=== PATIENT | female | born 1950 | race Caucasian/White ===

== ENCOUNTER → 2016-08-20 | Outpatient (CLI) | payer BC ==
[~2016-08-20] MED LIST: AMLO-114 PO; ASPCH81 PO; CALCIUM CITRATE PO; CHOLTAB3 PO; CLC150 PO; DYZ PO; EVENING PRIMROSE OIL PO; GLC5 PO; GLC500 PO; GLCS500 PO; GRAPE SEED OIL PO; LCTX PO; LEVO50TA60 PO; LISI-725 PO; MAGN400T6 PO; MILK THISTLE PO; MULT-506 PO; SIMV20TA2 PO; SITA100T3 PO
[2016-08-20 12:36] LABS: THYROID STIMULATING HORMONE 2.04 uIu/ml (0.300-4.500)
[2016-08-20 12:56] LABS: ESTIMATED AVERAGE GLUCOSE 128 mg/dl; HA1C FLAG Normal (Normal)
--- NOTE | 2016-08-25 13:10 | CODING QUERY MEDICAL NECESSITY ---
SUPPORTING DIAGNOSIS NEEDED A supporting diagnosis is required for the test/procedure performed on this patient in order for us to be reimbursed by the patient's insurance. Please provide a supporting diagnosis for the following test/procedure listed below next to the test name along with your signature. *If there is no additional diagnosis for this patient that would support the following test/procedure please document that below next to the test/procedure. Test(s)/Procedure(s) that require a supporting diagnosis: DOS 08/20 * Hba1c DIAGNOSIS: Provider Signature: Date: Thank you [facility] Once completed, please kindly fax back to [phone] For questions please call [phone]
== END | disposition home or self-care (01) ==
LOC: C.LABPVFM 09:05
PROVIDERS: ATTEND Internal Medicine Endocrinology, Diabetes & Metabolism
DX: E03.9 Hypothyroidism, unspecified (principal); E11.9 Type 2 diabetes mellitus without complications

== ENCOUNTER → 2016-09-18 | Outpatient (CLI) | payer BC ==
[2016-09-18 12:52] LABS: BLOOD UREA NITROGEN 15 mg/dl (7-18); BUN/CREATININE RATIO 16.5 (10-20); CARBON DIOXIDE 30 mmol/L (21-32); CHLORIDE 108 mmol/L (98-107); CHOLESTEROL 194 mg/dl (0-200); CREATININE 0.89 mg/dl (0.60-1.20); GLUCOSE 112 mg/dl (70-99); POTASSIUM 3.6 mmol/L (3.5-5.1); SODIUM 145 mmol/L (136-145)
[2016-09-18 12:56] LABS: CHOLESTEROL/HDL RATIO 3.9; HDL CHOLESTEROL 50 mg/dl; LDL CHOLESTEROL CALCULATED 114 mg/dl; TRIGLYCERIDES 152 mg/dl (0-150); VERY LOW DENSITY LIPOPROT CALC 30 mg/dl
[2016-09-18 13:03] LABS: CALCIUM 9.2 mg/dl (8.5-10.1)
== END | disposition home or self-care (01) ==
LOC: C.LAB1850 10:44
PROVIDERS: ATTEND Nurse Practitioner
DX: E11.9 Type 2 diabetes mellitus without complications (principal); I10 Essential (primary) hypertension; E78.1 Pure hyperglyceridemia; E55.9 Vitamin D deficiency, unspecified

== ENCOUNTER → 2017-04-19 | Outpatient (CLI) | payer BC ==
--- NOTE | 2017-04-19 13:08 | DIAGNOSTIC IMAGING REPORT ---
RIGHT TIBIA AND FIBULA 2 VIEWS CLINICAL HISTORY: Cellulitis. FINDINGS: AP and lateral views of the right tibia and fibula are obtained. No prior studies are available for comparison at the time of dictation. The skeletal structures are osteopenic. No acute fracture is seen. Mild cortical irregularity of the distal fibular shaft may be related to remote trauma. Arthritic change is present in the knee and ankle joints. No periostitis or bony erosion is seen. A dorsal calcaneal enthesophyte is observed. Mild soft tissue edema is present throughout the right calf. Atherosclerotic calcification is observed in the regional arteries. IMPRESSION: 1. Diffuse soft tissue swelling with no acute bony abnormality identified involving the right tibia or fibula. 2. Osteopenia and degenerative change as above. Electronically signed by: Mateo Davis M.D. 04/19/2017 1:07 PM Dictated Date/Time: 04/19/2017 1:05 PM
== END | disposition home or self-care (01) ==
LOC: C.RADPV 10:31
PROVIDERS: ATTEND Family Medicine
DX: M85.861 Other specified disorders of bone density and structure, right lower leg (principal); M85.862 Other specified disorders of bone density and structure, left lower leg; M17.11 Unilateral primary osteoarthritis, right knee; M19.071 Primary osteoarthritis, right ankle and foot; L03.90 Cellulitis, unspecified

== ENCOUNTER 2019-12-02 14:04 | Inpatient (IN) ==
[2019-12-02] MEDS ORDERED: MAGNESIUM SULFATE / D5W 1 GM/100 ML BAG IV STA (14:26)
[2019-12-02] MEDS ORDERED: ACETAMINOPHEN 1,000 MG/100 ML VIAL IV STA (14:26)
--- NOTE | 2019-12-02 14:42 | Electrocardiogram Report ---
Test Reason : Blood Pressure : / mmHG Vent. Rate : 056 BPM Atrial Rate : 056 BPM P-R Int : 180 ms QRS Dur : 154 ms QT Int : 480 ms P-R-T Axes : 059 025 015 degrees QTc Int : 463 ms Sinus bradycardia Right bundle branch block with repolarization abnormality Abnormal ECG When compared with ECG of 20-APR-2019 17:49, Criteria for Inferior infarct are no longer Present QT has shortened Confirmed by Levi Jenkins ([id number]) on 12/02/2019 2:41:45 PM Referred By: Confirmed By:Levi Jenkins
[2019-12-02] MEDS ORDERED: cefTRIAXone SODIUM 2,000 MG/70 ML BAG IV STA (14:43)
[2019-12-02] MEDS ORDERED: DOXYCYCLINE HYCLATE 100 MG CAP PO STA (14:43)
--- NOTE | 2019-12-02 14:46 | Emergency Department Note ---
History of Present Illness General Chief complaint: Back Injury/Pain Stated complaint: hip & back pain Time Seen by Provider: 12/02/19 14:15 Source: patient, EMS, RN notes reviewed and old records reviewed Mode of arrival: EMS Limitations: no limitations History of Present Illness Provider complaint: Left hip pain Onset (ago): day(s) 2 Location: hip, lower extremity and left Radiation: back Severity: severe Pain Consistency: + intermittent Current Pain Intensity: 0 Quality: + aching Relieved By: + immobilization Exacerbated By: + movement Associated symptoms: + other (double vision, rash) Treatments prior to arrival: none This is a 69-year-old female who presents emergency department complaining of double vision as well as left hip pain that has been ongoing for the past 2 days. The patient reports she had been working out in her garden when she developed hip pain that has progressively gotten worse. She reports the hip pain is so severe she can no longer walk on the hip or sit up on the left hip. In addition to this she has double vision. She also has a rash present to the left hip area at the left inguinal groin. She reports she does have a history of Lyme disease. She describes the hip pain as burning. She reports sitting or walking makes the hip pain worse however reclining makes the hip pain better. She reports she has been walking on all fours to get around her house for at least 2 days. Home Medications Home Medications Medication Instructions Recorded Confirmed Type multivitamin 1 tab PO BID #0 05/21/10 12/02/19 History Hyaluronic Acid (chond-collgn) 1 cap PO BID #0 01/27/18 12/02/19 History [place] Oil 1,000 mg PO HS #0 01/27/18 12/02/19 History ascorbic acid (vitamin C) [Vitamin 1,000 mg PO QAM #0 01/27/18 12/02/19 History C With Lucia Hips] aspirin 81 mg PO HS #0 01/27/18 12/02/19 History bilberry fruit extract 80 mg PO QAM #0 01/27/18 12/02/19 History cholecalciferol (vitamin D3) 1,000 inter.unit PO HS PRN #0 01/27/18 12/02/19 History [Vitamin D3] coenzyme Q10 [Co Q-10] 200 mg PO HS #0 01/27/18 12/02/19 History omega-3 fatty acids-fish oil [Fish 1 cap PO TID #0 01/27/18 12/02/19 History Oil] milk thistle 250 mg PO BID 01/28/18 12/02/19 History fenofibrate nanocrystallized 48 mg PO HS 04/20/19 12/02/19 History [Tricor] fenofibrate nanocrystallized 96 mg PO QAM 04/20/19 12/02/19 History [Tricor] metformin [Glucophage] 500 mg PO BID 04/20/19 12/02/19 History amlodipine 10 mg-benazepril 20 mg 1 cap PO HS #90 cap 08/15/19 12/02/19 Rx capsule levothyroxine 88 mcg tablet 88 mcg PO DAILY #90 tab 08/31/19 12/02/19 Rx triamterene 37.5 1 tab PO DAILY #90 tab 09/26/19 12/02/19 Rx mg-hydrochlorothiazide 25 mg tablet Lantus Solostar U-100 Insulin 100 27 units SC HS #30 ml NS 10/19/19 12/02/19 Rx unit/mL (3 mL) subcutaneous pen insulin aspart U-100 [Novolog 4 unit SC DIRECTED 12/02/19 12/02/19 History Flexpen U-100 Insulin] Allergies Allergy/AdvReac Type Severity Reaction Status Date / Time bee venom protein (honey bee) Allergy Severe Anaphylaxis Verified 12/02/19 16:23 latex Allergy Mild REDNESS, Verified 12/02/19 16:23 HURTS monosodium glutamate AdvReac Mild restless Verified 12/02/19 22:51 leg syndrome Past Med/Surg History Medical History Cervical radiculopathy Tubular adenoma Surgical History H/O umbilical hernia repair 05/22/2010 History of cataract surgery 4 mg of versed for prior cataract without apparent complications History of cholecystectomy 05/22/2010 History of colonoscopy History of esophagogastroduodenoscopy (EGD) History of tonsillectomy Family History Father Family history of diabetes mellitus Diabetes Hypertension Sister Cancer Grandfather No problems noted. 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 Other Information That Helps Us Care for You: No Feels Safe at Home: Yes Safety Concerns: Feels Safe At This Time Smoking Status: Never smoker Do You Dip or Chew Tobacco: No ; Second Hand Exposure: No ; Tobacco Cessation Education Requested by Patient: No Hx Alcohol Use: Yes (occassional) Alcohol type: wine Alcohol Intake Frequency: Weekly Hx Substance Use: No Dental Care, Regularly: Yes Physical Activity Frequency: Does not Exercise Review of Systems A total of 10 systems reviewed and were otherwise negative Physical Exam Vital Signs Vital Signs - 24 hr 12/02/19 16:40 12/02/19 16:50 12/02/19 18:08 Pulse Rate 60 59 L 59 L Pulse Rate from SpO2 Sensor 60 59 L Respiratory Rate 19 21 13 Blood Pressure Blood Pressure Mean Pulse Oximetry 90 91 Oxygen Delivery Method Room Air Room Air Room Air 12/02/19 18:10 12/02/19 18:20 12/02/19 18:30 Pulse Rate 61 57 L 60 Pulse Rate from SpO2 Sensor 56 L 60 Respiratory Rate 17 15 18 Blood Pressure Blood Pressure Mean Pulse Oximetry 90 97 Oxygen Delivery Method Room Air Room Air Room Air 12/02/19 18:32 12/02/19 18:40 12/02/19 20:00 Pulse Rate 81 55 L 53 L Pulse Rate from SpO2 Sensor 60 55 L Respiratory Rate 29 H 22 16 Blood Pressure 133/62 Blood Pressure Mean 110 85 Pulse Oximetry 96 91 92 Oxygen Delivery Method Room Air Room Air Room Air VITAL SIGNS - Vital signs and nursing notes were reviewed. GENERAL - 69-year-old female appearing stated age who is in no acute distress. Communicates well with provider and answers questions appropriately. SKIN - Approximate 2" x2" nonblanching rash to left groin area HEAD - NC/AT. EYES - PERRL with EOMI bilaterally. Sclera anicteric. Palpebral conjunctiva pink and moist with no injection noted. EARS - No deformities of external structures noted on gross examination bilaterally. No pain elicited with palpation of the tragus bilaterally. External auditory canals without discharge or otorrhea. Tympanic membranes pearly العلي without retraction or bulging. No fluid or purulent material visualized behind the TM. Handle of malleus, umbo, cone of light, pars tensa/flaccid all easily visualized. NOSE - Midline and without cyanosis. No epistaxis or purulent drainage noted. Septum midline without deviation or septal hematoma noted. MOUTH/OROPHARYNX - Without perioral cyanosis. Buccal mucosa pink and moist and without leukoplakia. Tongue midline with equal elevation of palate bilaterally. No tonsillar hypertrophy, erythema, or exudates noted. [] dentition noted. NECK - Neck with FROM. Supple to palpation. [] lymphadenopathy noted. No nuchal rigidity. LUNGS - Chest wall symmetric without accessory muscle use, intercostals retractions, or central cyanosis. Normal vesicular breath sounds CTA B/L. No wheezes, rales, or rhonchi appreciated. CARDIAC - RRR with S1/S2. No murmur, rubs, or gallops appreciated. ABDOMEN - Abdominal contour [] without pulsations or visible masses. BS normoactive all four quadrants. No tenderness, palpable masses, hepatosplenomegaly, or ascites noted. EXTREMITIES - No clubbing or peripheral cyanosis. No pretibial edema present. +3/5 radial, posterior tibial, and dorsalis pedis pulses palpated throughout. +5/5 strength noted in UE/LE bilaterally. NEUROLOGIC - Cranial nerves II through XII grossly intact. Sensory intact to light touch throughout. Patellar reflexes +2/4. PSYCH - A&Ox3 and cooperates fully with examiner. Pt is very pleasant and interacts well with examiner. Procedures Lumbar Puncture Time Out Performed: Yes Patient Position: upright Skin Prep: Povidone-Iodine 1% Local Anesthetic: lidocaine 1% Amount of anesthesia used (mL): 5 Spinal Needle Gauge: 20G Interspace Used: L4-L5 Complications: unable to obtain CSF Course Administered Medications Acetaminophen (Tylenol) 650 mg PO Q4H PRN PRN Reason: Pain or Fever Stop: 01/01/20 22:29 Last Admin: 12/03/19 03:09 Dose: 650 mg Documented by: [id number] Ascorbic Acid (Vitamin C) 1,000 mg PO QAM [facility] Stop: 01/02/20 08:59 Last Admin: 12/03/19 08:28 Dose: 1,000 mg Documented by: [id number] Aspirin (Ecotrin Ectab) 81 mg PO HS [facility] Stop: 01/01/20 22:29 Last Admin: 12/02/19 23:37 Dose: 81 mg Documented by: [id number] Fenofibrate (Fenofibrate) 96 mg PO QAM [facility] Stop: 01/02/20 08:59 Last Admin: 12/03/19 08:28 Dose: 96 mg Documented by: [id number] Fenofibrate (Fenofibrate) 48 mg PO HS [facility] Stop: 01/01/20 22:29 Last Admin: 12/02/19 23:37 Dose: 48 mg Documented by: [id number] Heparin Sodium (Porcine) (Heparin Sodium (Porcine)) 5,000 units SQ Q12 [facility] Stop: 01/01/20 22:29 Last Admin: 12/03/19 08:27 Dose: 5,000 units Documented by: [id number] Cosigned by: [id number] Admin: 12/02/19 23:37 Dose: 5,000 units Documented by: [id number] Cosigned by: [id number] Vancomycin HCl 1,000 mg/ (Sodium Chloride) 270 mls @ 125 mls/hr IV Q12H [facility]; Protocol Stop: 12/10/19 09:59 Last Infusion: 12/03/19 12:12 Dose: 0 mls/hr Documented by: [id number] Admin: 12/03/19 10:02 Dose: 125 mls/hr Documented by: [id number] Doxycycline Hyclate 100 mg/ (Dextrose) 110 mls @ 50 mls/hr IV Q12H [facility] Stop: 12/10/19 05:59 Last Infusion: 12/03/19 08:10 Dose: 0 mls/hr Documented by: [id number] Admin: 12/03/19 05:53 Dose: 50 mls/hr Documented by: [id number] Acyclovir Sodium 600 mg/ (Dextrose) 112 mls @ 100 mls/hr IV Q8 [facility] Stop: 12/09/19 22:29 Last Infusion: 12/03/19 14:58 Dose: 0 mls/hr Documented by: [id number] Admin: 12/03/19 13:49 Dose: 100 mls/hr Documented by: [id number] Infusion: 12/03/19 07:06 Dose: 0 mls/hr Documented by: [id number] Admin: 12/03/19 05:52 Dose: 100 mls/hr Documented by: [id number] Infusion: 12/03/19 00:49 Dose: 0 mls/hr Documented by: [id number] Admin: 12/02/19 23:38 Dose: 100 mls/hr Documented by: [id number] Potassium Chloride/Sodium Chloride (Normal Saline W/20 Meq Kcl) 20 meq in 1,000 mls @ 80 mls/hr IV .[id number] [facility]HSA Stop: 01/01/20 22:44 Last Infusion: 12/03/19 15:34 Dose: 0 mls/hr Documented by: [id number] Admin: 12/03/19 12:04 Dose: 80 mls/hr Documented by: [id number] Infusion: 12/03/19 12:04 Dose: 80 mls/hr Documented by: [id number] Infusion: 12/03/19 00:00 Dose: 80 mls/hr Documented by: [id number] Infusion: 12/02/19 23:39 Dose: 0 mls/hr Documented by: [id number] Admin: 12/02/19 23:38 Dose: 80 mls/hr Documented by: [id number] Insulin Aspart (Novolog Flexpen) 0 units SC ACHS [facility] Stop: 01/01/20 22:29 Last Admin: 12/03/19 12:04 Dose: 7 units Documented by: [id number] Cosigned by: [id number] Admin: 12/03/19 08:27 Dose: 7 units Documented by: [id number] Cosigned by: [id number] Admin: 12/02/19 23:36 Dose: Not Given Documented by: [id number] Insulin Glargine (Lantus Solostar Pen) 15 units SC HS [facility] Stop: 01/01/20 22:29 Last Admin: 12/03/19 00:37 Dose: Not Given Documented by: [id number] Ioversol (Optiray 320 125ml) 119 ml IV ONCE PRN PRN Reason: Interaction Checking Stop: 12/06/19 15:00 Last Admin: 12/02/19 15:02 Dose: 119 ml Documented by: [id number] Ioversol (Optiray 320 100ml) 91 ml IV ONCE PRN PRN Reason: Interaction Checking Stop: 12/07/19 14:45 Last Admin: 12/03/19 14:47 Dose: 91 ml Documented by: [id number] Levothyroxine Sodium (Synthroid) 88 mcg PO DAILYBB [facility]SA Stop: 01/02/20 06:29 Last Admin: 12/03/19 05:54 Dose: 88 mcg Documented by: [id number] Discontinued Medications Doxycycline Hyclate (Vibramycin) 100 mg PO NOW STA Stop: 12/02/19 14:44 Last Admin: 12/02/19 15:45 Dose: 100 mg Documented by: [id number] Hydromorphone HCl (Dilaudid) Confirm Administered Dose 0.5 mg .ROUTE .STK-MED ONE Stop: 12/02/19 19:38 Last Admin: 12/02/19 19:41 Dose: 0.5 mg Documented by: [id number] Magnesium Sulfate/Dextrose (Magnesium Sulfate / D5w) 1 gm in 100 mls @ 100 mls/hr IV NOW STA Stop: 12/02/19 15:25 Last Infusion: 12/02/19 16:50 Dose: 0 mls/hr Documented by: [id number] Admin: 12/02/19 15:40 Dose: 100 mls/hr Documented by: [id number] Acetaminophen (Ofirmev) 1,000 mg in 100 mls @ 400 mls/hr IV NOW STA Stop: 12/02/19 14:40 Last Infusion: 12/02/19 15:57 Dose: 0 mls/hr Documented by: [id number] Admin: 12/02/19 15:42 Dose: 400 mls/hr Documented by: [id number] Ceftriaxone Sodium (Rocephin) 2,000 mg in 70 mls @ 140 mls/hr IV NOW STA Stop: 12/02/19 15:12 Last Infusion: 12/02/19 16:24 Dose: 0 mls/hr Documented by: [id number] Admin: 12/02/19 15:51 Dose: 140 mls/hr Documented by: [id number] Potassium Chloride (K Lamont / Wtr) 10 meq in 100 mls @ 100 mls/hr IV Q1H [facility] Stop: 12/02/19 17:14 Last Infusion: 12/02/19 20:58 Dose: 0 mls/hr Documented by: [id number] Admin: 12/02/19 19:01 Dose: 100 mls/hr Documented by: [id number] Infusion: 12/02/19 18:54 Dose: 0 mls/hr Documented by: [id number] Admin: 12/02/19 16:23 Dose: 100 mls/hr Documented by: [id number] Vancomycin HCl 1,500 mg/ (Sodium Chloride) 530 mls @ 200 mls/hr IV NOW ONE Stop: 12/02/19 21:56 Last Infusion: 12/02/19 23:52 Dose: 0 mls/hr Documented by: [id number] Admin: 12/02/19 20:10 Dose: 200 mls/hr Documented by: [id number] Ondansetron HCl (Zofran) 4 mg IV NOW STA Stop: 12/02/19 15:07 Last Admin: 12/02/19 15:45 Dose: 4 mg Documented by: [id number] Potassium Chloride (Klor-Con M20) 40 meq PO NOW STA Stop: 12/02/19 15:07 Last Admin: 12/02/19 15:45 Dose: 40 meq Documented by: [id number] Potassium Chloride (Klor-Con M20) 40 meq PO NOW STA Stop: 12/02/19 19:01 Last Admin: 12/02/19 19:22 Dose: 40 meq Documented by: [id number] Medical Decision Making Differential Diagnosis Infection, dehydration, metabolic abnormality, hypo/hyperglycemia, electrolyte disturbance, anemia, hypoxia, cardiac sources, intracerebral event, toxicologic, neurologic, as well as other pathologies. Medical Records Attestation: I reviewed the patient's medical records. Home Medications Current Medication List: was personally reviewed by me Laboratory Data Attestation: I reviewed the patient's lab results. Result diagrams: 12/02/19 14:32 12/03/19 05:56 Lab Results 12/02/19 12/02/19 12/02/19 Range/Units 14:32 14:32 14:32 WBC 8.83 (4.8-10.8) K/uL RBC 4.48 (4.2-5.4) M/uL Hgb 12.5 (12.0-16.0) g/dL POC Hgb (12.0-16.0) g/dl Hct 36.9 L (37-47) % POC Hct (37-47) % MCV 82.4 (80-100) fL MCH 27.9 (25-34) pg MCHC 33.9 (32-36) g/dL RDW Std Deviation 44.9 (36.4-46.3) fL RDW Coeff of Ariel 14.9 H (11.5-14.5) % Plt Count 315 (130-400) K/uL MPV 9.5 (7.4-10.4) fL Immature Gran % (Auto) 0.2 % Neut % (Auto) 86.0 % Lymph % (Auto) 6.8 % Darke % (Auto) 6.7 % Eos % (Auto) 0.1 % Baso % (Auto) 0.2 % Neut # (Auto) 7.59 H (1.4-6.5) K/uL Lymph # (Auto) 0.60 L (1.2-3.4) K/uL Darke # (Auto) 0.59 (0.11-0.59) K/uL Eos # (Auto) 0.01 (0-0.5) K/uL Baso # (Auto) 0.02 (0-0.2) K/uL Immature Gran # (Auto) 0.02 (0.00-0.02) K/uL Absolute Nucleated RBC 0.00 (0-0) K/uL Nucleated RBC % (auto) 0.0 % Peripher Smr Path Cons Cancelled ESR (0-21) mm/hr PT 10.9 (9.0-12.0) Seconds INR 1.0 (0.9-1.1) APTT 25.8 (21.0-31.0) Seconds PTT Ratio 0.9 POC Sodium (135-144) mmol/L Sodium (136-145) mmol/L POC Potassium (3.3-5.0) mmol/L Potassium (3.5-5.1) mmol/L POC Chloride (101-112) mmol/L Chloride (98-107) mmol/L Carbon Dioxide (21-32) mmol/L POC Total CO2 (24-31) mmol/L Anion Gap (3-11) POC Anion Gap (16-25) mmol/L POC BUN (7-18) mg/dl BUN (7-18) mg/dl Creatinine (0.6-1.2) mg/dl POC Creatinine (0.6-1.3) mg/dl Est Cr Clr Drug Dosing ml/min Est GFR ( Amer) Est GFR (Non-Af Amer) BUN/Creatinine Ratio (10-20) Glucose (70-99) mg/dl POC Glucose (other) (70-99) mg/dl Lactate (0.4-2.0) mmol/L Calcium (8.5-10.1) mg/dl POC Ioniz Calcium Esther (1.12-1.32) mmol/l Magnesium (1.8-2.4) mg/dl Total Bilirubin (0.2-1) mg/dl AST (15-37) U/L ALT (12-78) U/L Alkaline Phosphatase (45-117) U/L CK-MB (CK-2) (0.5-3.6) ng/ml Troponin I (0-0.045) ng/ml Total Protein (6.4-8.2) gm/dl Albumin (3.4-5.0) gm/dl Globulin (2.5-4.0) gm/dl Albumin/Globulin Ratio (0.9-2) Urine Color Urine Appearance (Clear) Urine pH (4.5-7.5) Ur Specific [place] (1.000-1.030) Urine Protein (Negative) Urine Glucose (UA) (Negative) Urine Ketones (Negative) Urine Blood (Negative) Urine Nitrite (Negative) Urine Bilirubin (Negative) Urine Urobilinogen (Negative) Ur Leukocyte Esterase (Negative) Urine WBC (Auto) (0-5) /hpf Urine RBC (Auto) (0-4) /hpf U Hyaline Cast (Auto) (0-5) /lpf U Epithel Cells (Auto) (0-5) /lpf Urine Bacteria (Auto) (Negative) Anaplasma Smear See Comment Lyme Disease IgG Ab Negative (Negative) Lyme Disease IgM Ab Negative (Negative) 12/02/19 12/02/19 12/02/19 Range/Units 14:32 14:32 14:32 WBC (4.8-10.8) K/uL RBC (4.2-5.4) M/uL Hgb (12.0-16.0) g/dL POC Hgb (12.0-16.0) g/dl Hct (37-47) % POC Hct (37-47) % MCV (80-100) fL MCH (25-34) pg MCHC (32-36) g/dL RDW Std Deviation (36.4-46.3) fL RDW Coeff of Ariel (11.5-14.5) % Plt Count (130-400) K/uL MPV (7.4-10.4) fL Immature Gran % (Auto) % Neut % (Auto) % Lymph % (Auto) % Darke % (Auto) % Eos % (Auto) % Baso % (Auto) % Neut # (Auto) (1.4-6.5) K/uL Lymph # (Auto) (1.2-3.4) K/uL Darke # (Auto) (0.11-0.59) K/uL Eos # (Auto) (0-0.5) K/uL Baso # (Auto) (0-0.2) K/uL Immature Gran # (Auto) (0.00-0.02) K/uL Absolute Nucleated RBC (0-0) K/uL Nucleated RBC % (auto) % Peripher Smr Path Cons ESR 18 (0-21) mm/hr PT (9.0-12.0) Seconds INR (0.9-1.1) APTT (21.0-31.0) Seconds PTT Ratio POC Sodium (135-144) mmol/L Sodium 134 L (136-145) mmol/L POC Potassium (3.3-5.0) mmol/L Potassium 3.2 L (3.5-5.1) mmol/L POC Chloride (101-112) mmol/L Chloride 99 (98-107) mmol/L Carbon Dioxide 26 (21-32) mmol/L POC Total CO2 (24-31) mmol/L Anion Gap 9.0 (3-11) POC Anion Gap (16-25) mmol/L POC BUN (7-18) mg/dl BUN 13 (7-18) mg/dl Creatinine 0.85 (0.6-1.2) mg/dl POC Creatinine (0.6-1.3) mg/dl Est Cr Clr Drug Dosing 57.8 ml/min Est GFR ( Amer) 81.6 Est GFR (Non-Af Amer) 70.4 BUN/Creatinine Ratio 15.9 (10-20) Glucose 187 H (70-99) mg/dl POC Glucose (other) (70-99) mg/dl Lactate 1.2 (0.4-2.0) mmol/L Calcium 8.9 (8.5-10.1) mg/dl POC Ioniz Calcium Esther (1.12-1.32) mmol/l Magnesium 1.8 (1.8-2.4) mg/dl Total Bilirubin 0.6 (0.2-1) mg/dl AST 63 H (15-37) U/L ALT 79 H (12-78) U/L Alkaline Phosphatase 101 (45-117) U/L CK-MB (CK-2) < 1.0 (0.5-3.6) ng/ml Troponin I < 0.015 (0-0.045) ng/ml Total Protein 6.6 (6.4-8.2) gm/dl Albumin 2.8 L (3.4-5.0) gm/dl Globulin 3.8 (2.5-4.0) gm/dl Albumin/Globulin Ratio 0.7 L (0.9-2) Urine Color Urine Appearance (Clear) Urine pH (4.5-7.5) Ur Specific [place] (1.000-1.030) Urine Protein (Negative) Urine Glucose (UA) (Negative) Urine Ketones (Negative) Urine Blood (Negative) Urine Nitrite (Negative) Urine Bilirubin (Negative) Urine Urobilinogen (Negative) Ur Leukocyte Esterase (Negative) Urine WBC (Auto) (0-5) /hpf Urine RBC (Auto) (0-4) /hpf U Hyaline Cast (Auto) (0-5) /lpf U Epithel Cells (Auto) (0-5) /lpf Urine Bacteria (Auto) (Negative) Anaplasma Smear Lyme Disease IgG Ab (Negative) Lyme Disease IgM Ab (Negative) 12/02/19 12/02/19 Range/Units 14:43 16:27 WBC (4.8-10.8) K/uL RBC (4.2-5.4) M/uL Hgb (12.0-16.0) g/dL POC Hgb 12.2 (12.0-16.0) g/dl Hct (37-47) % POC Hct 36 L (37-47) % MCV (80-100) fL MCH (25-34) pg MCHC (32-36) g/dL RDW Std Deviation (36.4-46.3) fL RDW Coeff of Ariel (11.5-14.5) % Plt Count (130-400) K/uL MPV (7.4-10.4) fL Immature Gran % (Auto) % Neut % (Auto) % Lymph % (Auto) % Darke % (Auto) % Eos % (Auto) % Baso % (Auto) % Neut # (Auto) (1.4-6.5) K/uL Lymph # (Auto) (1.2-3.4) K/uL Darke # (Auto) (0.11-0.59) K/uL Eos # (Auto) (0-0.5) K/uL Baso # (Auto) (0-0.2) K/uL Immature Gran # (Auto) (0.00-0.02) K/uL Absolute Nucleated RBC (0-0) K/uL Nucleated RBC % (auto) % Peripher Smr Path Cons ESR (0-21) mm/hr PT (9.0-12.0) Seconds INR (0.9-1.1) APTT (21.0-31.0) Seconds PTT Ratio POC Sodium 134 L (135-144) mmol/L Sodium (136-145) mmol/L POC Potassium 3.2 L (3.3-5.0) mmol/L Potassium (3.5-5.1) mmol/L POC Chloride 97 L (101-112) mmol/L Chloride (98-107) mmol/L Carbon Dioxide (21-32) mmol/L POC Total CO2 24 (24-31) mmol/L Anion Gap (3-11) POC Anion Gap 17.0 (16-25) mmol/L POC BUN 12 (7-18) mg/dl BUN (7-18) mg/dl Creatinine (0.6-1.2) mg/dl POC Creatinine 0.7 (0.6-1.3) mg/dl Est Cr Clr Drug Dosing ml/min Est GFR ( Amer) Est GFR (Non-Af Amer) BUN/Creatinine Ratio (10-20) Glucose (70-99) mg/dl POC Glucose (other) 191 H (70-99) mg/dl Lactate (0.4-2.0) mmol/L Calcium (8.5-10.1) mg/dl POC Ioniz Calcium Esther 1.16 (1.12-1.32) mmol/l Magnesium (1.8-2.4) mg/dl Total Bilirubin (0.2-1) mg/dl AST (15-37) U/L ALT (12-78) U/L Alkaline Phosphatase (45-117) U/L CK-MB (CK-2) (0.5-3.6) ng/ml Troponin I (0-0.045) ng/ml Total Protein (6.4-8.2) gm/dl Albumin (3.4-5.0) gm/dl Globulin (2.5-4.0) gm/dl Albumin/Globulin Ratio (0.9-2) Urine Color Yellow Urine Appearance Clear (Clear) Urine pH 6.5 (4.5-7.5) Ur Specific [place] 1.036 H (1.000-1.030) Urine Protein Negative (Negative) Urine Glucose (UA) Negative (Negative) Urine Ketones Negative (Negative) Urine Blood Negative (Negative) Urine Nitrite Negative (Negative) Urine Bilirubin Negative (Negative) Urine Urobilinogen Negative (Negative) Ur Leukocyte Esterase Trace H (Negative) Urine WBC (Auto) 5-10 H (0-5) /hpf Urine RBC (Auto) 0-4 (0-4) /hpf U Hyaline Cast (Auto) 0 (0-5) /lpf U Epithel Cells (Auto) 10-20 H (0-5) /lpf Urine Bacteria (Auto) Negative (Negative) Anaplasma Smear Lyme Disease IgG Ab (Negative) Lyme Disease IgM Ab (Negative) Imaging Data Radiologist's Impression: [place], [place] [phone] CT Scan Report Patient: STANISLAV LÓPEZ Date: 12/02/19 MR#: [id number] Acct ID:[id number]: Date: [address] [place] [address] Zip: [place] [address] Age: 69Location: 2N Sex: F Room/Bed: [facility] Att Phy: Maylin Dominguez MDDiagnosis: DIPLOPIA, CELLULITIS OF LLE, HIP PAIN Irina Phy: Corrie Ahumada, MDService Date: 12/02/19 Fam Phy:Interpreting Phy: Timothy Grayson Admit Phy: Gregorio Aguiar M.D. Ordering Phy: Bo Hill MD cc: ~ CT pelvis wo con HISTORY: 69 years-old Female Pt c/o left hip pain acute left hip pain status post fall COMPARISON: CT abdomen and pelvis 04/20/2019 TECHNIQUE: Multiple axial CT images of the pelvis were obtained without the use of IV contrast. A dose lowering technique was used consistent with the principals of ALARA. FINDINGS: Hepatomegaly with hepatic steatosis. Fibroid uterus. No bowel obstruction or b owel wall thickening identified. Moderate urinary bladder distention with excreted contrast in the urinary bladder lumen. Calcified plaque of the aorta common iliac and femoral arteries. Spondylitic spurring and facet arthrosis of the lumbar spine. Severe disc space narrowing at L5-S1. 7 mm anterolisthesis L4 on L5 is likely secondary to long- standing facet arthrosis. This results in at least moderate central canal stenosis. Moderate degeneration of the SI joints. No evidence of sacral insuffic iency fracture. There are scattered sclerotic foci of the pelvis and proximal femora which are subcentimeter and unchanged suggestive of probable bone islands. Severe degeneration of the pubic symphysis. No acute fracture, avascular necrosis or dislocation. Mild to moderate osteoarthritis of the fem oral acetabular joints. IMPRESSION: 1. 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 2. No acute fracture, dislocation or avascular necrosis. 3. Additional findings as above. ACT 112: Negative or not required by law. The above report was generated using voice recognition software. It may contain grammatical, syntax or spelling errors. Electronically signed by: Jordan Grayson M.D. 12/03/2019 9:58 AM Dictated: 12/03/19950 Transcribed: 12/03/19950 [place], [place] [phone] XRay Report Patient: STANISLAV LÓPEZ Date: 12/02/19 MR#: [id number]: [address] Acct ID:[id number]: Date: [address] [place] [address] Zip: [place] [address] Age: 69Location: ED Sex: F Room/Bed: Att Phy:Diagnosis: hip & back pain Irina Phy: Corrie Ahumada, MDService Date: 12/02/19 Fam Phy:Interpreting Phy: Samir Ahumada MD Admit Phy: Ordering Phy: Bo Hill MD cc: ~ XR femur LT 2V routine CLINICAL HISTORY: Left hip pain. COMPARISON: CT of the abdomen and pelvis April 20, 2019. FINDINGS: Note is made of contrast within the bladder from recent contrast- enhanced CT. No acute fracture within the left femur is noted. Alignment of the left hip and left knee is anatomic. There is extensive vascular calcification. There is mild medial compartment osteoarthritis of the left knee. IMPRESSION: No acute fracture of the left femur. ACT 112: Negative or not required by law. Electronically signed by: Samir Ahumada M.D. 12/02/2019 4:22 PM Dictated: 12/02/19 1621 Transcribed: 12/02/19 1621 [place], [place] [phone] XRay Report Patient: STANISLAV LÓPEZ Date: 12/02/19 MR#: [id number]: [address] Acct ID:[id number]: Date: [address] [place] [address] Zip: [place] [address] Age: 69Location: ED Sex: F Room/Bed: Att Phy:Diagnosis: hip & back pain Irina Phy: Corrie Ahumada, MDService Date: 12/02/19 [facility] Phy:Interpreting Phy: Samir Ahumada MD Admit Phy: Ordering Phy: Bo Hill MD cc: ~ XR pelvis 1-2V routine CLINICAL HISTORY: Left hip pain. COMPARISON: CT of the abdomen and pelvis April 20, 2019. FINDINGS: Note is made of contrast within the bladder from recent contrast- enhanced CT. This obscures the sacrum and medial pubic bones. No acute fracture is identified within the pelvis or hips. IMPRESSION: No acute fracture identified within the pelvis or hips although medial pubic bones and sacrum partially obscured by contrast within the bladder. ACT 112: Negative or not required by law. Electronically signed by: Samir Ahumada M.D. 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 FINDINGS: Lung volumes are normal. Lungs are clear. There is no pneumothorax or pleural effusion. Cardiac size is stable. Mediastinal contours are normal. There is no evidence for pulmonary edema. IMPRESSION: No acute cardiopulmonary findings. No change in appearance of the chest. ACT 112: Negative or not required by law. Electronically signed by: Samir Ahumada M.D. 12/02/2019 4:19 PM Dictated: 12/02/191617 Transcribed: 12/02/198 [place], [place] [phone] CT Scan Report Patient: STANISLAV LÓPEZ Date: 12/02/19 MR#: [id number]: [address] Acct ID:[id number]: Date: [address] [place] [address] Zip: [place] [address] Age: 69Location: ED Sex: F Room/Bed: Att Phy:Diagnosis: hip & back pain Irina Phy: Corrie Ahumada, MDService Date: 12/02/19 Fam Phy:Interpreting Phy: Samir Ahumada MD Admit Phy: Ordering Phy: Bo Hill MD cc: ~ CT OF THE HEAD WITHOUT CONTRAST CLINICAL HISTORY: Stroke evaluation COMPARISON STUDY: No previous studies for comparison. TECHNIQUE: Helical axial images of the head were obtained without IV contrast. Automated exposure control was utilized for the study. A dose lowering techn ique was utilized adhering to the principles of ALARA. FINDINGS: No acute intracranial hemorrhage, midline shift or mass effect is present. The ventricular system is unremarkable. The basilar cisterns are patent. White matter hypodensity suggests small vessel disease. No extra-axial collections are present. There are no findings to suggest acute dural sinus thrombosis or acute territorial infarct. No significant calvarial abnormalities are present. Visualized portions of the sinuses and mastoid air cells are clear. IMPRESSION: No acute intracranial findings. ACT 112: Negative or not required by law. Electronically signed by: Samir Ahumada M.D. 12/02/2019 3:22 PM Dictated: 12/02/19 1519 Transcribed: 12/02/19 1519 [place], [place] [phone] CT Scan Report Patient: STANISLAV LÓPEZ Date: 12/02/19 MR#: [id number]: [address] Acct ID:[id number]: Date: [address] [place] [address] Zip: [place] [address] Age: 69Location: ED Sex: F Room/Bed: Att Phy:Diagnosis: hip & back pain Irina Phy: Corire Ahumada, MDService Date: 12/02/19 Fam Phy:Interpreting Phy: Samir Ahumada MD Admit Phy: Ordering Phy: Bo Hill MD cc: ~ CTA ANGIOGRAPHY OF THE HEAD CLINICAL HISTORY: Stroke evaluation COMPARISON STUDY: No previous studies for comparison. TECHNIQUE: Helical axial images of the head were obtained following uneventful intravenous administration of 119 cc of Optiray 320. Sagittal and coronal reconstructions were viewed as well as maximal intensity projections on an independent 3-D workstation. Automated exposure control was utilized for the study. A dose lowering technique was utilized adhering to the principles of ALARA. CT DOSE: 1012.33 mGy.cm FINDINGS: No acute intracranial hemorrhage, midline shift or mass effect is present. Ventricular system is normal. The basilar cisterns are patent. There are no extra-axial collections. The bilateral M1, M2, A1 and A2 segments are patent. There is mild plaque within the bilateral cavernous carotids. The posterior circulation is intact. There is no intracranial aneurysm. There is no intraluminal thrombus or abrupt vessel cut off. IMPRESSION: No intraluminal thrombus, abrupt vessel cutoff or hemodynamically significant stenosis within the intracranial vessels. ACT 112: Negative or not required by law. Electronically signed by: Samir Ahumada M.D. 12/02/2019 3:35 PM Dictated: 12/02/19 1532 Transcribed: 12/02/19 1532 [facility] [place] [phone] CT Scan Report Patient: STANISLAV LÓPEZ Date: 12/02/19 MR#: [id number]: [address] Acct ID:[id number]: Date: [address] [place] [address] Zip: [place] [address] Age: 69Location: ED Sex: F Room/Bed: Att Phy:Diagnosis: hip & back pain Irina Phy: Corrie Ahumada, MDService Date: 12/02/19 Fam Phy:Interpreting Phy: Samir Ahumada MD Admit Phy: Ordering Phy: Bo Hill MD cc: ~ CT ANGIOGRAPHY OF THE NECK WITH CONTRAST CLINICAL HISTORY: Stroke evaluation COMPARISON STUDY: No previous studies for comparison. Technique: CT angiography of the carotid and vertebral arteries was obtained using Optiray 320 IV and 3D reconstruction on an independent workstation. NASCET criteria was utilized. Automated exposure control was utilized for the study. A dose lowering technique was utilized adhering to the principles of ALARA. Findings: Lung apices are clear. There is asymmetric enlargement of the right thyroid lobe with suspected thyroid nodules. There is no cervical lymphadenopathy. There is no cervical spine fracture. There is moderate stenosis at origin of the right vertebral artery. There is tortuosity of the distal cervical portion of the right vertebral artery. There is no dissection within the major vessels of the neck. There is mild stenosis at the origin of the right external carotid artery. There is mild plaque within the proximal right internal carotid artery without stenosis. There is moderate plaque within the proximal left internal carotid artery without significant stenosis. IMPRESSION: 1. Atherosclerotic plaque within the proximal bilateral internal carotid arteries without significant stenosis. 2. Mild stenosis at the origin of the right external carotid artery. 3. Moderate stenosis at the origin of the right vertebral artery. ACT 112: Negative or not required by law. Electronically signed by: Samir Ahumada M.D. 12/02/2019 3:32 PM Dictated: 12/02/19 1524 ECG Data Attestation: I personally reviewed and interpreted this ECG as follows: Indication: + other ( cranial nerve palsy) Rate (beats per minute): 56 Rhythm: + sinus bradycardia ECG Intervals/blocks: + Right Bundle branch block ECG Avis: + Normal ECG ST segments: no ST depression and no ST elevation Comparison ECG Date: from (04/20/2019) Change: the following changes noted (Ventr rate has decreased) Blood Pressure Blood Pressure Findings: Normal blood pressure MDM Narrative This is a 69-year-old female who presents the emergency department complaining of left hip pain. In addition the patient has a 6th cranial nerve palsy on my examination. Using shared medical decision making with the patient she went for a CAT scan of the pelvis head along with CTAs of the head and neck. CTAs do not show any acute process. She was treated for presumed Lyme with Rocephin as well as doxycycline due to the rash to the left hip. She was then sent for an MRI of the head which also did not show any acute process. I did attempt to do a lumbar puncture on this patient without success. She was given Dilaudid for her pain. I did discuss the case with the hospitalist service who did agree to admit the patient. Patient is in agreement with the treatment plan. She does n ot have an elevation in her white blood cell count and her Lyme titer here so far is negative. Patient was seen and evaluated as above in room B9. Review was performed of nursing notes and vital signs. I did review pertinent previous visits and patient history. After obtaining a thorough history and physical examination the above work up was performed. While in the department, I personally reevaluated the patient several times and each time the patient was found to be resting comfortably. The patient was educated upon management, educated upon todays findings/results, educated upon importance of follow up from today's visit, educated upon symptoms in which to return, had questions answered prior to discharge, verbalized understanding, and was discharged home in good condition. An order was placed for continuous cardiac monitoring. The monitor shows a rate of 62 with Normal Sinus rhythm. The patient was evaluated during the global COVID-19 pandemic, and that diagnosis was suspected/considered upon their initial presentation. Their evaluation, treatment and testing was consistent with current guidelines for patients who present with complaints or symptoms that may be related to COVID- 19. Impression & Plan Left hip pain, Cellulitis of left thigh, Ophthalmoplegia of left eye Discharge Plan Visit Data *Final* Discharge Date/Time: 12/02/19 21:29 Chief Complaint: Back Injury/Pain Stated Complaint: hip & back pain ED Provider: Bo Hill Discharge Problem: Left hip pain, Cellulitis of left thigh, Ophthalmoplegia of left eye Patient Disposition: Admitted As Inpatient Discharge Instructions Interventions: ED Discharge Assessment Last Done: 12/02/19 21:29
[2019-12-02 14:47] LABS: Basophils # (auto) 0.02 K/uL (0-0.2); Basophils % (auto) 0.2 %; Eosinophils # (auto) 0.01 K/uL (0-0.5); Eosinophils % (auto) 0.1 %; Hematocrit (blood only) 36.9 % (37-47); Hemoglobin 12.5 g/dL (12.0-16.0); Immature Granulocytes # (auto) 0.02 K/uL (0.00-0.02); Immature Granulocytes % (auto) 0.2 %; Lymphocytes % (auto) 6.8 %; Mean Corpuscular Hemoglobin 27.9 pg (25-34); Mean Corpuscular Hgb Conc 33.9 g/dL (32-36); Mean Corpuscular Volume 82.4 fL (80-100); Mean Platelet Volume 9.5 fL (7.4-10.4); Monocytes # (auto) 0.59 K/uL (0.11-0.59); Monocytes % (auto) 6.7 %; Neutrophils # (auto) 7.59 K/uL (1.4-6.5); Platelet Count 315 K/uL (130-400); RDW Coefficient of Variation 14.9 % (11.5-14.5); RDW Standard Deviation 44.9 fL (36.4-46.3); Red Blood Count 4.48 M/uL (4.2-5.4); White Blood Count 8.83 K/uL (4.8-10.8)
[2019-12-02 14:55] LABS: iSTAT Creatinine 0.7 mg/dl (0.6-1.3); iSTAT Hemoglobin 12.2 g/dl (12.0-16.0); iSTAT Ionized Calcium 1.16 mmol/l (1.12-1.32); iSTAT Potassium 3.2 mmol/L (3.3-5.0)
[2019-12-02] MEDS ORDERED: OPTIRAY 320 125ml IV PRN (15:01)
[2019-12-02 15:02] LABS: Partial Thromboplastin Ratio 0.9; Partial Thromboplastin Time 25.8 Seconds (21.0-31.0); Prothrombin Time 10.9 Seconds (9.0-12.0)
[2019-12-02 15:04] LABS: Alanine Aminotransferase 79 U/L (12-78); Albumin Level 2.8 gm/dl (3.4-5.0); Aspartate Aminotransferase 63 U/L (15-37); BUN Creatinine Ratio 15.9 (10-20); Blood Urea Nitrogen 13 mg/dl (7-18); Calcium 8.9 mg/dl (8.5-10.1); Carbon Dioxide 26 mmol/L (21-32); Chloride 99 mmol/L (98-107); Creatinine Clr Calc Pharmacy 57.8 ml/min; Est GFR (African American) 81.6; Est GFR (Non-African American) 70.4; Glucose 187 mg/dl (70-99); Magnesium 1.8 mg/dl (1.8-2.4); Potassium 3.2 mmol/L (3.5-5.1); Sodium 134 mmol/L (136-145)
[2019-12-02] MEDS ORDERED: ONDANSETRON INJ 2 MG/ML 2 ML VIAL IV STA (15:06)
[2019-12-02] MEDS ORDERED: POTASSIUM CHLORIDE 20 MEQ TABCR PO STA ×2 (15:06→19:00)
[2019-12-02 15:09] LABS: Albumin Globulin Ratio 0.7 (0.9-2); Alkaline Phosphatase 101 U/L (45-117); Bilirubin,Total 0.6 mg/dl (0.2-1); Creatine Kinase MB < 1.0 ng/ml (0.5-3.6); Globulin 3.8 gm/dl (2.5-4.0); Total Protein 6.6 gm/dl (6.4-8.2); Troponin I < 0.015 ng/ml (0-0.045)
--- NOTE | 2019-12-02 15:23 | CT Scan Report ---
CT OF THE HEAD WITHOUT CONTRAST CLINICAL HISTORY: Stroke evaluation COMPARISON STUDY: No previous studies for comparison. TECHNIQUE: Helical axial images of the head were obtained without IV contrast. Automated exposure con trol was utilized for the study. A dose lowering technique was utilized adhering to the principles o f ALARA. FINDINGS: No acute intracranial hemorrhage, midline shift or mass effect is present. The ventricular system is unremarkable. The basilar cisterns are patent. White matter hypodensity suggests small vess el disease. No extra-axial collections are present. There are no findings to suggest acute dural sinu s thrombosis or acute territorial infarct. No significant calvarial abnormalities are present. Visual ized portions of the sinuses and mastoid air cells are clear. IMPRESSION: No acute intracranial findings. ACT 112: Negative or not required by law. Electronically signed by: Samir Ahumada M.D. 12/02/2019 3:22 PM
--- NOTE | 2019-12-02 15:33 | CT Scan Report ---
CT ANGIOGRAPHY OF THE NECK WITH CONTRAST CLINICAL HISTORY: Stroke evaluation COMPARISON STUDY: No previous studies for comparison. Technique: CT angiography of the carotid and vertebral arteries was obtained using PoshmarkraNutriVentures 320 IV and 3D reconstruction on an independent workstation. NASCET criteria was utilized. Automated exposure c ontrol was utilized for the study. A dose lowering technique was utilized adhering to the principles of ALARA. Findings: Lung apices are clear. There is asymmetric enlargement of the right thyroid lobe with suspe cted thyroid nodules. There is no cervical lymphadenopathy. There is no cervical spine fracture. Ther e is moderate stenosis at origin of the right vertebral artery. There is tortuosity of the distal cer vical portion of the right vertebral artery. There is no dissection within the major vessels of the n fabienne. There is mild stenosis at the origin of the right external carotid artery. There is mild plaque within the proximal right internal carotid artery without stenosis. There is moderate plaque within t he proximal left internal carotid artery without significant stenosis. IMPRESSION: 1. Atherosclerotic plaque within the proximal bilateral internal carotid arteries without significant stenosis. 2. Mild stenosis at the origin of the right external carotid artery. 3. Moderate stenosis at the origin of the right vertebral artery. ACT 112: Negative or not required by law. Electronically signed by: Samir Ahumada M.D. 12/02/2019 3:32 PM
--- NOTE | 2019-12-02 15:36 | CT Scan Report ---
CTA ANGIOGRAPHY OF THE HEAD CLINICAL HISTORY: Stroke evaluation COMPARISON STUDY: No previous studies for comparison. TECHNIQUE: Helical axial images of the head were obtained following uneventful intravenous administr ation of 119 cc of Optiray 320. Sagittal and coronal reconstructions were viewed as well as maximal i ntensity projections on an independent 3-D workstation. Automated exposure control was utilized for the study. A dose lowering technique was utilized adhering to the principles of ALARA. CT DOSE: 1012.33 mGy.cm FINDINGS: No acute intracranial hemorrhage, midline shift or mass effect is present. Ventricular syst em is normal. The basilar cisterns are patent. There are no extra-axial collections. The bilateral M1 , M2, A1 and A2 segments are patent. There is mild plaque within the bilateral cavernous carotids. Th e posterior circulation is intact. There is no intracranial aneurysm. There is no intraluminal thromb us or abrupt vessel cut off. IMPRESSION: No intraluminal thrombus, abrupt vessel cutoff or hemodynamically significant stenosis w ithin the intracranial vessels. ACT 112: Negative or not required by law. Electronically signed by: Samir Ahumada M.D. 12/02/2019 3:35 PM
[2019-12-02 15:40] LABS: Lyme Ab IgG w/WB Rflx Negative (Negative); Lyme Ab IgM w/WB Rflx Negative (Negative)
--- NOTE | 2019-12-02 16:20 | XRay Report ---
XR chest 1V portable CLINICAL HISTORY: Pt c/o 6th nerve palsy COMPARISON STUDY: Chest CT January 27, 2018. FINDINGS: Lung volumes are normal. Lungs are clear. There is no pneumothorax or pleural effusion. Car diac size is stable. Mediastinal contours are normal. There is no evidence for pulmonary edema. IMPRESSION: No acute cardiopulmonary findings. No change in appearance of the chest. ACT 112: Negative or not required by law. Electronically signed by: Samir Ahumada M.D. 12/02/2019 4:19 PM
[2019-12-02] MEDS: POTASSIUM CHLORIDE / WTR 10 MEQ/100 ML PLCT IV SCH ×2 (16:23→19:01)
--- NOTE | 2019-12-02 16:23 | XRay Report ---
XR femur LT 2V routine CLINICAL HISTORY: Left hip pain. COMPARISON: CT of the abdomen and pelvis April 20, 2019. FINDINGS: Note is made of contrast within the bladder from recent contrast-enhanced CT. No acute fra cture within the left femur is noted. Alignment of the left hip and left knee is anatomic. There is e xtensive vascular calcification. There is mild medial compartment osteoarthritis of the left knee. IMPRESSION: No acute fracture of the left femur. ACT 112: Negative or not required by law. Electronically signed by: Samir Ahumada M.D. 12/02/2019 4:22 PM
--- NOTE | 2019-12-02 16:24 | XRay Report ---
XR pelvis 1-2V routine CLINICAL HISTORY: Left hip pain. COMPARISON: CT of the abdomen and pelvis April 20, 2019. FINDINGS: Note is made of contrast within the bladder from recent contrast-enhanced CT. This obscure s the sacrum and medial pubic bones. No acute fracture is identified within the pelvis or hips. IMPRESSION: No acute fracture identified within the pelvis or hips although medial pubic bones and sa brittani partially obscured by contrast within the bladder. ACT 112: Negative or not required by law. Electronically signed by: Samir Ahumada M.D. 12/02/2019 4:23 PM
[2019-12-02 16:39] LABS: Appearance Urine Clear (Clear); Bilirubin Urine Negative (Negative); Blood Urine Negative (Negative); Color Urine Yellow; Glucose Urine UA Negative (Negative); Ketones Urine Negative (Negative); Leukocyte Esterase Urine Trace (Negative); Nitrite Urine Negative (Negative); Protein Urine Negative (Negative); Specific Gravity Urine 1.036 (1.000-1.030); Urobilinogen Urine Negative (Negative); pH Urine 6.5 (4.5-7.5)
[2019-12-02 17:08] LABS: Bacteria Urine Automated Negative (Negative); Cast Urine Automated 0 /lpf (0-5); RBC Urine Automated 0-4 /hpf (0-4)
--- NOTE | 2019-12-02 18:02 | Magnetic Resonance Report ---
MRI OF THE BRAIN WITHOUT CONTRAST CLINICAL HISTORY: Pt c/o cranial nerve 6th palsy COMPARISON STUDY: Head CT and CTA of the head performed earlier today. TECHNIQUE: Utilizing a 1.5 Nilda magnet and dedicated coil, multiplanar, multiecho imaging of the bra in was performed without IV contrast. FINDINGS: There are no foci of restricted diffusion to suggest acute infarct. No acute intracranial h emorrhage, midline shift or mass effect is present. Ventricular system is unremarkable. Basilar ciste rns are patent. There are no extra axial collections. Flow-voids for the major intracranial vessels a re present. No intracranial masses are identified on this unenhanced examination. There are multiple white matter T2 hyperintense foci. Statistically, these reflect small vessel disease however demyelin ating disease could appear similar. Calvarial signal is normal. Orbits are unremarkable. IMPRESSION: 1. No evidence for acute infarction. 2. Numerous white matter T2 hyperintense foci. Statistically, these reflect small vessel disease pedro tammie demyelinating disease could also have this appearance. ACT 112: Negative or not required by law. Electronically signed by: Samir Ahumada M.D. 12/02/2019 6:01 PM
[2019-12-02] MEDS ORDERED: VANCOMYCIN HCL 1,500 MG in SODIUM CHLORIDE 0.9% 500 ML IV ONE (19:18)
[2019-12-02] MEDS ORDERED: VANCOMYCIN CONSULT ACTIVE PRN ×2 (19:18→21:41)
[2019-12-02] MEDS ORDERED: HYDROmorphone INJ 0.5 MG/0.5 ML SYR ONE (19:37)
--- NOTE | 2019-12-02 21:46 | History & Physical Report ---
Date of Service December 02, 2019 Assessment & Plan (1) Cellulitis of left thigh: Rash as described with homogenous distribution of erythema, without central clearing or necrosis. Patient has a history of Lyme disease, with negative testing in the ED today, and no definitely known tick bite on this occasion. Ehrlichiosis and anaplasmosis testing is pending, Present on Admission?: Yes (2) Diplopia: Differential includes: Diabetic mononeuropathy/shingles/retrobulbar optic neuritis/Lyme/Jesse's Retraction Syndrome Due to present left thigh rash, left upper and lower lid edema, and neurologic findings, we will treat her empirically for Lyme disease and pre-herpetic neuralgia, but the other diagnoses noted above need to continue to be monitored for. ED attempted to do a lumbar puncture but was unsuccessful. When radiology is able to, will have them attempt to do a fluoroscopy guided LP. Empiric treatment: Vancomycin IV, ceftriaxone 2 g IV daily, doxycycline 100 mg IV every 12 hours and acyclovir 720 mg IV every 8 hours. Patient does note of a similar but less intense episode of vision change a few years ago, which she is vague about in her history. Will ask neurology to decide whether empiric treatment for multiple sclerosis with Solu-Medrol 1000mg IV daily is appropriate in this setting. Of note, MRI brain draws a differentiation between small vessel disease versus inability to rule out demyelination. Further information from LP would be helpful. We will hold nutraceuticals at this time Present on Admission?: Yes (3) Hyperlipidemia: Continue fenofibrate. Check a fasting lipid panel Present on Admission?: Yes (4) Hypertension: For now, hold triamterene/HCTZ and amlodipine/benazepril. We will resume in a.m. if blood pressure warrants Present on Admission?: Yes (5) Diabetes mellitus, type 2: Hold metformin. Reduce Lantus insulin from 27 units to 10 units subcu at bedtime Placed on Accu-Cheks before meals and at bedtime with NovoLog coverage per scale. Check hemoglobin A1c Present on Admission?: Yes (6) Hypothyroidism: Continue levothyroxine 88 mcg daily Present on Admission?: Yes (7) Fatty liver disease, nonalcoholic: AST 63, ALT 79 upon admission. Control risk factors: Hyperlipidemia, obesity and diabetes mellitus Present on Admission?: Yes (8) Left hip pain: Chronic low back pain/acute on chronic left hip pain- Aggravated by working in the yard. Imaging does not show any acute fractures. When other medical issues are controlled, should consult PT/OT for their ass essment. Present on Admission?: Yes (9) Chronic back pain: See above Present on Admission?: Yes History of Present Illness Chief Complaint: The patient presents to the emergency department with complaint of worsening of her chronic left hip pain, a rash on her left thigh, and double vision. Primary Care Provider: Corrie Ahumada MD The patient is a 69-year-old female with a past medical history including vitamin D deficiency, hyperlipidemia, hypertension, depression, PTSD, diabetes mellitus type 2, hypothyroidism, NAFLD, kidney stones, chronic back pain, osteoarthritis, and neuropathy of foot. She reports that she was working outside over the past few days, and developed worsening low back and left hip pain. She also notes the development of a a large red rash on her anterior left thigh surface. She also reports double vision that began after pain over her left forehead area and presented to the ED with family concerns regarding a stroke. The patient is unaware of any current tick bite, but has reportedly been diagnosed with Lyme disease in the past. In the emergency department, she underwent a thorough work-up, including CT of the head without contrast which was negative, CTA of head which was negative, CTA of neck which showed moderate stenosis of right vertebral artery, an MRI brain which showed findings consistent with small vessel disease versus demyelination. Upon questioning, patient does report that she had an episode of double vision a few years ago, that resolved with taking antihistamines. Allergies Allergy/AdvReac Type Severity Reaction Status Date / Time bee venom protein (honey bee) Allergy Severe Anaphylaxis Verified 12/02/19 16:23 latex Allergy Mild REDNESS, Verified 12/02/19 16:23 HURTS monosodium glutamate AdvReac Mild restless Verified 12/02/19 22:51 leg syndrome Home Medications Home Medications Medication Instructions Recorded Confirmed Type multivitamin 1 tab PO BID #0 05/21/10 12/02/19 History Hyaluronic Acid (chond-collgn) 1 cap PO BID #0 01/27/18 12/02/19 History Silverwood Oil 1,000 mg PO HS #0 01/27/18 12/02/19 History ascorbic acid (vitamin C) [Vitamin 1,000 mg PO QAM #0 01/27/18 12/02/19 History C With Lucia Hips] aspirin 81 mg PO HS #0 01/27/18 12/02/19 History bilberry fruit extract 80 mg PO QAM #0 01/27/18 12/02/19 History cholecalciferol (vitamin D3) 1,000 inter.unit PO HS PRN #0 01/27/18 12/02/19 History [Vitamin D3] coenzyme Q10 [Co Q-10] 200 mg PO HS #0 01/27/18 12/02/19 History omega-3 fatty acids-fish oil [Fish 1 cap PO TID #0 01/27/18 12/02/19 History Oil] milk thistle 250 mg PO BID 01/28/18 12/02/19 History fenofibrate nanocrystallized 48 mg PO HS 04/20/19 12/02/19 History [Tricor] fenofibrate nanocrystallized 96 mg PO QAM 04/20/19 12/02/19 History [Tricor] metformin [Glucophage] 500 mg PO BID 04/20/19 12/02/19 History amlodipine 10 mg-benazepril 20 mg 1 cap PO HS #90 cap 08/15/19 12/02/19 Rx capsule levothyroxine 88 mcg tablet 88 mcg PO DAILY #90 tab 08/31/19 12/02/19 Rx triamterene 37.5 1 tab PO DAILY #90 tab 09/26/19 12/02/19 Rx mg-hydrochlorothiazide 25 mg tablet Lantus Solostar U-100 Insulin 100 27 units SC HS #30 ml NS 10/19/19 12/02/19 Rx unit/mL (3 mL) subcutaneous pen insulin aspart U-100 [Novolog 4 unit SC DIRECTED 12/02/19 12/02/19 History Flexpen U-100 Insulin] Past Med/Surg History Medical History Cervical radiculopathy Tubular adenoma Surgical History H/O umbilical hernia repair 05/22/2010 History of cataract surgery 4 mg of versed for prior cataract without apparent complications History of cholecystectomy 05/22/2010 History of colonoscopy History of esophagogastroduodenoscopy (EGD) History of tonsillectomy Family History Father Family history of diabetes mellitus Diabetes Hypertension Sister Cancer Grandfather No problems noted. 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 Other Information That Helps Us Care for You: No Feels Safe at Home: Yes Safety Concerns: Feels Safe At This Time Smoking Status: Never smoker Do You Dip or Chew Tobacco: No ; Second Hand Exposure: No ; Tobacco Cessation Education Requested by Patient: No Hx Alcohol Use: Yes (occassional) Alcohol type: wine Alcohol Intake Frequency: Weekly Hx Substance Use: No Dental Care, Regularly: Yes Physical Activity Frequency: Does not Exercise Review of Systems Review of Systems: The patient denies chest pain, palpitations, shortness of breath, dyspnea on exertion, cough, lower extremity swelling, sore throat, fevers, chills, sweats, nausea, vomiting, diarrhea , constipation, abdominal pain, pelvic pain, blood in urine or stool, dysuria, urinary frequency or urgency, lightheadedness, dizziness, loss of consciousness, abnormal bruising or bleeding, imbalance, focal weakness, numbness or tingling in arms or legs, neck pain, or night sweats. The review of systems is otherwise negative other than for that already noted above, and at least 10 systems have been reviewed. Physical Exam Physical Exam: The patient is awake, alert and oriented 3, well developed and well nourished, edema of left upper and lower lids, and edema of left periorbital area, lying in bed and in no acute distress. HEENT--PERRL, EOMI, mucous membranes and oropharynx normal. Neck--supple. No JVD. No bruits. Thyroid normal, trachea midline, no adenopathy. Heart--normal S1 and S2. No murmurs, rubs or gallops. Lungs--clear bilaterally, no respiratory distress, no accessory muscle use. Abdomen--normal bowel sounds and soft. Nontender. Moderately distended and tympanitic. Extremities--no cyanosis or clubbing. No edema. Dermatologic--left upper thigh and groin area with moderately erythematous, warm and nontender area about 10 cm in diameter. Neurologic--pupils 2 mm in diameter with left more sluggish but no obvious Salvador Kavitha pupil. Patient has poor tracking, with unrestricted movement of ri ght eye. Left eye is unable to move well in any direction, and periodically appears frozen and retracted. Exam is difficult. Rheumatologic--normal range of motion. Psychiatric--normal affect. Results & Data Results & Data ([facility]) Vital Signs (Past 12 Hours) Vital Signs Temp Pulse Pulse Resp BP BP Pulse Ox 12/02/19 21:29 56 L 16 131/62 95 12/02/19 20:54 58 L 18 134/63 92 12/02/19 20:00 53 L 16 133/62 92 12/02/19 18:40 55 L 22 91 12/02/19 18:32 81 29 H 96 12/02/19 18:30 60 18 97 12/02/19 18:20 57 L 15 90 12/02/19 18:10 61 17 12/02/19 18:08 59 L 13 12/02/19 16:50 59 L 21 91 12/02/19 16:40 60 19 90 12/02/19 16:31 61 19 94 12/02/19 16:30 61 26 H 144/90 H 90 12/02/19 16:20 62 26 H 12/02/19 16:10 57 L 19 12/02/19 16:01 58 L 29 H 143/67 H 12/02/19 16:00 61 25 H 12/02/19 15:50 60 17 12/02/19 15:40 58 L 16 94 12/02/19 15:37 58 L 18 90 12/02/19 14:40 58 L 24 95 12/02/19 14:32 55 L 22 154/72 H 96 12/02/19 14:30 57 L 21 93 12/02/19 14:20 57 L 18 94 12/02/19 14:16 58 L 25 H 90 12/02/19 14:15 99.3 F 57 L 57 L 20 159/82 H 159/82 H 96 12/02/19 14:08 58 L 19 159/82 H 92 Laboratory Results Laboratory Results WBC 8.83 K/uL (4.8-10.8) 12/02/19 14:32 RBC 4.48 M/uL (4.2-5.4) 12/02/19 14:32 Hgb 12.5 g/dL (12.0-16.0) 12/02/19 14:32 POC Hgb 12.2 g/dl (12.0-16.0) 12/02/19 14:43 Hct 36.9 % (37-47) L 12/02/19 14:32 POC Hct 36 % (37-47) L 12/02/19 14:43 MCV 82.4 fL (80-100) 12/02/19 14:32 MCH 27.9 pg (25-34) 12/02/19 14:32 MCHC 33.9 g/dL (32-36) 12/02/19 14:32 RDW Std Deviation 44.9 fL (36.4-46.3) 12/02/19 14:32 RDW Coeff of Ariel 14.9 % (11.5-14.5) H 12/02/19 14:32 Plt Count 315 K/uL (130-400) 12/02/19 14:32 MPV 9.5 fL (7.4-10.4) 12/02/19 14:32 Immature Gran % (Auto) 0.2 % 12/02/19 14:32 Neut % (Auto) 86.0 % 12/02/19 14:32 Lymph % (Auto) 6.8 % 12/02/19 14:32 Real % (Auto) 6.7 % 12/02/19 14:32 Eos % (Auto) 0.1 % 12/02/19 14:32 Baso % (Auto) 0.2 % 12/02/19 14:32 Neut # (Auto) 7.59 K/uL (1.4-6.5) H 12/02/19 14:32 Lymph # (Auto) 0.60 K/uL (1.2-3.4) L 12/02/19 14:32 Real # (Auto) 0.59 K/uL (0.11-0.59) 12/02/19 14:32 Eos # (Auto) 0.01 K/uL (0-0.5) 12/02/19 14:32 Baso # (Auto) 0.02 K/uL (0-0.2) 12/02/19 14:32 Immature Gran # (Auto) 0.02 K/uL (0.00-0.02) 12/02/19 14:32 Absolute Nucleated RBC 0.00 K/uL (0-0) 12/02/19 14:32 Nucleated RBC % (auto) 0.0 % 12/02/19 14:32 Peripher Smr Path Cons Cancelled 12/02/19 14:32 ESR 18 mm/hr (0-21) 12/02/19 14:32 PT 10.9 Seconds (9.0-12.0) 12/02/19 14:32 INR 1.0 (0.9-1.1) 12/02/19 14:32 APTT 25.8 Seconds (21.0-31.0) 12/02/19 14:32 PTT Ratio 0.9 12/02/19 14:32 POC Sodium 134 mmol/L (135-144) L 12/02/19 14:43 Sodium 134 mmol/L (136-145) L 12/02/19 14:32 POC Potassium 3.2 mmol/L (3.3-5.0) L 12/02/19 14:43 Potassium 3.2 mmol/L (3.5-5.1) L 12/02/19 14:32 POC Chloride 97 mmol/L (101-112) L 12/02/19 14:43 Chloride 99 mmol/L (98-107) 12/02/19 14:32 Carbon Dioxide 26 mmol/L (21-32) 12/02/19 14:32 POC Total CO2 24 mmol/L (24-31) 12/02/19 14:43 Anion Gap 9.0 (3-11) 12/02/19 14:32 POC Anion Gap 17.0 mmol/L (16-25) 12/02/19 14:43 POC BUN 12 mg/dl (7-18) 12/02/19 14:43 BUN 13 mg/dl (7-18) 12/02/19 14:32 Creatinine 0.85 mg/dl (0.6-1.2) 12/02/19 14:32 POC Creatinine 0.7 mg/dl (0.6-1.3) 12/02/19 14:43 Est Cr Clr Drug Dosing 57.8 ml/min 12/02/19 14:32 Est GFR ( Amer) 81.6 12/02/19 14:32 Est GFR (Non-Af Amer) 70.4 12/02/19 14:32 BUN/Creatinine Ratio 15.9 (10-20) 12/02/19 14:32 Glucose 187 mg/dl (70-99) H 12/02/19 14:32 POC Glucose 172 mg/dl (70-99) H 12/03/19 01:59 POC Glucose (other) 191 mg/dl (70-99) H 12/02/19 14:43 Lactate 1.2 mmol/L (0.4-2.0) 12/02/19 14:32 Calcium 8.9 mg/dl (8.5-10.1) 12/02/19 14:32 POC Ioniz Calcium Esther 1.16 mmol/l (1.12-1.32) 12/02/19 14:43 Magnesium 1.8 mg/dl (1.8-2.4) 12/02/19 14:32 Total Bilirubin 0.6 mg/dl (0.2-1) 12/02/19 14:32 AST 63 U/L (15-37) H 12/02/19 14:32 ALT 79 U/L (12-78) H 12/02/19 14:32 Alkaline Phosphatase 101 U/L (45-117) 12/02/19 14:32 CK-MB (CK-2) < 1.0 ng/ml (0.5-3.6) 12/02/19 14:32 Troponin I < 0.015 ng/ml (0-0.045) 12/02/19 14:32 Total Protein 6.6 gm/dl (6.4-8.2) 12/02/19 14:32 Albumin 2.8 gm/dl (3.4-5.0) L 12/02/19 14:32 Globulin 3.8 gm/dl (2.5-4.0) 12/02/19 14:32 Albumin/Globulin Ratio 0.7 (0.9-2) L 12/02/19 14:32 Urine Color Yellow 12/02/19 16:27 Urine Appearance Clear (Clear) 12/02/19 16:27 Urine pH 6.5 (4.5-7.5) 12/02/19 16:27 Ur Specific Martin 1.036 (1.000-1.030) H 12/02/19 16:27 Urine Protein Negative (Negative) 12/02/19 16:27 Urine Glucose (UA) Negative (Negative) 12/02/19 16:27 Urine Ketones Negative (Negative) 12/02/19 16:27 Urine Blood Negative (Negative) 12/02/19 16:27 Urine Nitrite Negative (Negative) 12/02/19 16:27 Urine Bilirubin Negative (Negative) 12/02/19 16:27 Urine Urobilinogen Negative (Negative) 12/02/19 16:27 Ur Leukocyte Esterase Trace (Negative) H 12/02/19 16:27 Urine WBC (Auto) 5-10 /hpf (0-5) H 12/02/19 16:27 Urine RBC (Auto) 0-4 /hpf (0-4) 12/02/19 16:27 U Hyaline Cast (Auto) 0 /lpf (0-5) 12/02/19 16:27 U Epithel Cells (Auto) 10-20 /lpf (0-5) H 12/02/19 16:27 Urine Bacteria (Auto) Negative (Negative) 12/02/19 16:27 Anaplasma Smear See Comment 12/02/19 14:32 Lyme Disease IgG Ab Negative (Negative) 12/02/19 14:32 Lyme Disease IgM Ab Negative (Negative) 12/02/19 14:32 [phone] Report Patient: STANISLAV LÓPEZ Date: 12/02/19 MR#: [id number]: [address] Acct ID:[id number]: Date: [address] [place] [address] Zip: [place] [address] Age: 69Location: ED Sex: F Room/Bed: Att Phy:Diagnosis: hip & back pain Irina Phy: Corrie Ahumada, MDService Date: 12/02/19 Fam Phy:Interpreting Phy: Samir Ahumada MD Admit Phy: Ordering Phy: Bo Hill MD cc: ~ XR femur LT 2V routine CLINICAL HISTORY: Left hip pain. COMPARISON: CT of the abdomen and pelvis April 20, 2019. FINDINGS: Note is made of contrast within the bladder from recent contrast- enhanced CT. No acute fracture within the left femur is noted. Alignment of the left hip and left knee is anatomic. There is extensive vascular calcification. There is mild medial compartment osteoarthritis of the left knee. IMPRESSION: No acute fracture of the left femur. ACT 112: Negative or not required by law. Electronically signed by: Samir Ahumada M.D. 12/02/2019 4:22 PM Dictated: 12/02/19 162 Transcribed: 12/02/191620 [place], [place] [phone] XRay Report Patient: STANISLAV LÓPEZ Date: 12/02/19 MR#: [id number]: [address] Acct ID:[id number]: Date: [address] [place] [address] Zip: [place] [address] Age: 69Location: ED Sex: F Room/Bed: Att Phy:Diagnosis: hip & back pain Irina Phy: Corrie Ahumada, MDService Date: 12/02/19 Fam Phy:Interpreting Phy: Samir Ahumdaa MD Admit Phy: Ordering Phy: Bo Hill MD cc: ~ XR pelvis 1-2V routine CLINICAL HISTORY: Left hip pain. COMPARISON: CT of the abdomen and pelvis April 20, 2019. FINDINGS: Note is made of contrast within the bladder from recent contrast- enhanced CT. This obscures the sacrum and medial pubic bones. No acute fracture is identified within the pelvis or hips. IMPRESSION: No acute fracture identified within the pelvis or hips although medial pubic bones and sacrum partially obscured by contrast within the bladder. ACT 112: Negative or not required by law. Electronically signed by: Samir Ahumada M.D. 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 FINDINGS: Lung volumes are normal. Lungs are clear. There is no pneumothorax or pleural effusion. Cardiac size is stable. Mediastinal contours are normal. There is no evidence for pulmonary edema. IMPRESSION: No acute cardiopulmonary findings. No change in appearance of the chest. ACT 112: Negative or not required by law. Electronically signed by: Samir Ahumada M.D. 12/02/2019 4:19 PM Dictated: 12/02/19 1618 Transcribed: 12/02/19 1618 [place], [place] [phone] CT Scan Report Patient: STANISLAV LÓPEZ Date: 12/02/19 MR#: [id number]: [address] Acct ID:[id number]: Date: [address] [place] [address] Zip: [place] [address] Age: 69Location: ED Sex: F Room/Bed: Att Phy:Diagnosis: hip & back pain Irina Phy: Corrie Ahumaad, MDService Date: 12/02/19 Fam Phy:Interpreting Phy: Samir Ahumada MD Admit Phy: Ordering Phy: Bo Hill MD cc: ~ CT OF THE HEAD WITHOUT CONTRAST CLINICAL HISTORY: Stroke evaluation COMPARISON STUDY: No previous studies for comparison. TECHNIQUE: Helical axial images of the head were obtained without IV contrast. Automated exposure control was utilized for the study. A dose lowering technique was utilized adhering to the principles of ALARA. FINDINGS: No acute intracranial hemorrhage, midline shift or mass effect is present. The ventricular system is unremarkable. The basilar cisterns are patent. White matter hypodensity suggests small vessel disease. No extra-axial collections are present. There are no findings to suggest acute dural sinus thrombosis or acute territorial infarct. No significant calvarial abnormalities are present. Visualized portions of the sinuses and mastoid air cells are clear. IMPRESSION: No acute intracranial findings. ACT 112: Negative or not required by law. Electronically signed by: Samir Ahumada M.D. 12/02/2019 3:22 PM Dictated: 12/02/19 1519 Transcribed: 12/02/19 1519 [place], [place] [phone] CT Scan Report Patient: STANISLAV LÓPEZ Date: 12/02/19 MR#: [id number]: [address] Acct ID:[id number]: Date: [address] [place] [address] Zip: [place] [address] Age: 69Location: ED Sex: F Room/Bed: Att Phy:Diagnosis: hip & back pain Irina Phy: Corrie Ahumada, MDService Date: 12/02/19 Fam Phy:Interpreting Phy: Samir Ahumada MD Admit Phy: Ordering Phy: Bo Hill MD cc: ~ CTA ANGIOGRAPHY OF THE HEAD CLINICAL HISTORY: Stroke evaluation COMPARISON STUDY: No previous studies for comparison. TECHNIQUE: Helical axial images of the head were obtained following uneventful intravenous administration of 119 cc of Optiray 320. Sagittal and coronal reconstructions were viewed as well as maximal intensity projections on an independent 3-D workstation. Automated exposure control was utilized for the study. A dose lowering technique was utilized adhering to the principles of ALARA. CT DOSE: 1012.33 mGy.cm FINDINGS: No acute intracranial hemorrhage, midline shift or mass effect is present. Ventricular system is normal. The basilar cisterns are patent. There are no extra-axial collections. The bilateral M1, M2, A1 and A2 segments are patent. There is mild plaque within the bilateral cavernous carotids. The posterior circulation is intact. There is no intracranial aneurysm. There is no intraluminal thrombus or abrupt vessel cut off. IMPRESSION: No intraluminal thrombus, abrupt vessel cutoff or hemodynamically significant stenosis within the intracranial vessels. ACT 112: Negative or not required by law. Electronically signed by: Samir Ahumada M.D. 12/02/2019 3:35 PM Dictated: 12/02/19 1532 Transcribed: 12/02/19 1532 [place], [place] [phone] CT Scan Report Patient: STANISLAV LÓPEZ Date: 12/02/19 MR#: [id number]: [address] Acct ID:[id number]: Date: [address] Zip: [place] [address] Age: 69Location: ED Sex: F Room/Bed: Att Phy:Diagnosis: hip & back pain Irina Phy: Corrie Ahumada, MDService Date: 12/02/19 Fam Phy:Interpreting Phy: Samir Auhmada MD Admit Phy: Ordering Phy: Bo Hill MD cc: ~ CT ANGIOGRAPHY OF THE NECK WITH CONTRAST CLINICAL HISTORY: Stroke evaluation COMPARISON STUDY: No previous studies for comparison. Technique: CT angiography of the carotid and vertebral arteries was obtained using Optiray 320 IV and 3D reconstruction on an independent workstation. NASCET criteria was utilized. Automated exposure control was utilized for the study. A dose lowering technique was utilized adhering to the principles of ALARA. Findings: Lung apices are clear. There is asymmetric enlargement of the right thyroid lobe with suspected thyroid nodules. There is no cervical lymphadenopathy. There is no cervical spine fracture. There is moderate stenosis at origin of the right vertebral artery. There is tortuosity of the distal cervical portion of the right vertebral artery. There is no dissection within the major vessels of the neck. There is mild stenosis at the origin of the right external carotid artery. There is mild plaque within the proximal right internal carotid artery without stenosis. There is moderate plaque within the proximal left internal carotid artery without significant stenosis. IMPRESSION: 1. Atherosclerotic plaque within the proximal bilateral internal carotid arteries without significant stenosis. 2. Mild stenosis at the origin of the right external carotid artery. 3. Moderate stenosis at the origin of the right vertebral artery. ACT 112: Negative or not required by law. Electronically signed by: Samir Ahumada M.D. 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 TECHNIQUE: Utilizing a 1.5 Nilda magnet and dedicated coil, multiplanar, multiecho imaging of the brain was performed without IV contrast. FINDINGS: There are no foci of restricted diffusion to suggest acute infarct. No acute intracranial hemorrhage, midline shift or mass effect is present. Ventricular system is unremarkable. Basilar cisterns are patent. There are no extra axial collections. Flow-voids for the major intracranial vessels are present. No intracranial masses are identified on this unenhanced examination. There are multiple white matter T2 hyperintense foci. Statistically, these reflect small vessel disease however demyelinating disease could appear similar. Calvarial signal is normal. Orbits are unremarkable. IMPRESSION: 1. No evidence for acute infarction. 2. Numerous white matter T2 hyperintense foci. Statistically, these reflect small vessel disease however demyelinating disease could also have this appearance. ACT 112: Negative or not required by law. Electronically signed by: Samir Ahumada M.D. 12/02/2019 6:01 PM Dictated: 12/02/191757 Transcribed: 12/02/191757 [facility] Patient: STANISLAV LÓPEZ (Female) : 52 Status: ER Date: 12/02/19 20:49 Room #: History: left hip pain patient fell couple days ago Slices: [id number] Priors: Tech: Alannah Garvey @ [phone] Exams: CT PELVIS Accession Numbers: [id number] Preliminary Findings Only See Final Report For Complete Findings CT PELVIS: Comparison is made to CT abdomen/pelvis on 04/20/2019. No acute fracture or subluxation identified. Probable small bone islands in the pelvic bones. Atherosclerotic changes of the vasculature. Excreted contrast in the bladder. Diverticulosis. Phleboliths in the pelvis. Degenerative changes of the lower lumbar spine. Grade 1/2 anterolisthesis of L4 on L5. Grade 1 anterolisthesis of L5 on S1. Probable small calcified uterine fibroid. Radiologist: Lucien Stuart M.D. Study ready at 20:53 and initial results transmitted at 21:06 *This report constitutes a preliminary interpretation only. Non-acute findings felt to be unrelated to the clinical presentation may not be discussed in this report. The study will be interpreted and a final report will be generated by the local Radiologist the following shift. To reach the hospital radiology department call [phone]. If a discrepancy is found between the preliminary and final interpretations of this study, please notify us via our Client Portal at [email or web address].You can also fax this report with a description of the discrepancy, or include the final report, to our daytime fax number [phone].If faxing, please indicate the severity of discrepancy using one of the following categories: [ ] 1 - Agree/Informational [ ] 2 - Unlikely to Affect Management [ ] 3 - Possible Eventual Change of Management [ ] 4 - Probable Immediate Change of Management For all other patient related information, please fax us at [phone]. [id number] Code Status & VTE Plan Code Status Full code VTE Prophylaxis Plan VTE Prophylaxis will be ordered: Yes PG Care Time/CCT Total # of Minutes Spent Total Time Spent with Patient: Total time spent is greater than 50% in coordination of care (as documented) at patient's floor/unit and/or counseling patient: Coding Level of Care Code 52724 Initial Inpt Care Lvl 3 Diagnoses Cellulitis of left thigh L03.116 Diplopia H53.2 Hyperlipidemia E78.5 Hypertension I10 Diabetes mellitus, type 2 E11.9 Hypothyroidism E03.9 Fatty liver disease, nonalcoholic K76.0 Left hip pain M25.552 Chronic back pain M54.9; G89.29
[2019-12-02] MEDS ORDERED: GLUCAGON FOR INJ 1 MG VIAL SQ PRN (22:30)
[2019-12-02] MEDS ORDERED: CARBOHYDRATES FOR HYPOGLYCEMIA PO PRN (22:30)
[2019-12-02] MEDS ORDERED: GLUCOSE 40% GEL 15 GM TUBE PO PRN (22:30)
[2019-12-02] MEDS ORDERED: NON-FORMULARY MEDICATION (Coenzyme Q10 [Co Q-10] 200 MG) PO SCH (22:30)
[2019-12-02] MEDS ORDERED: GLUCOSE 10 TABS/TUBE PO PRN (22:30)
[2019-12-02] MEDS ORDERED: DEXTROSE 50% 50 ML SYRINGE IV PRN (22:30)
[2019-12-02] MEDS: INSULIN ASPART 100 UNITS/ML 3 ML PEN SC SCH (23:36)
[2019-12-02] MEDS: ASPIRIN 81 MG ECTAB PO SCH (23:37)
[2019-12-02] MEDS: FENOFIBRATE NANOCRYSTALLIZED 48 MG TABLET PO SCH (23:37)
[2019-12-02] MEDS: HEPARIN SOD 5,000 UNIT/0.5 ML VIAL SQ SCH (23:37)
[2019-12-02] MEDS: ACYCLOVIR SOD 600 MG in DEXTROSE 5% 100 ML IV SCH (23:38)
[2019-12-02] MEDS: NSS + 20MEQ KCL 20 MEQ/1,000 ML BAG IV SCH (23:38)
[2019-12-03] MEDS: INSULIN GLARGINE SOLOSTAR 100 UNITS/ML 3 ML PEN SC SCH ×2 (00:37→21:15)
[2019-12-03] MEDS: ACETAMINOPHEN 325 MG TAB PO PRN ×2 (03:09→19:56)
--- NOTE | 2019-12-03 05:15 | Pharmacy Report ---
Pharmacy Abx Initial Consult - Date of Service December 03, 2019 - Pharmacy Dosing Scope Date of Consult: 12/02/19 Consultation requested by: Dr. Aguiar Pharmacy is consulted to continue IV Vancomycin dosing therapy, order appropriate labs and adjust drug dose/frequency. - Subjective The patient is a 69 year old F admitted on 12/02/19 20:54 with double vision & (L) thigh cellulitis/rash. Dr. Aguiar notes possible diagnosis as Diabetic mononeuropathy/shingles/retrobulbar optic neuritis/Lyme/Jesse's Retraction Syndrome. In addition he noted due to present left thigh rash, left upper and lower lid edema, and neurologic findings, that he would treat her empirically for Lyme disease and pre-herpetic neuralgia, but the other diagnoses noted above need to continue to be monitored for. Therefore, she is currently receiving Vancomycin, Rocephin, Doxycycline and Acyclovir IV. Pharmacy will dose Vancomycin going forward as per protocol. - Objective Height: 5 ft 1 in Weight: 72.8 kg Vital Signs (Past 12hrs): Vital Signs Temp Pulse Pulse Resp BP BP BP 12/03/19 03:04 38.4 C H 69 20 126/66 12/02/19 23:10 37.5 C 61 19 156/72 H 12/02/19 22:32 37.4 C 57 L 18 159/82 H 12/02/19 22:20 59 L 12/02/19 21:29 56 L 16 131/62 12/02/19 20:54 58 L 18 134/63 12/02/19 20:00 53 L 16 133/62 12/02/19 18:40 55 L 22 12/02/19 18:32 81 29 H 12/02/19 18:30 60 18 12/02/19 18:20 57 L 15 12/02/19 18:10 61 17 12/02/19 18:08 59 L 13 Pulse Ox 12/03/19 03:04 93 12/02/19 23:10 95 12/02/19 22:32 96 12/02/19 22:20 12/02/19 21:29 95 12/02/19 20:54 92 12/02/19 20:00 92 12/02/19 18:40 91 12/02/19 18:32 96 12/02/19 18:30 97 12/02/19 18:20 90 12/02/19 18:10 12/02/19 18:08 Lab Results (24hrs): Laboratory Tests (24 Hours) 12/02/19 12/02/19 12/02/19 14:32 14:32 14:32 WBC 8.83 Neut # (Auto) 7.59 H ESR 18 Creatinine 0.85 Est Cr Clr Drug Dosing 57.8 Micro Results: 12/02/19 16:27 Urine Culture - Pending Urine,Clean Catch 12/02/19 14:32 Aerobic Blood Culture - Pending Blood Anaerobic Blood Culture - Pending 12/02/19 14:32 Aerobic Blood Culture - Pending Blood Anaerobic Blood Culture - Pending - Assessment & Plan Assessment 69 year old F with L thigh cellulitis (empiric tx) Plan Vancomycin IV * Estimated PK Parameters: Vd ~0.6 L/kg, Boni 0.052 hr-1, t1/2 13.3 hr * Loading dose: 1500 mg (20 mg/kg) in ED * Maintenance dose: 1gm IV ([~14 mg/kg) every 12 hours (per AUC nomogram) * Goal trough level : 15 to 20 mcg/mL * Trough level ordered prior to 2200 dose on 12/04/19 Pharmacy will continue to follow and will adjust dose/frequency as necessary. Thank you.
[2019-12-03] MEDS: ACYCLOVIR SOD 600 MG in DEXTROSE 5% 100 ML IV SCH ×3 (05:52→21:40)
[2019-12-03] MEDS: DOXYCYCLINE HYCLATE 100 MG in DEXTROSE 5% 100 ML IV SCH ×2 (05:53→17:45)
[2019-12-03] MEDS: LEVOTHYROXINE SODIUM 88 MCG TABLET PO SCH (05:54)
[2019-12-03 06:49] LABS: Cholesterol 169 mg/dl (0-200); Creatinine Clr Calc Pharmacy 61.1 ml/min; Est GFR (African American) 86.5; Est GFR (Non-African American) 74.6; LDL Cholesterol Calculated 91 mg/dl; Triglycerides 223 mg/dl (0-150)
[2019-12-03 06:50] LABS: Chol HDL Ratio 5; HDL Cholesterol 33 mg/dl; VLDL Cholesterol 45 mg/dl
[2019-12-03] MEDS: HEPARIN SOD 5,000 UNIT/0.5 ML VIAL SQ SCH ×2 (08:27→21:41)
[2019-12-03] MEDS: INSULIN ASPART 100 UNITS/ML 3 ML PEN SC SCH ×4 (08:27→21:18)
[2019-12-03] MEDS: FENOFIBRATE NANOCRYSTALLIZED 48 MG TABLET PO SCH ×2 (08:28→21:14)
[2019-12-03] MEDS: ASCORBIC ACID 500 MG TAB PO SCH (08:28)
--- NOTE | 2019-12-03 10:00 | CT Scan Report ---
CT pelvis wo con HISTORY: 69 years-old Female Pt c/o left hip pain acute left hip pain status post fall COMPARISON: CT abdomen and pelvis 04/20/2019 TECHNIQUE: Multiple axial CT images of the pelvis were obtained without the use of IV contrast. A dos e lowering technique was used consistent with the principals of [place]. FINDINGS: Hepatomegaly with hepatic steatosis. Fibroid uterus. No bowel obstruction or bowel wall thickening id entified. Moderate urinary bladder distention with excreted contrast in the urinary bladder lumen. Ca lcified plaque of the aorta common iliac and femoral arteries. Spondylitic spurring and facet arthrosis of the lumbar spine. Severe disc space narrowing at L5-S1. 7 mm anterolisthesis L4 on L5 is likely secondary to long-standing facet arthrosis. This results in at least moderate central canal stenosis. Moderate degeneration of the SI joints. No evidence of sacral insufficiency fracture. There are scattered sclerotic foci of the pelvis and proximal femora which a re subcentimeter and unchanged suggestive of probable bone islands. Severe degeneration of the pubic symphysis. No acute fracture, avascular necrosis or dislocation. Mild to moderate osteoarthritis of t he femoral acetabular joints. IMPRESSION: 1. 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 2. No acute fracture, dislocation or avascular necrosis. 3. Additional findings as above. ACT 112: Negative or not required by law. The above report was generated using voice recognition software. It may contain grammatical, syntax o r spelling errors. Electronically signed by: Jordan Grayson M.D. 12/03/2019 9:58 AM
[2019-12-03] MEDS: VANCOMYCIN HCL 1,000 MG in SODIUM CHLORIDE 0.9% 250 ML IV SCH ×2 (10:02→21:43)
--- NOTE | 2019-12-03 10:22 | Neurology Consultation ---
Date of Consultation December 03, 2019 Assessment & Plan (1) Ophthalmoplegia of left eye: This patient has rather significant ophthalmoplegia of the left eye. She has limitation of gaze vertically and horizontally. The pupil is reactive and she has good visual acuity. The left periorbital tissue appears swollen and she is unable to keep the left eyelid open. The left sclera is injected. She may have orbital cellulitis. No cutaneous lesions suggestive of shingles around the left eye or in the V1 or V2 distribution on the left. Graves' ophthalmopathy probably unlikely. A diabetic third and/or 6th nerve palsy may not be completely excluded although I would not typically expect periorbital edema and scleral injection with these conditions. Furthermore, her degree of ophthalmoplegia would suggest multiple simultaneous cranial neuropathies affecting the left eye which would be unusual from a purely diabetic/ischemic standpoint. I would recommend completion of an MRI of the orbits with and without contrast. Would also check a TSH, free T4, and acetylcholine receptor antibodies Patient will need an ophthalmology assessment as well. Agree with broad-spectrum antimicrobial therapy. 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 (Lyme serology negative.) Continue with daily low-dose aspirin. Again, no evidence of acute or subacute stroke on recently completed brain MRI. Continue medical management of diabetes mellitus. History of Present Illness Reason for Consultation: Diplopia Requesting Physician: Gregorio Aguiar MD Attending Physician: Maylin Dominguez MD History of Present Illness The patient is a 69-year-old female with a chief complaint of left eye pain, swelling, and persistent diplopia that began 2 days ago. She also complains of left hip pain with an associated circumscribed rash. She denies any vision loss with either eye. She is unable to keep the left eyelid open due to swelling. The left eye is also red and injected appearing. No vesicular lesions or eruptions over the face or head. Patient denies any vertigo, numbness, change in speech, or focal weakness of the limbs. She has had difficulty walking due to severe left hip pain. She does have a past medical history of type 2 diabetes mellitus, hypertension, and hyperlipidemia. A CT of the head was negative for hemorrhage or acute process. CT angiography of the head and neck was negative for a significant stenotic or vascular lesion. Brain MRI reveals chronic small vessel ischemic disease. Imaging described in further detail below. Serum Lyme antibody screening was negative. Allergies Allergy/AdvReac Type Severity Reaction Status Date / Time bee venom protein (honey bee) Allergy Severe Anaphylaxis Verified 12/02/19 16:23 latex Allergy Mild REDNESS, Verified 12/02/19 16:23 HURTS monosodium glutamate AdvReac Mild restless Verified 12/02/19 22:51 leg syndrome Home Medications Home Medications Medication Instructions Recorded Confirmed Type multivitamin 1 tab PO BID #0 05/21/10 12/02/19 History Hyaluronic Acid (chond-collgn) 1 cap PO BID #0 01/27/18 12/02/19 History [place] Oil 1,000 mg PO HS #0 01/27/18 12/02/19 History ascorbic acid (vitamin C) [Vitamin 1,000 mg PO QAM #0 01/27/18 12/02/19 History C With Lucia Hips] aspirin 81 mg PO HS #0 01/27/18 12/02/19 History bilberry fruit extract 80 mg PO QAM #0 01/27/18 12/02/19 History cholecalciferol (vitamin D3) 1,000 inter.unit PO HS PRN #0 01/27/18 12/02/19 History [Vitamin D3] coenzyme Q10 [Co Q-10] 200 mg PO HS #0 01/27/18 12/02/19 History omega-3 fatty acids-fish oil [Fish 1 cap PO TID #0 01/27/18 12/02/19 History Oil] milk thistle 250 mg PO BID 01/28/18 12/02/19 History fenofibrate nanocrystallized 48 mg PO HS 04/20/19 12/02/19 History [Tricor] fenofibrate nanocrystallized 96 mg PO QAM 04/20/19 12/02/19 History [Tricor] metformin [Glucophage] 500 mg PO BID 04/20/19 12/02/19 History amlodipine 10 mg-benazepril 20 mg 1 cap PO HS #90 cap 08/15/19 12/02/19 Rx capsule levothyroxine 88 mcg tablet 88 mcg PO DAILY #90 tab 08/31/19 12/02/19 Rx triamterene 37.5 1 tab PO DAILY #90 tab 09/26/19 12/02/19 Rx mg-hydrochlorothiazide 25 mg tablet Lantus Solostar U-100 Insulin 100 27 units SC HS #30 ml NS 10/19/19 12/02/19 Rx unit/mL (3 mL) subcutaneous pen insulin aspart U-100 [Novolog 4 unit SC DIRECTED 12/02/19 12/02/19 History Flexpen U-100 Insulin] Patient History Medical History Cervical radiculopathy Tubular adenoma Surgical History H/O umbilical hernia repair 05/22/2010 History of cataract surgery 4 mg of versed for prior cataract without apparent complications History of cholecystectomy 05/22/2010 History of colonoscopy History of esophagogastroduodenoscopy (EGD) History of tonsillectomy Family History Father Family history of diabetes mellitus Diabetes Hypertension Sister Cancer Grandfather No problems noted. 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 Other Information That Helps Us Care for You: No Feels Safe at Home: Yes Safety Concerns: Feels Safe At This Time Smoking Status: Never smoker Do You Dip or Chew Tobacco: No ; Second Hand Exposure: No ; Tobacco Cessation Education Requested by Patient: No Hx Alcohol Use: Yes (occassional) Alcohol type: wine Alcohol Intake Frequency: Weekly Hx Substance Use: No Dental Care, Regularly: Yes Physical Activity Frequency: Does not Exercise Review of Systems Constitutional: + body aches; no fever and no chills Eyes: as per Subjective / HPI, + diplopia and + eye pain Swelling of left eyelid Ear, Nose, Mouth, Throat: no ear pain, no tinnitus and no hearing loss Respiratory: no cough and no dyspnea Cardiovascular: no chest pain and no palpitations Gastrointestinal: no nausea and no vomiting Genitourinary: no dysuria and no urinary incontinence Musculoskeletal: as per Subjective / HPI and + back pain; no myalgia Left hip pain Integumentary: as per Subjective / HPI and + rash Neurologic: as per Subjective / HPI; no localized weakness, no loss of sensation, no syncope, no confusion and no memory loss Psychiatric: no depression and no anxiety Hematologic / Lymphatic: no easy bleeding and no easy bruising Exam (Neuro) Constitutional: well developed and well nourished; no acute distress Eyes: normal visual montez by confrontation, PERRL and normal accommodation; + EOM not intact (There is significant ophthalmoplegia affecting the left eye with limited movement horizontally and vertically in all directions.), no fundoscopic abnormality, no nystagmus and no papilledema The left eye is injected and swollen appearing. Visual acuity normal for both eyes. Pupillary reflexes intact for both eyes. Cardiovascular: Vessels: normal carotid upstroke; no carotid bruit Neurologic: Oriented to:: Person, Place and Time Memory: Short Term Intact and Remote Intact Attention: Span Intact and Concentration Intact Language: Naming Objects and Repeating Phrases Speech Fluency: negative Dysarthria Speech Aphasia: negative Aphasia Fund of Knowledge: Current Events, Past History and Vocabulary Cranial Nerves: Normal II (Visual montez full to confrontation, visual acuity normal), V (Facial sensation intact), VII (There is no facial droop or weakness), VIII (Hearing intact), IX, X (Palate elevates to midline), XI (Shoulder shrug intact) and XII (Tongue protrudes to midline); Abnorm III, IV, (The pupils are equal, round, and reactive to light. There is significant limitation of movement of the left eye, vertically and horizontally.) Motor Strength: Normal Lower Extremities and Normal Upper Extremities; negative Pronator Drift Motor Tone: Normal Lower Extremities and Normal Upper Extremities Muscle Bulk/Involuntary Movements: No Involuntary Movements; negative Muscle Atrophy Sensation: Light Touch Intact, Pain/Temperature Intact, Vibration Intact and Proprioception Intact Coordination: Normal; negative Limited Balance, Dysdiadochokinesia, Finger-Nose Abnormal and Heel-Yadav Abnormal Deep Tendon Reflexes: Rt Triceps: 2+, Lt Triceps: 2+, Rt Biceps: 2+, Lt Biceps: 2+, Rt Brachioradialis: 2+, Lt Brachioradialis: 2+, Rt Patellar: 2+, Lt Patellar: 2+, Rt Ankle: 1+ and Lt Ankle: 1+ Special Tests: negative Babinski Present Gait: Normal Station and Gait Results & Data ([facility]) Vital Signs (Past 12 Hours) Vital Signs Temp Pulse Pulse Resp BP BP Pulse Ox 12/03/19 07:31 37.4 C 68 18 154/71 H 90 12/03/19 03:04 38.4 C H 69 20 126/66 93 12/02/19 23:10 37.5 C 61 19 156/72 H 95 12/02/19 22:32 37.4 C 57 L 18 159/82 H 96 12/02/19 22:20 59 L Laboratory Results WBC 8.83, hemoglobin 12.5, hematocrit 36.9, platelet count 315, ESR 18, sodium 134, potassium 3.2, BUN 12, creatinine 0.81, glucose 189, triglycerides 223, cholesterol 169, LDL 91, VLDL 45, HDL 33, Lyme IgG and IgM negative. Diagnostic Findings CT of the head negative for hemorrhage or acute process. There is evidence of chronic small vessel ischemic change. CT angiography of the head negative for thrombus, occlusion or aneurysm. CT angiography of the neck reveals atherosclerotic plaque within the proximal bilateral internal carotid arteries without significant stenosis. There is mild stenosis at the origin of the right external carotid artery. There is moderate stenosis at the origin of the right vertebral artery. MRI of the brain is negative for acute or subacute infarct. There is evidence of chronic small vessel ischemic disease. There is specifically no evidence of acute brainstem or midbrain infarct per my review of the images. I reviewed the images as well as the radiologist's interpretation of these tests. An electrocardiogram reveals sinus bradycardia, 56 bpm, right bundle branch block. Coding Level of Care Code 59575 Initial Inpt Care Lvl 3 Diagnoses Ophthalmoplegia of left eye H49.9
[2019-12-03] MEDS: NSS + 20MEQ KCL 20 MEQ/1,000 ML BAG IV SCH (12:04)
--- NOTE | 2019-12-03 13:31 | Hospitalist Progress Note ---
Date of Service December 03, 2019 Assessment & Plan (1) Diplopia: Florina Delgado is a 69y/o F w/ PMH significant for HLD, HTN, depression, PTSD, T2DM, hypothyroidism, NAFLD, kidney stones, chronic back pain, osteoarthritis, and neuropathy of foot. Diplopia: - episodic double vision that has continued over the last several days - concern for orbital cellulitis given proptosis, pain with ocular movement. likely etiology of diplopia - CT head no acute intracranial findings - CTA Head no intraluminal thrombus, abrupt vessel cutoff, or hemodynamically significant stenosis - CTA Neck: 1. Atherosclerotic plaque within the proximal bilateral internal carotid arteries without significant stenosis. 2. Mild stenosis at the origin of the right external carotid artery. 3. Moderate stenosis at the origin of the right vertebral artery. - MRI Shyam Numerous white matter T2 hyperintense foci. - CT Orbits & sinuses pending - MRI Orbits pending - continue Vancomycin, Ceftriaxone, and Acyclovir - blood cultures pending x2 - urine culture pending - consult ophthalmology: appreciate recommendations Cellulitis left thigh: - approximately 10cm erythematous plaque over L anterior thigh, margins outlined - with previous tick exposure history - concern of tick bite related illness though lyme ds/anaplasmosis - peripheral smear negative. - continue Doxycycline in addition to above antibiotics Left hip pain with underlying Chronic back pain with radiculopathy: - patient with chronic low back pain, and acute L hip pain - recently was working in the yard - CT pelvis does not demonstrate acute abnormalities, some osteoarthritis of b/l acetabular surfaces - Femur XR no acute abnormalities - follow Diet: Heart Healthy, Carb consistent DVT ppx: SQ heparin Code: Full code (2) Cellulitis of left thigh: (3) Diabetes mellitus, type 2: (4) Chronic back pain: Admission and Anticipated Discharge Date Admission Date: December 02, 2019 Supervising Physician Co-Signing Physician Notes Resident Physician Supervision Note: I independently interviewed and examined the patient and verified the herrera history and physical, reviewed labs and image studies, discussed the case with the resident Dr. Laguna and agree with the findings and care plan. Subjective Patient has pain with eye movement, and continued double vision this AM. This has remain relatively unchanged over the last couple days. Review of Systems Review of Systems: All systems reviewed & are unremarkable except as noted in Subjective Physical Exam Constitutional: WD/WN, vitals as above Eyes: + conjunctival abnormality (erythema), + scleral abnormality (erythema), PERRL and + EOM movement deficit (L eye motion limited by pain); no photophobia Respiratory: normal respiratory effort, lungs clear to auscultation Cardiovascular: Rate/Rhythm: regular rate and regular rhythm Heart Sounds: normal S1 and normal S2; no gallop, no murmur and no cardiac rub Vessels: no JVD Extremities: no pedal edema Gastrointestinal (Abdomen): normal bowel sounds, soft, nontender, no hepatosplenomegaly Musculoskeletal: no cyanosis or clubbing, extremities motor strength 5/5 Skin: erythematous placque over anterior L inguinal area with tracking into groin Psychiatric: A+Ox3, euthymic affect Results & Data Results & Data ([facility]) Vital Signs (Past 12 Hours) Vital Signs Temp Pulse Pulse Resp BP BP Pulse Ox 12/03/19 11:16 37.3 C 60 18 125/70 95 12/03/19 08:36 64 12/03/19 07:31 37.4 C 68 18 154/71 H 90 12/03/19 03:04 38.4 C H 69 20 126/66 93 Laboratory Results 12/03/19 12/03/19 12/03/19 Range/Units 11:27 10:45 10:45 WBC (4.8-10.8) K/uL RBC (4.2-5.4) M/uL Hgb (12.0-16.0) g/dL POC Hgb (12.0-16.0) g/dl Hct (37-47) % POC Hct (37-47) % MCV (80-100) fL MCH (25-34) pg MCHC (32-36) g/dL RDW Std Deviation (36.4-46.3) fL RDW Coeff of Ariel (11.5-14.5) % Plt Count (130-400) K/uL MPV (7.4-10.4) fL Immature Gran % (Auto) % Neut % (Auto) % Lymph % (Auto) % Blanco % (Auto) % Eos % (Auto) % Baso % (Auto) % Neut # (Auto) (1.4-6.5) K/uL Lymph # (Auto) (1.2-3.4) K/uL Blanco # (Auto) (0.11-0.59) K/uL Eos # (Auto) (0-0.5) K/uL Baso # (Auto) (0-0.2) K/uL Immature Gran # (Auto) (0.00-0.02) K/uL Absolute Nucleated RBC (0-0) K/uL Nucleated RBC % (auto) % Peripher Smr Path Cons ESR (0-21) mm/hr PT (9.0-12.0) Seconds INR (0.9-1.1) APTT (21.0-31.0) Seconds PTT Ratio POC Sodium (135-144) mmol/L Sodium (136-145) mmol/L POC Potassium (3.3-5.0) mmol/L Potassium (3.5-5.1) mmol/L POC Chloride (101-112) mmol/L Chloride (98-107) mmol/L Carbon Dioxide (21-32) mmol/L POC Total CO2 (24-31) mmol/L Anion Gap (3-11) POC Anion Gap (16-25) mmol/L POC BUN (7-18) mg/dl BUN (7-18) mg/dl Creatinine (0.6-1.2) mg/dl POC Creatinine (0.6-1.3) mg/dl Est Cr Clr Drug Dosing ml/min Est GFR ( Amer) Est GFR (Non-Af Amer) BUN/Creatinine Ratio (10-20) Glucose (70-99) mg/dl POC Glucose 172 H (70-99) mg/dl POC Glucose (other) (70-99) mg/dl Estimat Average Glucose Hemoglobin A1c Lactate (0.4-2.0) mmol/L Calcium (8.5-10.1) mg/dl POC Ioniz Calcium Esther (1.12-1.32) mmol/l Magnesium (1.8-2.4) mg/dl Total Bilirubin (0.2-1) mg/dl AST (15-37) U/L ALT (12-78) U/L Alkaline Phosphatase (45-117) U/L CK-MB (CK-2) (0.5-3.6) ng/ml Troponin I (0-0.045) ng/ml Total Protein (6.4-8.2) gm/dl Albumin (3.4-5.0) gm/dl Globulin (2.5-4.0) gm/dl Albumin/Globulin Ratio (0.9-2) Triglycerides (0-150) mg/dl Cholesterol (0-200) mg/dl LDL Cholesterol, Calc mg/dl VLDL Cholesterol, Calc mg/dl HDL Cholesterol mg/dl Cholesterol/HDL Ratio TSH 0.856 (0.300-4.500) uIu/ml Urine Color Urine Appearance (Clear) Urine pH (4.5-7.5) Ur Specific [place] (1.000-1.030) Urine Protein (Negative) Urine Glucose (UA) (Negative) Urine Ketones (Negative) Urine Blood (Negative) Urine Nitrite (Negative) Urine Bilirubin (Negative) Urine Urobilinogen (Negative) Ur Leukocyte Esterase (Negative) Urine WBC (Auto) (0-5) /hpf Urine RBC (Auto) (0-4) /hpf U Hyaline Cast (Auto) (0-5) /lpf U Epithel Cells (Auto) (0-5) /lpf Urine Bacteria (Auto) (Negative) Acetylchol Rcpt Block Ab Pending Acetylchol Rcpt Bind Ab Pending Acetylchol Rcpt Modu Ab Pending Anaplasma Smear A. phagocytophilum DNA Lyme Disease IgG Ab (Negative) Lyme Disease IgM Ab (Negative) E. chaffeensis IgG Ab E. chaffeensis IgM Ab E. chaffeensis Interp E. chaffeensis Comment 12/03/19 12/03/19 12/03/19 Range/Units 07:22 05:56 05:56 WBC (4.8-10.8) K/uL RBC (4.2-5.4) M/uL Hgb (12.0-16.0) g/dL POC Hgb (12.0-16.0) g/dl Hct (37-47) % POC Hct (37-47) % MCV (80-100) fL MCH (25-34) pg MCHC (32-36) g/dL RDW Std Deviation (36.4-46.3) fL RDW Coeff of Ariel (11.5-14.5) % Plt Count (130-400) K/uL MPV (7.4-10.4) fL Immature Gran % (Auto) % Neut % (Auto) % Lymph % (Auto) % Blanco % (Auto) % Eos % (Auto) % Baso % (Auto) % Neut # (Auto) (1.4-6.5) K/uL Lymph # (Auto) (1.2-3.4) K/uL Blanco # (Auto) (0.11-0.59) K/uL Eos # (Auto) (0-0.5) K/uL Baso # (Auto) (0-0.2) K/uL Immature Gran # (Auto) (0.00-0.02) K/uL Absolute Nucleated RBC (0-0) K/uL Nucleated RBC % (auto) % Peripher Smr Path Cons ESR (0-21) mm/hr PT (9.0-12.0) Seconds INR (0.9-1.1) APTT (21.0-31.0) Seconds PTT Ratio POC Sodium (135-144) mmol/L Sodium (136-145) mmol/L POC Potassium (3.3-5.0) mmol/L Potassium (3.5-5.1) mmol/L POC Chloride (101-112) mmol/L Chloride (98-107) mmol/L Carbon Dioxide (21-32) mmol/L POC Total CO2 (24-31) mmol/L Anion Gap (3-11) POC Anion Gap (16-25) mmol/L POC BUN (7-18) mg/dl BUN (7-18) mg/dl Creatinine 0.81 (0.6-1.2) mg/dl POC Creatinine (0.6-1.3) mg/dl Est Cr Clr Drug Dosing 61.1 ml/min Est GFR ( Amer) 86.5 Est GFR (Non-Af Amer) 74.6 BUN/Creatinine Ratio (10-20) Glucose (70-99) mg/dl POC Glucose 189 H (70-99) mg/dl POC Glucose (other) (70-99) mg/dl Estimat Average Glucose Hemoglobin A1c Lactate (0.4-2.0) mmol/L Calcium (8.5-10.1) mg/dl POC Ioniz Calcium Esther (1.12-1.32) mmol/l Magnesium (1.8-2.4) mg/dl Total Bilirubin (0.2-1) mg/dl AST (15-37) U/L ALT (12-78) U/L Alkaline Phosphatase (45-117) U/L CK-MB (CK-2) (0.5-3.6) ng/ml Troponin I (0-0.045) ng/ml Total Protein (6.4-8.2) gm/dl Albumin (3.4-5.0) gm/dl Globulin (2.5-4.0) gm/dl Albumin/Globulin Ratio (0.9-2) Triglycerides 223 H (0-150) mg/dl Cholesterol 169 (0-200) mg/dl LDL Cholesterol, Calc 91 mg/dl VLDL Cholesterol, Calc 45 mg/dl HDL Cholesterol 33 mg/dl Cholesterol/HDL Ratio 5 TSH (0.300-4.500) uIu/ml Urine Color Urine Appearance (Clear) Urine pH (4.5-7.5) Ur Specific [place] (1.000-1.030) Urine Protein (Negative) Urine Glucose (UA) (Negative) Urine Ketones (Negative) Urine Blood (Negative) Urine Nitrite (Negative) Urine Bilirubin (Negative) Urine Urobilinogen (Negative) Ur Leukocyte Esterase (Negative) Urine WBC (Auto) (0-5) /hpf Urine RBC (Auto) (0-4) /hpf U Hyaline Cast (Auto) (0-5) /lpf U Epithel Cells (Auto) (0-5) /lpf Urine Bacteria (Auto) (Negative) Acetylchol Rcpt Block Ab Acetylchol Rcpt Bind Ab Acetylchol Rcpt Modu Ab Anaplasma Smear A. phagocytophilum DNA Lyme Disease IgG Ab (Negative) Lyme Disease IgM Ab (Negative) E. chaffeensis IgG Ab E. chaffeensis IgM Ab E. chaffeensis Interp E. chaffeensis Comment 12/03/19 12/03/19 12/02/19 Range/Units 05:56 01:59 23:07 WBC (4.8-10.8) K/uL RBC (4.2-5.4) M/uL Hgb (12.0-16.0) g/dL POC Hgb (12.0-16.0) g/dl Hct (37-47) % POC Hct (37-47) % MCV (80-100) fL MCH (25-34) pg MCHC (32-36) g/dL RDW Std Deviation (36.4-46.3) fL RDW Coeff of Ariel (11.5-14.5) % Plt Count (130-400) K/uL MPV (7.4-10.4) fL Immature Gran % (Auto) % Neut % (Auto) % Lymph % (Auto) % Blanco % (Auto) % Eos % (Auto) % Baso % (Auto) % Neut # (Auto) (1.4-6.5) K/uL Lymph # (Auto) (1.2-3.4) K/uL Blanco # (Auto) (0.11-0.59) K/uL Eos # (Auto) (0-0.5) K/uL Baso # (Auto) (0-0.2) K/uL Immature Gran # (Auto) (0.00-0.02) K/uL Absolute Nucleated RBC (0-0) K/uL Nucleated RBC % (auto) % Peripher Smr Path Cons ESR (0-21) mm/hr PT (9.0-12.0) Seconds INR (0.9-1.1) APTT (21.0-31.0) Seconds PTT Ratio POC Sodium (135-144) mmol/L Sodium (136-145) mmol/L POC Potassium (3.3-5.0) mmol/L Potassium (3.5-5.1) mmol/L POC Chloride (101-112) mmol/L Chloride (98-107) mmol/L Carbon Dioxide (21-32) mmol/L POC Total CO2 (24-31) mmol/L Anion Gap (3-11) POC Anion Gap (16-25) mmol/L POC BUN (7-18) mg/dl BUN (7-18) mg/dl Creatinine (0.6-1.2) mg/dl POC Creatinine (0.6-1.3) mg/dl Est Cr Clr Drug Dosing ml/min Est GFR ( Amer) Est GFR (Non-Af Amer) BUN/Creatinine Ratio (10-20) Glucose (70-99) mg/dl POC Glucose 172 H 149 H (70-99) mg/dl POC Glucose (other) (70-99) mg/dl Estimat Average Glucose Pending Hemoglobin A1c Pending Lactate (0.4-2.0) mmol/L Calcium (8.5-10.1) mg/dl POC Ioniz Calcium Esther (1.12-1.32) mmol/l Magnesium (1.8-2.4) mg/dl Total Bilirubin (0.2-1) mg/dl AST (15-37) U/L ALT (12-78) U/L Alkaline Phosphatase (45-117) U/L CK-MB (CK-2) (0.5-3.6) ng/ml Troponin I (0-0.045) ng/ml Total Protein (6.4-8.2) gm/dl Albumin (3.4-5.0) gm/dl Globulin (2.5-4.0) gm/dl Albumin/Globulin Ratio (0.9-2) Triglycerides (0-150) mg/dl Cholesterol (0-200) mg/dl LDL Cholesterol, Calc mg/dl VLDL Cholesterol, Calc mg/dl HDL Cholesterol mg/dl Cholesterol/HDL Ratio TSH (0.300-4.500) uIu/ml Urine Color Urine Appearance (Clear) Urine pH (4.5-7.5) Ur Specific [place] (1.000-1.030) Urine Protein (Negative) Urine Glucose (UA) (Negative) Urine Ketones (Negative) Urine Blood (Negative) Urine Nitrite (Negative) Urine Bilirubin (Negative) Urine Urobilinogen (Negative) Ur Leukocyte Esterase (Negative) Urine WBC (Auto) (0-5) /hpf Urine RBC (Auto) (0-4) /hpf U Hyaline Cast (Auto) (0-5) /lpf U Epithel Cells (Auto) (0-5) /lpf Urine Bacteria (Auto) (Negative) Acetylchol Rcpt Block Ab Acetylchol Rcpt Bind Ab Acetylchol Rcpt Modu Ab Anaplasma Smear A. phagocytophilum DNA Lyme Disease IgG Ab (Negative) Lyme Disease IgM Ab (Negative) E. chaffeensis IgG Ab E. chaffeensis IgM Ab E. chaffeensis Interp E. chaffeensis Comment 12/02/19 12/02/19 12/02/19 Range/Units 16:27 14:43 14:32 WBC (4.8-10.8) K/uL RBC (4.2-5.4) M/uL Hgb (12.0-16.0) g/dL POC Hgb 12.2 (12.0-16.0) g/dl Hct (37-47) % POC Hct 36 L (37-47) % MCV (80-100) fL MCH (25-34) pg MCHC (32-36) g/dL RDW Std Deviation (36.4-46.3) fL RDW Coeff of Ariel (11.5-14.5) % Plt Count (130-400) K/uL MPV (7.4-10.4) fL Immature Gran % (Auto) % Neut % (Auto) % Lymph % (Auto) % Blanco % (Auto) % Eos % (Auto) % Baso % (Auto) % Neut # (Auto) (1.4-6.5) K/uL Lymph # (Auto) (1.2-3.4) K/uL Blanco # (Auto) (0.11-0.59) K/uL Eos # (Auto) (0-0.5) K/uL Baso # (Auto) (0-0.2) K/uL Immature Gran # (Auto) (0.00-0.02) K/uL Absolute Nucleated RBC (0-0) K/uL Nucleated RBC % (auto) % Peripher Smr Path Cons ESR 18 (0-21) mm/hr PT (9.0-12.0) Seconds INR (0.9-1.1) APTT (21.0-31.0) Seconds PTT Ratio POC Sodium 134 L (135-144) mmol/L Sodium (136-145) mmol/L POC Potassium 3.2 L (3.3-5.0) mmol/L Potassium (3.5-5.1) mmol/L POC Chloride 97 L (101-112) mmol/L Chloride (98-107) mmol/L Carbon Dioxide (21-32) mmol/L POC Total CO2 24 (24-31) mmol/L Anion Gap (3-11) POC Anion Gap 17.0 (16-25) mmol/L POC BUN 12 (7-18) mg/dl BUN (7-18) mg/dl Creatinine (0.6-1.2) mg/dl POC Creatinine 0.7 (0.6-1.3) mg/dl Est Cr Clr Drug Dosing ml/min Est GFR ( Amer) Est GFR (Non-Af Amer) BUN/Creatinine Ratio (10-20) Glucose (70-99) mg/dl POC Glucose (70-99) mg/dl POC Glucose (other) 191 H (70-99) mg/dl Estimat Average Glucose Hemoglobin A1c Lactate (0.4-2.0) mmol/L Calcium (8.5-10.1) mg/dl POC Ioniz Calcium Esther 1.16 (1.12-1.32) mmol/l Magnesium (1.8-2.4) mg/dl Total Bilirubin (0.2-1) mg/dl AST (15-37) U/L ALT (12-78) U/L Alkaline Phosphatase (45-117) U/L CK-MB (CK-2) (0.5-3.6) ng/ml Troponin I (0-0.045) ng/ml Total Protein (6.4-8.2) gm/dl Albumin (3.4-5.0) gm/dl Globulin (2.5-4.0) gm/dl Albumin/Globulin Ratio (0.9-2) Triglycerides (0-150) mg/dl Cholesterol (0-200) mg/dl LDL Cholesterol, Calc mg/dl VLDL Cholesterol, Calc mg/dl HDL Cholesterol mg/dl Cholesterol/HDL Ratio TSH (0.300-4.500) uIu/ml Urine Color Yellow Urine Appearance Clear (Clear) Urine pH 6.5 (4.5-7.5) Ur Specific [place] 1.036 H (1.000-1.030) Urine Protein Negative (Negative) Urine Glucose (UA) Negative (Negative) Urine Ketones Negative (Negative) Urine Blood Negative (Negative) Urine Nitrite Negative (Negative) Urine Bilirubin Negative (Negative) Urine Urobilinogen Negative (Negative) Ur Leukocyte Esterase Trace H (Negative) Urine WBC (Auto) 5-10 H (0-5) /hpf Urine RBC (Auto) 0-4 (0-4) /hpf U Hyaline Cast (Auto) 0 (0-5) /lpf U Epithel Cells (Auto) 10-20 H (0-5) /lpf Urine Bacteria (Auto) Negative (Negative) Acetylchol Rcpt Block Ab Acetylchol Rcpt Bind Ab Acetylchol Rcpt Modu Ab Anaplasma Smear A. phagocytophilum DNA Lyme Disease IgG Ab (Negative) Lyme Disease IgM Ab (Negative) E. chaffeensis IgG Ab E. chaffeensis IgM Ab E. chaffeensis Interp E. chaffeensis Comment 12/02/19 12/02/19 12/02/19 Range/Units 14:32 14:32 14:32 WBC (4.8-10.8) K/uL RBC (4.2-5.4) M/uL Hgb (12.0-16.0) g/dL POC Hgb (12.0-16.0) g/dl Hct (37-47) % POC Hct (37-47) % MCV (80-100) fL MCH (25-34) pg MCHC (32-36) g/dL RDW Std Deviation (36.4-46.3) fL RDW Coeff of Ariel (11.5-14.5) % Plt Count (130-400) K/uL MPV (7.4-10.4) fL Immature Gran % (Auto) % Neut % (Auto) % Lymph % (Auto) % Blanco % (Auto) % Eos % (Auto) % Baso % (Auto) % Neut # (Auto) (1.4-6.5) K/uL Lymph # (Auto) (1.2-3.4) K/uL Blanco # (Auto) (0.11-0.59) K/uL Eos # (Auto) (0-0.5) K/uL Baso # (Auto) (0-0.2) K/uL Immature Gran # (Auto) (0.00-0.02) K/uL Absolute Nucleated RBC (0-0) K/uL Nucleated RBC % (auto) % Peripher Smr Path Cons ESR (0-21) mm/hr PT 10.9 (9.0-12.0) Seconds INR 1.0 (0.9-1.1) APTT 25.8 (21.0-31.0) Seconds PTT Ratio 0.9 POC Sodium (135-144) mmol/L Sodium 134 L (136-145) mmol/L POC Potassium (3.3-5.0) mmol/L Potassium 3.2 L (3.5-5.1) mmol/L POC Chloride (101-112) mmol/L Chloride 99 (98-107) mmol/L Carbon Dioxide 26 (21-32) mmol/L POC Total CO2 (24-31) mmol/L Anion Gap 9.0 (3-11) POC Anion Gap (16-25) mmol/L POC BUN (7-18) mg/dl BUN 13 (7-18) mg/dl Creatinine 0.85 (0.6-1.2) mg/dl POC Creatinine (0.6-1.3) mg/dl Est Cr Clr Drug Dosing 57.8 ml/min Est GFR ( Amer) 81.6 Est GFR (Non-Af Amer) 70.4 BUN/Creatinine Ratio 15.9 (10-20) Glucose 187 H (70-99) mg/dl POC Glucose (70-99) mg/dl POC Glucose (other) (70-99) mg/dl Estimat Average Glucose Hemoglobin A1c Lactate 1.2 (0.4-2.0) mmol/L Calcium 8.9 (8.5-10.1) mg/dl POC Ioniz Calcium Esther (1.12-1.32) mmol/l Magnesium 1.8 (1.8-2.4) mg/dl Total Bilirubin 0.6 (0.2-1) mg/dl AST 63 H (15-37) U/L ALT 79 H (12-78) U/L Alkaline Phosphatase 101 (45-117) U/L CK-MB (CK-2) < 1.0 (0.5-3.6) ng/ml Troponin I < 0.015 (0-0.045) ng/ml Total Protein 6.6 (6.4-8.2) gm/dl Albumin 2.8 L (3.4-5.0) gm/dl Globulin 3.8 (2.5-4.0) gm/dl Albumin/Globulin Ratio 0.7 L (0.9-2) Triglycerides (0-150) mg/dl Cholesterol (0-200) mg/dl LDL Cholesterol, Calc mg/dl VLDL Cholesterol, Calc mg/dl HDL Cholesterol mg/dl Cholesterol/HDL Ratio TSH (0.300-4.500) uIu/ml Urine Color Urine Appearance (Clear) Urine pH (4.5-7.5) Ur Specific [place] (1.000-1.030) Urine Protein (Negative) Urine Glucose (UA) (Negative) Urine Ketones (Negative) Urine Blood (Negative) Urine Nitrite (Negative) Urine Bilirubin (Negative) Urine Urobilinogen (Negative) Ur Leukocyte Esterase (Negative) Urine WBC (Auto) (0-5) /hpf Urine RBC (Auto) (0-4) /hpf U Hyaline Cast (Auto) (0-5) /lpf U Epithel Cells (Auto) (0-5) /lpf Urine Bacteria (Auto) (Negative) Acetylchol Rcpt Block Ab Acetylchol Rcpt Bind Ab Acetylchol Rcpt Modu Ab Anaplasma Smear A. phagocytophilum DNA Lyme Disease IgG Ab (Negative) Lyme Disease IgM Ab (Negative) E. chaffeensis IgG Ab E. chaffeensis IgM Ab E. chaffeensis Interp E. chaffeensis Comment 12/02/19 12/02/19 12/02/19 Range/Units 14:32 14:32 14:32 WBC 8.83 (4.8-10.8) K/uL RBC 4.48 (4.2-5.4) M/uL Hgb 12.5 (12.0-16.0) g/dL POC Hgb (12.0-16.0) g/dl Hct 36.9 L (37-47) % POC Hct (37-47) % MCV 82.4 (80-100) fL MCH 27.9 (25-34) pg MCHC 33.9 (32-36) g/dL RDW Std Deviation 44.9 (36.4-46.3) fL RDW Coeff of Ariel 14.9 H (11.5-14.5) % Plt Count 315 (130-400) K/uL MPV 9.5 (7.4-10.4) fL Immature Gran % (Auto) 0.2 % Neut % (Auto) 86.0 % Lymph % (Auto) 6.8 % Blanco % (Auto) 6.7 % Eos % (Auto) 0.1 % Baso % (Auto) 0.2 % Neut # (Auto) 7.59 H (1.4-6.5) K/uL Lymph # (Auto) 0.60 L (1.2-3.4) K/uL Blanco # (Auto) 0.59 (0.11-0.59) K/uL Eos # (Auto) 0.01 (0-0.5) K/uL Baso # (Auto) 0.02 (0-0.2) K/uL Immature Gran # (Auto) 0.02 (0.00-0.02) K/uL Absolute Nucleated RBC 0.00 (0-0) K/uL Nucleated RBC % (auto) 0.0 % Peripher Smr Path Cons Cancelled ESR (0-21) mm/hr PT (9.0-12.0) Seconds INR (0.9-1.1) APTT (21.0-31.0) Seconds PTT Ratio POC Sodium (135-144) mmol/L Sodium (136-145) mmol/L POC Potassium (3.3-5.0) mmol/L Potassium (3.5-5.1) mmol/L POC Chloride (101-112) mmol/L Chloride (98-107) mmol/L Carbon Dioxide (21-32) mmol/L POC Total CO2 (24-31) mmol/L Anion Gap (3-11) POC Anion Gap (16-25) mmol/L POC BUN (7-18) mg/dl BUN (7-18) mg/dl Creatinine (0.6-1.2) mg/dl POC Creatinine (0.6-1.3) mg/dl Est Cr Clr Drug Dosing ml/min Est GFR ( Amer) Est GFR (Non-Af Amer) BUN/Creatinine Ratio (10-20) Glucose (70-99) mg/dl POC Glucose (70-99) mg/dl POC Glucose (other) (70-99) mg/dl Estimat Average Glucose Hemoglobin A1c Lactate (0.4-2.0) mmol/L Calcium (8.5-10.1) mg/dl POC Ioniz Calcium Esther (1.12-1.32) mmol/l Magnesium (1.8-2.4) mg/dl Total Bilirubin (0.2-1) mg/dl AST (15-37) U/L ALT (12-78) U/L Alkaline Phosphatase (45-117) U/L CK-MB (CK-2) (0.5-3.6) ng/ml Troponin I (0-0.045) ng/ml Total Protein (6.4-8.2) gm/dl Albumin (3.4-5.0) gm/dl Globulin (2.5-4.0) gm/dl Albumin/Globulin Ratio (0.9-2) Triglycerides (0-150) mg/dl Cholesterol (0-200) mg/dl LDL Cholesterol, Calc mg/dl VLDL Cholesterol, Calc mg/dl HDL Cholesterol mg/dl Cholesterol/HDL Ratio TSH (0.300-4.500) uIu/ml Urine Color Urine Appearance (Clear) Urine pH (4.5-7.5) Ur Specific [place] (1.000-1.030) Urine Protein (Negative) Urine Glucose (UA) (Negative) Urine Ketones (Negative) Urine Blood (Negative) Urine Nitrite (Negative) Urine Bilirubin (Negative) Urine Urobilinogen (Negative) Ur Leukocyte Esterase (Negative) Urine WBC (Auto) (0-5) /hpf Urine RBC (Auto) (0-4) /hpf U Hyaline Cast (Auto) (0-5) /lpf U Epithel Cells (Auto) (0-5) /lpf Urine Bacteria (Auto) (Negative) Acetylchol Rcpt Block Ab Acetylchol Rcpt Bind Ab Acetylchol Rcpt Modu Ab Anaplasma Smear See Comment A. phagocytophilum DNA Pending Lyme Disease IgG Ab Negative (Negative) Lyme Disease IgM Ab Negative (Negative) E. chaffeensis IgG Ab Pending E. chaffeensis IgM Ab Pending E. chaffeensis Interp Pending E. chaffeensis Comment Pending Medications Administered Current Inpatient Medications Acetaminophen (Tylenol) 650 mg PO Q4H PRN PRN Reason: Pain or Fever Stop: 01/01/20 22:29 Last Admin: 12/03/19 03:09 Dose: 650 mg Documented by: Ascorbic Acid (Vitamin C) 1,[address] [facility] Stop: 01/02/20 08:59 Last Admin: 12/03/19 08:28 Dose: 1,000 mg Documented by: Aspirin (Ecotrin Ectab) 81 mg PO [facility] Stop: 01/01/20 22:29 Last Admin: 12/02/19 23:37 Dose: 81 mg Documented by: Dextrose (Dextrose 50%) 25 - 50 ml IV UD PRN; Protocol PRN Reason: Hypoglycemia Protocol Stop: 01/01/20 22:29 Fenofibrate (Fenofibrate) [address] [facility] Stop: 01/02/20 08:59 Last Admin: 12/03/19 08:28 Dose: 96 mg Documented by: Fenofibrate (Fenofibrate) 48 mg PO [facility] Stop: 01/01/20 22:29 Last Admin: 12/02/19 23:37 Dose: 48 mg Documented by: Glucagon (Glucagen) 1 mg SQ UD PRN; Protocol PRN Reason: Hypoglycemia Protocol Stop: 01/01/20 22:29 Glucose (Dex4 Glucose) 4 - 8 tabs PO UD PRN; Protocol PRN Reason: Hypoglycemia Protocol Stop: 01/01/20 22:29 Glucose (Glucose 40%) 15 - 30 gm PO UD PRN; Protocol PRN Reason: Hypoglycemia Protocol Stop: 01/01/20 22:29 Heparin Sodium (Porcine) (Heparin Sodium (Porcine)) 5,000 units SQ Q12 [facility] Stop: 01/01/20 22:29 Last Admin: 12/03/19 08:27 Dose: 5,000 units Documented by: Vancomycin HCl 1,000 mg/ (Sodium Chloride) 270 mls @ 125 mls/hr IV Q12H [facility]; Protocol Stop: 12/10/19 09:59 Last Infusion: 12/03/19 12:12 Dose: Infused Documented by: Ceftriaxone Sodium 2,000 mg/ (Dextrose) 70 mls @ 100 mls/hr IV Q24H [facility]; Protocol Stop: 12/10/19 15:59 Doxycycline Hyclate 100 mg/ (Dextrose) 110 mls @ 50 mls/hr IV Q12H [facility] Stop: 12/10/19 05:59 Last Infusion: 12/03/19 08:10 Dose: Infused Documented by: Acyclovir Sodium 600 mg/ (Dextrose) 112 mls @ 100 mls/hr IV Q8 [facility] Stop: 12/09/19 22:29 Last Infusion: 12/03/19 07:06 Dose: Infused Documented by: Potassium Chloride/Sodium Chloride (Normal Saline W/20 Meq Kcl) 20 meq in 1,000 mls @ 80 mls/hr IV .[id number] [facility] Stop: 01/01/20 22:44 Last Admin: 12/03/19 12:04 Dose: 80 mls/hr Documented by: Insulin Aspart (Novolog Flexpen) 0 units SC ACHS [facility] Stop: 01/01/20 22:29 Last Admin: 12/03/19 12:04 Dose: 7 units Documented by: Insulin Glargine (Lantus Solostar Pen) 15 units SC HS [facility] Stop: 01/01/20 22:29 Last Admin: 12/03/19 00:37 Dose: Not Given Documented by: Ioversol (Optiray 320 125ml) 119 ml IV ONCE PRN PRN Reason: Interaction Checking Stop: 12/06/19 15:00 Last Admin: 12/02/19 15:02 Dose: 119 ml Documented by: Levothyroxine Sodium (Synthroid) 88 mcg PO DAILYBB [facility] Stop: 01/02/20 06:29 Last Admin: 12/03/19 05:54 Dose: 88 mcg Documented by: Miscellaneous (Carbohydrates For Hypoglycemia) 15 - 30 gm PO UD PRN PRN Reason: Hypoglycemia Protocol Stop: 01/01/20 22:29 Miscellaneous Information (Consult) 1 ea N/A UD PRN PRN Reason: Consult Stop: 01/01/20 21:40 Ondansetron HCl (Zofran) 4 mg IV Q6H PRN PRN Reason: Nausea Stop: 01/01/20 22:29 Resident Activity Tracking Resident Involvement: Resident Care Provided Care Provided: Adult Hospital Medicine
[2019-12-03] MEDS ORDERED: IOVERSOL 100ml IV PRN (14:46)
--- NOTE | 2019-12-03 15:14 | CT Scan Report ---
CT sinus w con HISTORY: 69 years-old Female proptosis L eye, pain with movement, double vision acute left-sided pro ptosis with double vision COMPARISON: CT of the orbits of same day, head CT 12/02/2019 TECHNIQUE: Multiple axial CT images of the paranasal sinuses were obtained following the intravenous administration of 94 mL Optiray 320. A dose lowering technique was used consistent with the principal s of [place]. FINDINGS: Orbital findings will be discussed on the CT orbit study of same day. The imaged intracranial structu res demonstrate no acute abnormality. Moderate atherosclerotic plaque of the intracranial arteries. T here is no acute facial bone or calvarial fracture identified. Imaged mastoid air cells are clear. St reak artifact from dental amalgam hardware limits evaluation of the adjacent tissues. There is minima l mucosal thickening of the left sphenoid sinus. Clear right sphenoid and bilateral maxillary sinuses . Hypoplastic right frontal sinus. Minimal mucosal thickening of the superolateral left frontal sinus . There is minimal mucosal thickening involving a few ethmoid air cells bilaterally. No taylor bullos a. Small right-sided Gwen cell. Patency of the maxillary ostiomeatal units, frontoethmoidal and sph enoethmoidal recesses. Minimal rightward bowing and spurring of the nasal septum. Patent nasopharynx. IMPRESSION: 1. Minimal paranasal sinus disease as above. 2. Patency of the sinus outflow tracts. 3. Minimal rightward bowing and spurring of the nasal septum. ACT 112: Negative or not required by law. The above report was generated using voice recognition software. It may contain grammatical, syntax o r spelling errors. Electronically signed by: Jordan Grayson M.D. 12/03/2019 3:12 PM
--- NOTE | 2019-12-03 15:26 | CT Scan Report ---
CT orbit BI w con HISTORY: 69 years-old Female proptosis L eye, pain with movement, double vision acute left eye pain with double vision COMPARISON: CT sinus of same day, MRI brain and CT head 12/02/2019 TECHNIQUE: Multiple axial CT images of the orbits were obtained following the intravenous administrat ion of 94 mL Optiray 320. A dose lowering technique was used consistent with the principals of [place]. FINDINGS: Limited study secondary to the patient rotated in the CT gantry. Inter-zygomatic line is drawn. The a nterior surface of the globe on the left to this line measures 2.5 cm (please refer to image 14 of se louise 5). The anterior surface of the right globe in relation to this line measures 2.3 cm. Again pedro tammie these measurements are limited secondary to the aforementioned positioning of the patient. Prior bilateral lens replacement. Unremarkable appearance of the bilateral optic nerves, extraocular muscul ature and lacrimal glands. No orbital mass or inflammation. Superior orbital veins appear symmetric a nd unremarkable. IMPRESSION: 1. Mildly limited exam secondary to positioning of the patient. There is apparent mild left-sided pro ptosis with otherwise unremarkable appearance of the bilateral orbits. 2. No orbital mass, extraocular muscular abnormality or inflammation. ACT 112: Negative or not required by law. The above report was generated using voice recognition software. It may contain grammatical, syntax o r spelling errors. Electronically signed by: Jordan Grayson M.D. 12/03/2019 3:24 PM
[2019-12-03] MEDS ORDERED: GADOBUTROL 65ML VIAL IV PRN (16:33)
[2019-12-03] MEDS: cefTRIAXone SODIUM 2,000 MG in DEXTROSE 5% 50 ML IV SCH (17:02)
--- NOTE | 2019-12-03 18:04 | Magnetic Resonance Report ---
MR orbit wo/w con HISTORY: 69 years-old Female left ophthalmoplegia, swelling, injection acute double vision with left ICA pain and soft tissue swelling. COMPARISON: CT orbit and CT sinus studies of same day, brain MRI 12/02/2019 TECHNIQUE: Multiplanar multisequence MRI of the orbits were obtained both with and without the use of 8.0 mL Gadavist FINDINGS: Court Worker localizer images demonstrate no gross extracranial abnormality. There is no restricted diffusio n to suggest acute or subacute infarct. Moderate to extensive T2/FLAIR hyperintensities about the whi te matter are nonspecific. No acute intracranial hemorrhage, midline shift, abnormal extra axial crispin ection, hydrocephalus or intracranial mass identified. The major vascular flow voids appear patent. M astoid air cells appear clear. Mild mucosal thickening of the nasal turbinates and ethmoid air cells. Loss of flow-related signal with apparent filling defect is noted within the posterior aspect of the superior sagittal sinus, image 9 of series 7 for example images unchanged from the recent comparison studies. On the CTA of the head study recently performed, contrast was noted flowing around this def ect which may reflect an arachnoid granulation versus nonocclusive thrombus which is considered less likely. The bilateral 7th and 8th cranial nerves and internal auditory canals appear unremarkable. No mass of the cerebellar pontine angles. There is mild fluid distention of the subarachnoid spaces surrounding the optic nerves which appears to be within normal limits. Additionally, there is subtle enhancement of the left optic nerve sheath which is asymmetric compared to the right (best seen on image 13 of s eries 16). Prior bilateral lens replacement. The bilateral superior ophthalmic veins and extraocular muscles appear to be within normal limits. There is equivocal mild post septal stranding. There is mi ld preseptal nonspecific edema of the left orbit seen best on the axial T2 series. There is mild left -sided proptosis. Lacrimal glands are unremarkable. There is mild nonspecific edema and enhancement o f the superior temporalis muscle (please see bookmarks). IMPRESSION: 1. Mild asymmetric left-sided proptosis with mild preseptal and post septal edema of unknown clinical significance. No orbital mass identified. 2. Subtle asymmetric enhancement of the left optic nerve sheath compared to the right without signifi cant enhancement of the nerve itself. Findings may be reactive or reflect early optic neuritis in the appropriate clinical setting. 3. Prior bilateral lens replacement. 4. Moderate to extensive T2/FLAIR hyperintensities throughout the white matter are indeterminate. Sta tistically these would favor chronic microvascular ischemic disease with demyelinating process such a s multiple sclerosis also within the differential however considered less likely. 5. Mild nonspecific edema and enhancement of the left temporalis muscle is suggestive of a nonspecifi c myositis. ACT 112: Negative or not required by law. The above report was generated using voice recognition software. It may contain grammatical, syntax o r spelling errors. Electronically signed by: Jordan Grayson M.D. 12/03/2019 6:03 PM
--- NOTE | 2019-12-03 19:44 | Ophthalmology Consultation ---
Date of Consultation December 03, 2019 Assessment & Plan (1) Diplopia: The patient's symptoms are consistent with a left sided orbital cellulitis and she seems to be responding to the current regimen of IV antibiotics. I am a bit concerned with the drop in visual acuity and pupillary abnormality on the left side as this suggests some compromise of the left optic nerve. The MRI shows a possible inflammatory reaction in the left optic nerve consistent with optic neuritis which would further support this possibility. It might be reasonable to consider a course of IV steroid once the infection is clearly under control in an attempt to reduce the possibility of long term care pharmacist optic nerve damage and speed the recovery of vision. History of Present Illness Reason for Consultation: left eye pain and diplopia Requesting Physician: Dr. Laguna Attending Physician: Maylin Dominguez MD History of Present Illness The patient is a very pleasant 69 yo woman who reports a five day history of worsening eye pain and diplopia. The left upper lid then began to swell causing closure of the eye. The patient has been in the hospital since yesterday receiving antibiotics and reports improvement in her pain since yesterday. She also reports she is now able to open the eye with some effort which is also an improvement since yesterday. MRI of the orbits shows mild proptosis and swelling of the pre and post septal tissue around the left eye. There is also mention of possible enhancement of the left optic nerve. Allergies Allergy/AdvReac Type Severity Reaction Status Date / Time bee venom protein (honey bee) Allergy Severe Anaphylaxis Verified 12/02/19 16:23 latex Allergy Mild REDNESS, Verified 12/02/19 16:23 HURTS monosodium glutamate AdvReac Mild restless Verified 12/02/19 22:51 leg syndrome Home Medications Home Medications Medication Instructions Recorded Confirmed Type multivitamin 1 tab PO BID #0 05/21/10 12/02/19 History Hyaluronic Acid (chond-collgn) 1 cap PO BID #0 01/27/18 12/02/19 History [place] Oil 1,000 mg PO HS #0 01/27/18 12/02/19 History ascorbic acid (vitamin C) [Vitamin 1,000 mg PO QAM #0 01/27/18 12/02/19 History C With Lucia Hips] aspirin 81 mg PO HS #0 01/27/18 12/02/19 History bilberry fruit extract 80 mg PO QAM #0 01/27/18 12/02/19 History cholecalciferol (vitamin D3) 1,000 inter.unit PO HS PRN #0 01/27/18 12/02/19 History [Vitamin D3] coenzyme Q10 [Co Q-10] 200 mg PO HS #0 01/27/18 12/02/19 History omega-3 fatty acids-fish oil [Fish 1 cap PO TID #0 01/27/18 12/02/19 History Oil] milk thistle 250 mg PO BID 01/28/18 12/02/19 History fenofibrate nanocrystallized 48 mg PO HS 04/20/19 12/02/19 History [Tricor] fenofibrate nanocrystallized 96 mg PO QAM 04/20/19 12/02/19 History [Tricor] metformin [Glucophage] 500 mg PO BID 04/20/19 12/02/19 History amlodipine 10 mg-benazepril 20 mg 1 cap PO HS #90 cap 08/15/19 12/02/19 Rx capsule levothyroxine 88 mcg tablet 88 mcg PO DAILY #90 tab 08/31/19 12/02/19 Rx triamterene 37.5 1 tab PO DAILY #90 tab 09/26/19 12/02/19 Rx mg-hydrochlorothiazide 25 mg tablet Lantus Solostar U-100 Insulin 100 27 units SC HS #30 ml NS 10/19/19 12/02/19 Rx unit/mL (3 mL) subcutaneous pen insulin aspart U-100 [Novolog 4 unit SC DIRECTED 12/02/19 12/02/19 History Flexpen U-100 Insulin] Patient History Medical History Cervical radiculopathy Tubular adenoma Surgical History H/O umbilical hernia repair 05/22/2010 History of cataract surgery 4 mg of versed for prior cataract without apparent complications History of cholecystectomy 05/22/2010 History of colonoscopy History of esophagogastroduodenoscopy (EGD) History of tonsillectomy Family History Father Family history of diabetes mellitus Diabetes Hypertension Sister Cancer Grandfather No problems noted. 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 Other Information That Helps Us Care for You: No Feels Safe at Home: Yes Safety Concerns: Feels Safe At This Time Smoking Status: Never smoker Do You Dip or Chew Tobacco: No ; Second Hand Ex posure: No ; Tobacco Cessation Education Requested by Patient: No Hx Alcohol Use: Yes (occassional) Alcohol type: wine Alcohol Intake Frequency: Weekly Hx Substance Use: No Dental Care, Regularly: Yes Physical Activity Frequency: Does not Exercise Review of Systems Review of Systems: The patient denies chest pain, palpitations, shortness of breath, dyspnea on exertion, cough, lower extremity swelling, sore throat, fevers, chills, sweats, nausea, vomiting, diarrhea , constipation, abdominal pain, pelvic pain, blood in urine or stool, dysuria, urinary frequency or urgency, lightheadedness, dizziness, loss of consciousness, abnormal bruising or bleeding, imbalance, focal weakness, numbness or tingling in arms or legs, neck pain, or night sweats. The review of systems is otherwise negative other than for that already noted above, and at least 10 systems have been reviewed. Constitutional: + body aches; no fever and no chills Eyes: as per Subjective / HPI, + diplopia and + eye pain Swelling of left eyelid Musculoskeletal: as per Subjective / HPI and + back pain; no myalgia Left hip pain Integumentary: as per Subjective / HPI and + rash Neurologic: as per Subjective / HPI; no localized weakness, no loss of sensation, no syncope, no confusion and no memory loss Physical Exam Constitutional: WD/WN, vitals as above well developed and well nourished; no acute distress Eyes: Visual acuity as measured on a near card without correction was 20/30 right eye and 20/100 left eye. Motility was severely restricted in all gazes OS and full OD. The left upper lid was ptotic and erythematous. The patient could open the lid far enough to reveal the pupil with effort. There was mild proptosis on the left with swelling of the left upper and lower lids. Pupillary exam was notable for a very miotic pupil on the right and a mid dilated pupil on the left which was fairly unreactive. There was a possible afferent pupillary defect on the left but evaluation was difficult due to minimally reactive pupils on both sides. The patient did report the stimulus light to be dimmer OS and the color saturation of a registered medical assistant was also less on the left. The anterior segment exam by pen light was normal OD. On the left the conjunctiva was mildly injected. The cornea was clear, the anterior chamber appeared deep and quit, the iris was round, and the lens was a clear implant. The fundus exam on the right was limited by the very miotic pupil. On the left the retinal vessels were normal, the macula and retinal periphery were normal, and the optic nerve had good color and no swelling. The cup to disk ratio was normal at 0.4 OS. Musculoskeletal: no cyanosis or clubbing, extremities motor strength 5/5 Psychiatric: A+Ox3, euthymic affect Results & Data Vital Signs (Past 12 Hours) Vital Signs Temp Pulse Pulse Resp BP BP Pulse Ox 12/03/19 15:48 62 12/03/19 11:16 37.3 C 60 18 125/70 95 12/03/19 08:36 64 12/03/19 07:31 37.4 C 68 18 154/71 H 90
[2019-12-03] MEDS: ASPIRIN 81 MG ECTAB PO SCH (21:14)
[2019-12-03] MEDS: ONDANSETRON INJ 2 MG/ML 2 ML VIAL IV PRN (22:38)
[2019-12-04] MEDS ORDERED: Nursing to Pharmacy Communication SCH (01:15)
[2019-12-04] MEDS: NSS + 20MEQ KCL 20 MEQ/1,000 ML BAG IV SCH (02:08)
[2019-12-04] MEDS: ACETAMINOPHEN 325 MG TAB PO PRN ×2 (04:12→15:49)
[2019-12-04] MEDS: ONDANSETRON INJ 2 MG/ML 2 ML VIAL IV PRN (04:55)
[2019-12-04] MEDS: DOXYCYCLINE HYCLATE 100 MG in DEXTROSE 5% 100 ML IV SCH ×2 (05:41→18:04)
[2019-12-04] MEDS: ACYCLOVIR SOD 600 MG in DEXTROSE 5% 100 ML IV SCH (05:42)
[2019-12-04] MEDS: LEVOTHYROXINE SODIUM 88 MCG TABLET PO SCH (05:42)
[2019-12-04 06:18] LABS: Estimated Average Glucose 169 mg/dl; Hemoglobin A1C 7.5 % (4.5-5.6)
[2019-12-04 07:02] LABS: Est GFR (African American) 93.4; Est GFR (Non-African American) 80.6
[2019-12-04 07:24] LABS: Basophils # (auto) 0.05 K/uL (0-0.2); Basophils % (auto) 0.8 %; Eosinophils # (auto) 0.13 K/uL (0-0.5); Eosinophils % (auto) 2.2 %; Hemoglobin 10.8 g/dL (12.0-16.0); Immature Granulocytes % (auto) 1.7 %; Lymphocytes # (auto) 1.15 K/uL (1.2-3.4); Lymphocytes % (auto) 19.1 %; Mean Corpuscular Hemoglobin 27.3 pg (25-34); Mean Corpuscular Hgb Conc 32.7 g/dL (32-36); Mean Corpuscular Volume 83.5 fL (80-100); Mean Platelet Volume 9.6 fL (7.4-10.4); Monocytes # (auto) 0.68 K/uL (0.11-0.59); Monocytes % (auto) 11.3 %; Neutrophils # (auto) 3.92 K/uL (1.4-6.5); Neutrophils % (auto) 64.9 %; Platelet Count 326 K/uL (130-400); RDW Coefficient of Variation 15.2 % (11.5-14.5); RDW Standard Deviation 46.8 fL (36.4-46.3); Red Blood Count 3.95 M/uL (4.2-5.4); White Blood Count 6.03 K/uL (4.8-10.8)
[2019-12-04 07:45] LABS: BUN Creatinine Ratio 16.1 (10-20); Calcium 8.4 mg/dl (8.5-10.1); Creatinine Clr Calc Pharmacy 67.6 ml/min; Est GFR (African American) 98.1; Est GFR (Non-African American) 84.6; Potassium 3.7 mmol/L (3.5-5.1)
[2019-12-04] MEDS: INSULIN ASPART 100 UNITS/ML 3 ML PEN SC SCH ×4 (08:40→20:42)
[2019-12-04] MEDS: ASCORBIC ACID 500 MG TAB PO SCH (08:42)
[2019-12-04] MEDS: FENOFIBRATE NANOCRYSTALLIZED 48 MG TABLET PO SCH ×2 (08:42→20:36)
[2019-12-04] MEDS: HEPARIN SOD 5,000 UNIT/0.5 ML VIAL SQ SCH ×2 (08:42→20:36)
[2019-12-04] MEDS ORDERED: IBUPROFEN 600 MG TAB PO PRN (09:00)
[2019-12-04] MEDS: VANCOMYCIN HCL 1,000 MG in SODIUM CHLORIDE 0.9% 250 ML IV SCH ×2 (10:07→21:58)
--- NOTE | 2019-12-04 11:13 | Neurology Progress Note ---
Date of Service December 04, 2019 Assessment & Plan (1) Ophthalmoplegia of left eye: This patient has rather significant ophthalmoplegia of the left eye likely from orbital cellulitis. The etiology of the cellulitis is not known but she is making improvements on antibiotics. Laboratory studies are unremarkable as is the TSH and white count. MRI of the brain and orbit show inflammatory changes consistent with the cellulitis/optic neuritis. She has proptosis on the left with edema. 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 She has no other cranial nerve or neurologic deficits on examination, no meningeal signs, and no encephalopathy. Recommendations: 1. Continue with antibiotics. 2. Waiting final serologies. 3. Continue 81 mg aspirin tablet daily. 4. I have no additional neurologic testing or treatment recommendations to make at this time. Please contact me if I can be of further assistance on this case. Overall, I spent a total of 25 minutes with this case including review of records, direct evaluation the patient at bedside, and discussing the case with the patient at bedside, and Dr. mccauley including differential diagnosis and treatment options. (2) Orbital cellulitis on left: Admission and Anticipated Discharge Date Admission Date: December 02, 2019 Subjective Patient feels that her left eye has a little less pain and swelling that it did before. She still has double vision but it is vertical. She does not have a headache or other pain. CBC showed some anemia. Chem profile showed a glucose of 137 and calcium of 8.4. TSH was 0.8. Ophthalmology saw the patient and agreed with orbital cellulitis. Lyme and other antibody testing is unremarkable so far. The patient is getting vancomycin, doxycycline, and acyclovir. Results & Data ([facility]) Vital Signs (Past 12 Hours) Vital Signs Temp Pulse Pulse Resp BP Pulse Ox 12/04/19 09:00 49 L 12/04/19 07:58 36.4 C L 61 18 142/68 H 94 12/04/19 03:36 36.8 C 77 18 167/77 H 96 12/03/19 23:40 37.0 C 61 18 177/73 H 90 12/03/19 23:20 61 Exam (Neuro) Physical Exam: She is awake and alert. Speech is without aphasia or dysarthria. Mood is normal and affect is appropriate. Thought processes are intact to conversation. The right eye moves in all directions without issue. The left eye has swelling and edema and can move some downward but very little abduction, abduction, and upward gaze. Pupils are 4 mm bilaterally and react to light. There is no facial droop or weakness in the eyebrows/forehead. There is some upper lid ptosis on the left. There is no abnormality with the tongue and sensation is normal in all 3 distributions of the 5th cranial nerve bilaterally. She seems to have good visual acuity Coordination is normal in the arms without tremor or ataxia. Strength is symmetrical in all 4 limbs. Stance sitting up is normal. PG Care Time/CCT Total # of Minutes Spent Total Time Spent with Patient: Total time spent is greater than 50% in coordination of care (as documented) at patient's floor/unit and/or counseling patient: Coding Level of Care Code 16852 Subseq Hosp Care Lvl 2 Diagnoses Ophthalmoplegia of left eye H49.9 Orbital cellulitis on left H05.012 Time Spent (min) 25
[2019-12-04] MEDS: methylPREDNISolone 40 MG in SYRINGE 0 ML IV SCH (14:37)
--- NOTE | 2019-12-04 14:48 | Hospitalist Progress Note ---
Date of Service December 04, 2019 Assessment & Plan (1) Diplopia: Florina Delgado is a 69y/o F w/ PMH significant for HLD, HTN, depression, PTSD, T2DM, hypothyroidism, NAFLD, kidney stones, chronic back pain, osteoarthritis, and neuropathy of foot presenting with L hip pain and diplopia. Diplopia 2/2 L sided orbital cellulitis: - concern for orbital cellulitis given proptosis, pain with ocular movement -TSH, WBC WNL - seems to be responding to the current regimen of IV antibiotics - CT head no acute intracranial findings - CTA Head- no intraluminal thrombus, abrupt vessel cutoff, or hemodynamically significant stenosis - CTA Neck: Atherosclerotic plaque within the proximal bilateral internal carotid arteries without significant stenosis. Mild stenosis at the origin of the right external carotid artery. Moderate stenosis at the origin of the right vertebral artery - MRI Brain: Numerous white matter T2 hyperintense foci likely reflect small vessel disease vs demyelinating disease - CT Orbits & sinuses - apparent mild left-sided proptosis with otherwise unremarkable - MRI Orbits - Mild asymmetric left-sided proptosis with mild preseptal and post septal edema. No orbital mass identified. Subtle asymmetric enhancement of the left optic nerve sheath compared to the right without significant enhancement of the nerve itself. Findings may be reactive or reflect early optic neuritis -Continue 81 mg aspirin tablet daily - continue Vancomycin, Ceftriaxone. DC'd Acyclovir -started course of IV steroids to reduce possibility of chcf optic nerve damage and speed recovery of vision -Lyme/Anaplasmosis neg. Ehrlichiosis pending. ACh antibodies pending -pain control with acetaminophen/ibuprofen, well controlled - blood cultures NGTD - urine culture - corynbacter.sp not urealyticum - appreciate ophthalmology recommendations Cellulitis: - approximately 10cm erythematous plaque over L anterior thigh, margins outlined - with previous tick exposure history and appearance this may represent tick reaction - continue Doxycycline in addition to above antibiotics Chronic back pain: - patient with chronic low back pain, and acute L hip pain - recently was working in the yard - CT pelvis does not demonstrate acute abnormalities, some osteoarthritis of b/l acetabular surfaces - Femur XR no acute abnormalities -PT/OT pending HLD/HTN - Continue fenofibrate, triamterene/HCTZ and amlodipine/benazepril. DM2 -A1c 7.5 -Hold metformin. Reduce Lantus insulin from 27 units to 10 units subcu at bedtime -Placed on Accu-Cheks before meals and at bedtime with NovoLog coverage per scale. Hypothyroidism -TSH WNL .856 -Continue levothyroxine 88 mcg daily Diet: Heart Healthy, Carb consistent DVT ppx: SQ heparin Code: Full code Dispo: Downgrade to Med Surg. PT/OT evals pending. Admission and Anticipated Discharge Date Admission Date: December 02, 2019 Supervising Physician Co-Signing Physician Notes Resident Physician Supervision Note and Attestation: Pt seen/examined, chart reviewed, care plan d/w PGY3 Dr Dustin Schneider. I agree w/ the herrera components of his documentation. 69yo female diabetic with diplopia 2nd to left-sided orbital cellulitis. Double vision remains but she overall feels better, swelling of left eye is improving, and she is eating a bit better. Denies recent trauma of left eye, scratch or insect bite to left facial/eye region, and denies uncontrolled DM. No new complaints. exam: gen - NAD eyes - EOM impaired; unable to adduct the left eye, fully abduct the left eye, and even upward and downward gaze is somewhat impaired; both lids erythematous/swollen; mild periorbital erythema; conjunctival injection on left mouth - MMM heart - RRR, s1 s2 lungs - CTA b/l abd - soft NT ext - no edema Hba1c 7.5% Cr 0.7 WBC normal A/P: 1. diplopia - 2nd left-sided orbital cellulitis; if it provides comfort and helps with ambulation, reading, etc can patch the left eye for periods of time, if desired by patient. 2. left orbital cellulitis - slowly improving; appreciate neuro and ophtho consultations. Cont rocephin and vanco. Can d/c anti-virals - no evidence this is zoster. Dr Calix suggesting course of steroids - Dr Schneider started solumedrol 40mg daily. Watch sugar control on this. 3. rash, left hip region - cont doxy, some concern this is early stage Lyme. 4. T2DM - anticipate glycemic control will worsen with steroids - adjust basal/bolus insulins as needed. 5. hypothyroidism - compensated; TSH wnl. Larry Barajas MD Subjective 69-year-old female found in bed this a.m. in no acute distress. No acute overnight events. Patient notes that she feels little less eye pain. Still complains of diplopia. Additional complaints of left hip pain. Feels that is upset stomach secondary to antibiotics, decreased appetite. Patient tolerating p.o. intake. Has not had a BM. Patient with no other acute, concerns or complaints. Review of Systems Review of Systems: All systems reviewed & are unremarkable except as noted in HPI & below Physical Exam Constitutional: WD/WN, vitals as above Eyes: + eyelid abnormality (L eye ptosis) and PERRL; + EOM not intact (L eye with difficulty in abduction, adduction, upward gaze) ENMT: external ear and nose normal, oropharynx normal Respiratory: normal respiratory effort, lungs clear to auscultation Cardiovascular: RRR, no murmur, no edema Gastrointestinal (Abdomen): normal bowel sounds, soft, nontender, no hepatosplenomegaly Skin: + rash (erythematous placque over anterior L inguinal area with tracking into groin) Neurologic: no focal motor deficits Psychiatric: A+Ox3, euthymic affect Results & Data Results & Data ([facility]) Vital Signs (Past 12 Hours) Vital Signs Temp Pulse Pulse Resp BP Pulse Ox 12/04/19 12:24 95 12/04/19 11:18 36.9 C 57 L 18 166/75 H 97 12/04/19 09:00 49 L 12/04/19 07:58 36.4 C L 61 18 142/68 H 94 12/04/19 03:36 36.8 C 77 18 167/77 H 96 Laboratory Results Laboratory Results - last 24 hr 12/03/19 12/03/19 12/03/19 05:56 17:00 20:47 WBC RBC Hgb Hct MCV MCH MCHC RDW Std Deviation RDW Coeff of Ariel Plt Count MPV Immature Gran % (Auto) Neut % (Auto) Lymph % (Auto) [place] % (Auto) Eos % (Auto) Baso % (Auto) Neut # (Auto) Lymph # (Auto) [place] # (Auto) Eos # (Auto) Baso # (Auto) Immature Gran # (Auto) Sodium Potassium Chloride Carbon Dioxide Anion Gap BUN Creatinine Est Cr Clr Drug Dosing Est GFR ( Amer) Est GFR (Non-Af Amer) BUN/Creatinine Ratio Glucose POC Glucose 141 H 131 H Estimat Average Glucose 169 Hemoglobin A1c 7.5 H Calcium 12/04/19 12/04/19 12/04/19 06:06 06:06 06:06 WBC 6.03 RBC 3.95 L Hgb 10.8 L Hct 33.0 L MCV 83.5 MCH 27.3 MCHC 32.7 RDW Std Deviation 46.8 H RDW Coeff of Ariel 15.2 H Plt Count 326 MPV 9.6 Immature Gran % (Auto) 1.7 Neut % (Auto) 64.9 Lymph % (Auto) 19.1 [place] % (Auto) 11.3 Eos % (Auto) 2.2 Baso % (Auto) 0.8 Neut # (Auto) 3.92 Lymph # (Auto) 1.15 L [place] # (Auto) 0.68 H Eos # (Auto) 0.13 Baso # (Auto) 0.05 Immature Gran # (Auto) 0.10 H Sodium 142 D Potassium 3.7 D Chloride 111 H Carbon Dioxide 23 Anion Gap 8.0 BUN 12 Creatinine 0.76 0.73 Est Cr Clr Drug Dosing 65.0 67.6 Est GFR ( Amer) 93.4 98.1 Est GFR (Non-Af Amer) 80.6 84.6 BUN/Creatinine Ratio 16.1 Glucose 121 H POC Glucose Estimat Average Glucose Hemoglobin A1c Calcium 8.4 L 12/04/19 12/04/19 07:43 11:34 WBC RBC Hgb Hct MCV MCH MCHC RDW Std Deviation RDW Coeff of Ariel Plt Count MPV Immature Gran % (Auto) Neut % (Auto) Lymph % (Auto) [place] % (Auto) Eos % (Auto) Baso % (Auto) Neut # (Auto) Lymph # (Auto) [place] # (Auto) Eos # (Auto) Baso # (Auto) Immature Gran # (Auto) Sodium Potassium Chloride Carbon Dioxide Anion Gap BUN Creatinine Est Cr Clr Drug Dosing Est GFR ( Amer) Est GFR (Non-Af Amer) BUN/Creatinine Ratio Glucose POC Glucose 137 H 136 H Estimat Average Glucose Hemoglobin A1c Calcium Medications Administered Current Inpatient Medications Acetaminophen (Tylenol) 650 mg PO Q4H PRN PRN Reason: Pain or Fever Stop: 01/01/20 22:29 Last Admin: 12/04/19 04:12 Dose: 650 mg Documented by: Ascorbic Acid (Vitamin C) [facility] [place] Stop: 01/02/20 08:59 Last Admin: 12/04/19 08:42 Dose: 1,000 mg Documented by: Aspirin (Ecotrin Ectab) 81 mg PO HS [facility] Stop: 01/01/20 22:29 Last Admin: 12/03/19 21:14 Dose: 81 mg Documented by: Dextrose (Dextrose 50%) 25 - 50 ml IV UD PRN; Protocol PRN Reason: Hypoglycemia Protocol Stop: 01/01/20 22:29 Fenofibrate (Fenofibrate) 96 mg PO QAM [facility] Stop: 01/02/20 08:59 Last Admin: 12/04/19 08:42 Dose: 96 mg Documented by: Fenofibrate (Fenofibrate) 48 mg PO HS [facility] Stop: 01/01/20 22:29 Last Admin: 12/03/19 21:14 Dose: 48 mg Documented by: Gadobutrol (Gadavist 65ml) 8 ml IV ONCE PRN PRN Reason: MRI ORBITS W/ & W/O CONTRAST Stop: 12/07/19 16:32 Last Admin: 12/03/19 16:34 Dose: 8 ml Documented by: Glucagon (Glucagen) 1 mg SQ UD PRN; Protocol PRN Reason: Hypoglycemia Protocol Stop: 01/01/20 22:29 Glucose (Dex4 Glucose) 4 - 8 tabs PO UD PRN; Protocol PRN Reason: Hypoglycemia Protocol Stop: 01/01/20 22:29 Glucose (Glucose 40%) 15 - 30 gm PO UD PRN; Protocol PRN Reason: Hypoglycemia Protocol Stop: 01/01/20 22:29 Heparin Sodium (Porcine) (Heparin Sodium (Porcine)) 5,000 units SQ Q12 [facility] Stop: 01/01/20 22:29 Last Admin: 12/04/19 08:42 Dose: 5,000 units Documented by: Vancomycin HCl 1,000 mg/ (Sodium Chloride) 270 mls @ 125 mls/hr IV Q12H [facility]; Protocol Stop: 12/10/19 09:59 Last Infusion: 12/04/19 12:30 Dose: Infused Documented by: Ceftriaxone Sodium 2,000 mg/ (Dextrose) 70 mls @ 100 mls/hr IV Q24H [facility]; Protocol Stop: 12/10/19 15:59 Last Infusion: 12/03/19 17:44 Dose: Infused Documented by: Doxycycline Hyclate 100 mg/ (Dextrose) 110 mls @ 50 mls/hr IV Q12H [facility] Stop: 12/10/19 05:59 Last Infusion: 12/04/19 08:29 Dose: Infused Documented by: Methylprednisolone 40 mg/ (Syringe) 0.64 mls @ 1.5 mls/min IV DAILY [facility] Stop: 01/03/20 14:24 Ibuprofen (Motrin) 600 mg PO Q8H PRN PRN Reason: Pain Stop: 01/03/20 08:59 Insulin Aspart (Novolog Flexpen) 0 units SC ACHS [facility] Stop: 01/01/20 22:29 Last Admin: 12/04/19 12:26 Dose: 2 units Documented by: Insulin Glargine (Lantus Solostar Pen) 15 units SC HS [facility] Stop: 01/01/20 22:29 Last Admin: 12/03/19 21:15 Dose: 15 units Documented by: Ioversol (Optiray 320 125ml) 119 ml IV ONCE PRN PRN Reason: Interaction Checking Stop: 12/06/19 15:00 Last Admin: 12/02/19 15:02 Dose: 119 ml Documented by: Ioversol (Optiray 320 100ml) 91 ml IV ONCE PRN PRN Reason: Interaction Checking Stop: 12/07/19 14:45 Last Admin: 12/03/19 14:47 Dose: 91 ml Documented by: Levothyroxine Sodium (Synthroid) 88 mcg PO DAILYBB [facility] Stop: 01/02/20 06:29 Last Admin: 12/04/19 05:42 Dose: 88 mcg Documented by: Miscellaneous (Carbohydrates For Hypoglycemia) 15 - 30 gm PO UD PRN PRN Reason: Hypoglycemia Protocol Stop: 01/01/20 22:29 Miscellaneous Information (Consult) 1 ea N/A UD PRN PRN Reason: Consult Stop: 01/01/20 21:40 Ondansetron HCl (Zofran) 4 mg IV Q6H PRN PRN Reason: Nausea Stop: 01/01/20 22:29 Last Admin: 12/04/19 04:55 Dose: 4 mg Documented by: Resident Activity Tracking Resident Involvement: Resident Care Provided Care Provided: Adult Hospital Medicine
[2019-12-04] MEDS: cefTRIAXone SODIUM 2,000 MG in DEXTROSE 5% 50 ML IV SCH (15:48)
[2019-12-04] MEDS: AMLODIPINE BESYLATE 5 MG TAB PO SCH (20:35)
[2019-12-04] MEDS: ASPIRIN 81 MG ECTAB PO SCH (20:36)
[2019-12-04] MEDS: ENALAPRIL MALEATE 10 MG TAB PO SCH (20:36)
[2019-12-04] MEDS: MULTIVITAMIN TAB PO SCH (20:36)
[2019-12-04] MEDS: INSULIN GLARGINE SOLOSTAR 100 UNITS/ML 3 ML PEN SC SCH (20:42)
[2019-12-04] MEDS ORDERED: VANCOMYCIN TROUGH ONE (21:30)
[2019-12-05] MEDS: DOXYCYCLINE HYCLATE 100 MG in DEXTROSE 5% 100 ML IV SCH ×2 (05:57→18:08)
[2019-12-05] MEDS: LEVOTHYROXINE SODIUM 88 MCG TABLET PO SCH (05:57)
--- NOTE | 2019-12-05 06:21 | Billing Data ---
Date of Service December 04, 2019 Coding Level of Care Code 45005 Subseq Hosp Care Lvl 3
[2019-12-05 06:47] LABS: Basophils # (auto) 0.04 K/uL (0-0.2); Basophils % (auto) 0.5 %; Eosinophils # (auto) 0.06 K/uL (0-0.5); Eosinophils % (auto) 0.8 %; Hemoglobin 11.2 g/dL (12.0-16.0); Immature Granulocytes # (auto) 0.15 K/uL (0.00-0.02); Lymphocytes # (auto) 1.39 K/uL (1.2-3.4); Lymphocytes % (auto) 18.7 %; Mean Corpuscular Hemoglobin 26.8 pg (25-34); Mean Corpuscular Volume 83.7 fL (80-100); Mean Platelet Volume 9.2 fL (7.4-10.4); Monocytes # (auto) 0.56 K/uL (0.11-0.59); Monocytes % (auto) 7.5 %; Neutrophils # (auto) 5.24 K/uL (1.4-6.5); Neutrophils % (auto) 70.5 %; Platelet Count 372 K/uL (130-400); RDW Coefficient of Variation 15.1 % (11.5-14.5); RDW Standard Deviation 46.1 fL (36.4-46.3); Red Blood Count 4.18 M/uL (4.2-5.4); White Blood Count 7.44 K/uL (4.8-10.8)
[2019-12-05 07:15] LABS: BUN Creatinine Ratio 16.7 (10-20); Calcium 8.9 mg/dl (8.5-10.1); Creatinine Clr Calc Pharmacy 64.6 ml/min; Est GFR (African American) 94.9; Est GFR (Non-African American) 81.9; Potassium 3.6 mmol/L (3.5-5.1)
[2019-12-05] MEDS: INSULIN ASPART 100 UNITS/ML 3 ML PEN SC SCH ×4 (08:24→20:21)
[2019-12-05] MEDS: FENOFIBRATE NANOCRYSTALLIZED 48 MG TABLET PO SCH ×2 (08:26→20:23)
[2019-12-05] MEDS: TRIAMTERENE/HCTZ 37.5/25MG TAB PO SCH (08:28)
[2019-12-05] MEDS: ASCORBIC ACID 500 MG TAB PO SCH (08:28)
[2019-12-05] MEDS: HEPARIN SOD 5,000 UNIT/0.5 ML VIAL SQ SCH ×2 (08:28→20:23)
[2019-12-05] MEDS: methylPREDNISolone 40 MG in SYRINGE 0 ML IV SCH (08:28)
[2019-12-05] MEDS: MULTIVITAMIN TAB PO SCH ×2 (08:28→20:24)
[2019-12-05] MEDS: VANCOMYCIN HCL 1,000 MG in SODIUM CHLORIDE 0.9% 250 ML IV SCH ×2 (10:20→22:01)
--- NOTE | 2019-12-05 10:29 | Neurology Progress Note ---
Date of Service December 05, 2019 Assessment & Plan (1) Ophthalmoplegia of left eye: This patient has rather significant ophthalmoplegia of the left eye likely from orbital inflammation. The etiology of the inflammation is not known but she has made a marked improvement in the last 24 hours (on steroids). She was making some progress on antibiotics. Unfortunately, I cannot be certain whether this is infectious (Lyme versus bacterial) or not infectious inflammatory (rheumatologic/immunologic/MS). Patient has no history to suggest MS however. So far, Laboratory studies are unremarkable. MRI of the brain and orbit show inflammatory changes consistent with some orbital inflammation and optic nerve inflammation. In addition there are changes tracking backward toward the brain as described. The brain itself is not involved with any acute inflammatory disease. She does have old small vessel changes consistent with ischemic disease. Recommendations: 1. Continue with antibiotics. 2. Continue with steroids 3. Waiting final serologies. 4. Continue 81 mg aspirin tablet daily. 5. This patient will need close follow-up after her course of antibiotics and steroids. She should see Ophthalmology and myself after discharge and she would need a follow-up MRI in about 3-4 weeks. 6. If she worsens after the steroids and antibiotics were finished, I would get a repeat MRI immediately and probably consider a lumbar puncture as well. 7. Obtain SUNNY profile 12. Overall, I spent a total of 40 minutes with this case including review of records, discussion of MRI films with Dr. Ahumada, direct evaluation the patient at bedside, and discussion of the case with the patient at bedside, RN at bedside, and Dr. Regalado, including differential diagnosis and treatment options. (2) Orbital cellulitis on left: Admission and Anticipated Discharge Date Admission Date: December 02, 2019 Subjective This patient feels markedly improved with no eye pain currently, no headache or neck pain. She is not dizzy. She has no visual acuity problems in the left eye. She still has double vision. Nursing reports no new issues. Blood pressure is 168/68 this morning. She is afebrile. CBC shows mild anemia, but improved compared to yesterday. Chem profile was unremarkable. I reviewed MRI films with Dr. Ahumada in Radiology today. There are numerous small old white matter spots consistent with ischemia although demyelination cannot be entirely excluded. The left eye proptosis was noted and there was some post septal edema. There was some enhancement of the left optic nerve sheath and some orbital edema. There was edema around the left temporalis muscle and there were is thickening of the dura tracking backwards from the left eye through the left side of the cavernous sinus towards the left temporal fossa. Results & Data ([facility]) Vital Signs (Past 12 Hours) Vital Signs Temp Pulse Resp BP Pulse Ox 12/05/19 08:05 36.5 C 50 L 18 168/68 H 96 12/04/19 23:00 36.8 C 56 L 20 155/57 H 93 Exam (Neuro) Physical Exam: Patient's left eye looks markedly better today compared to yesterday. I see no scleral edema and less proptosis. The left upper lid is less swollen as well with a little less ptosis. The left eye can adduct, move up, and moved down some today compared to yesterday. It still cannot abduct. No other cranial nerve deficit was noted. There is no deficits in the limbs. She is awake and alert with normal speech and mentation. She has no neck pain and a full range of motion in her neck. PG Care Time/CCT Total # of Minutes Spent Total Time Spent with Patient: Total time spent is greater than 50% in coordination of care (as documented) at patient's floor/unit and/or counseling patient: Coding Level of Care Code 70797 Subseq Hosp Care Lvl 3 Diagnoses Ophthalmoplegia of left eye H49.9 Orbital cellulitis on left H05.012 Time Spent (min) 40
[2019-12-05] MEDS: POLYETHYLENE (MIRALAX) 17 GM PACK PO PRN (10:30)
--- NOTE | 2019-12-05 15:39 | Pharmacy Report ---
Pharmacy Abx Dose Short Note - Date of Service December 05, 2019 - Assessment & Plan Assessment 69 year old F receiving vancomycin/ rocephin/doxy for treatment of orbital cellulitis, possible lymes Day # 3 of antimicrobial therapy. Plan Vancomycin * Patient meets criteria for vancomycin AUC dosing nomogram AUC/NOA is the preferred PK/PD target for vancomycin Target AUC/NOA = 400-600 Trough level of 12.2 mcg/mL is predicted to achieve target AUC/NOA AUC guided dosing is effective and associated with decreased risk of nephrotoxicity Pharmacy will continue to follow and will adjust dose/frequency as necessary. Thank you.
[2019-12-05] MEDS: cefTRIAXone SODIUM 2,000 MG in DEXTROSE 5% 50 ML IV SCH (16:05)
--- NOTE | 2019-12-05 18:05 | Hospitalist Progress Note ---
Date of Service December 05, 2019 Assessment & Plan (1) Diplopia: Florina Delgado is a 69y/o F w/ PMH significant for HLD, HTN, depression, PTSD, T2DM, hypothyroidism, NAFLD, kidney stones, chronic back pain, osteoarthritis, and neuropathy of foot presenting with L hip pain and diplopia. Diplopia 2/2 L sided orbital cellulitis: - concern for orbital cellulitis given proptosis, pain with ocular movement -TSH, WBC WNL - seems to be responding to the current regimen of IV antibiotics - CT head no acute intracranial findings - CTA Head- no intraluminal thrombus, abrupt vessel cutoff, or hemodynamically significant stenosis - CTA Neck: Atherosclerotic plaque within the proximal bilateral internal carotid arteries without significant stenosis. Mild stenosis at the origin of the right external carotid artery. Moderate stenosis at the origin of the right vertebral artery - MRI Brain: Numerous white matter T2 hyperintense foci likely reflect small vessel disease vs demyelinating disease - CT Orbits & sinuses - apparent mild left-sided proptosis with otherwise unremarkable - MRI Orbits - Mild asymmetric left-sided proptosis with mild preseptal and post septal edema. No orbital mass identified. Subtle asymmetric enhancement of the left optic nerve sheath compared to the right without significant enhancement of the nerve itself. Findings may be reactive or reflect early optic neuritis -Eyepatch to help with diplopia -Continue 81 mg aspirin tablet daily - continue Vancomycin, Ceftriaxone. DC'd Acyclovir. In doing literature review, IV antibiotics will need to have a 3 to 5-day course. Followed by p.o. antibiotics for 2 to 3 weeks. -started course of IV steroids to reduce possibility of alf optic nerve damage and speed recovery of vision -Lyme/Anaplasmosis neg. Ehrlichiosis pending. ACh antibodies pending -pain control with acetaminophen/ibuprofen, well controlled - blood cultures NGTD - urine culture - corynbacter.sp not urealyticum - appreciate ophthalmology recommendations Cellulitis: - approximately 10cm erythematous plaque over L anterior thigh, margins outlined - with previous tick exposure history and appearance this may represent tick reaction - continue Doxycycline in addition to above antibiotics Chronic back pain: - patient with chronic low back pain, and acute L hip pain - recently was working in the yard - CT pelvis does not demonstrate acute abnormalities, some osteoarthritis of b/l acetabular surfaces - Femur XR no acute abnormalities -PT/OT pending HLD/HTN - Continue fenofibrate, triamterene/HCTZ and amlodipine/benazepril. DM2 -A1c 7.5 -Hold metformin. Reduce Lantus insulin from 27 units to 10 units subcu at bedtime -Placed on Accu-Cheks before meals and at bedtime with NovoLog coverage per scale. -We will monitor closely given high-dose steroids Hypothyroidism -TSH WNL .856 -Continue levothyroxine 88 mcg daily Diet: Heart Healthy, Carb consistent DVT ppx: SQ heparin Code: Full code Dispo: Med Surg. PT/OT evals pending. F/U Ophthalmology and Neurology after discharge and she would need a follow-up MRI in about 3-4 weeks. Admission and Anticipated Discharge Date Admission Date: December 02, 2019 Supervising Physician Co-Signing Physician Notes I personally examined the patient and verified all herrera points of history and exam, discussed case, and agree with decision making with Dr Schneider. feeling better. patch helping a lot with ambulation. dtr present and answered all qquesitons to the best of my ability. vitals noted nad heent L eye pupil slightly reactive but far less ptosis than prior described, small area of subconjunctival bleed, EOMI. A/P: 1. diplopia - 2nd left-sided orbital cellulitis 2. left orbital cellulitis - slowly improving; appreciate neuro and ophtho consultations. Cont rocephin and vanco. Can d/c anti-virals - no evidence this is zoster. continue steroids. showing slow improvement. will need to maintain on IV for now 3. rash, left hip region - cont doxy, some concern this is early stage Lyme. follow clinically. 4. T2DM - continue to titrate insulins - sugars sl high today 5. hypothyroidism - compensated; TSH wnl. Subjective 69-year-old female found in bed this a.m. in no acute distress. No acute overnight events. Patient notes that she feels little less eye pain almost gone. Still complains of some diplopia. But overall markedly feels improved. Additional complaints of left hip pain. Patient tolerating p.o. intake. Patient with no other acute, concerns or complaints. Review of Systems Review of Systems: All systems reviewed & are unremarkable except as noted in HPI & below Physical Exam Constitutional: WD/WN, vitals as above Eyes: + eyelid abnormality (L eye ptosis) and PERRL; + EOM not intact (L eye with difficulty in abduction, adduction, upward gaze) ENMT: external ear and nose normal, oropharynx normal Respiratory: normal respiratory effort, lungs clear to auscultation Cardiovascular: RRR, no murmur, no edema Gastrointestinal (Abdomen): normal bowel sounds, soft, nontender, no hepatosplenomegaly Skin: + rash (erythematous placque over anterior L inguinal area with tracking into groin) Neurologic: no focal motor deficits Psychiatric: A+Ox3, euthymic affect Results & Data Results & Data ([facility]) Vital Signs (Past 12 Hours) Vital Signs Temp Pulse Resp BP Pulse Ox 12/05/19 16:12 36.7 C 61 22 161/76 H 94 12/05/19 08:05 36.5 C 50 L 18 168/68 H 96 Laboratory Results Laboratory Results - last 24 hr 12/04/19 12/04/19 12/05/19 20:43 21:28 06:36 WBC RBC Hgb Hct MCV MCH MCHC RDW Std Deviation RDW Coeff of Ariel Plt Count MPV Immature Gran % (Auto) Neut % (Auto) Lymph % (Auto) Wayne % (Auto) Eos % (Auto) Baso % (Auto) Neut # (Auto) Lymph # (Auto) Wayne # (Auto) Eos # (Auto) Baso # (Auto) Immature Gran # (Auto) Sodium 143 Potassium 3.6 Chloride 110 H Carbon Dioxide 26 Anion Gap 7.0 BUN 13 Creatinine 0.75 Est Cr Clr Drug Dosing 64.6 Est GFR ( Amer) 94.9 Est GFR (Non-Af Amer) 81.9 BUN/Creatinine Ratio 16.7 Glucose 133 H POC Glucose 255 H Calcium 8.9 Vancomycin Trough 12.2 12/05/19 12/05/19 12/05/19 06:36 07:43 11:38 WBC 7.44 RBC 4.18 L Hgb 11.2 L Hct 35.0 L MCV 83.7 MCH 26.8 MCHC 32.0 RDW Std Deviation 46.1 RDW Coeff of Ariel 15.1 H Plt Count 372 MPV 9.2 Immature Gran % (Auto) 2.0 Neut % (Auto) 70.5 Lymph % (Auto) 18.7 Wayne % (Auto) 7.5 Eos % (Auto) 0.8 Baso % (Auto) 0.5 Neut # (Auto) 5.24 Lymph # (Auto) 1.39 Wayne # (Auto) 0.56 Eos # (Auto) 0.06 Baso # (Auto) 0.04 Immature Gran # (Auto) 0.15 H Sodium Potassium Chloride Carbon Dioxide Anion Gap BUN Creatinine Est Cr Clr Drug Dosing Est GFR ( Amer) Est GFR (Non-Af Amer) BUN/Creatinine Ratio Glucose POC Glucose 154 H 236 H Calcium Vancomycin Trough 12/05/19 16:45 WBC RBC Hgb Hct MCV MCH MCHC RDW Std Deviation RDW Coeff of Ariel Plt Count MPV Immature Gran % (Auto) Neut % (Auto) Lymph % (Auto) Wayne % (Auto) Eos % (Auto) Baso % (Auto) Neut # (Auto) Lymph # (Auto) Wayne # (Auto) Eos # (Auto) Baso # (Auto) Immature Gran # (Auto) Sodium Potassium Chloride Carbon Dioxide Anion Gap BUN Creatinine Est Cr Clr Drug Dosing Est GFR ( Amer) Est GFR (Non-Af Amer) BUN/Creatinine Ratio Glucose POC Glucose 257 H Calcium Vancomycin Trough Medications Administered Current Inpatient Medications Acetaminophen (Tylenol) 650 mg PO Q4H PRN PRN Reason: Pain or Fever Stop: 01/01/20 22:29 Last Admin: 12/04/19 15:49 Dose: 650 mg Documented by: Amlodipine Besylate (Norvasc) 10 mg PO [facility] Stop: 01/03/20 20:59 Last Admin: 12/04/19 20:35 Dose: 10 mg Documented by: Ascorbic Acid (Vitamin C) 1,000 mg PO [facility] Stop: 01/02/20 08:59 Last Admin: 12/05/19 08:28 Dose: 1,000 mg Documented by: Aspirin (Ecotrin Ectab) 81 mg PO [facility] Stop: 01/01/20 22:29 Last Admin: 12/04/19 20:36 Dose: 81 mg Documented by: Dextrose (Dextrose 50%) 25 - 50 ml IV UD PRN; Protocol PRN Reason: Hypoglycemia Protocol Stop: 01/01/20 22:29 Diphenhydramine HCl (Benadryl Capsule) 50 mg PO Q6H PRN PRN Reason: Itching Stop: 01/04/20 08:50 Enalapril Maleate (Vasotec) 20 mg PO HS [facility] Stop: 01/03/20 20:59 Last Admin: 12/04/19 20:36 Dose: 20 mg Documented by: Fenofibrate (Fenofibrate) 96 mg PO QAM [facility] Stop: 01/02/20 08:59 Last Admin: 12/05/19 08:26 Dose: 96 mg Documented by: Fenofibrate (Fenofibrate) 48 mg PO HS [facility] Stop: 01/01/20 22:29 Last Admin: 12/04/19 20:36 Dose: 48 mg Documented by: Gadobutrol (Gadavist 65ml) 8 ml IV ONCE PRN PRN Reason: MRI ORBITS W/ & W/O CONTRAST Stop: 12/07/19 16:32 Last Admin: 12/03/19 16:34 Dose: 8 ml Documented by: Glucagon (Glucagen) 1 mg SQ UD PRN; Protocol PRN Reason: Hypoglycemia Protocol Stop: 01/01/20 22:29 Glucose (Dex4 Glucose) 4 - 8 tabs PO UD PRN; Protocol PRN Reason: Hypoglycemia Protocol Stop: 01/01/20 22:29 Glucose (Glucose 40%) 15 - 30 gm PO UD PRN; Protocol PRN Reason: Hypoglycemia Protocol Stop: 01/01/20 22:29 Heparin Sodium (Porcine) (Heparin Sodium (Porcine)) 5,000 units SQ Q12 [facility] Stop: 01/01/20 22:29 Last Admin: 12/05/19 08:28 Dose: Not Given Documented by: Vancomycin HCl 1,000 mg/ (Sodium Chloride) 270 mls @ 125 mls/hr IV Q12H [facility]; Protocol Stop: 12/10/19 09:59 Last Infusion: 12/05/19 12:30 Dose: Infused Documented by: Ceftriaxone Sodium 2,000 mg/ (Dextrose) 70 mls @ 100 mls/hr IV Q24H [facility]; Protocol Stop: 12/10/19 15:59 Last Infusion: 12/05/19 16:40 Dose: Infused Documented by: Doxycycline Hyclate 100 mg/ (Dextrose) 110 mls @ 50 mls/hr IV Q12H [facility] Stop: 12/10/19 05:59 Last Infusion: 12/05/19 08:31 Dose: Infused Documented by: Methylprednisolone 40 mg/ (Syringe) 0.64 mls @ 1.5 mls/min IV DAILY [facility] Stop: 01/03/20 14:24 Last Admin: 12/05/19 08:28 Dose: 1.5 mls/min Documented by: Ibuprofen (Motrin) 600 mg PO Q8H PRN PRN Reason: Pain Stop: 01/03/20 08:59 Insulin Aspart (Novolog Flexpen) 0 units SC ACHS [facility] Stop: 01/01/20 22:29 Last Admin: 12/05/19 17:18 Dose: 9 units Documented by: Insulin Glargine (Lantus Solostar Pen) 15 units SC HS [facility] Stop: 01/01/20 22:29 Last Admin: 12/04/19 20:42 Dose: 15 units Documented by: Ioversol (Optiray 320 125ml) 119 ml IV ONCE PRN PRN Reason: Interaction Checking Stop: 12/06/19 15:00 Last Admin: 12/02/19 15:02 Dose: 119 ml Documented by: Ioversol (Optiray 320 100ml) 91 ml IV ONCE PRN PRN Reason: Interaction Checking Stop: 12/07/19 14:45 Last Admin: 12/03/19 14:47 Dose: 91 ml Documented by: Levothyroxine Sodium (Synthroid) 88 mcg PO DAILYBB [facility] Stop: 01/02/20 06:29 Last Admin: 12/05/19 05:57 Dose: 88 mcg Documented by: Miscellaneous (Carbohydrates For Hypoglycemia) 15 - 30 gm PO UD PRN PRN Reason: Hypoglycemia Protocol Stop: 01/01/20 22:29 Miscellaneous Information (Consult) 1 ea N/A UD PRN PRN Reason: Consult Stop: 01/01/20 21:40 Multivitamins (Multivitamin Tab) 1 tab PO BID [facility] Stop: 01/03/20 20:59 Last Admin: 12/05/19 08:28 Dose: 1 tab Documented by: Ondansetron HCl (Zofran) 4 mg IV Q6H PRN PRN Reason: Nausea Stop: 01/01/20 22:29 Last Admin: 12/04/19 04:55 Dose: 4 mg Documented by: Polyethylene Glycol (Miralax Powder Packet) 17 gm PO DAILY PRN PRN Reason: Constipation Stop: 01/04/20 08:50 Last Admin: 12/05/19 10:30 Dose: 17 gm Documented by: Triamterene/HCTZ (Maxzide 37.5/25mg) 1 tab PO DAILY [facility] Stop: 01/04/20 08:59 Last Admin: 12/05/19 08:28 Dose: 1 tab Documented by: Resident Activity Tracking Resident Involvement: Resident Care Provided Care Provided: Adult Hospital Medicine
--- NOTE | 2019-12-05 19:52 | Billing Data ---
Date of Service December 05, 2019 Coding Level of Care Code 93747 Subseq Hosp Care Lvl 3
[2019-12-05] MEDS: INSULIN GLARGINE SOLOSTAR 100 UNITS/ML 3 ML PEN SC SCH (20:21)
[2019-12-05] MEDS: AMLODIPINE BESYLATE 5 MG TAB PO SCH (20:23)
[2019-12-05] MEDS: ENALAPRIL MALEATE 10 MG TAB PO SCH (20:24)
[2019-12-05] MEDS: ASPIRIN 81 MG ECTAB PO SCH (20:25)
[2019-12-06] MEDS: LEVOTHYROXINE SODIUM 88 MCG TABLET PO SCH (06:10)
[2019-12-06] MEDS: DOXYCYCLINE HYCLATE 100 MG in DEXTROSE 5% 100 ML IV SCH ×2 (06:15→17:53)
[2019-12-06 06:23] LABS: Basophils # (auto) 0.06 K/uL (0-0.2); Basophils % (auto) 0.5 %; Eosinophils % (auto) 0.8 %; Hematocrit (blood only) 34.6 % (37-47); Hemoglobin 11.2 g/dL (12.0-16.0); Immature Granulocytes # (auto) 0.46 K/uL (0.00-0.02); Immature Granulocytes % (auto) 3.8 %; Lymphocytes % (auto) 18.3 %; Mean Corpuscular Hemoglobin 26.9 pg (25-34); Mean Corpuscular Hgb Conc 32.4 g/dL (32-36); Mean Corpuscular Volume 83.2 fL (80-100); Mean Platelet Volume 9.1 fL (7.4-10.4); Monocytes # (auto) 0.83 K/uL (0.11-0.59); Monocytes % (auto) 6.9 %; Neutrophils # (auto) 8.38 K/uL (1.4-6.5); Neutrophils % (auto) 69.7 %; Platelet Count 423 K/uL (130-400); RDW Coefficient of Variation 15.1 % (11.5-14.5); RDW Standard Deviation 45.9 fL (36.4-46.3); Red Blood Count 4.16 M/uL (4.2-5.4); White Blood Count 12.03 K/uL (4.8-10.8)
[2019-12-06 06:41] LABS: BUN Creatinine Ratio 24.8 (10-20); Calcium 9.1 mg/dl (8.5-10.1); Creatinine Clr Calc Pharmacy 53.9 ml/min; Est GFR (African American) 76.1; Est GFR (Non-African American) 65.7; Potassium 3.9 mmol/L (3.5-5.1)
[2019-12-06] MEDS: INSULIN ASPART 100 UNITS/ML 3 ML PEN SC SCH ×4 (09:14→20:41)
[2019-12-06] MEDS: FENOFIBRATE NANOCRYSTALLIZED 48 MG TABLET PO SCH ×2 (09:14→20:44)
[2019-12-06] MEDS: POLYETHYLENE (MIRALAX) 17 GM PACK PO PRN (09:14)
[2019-12-06] MEDS: HEPARIN SOD 5,000 UNIT/0.5 ML VIAL SQ SCH ×2 (09:15→20:44)
[2019-12-06] MEDS: MULTIVITAMIN TAB PO SCH ×2 (09:15→20:43)
[2019-12-06] MEDS: TRIAMTERENE/HCTZ 37.5/25MG TAB PO SCH (09:15)
[2019-12-06] MEDS: INSULIN GLARGINE SOLOSTAR 100 UNITS/ML 3 ML PEN SC SCH ×2 (09:15→20:40)
[2019-12-06] MEDS: methylPREDNISolone 40 MG in SYRINGE 0 ML IV SCH (09:16)
[2019-12-06] MEDS: ASCORBIC ACID 500 MG TAB PO SCH (09:16)
[2019-12-06] MEDS: VANCOMYCIN HCL 1,000 MG in SODIUM CHLORIDE 0.9% 250 ML IV SCH ×2 (09:28→21:54)
--- NOTE | 2019-12-06 10:40 | Neurology Progress Note ---
Date of Service December 06, 2019 Assessment & Plan (1) Ophthalmoplegia of left eye: This patient has ophthalmoplegia of the left eye likely from orbital inflammation verses cranial nerve information (see MRI of orbit report). Clinically she is improving with much less swelling of the lids and eyeball and her left eye is moving some medially and up and down. She still does not have any abduction of the left eye. Overall she is looking like a predominant left 6 nerve palsy. The etiology of the inflammation is not known but she has made a marked improvement in the last 48 hours (on steroids). She was making some progress on antibiotics prior to this. Unfortunately, I cannot be certain whether this is infectious (Lyme versus bacterial) or noninfectious inflammatory (rheumatologic/immunologic/MS). Patient has no history to suggest MS. So far, Laboratory studies are unremarkable. MRI of the brain and orbit show inflammatory changes consistent with some orbital inflammation and optic nerve inflammation. In addition there are changes tracking backward toward the brain as described. The brain itself is not involved with any acute inflammatory disease. She does have old small vessel changes consistent with ischemic disease. Recommendations: 1. Continue with antibiotics. 2. Continue with steroids: Consider 5 days total of 40 milligrams Solu-Medrol each day. Follow this with a oral Medrol Dosepak. 3. Waiting final serologies. 4. Continue 81 mg aspirin tablet daily. 5. This patient will need close follow-up after her course of antibiotics and steroids. She should see Ophthalmology and myself after discharge and she would need a follow-up MRI in about 3-4 weeks. 6. If she worsens after the steroids and antibiotics were finished, I would get a repeat MRI immediately and probably consider a lumbar puncture as well. 7. Obtain SUNNY profile 12. Overall, I spent a total of 25 minutes with this case including review of records, direct evaluation the patient at bedside, and discussion of the case with the patient at bedside, and Dr. Regalado, including differential diagnosis and treatment options. (2) Orbital cellulitis on left: Admission and Anticipated Discharge Date Admission Date: December 02, 2019 Subjective Patient feels that her eyes better with less discomfort. She still has double vision particularly looking to the left. Nursing reports no new issues. Blood pressure is 145/67. White count was mildly elevated at 12 and glucose was 144 otherwise CBC and Chem profile were unremarkable. Results & Data ([facility]) Vital Signs (Past 12 Hours) Vital Signs Temp Pulse Resp BP Pulse Ox 12/06/19 08:00 36.8 C 53 L 18 145/67 H 99 12/05/19 22:45 36.9 C 49 L 20 132/60 95 Exam (Neuro) Physical Exam: The patient is awake and alert, with normal speech and communication. Mood and affect are normal appropriate. Thought processes are intact good long and short-term memory. The left eye has decreased movement to the left (not abducting). Right eye has a full range of motion. Left eye has less swelling in the upper and lower lids and conjunctiva. Gait is cautious but otherwise unremarkable and she uses a walker. Coordination of the arms is normal without tremor or ataxia. Motor strength is 5/5 in all major muscle groups of the arms and legs bilaterally, both proximally and distally. PG Care Time/CCT Total # of Minutes Spent Total Time Spent with Patient: Total time spent is greater than 50% in coordin ation of care (as documented) at patient's floor/unit and/or counseling patient: Coding Level of Care Code 02161 Subseq Hosp Care Lvl 2 Diagnoses Ophthalmoplegia of left eye H49.9 Orbital cellulitis on left H05.012 Time Spent (min) 25
--- NOTE | 2019-12-06 15:52 | Hospitalist Progress Note ---
Date of Service December 06, 2019 Assessment & Plan (1) Diplopia: Florina Delgado is a 69y/o F w/ PMH significant for HLD, HTN, depression, PTSD, T2DM, hypothyroidism, NAFLD, kidney stones, chronic back pain, osteoarthritis, and neuropathy of foot presenting with L hip pain and diplopia. Diplopia 2/2 L sided orbital cellulitis: - concern for orbital cellulitis given proptosis, pain with ocular movement -TSH, WBC WNL - seems to be responding to the current regimen of IV antibiotics and IV steroids - CT head no acute intracranial findings - CTA Head- no intraluminal thrombus, abrupt vessel cutoff, or hemodynamically significant stenosis - CTA Neck: Atherosclerotic plaque within the proximal bilateral internal carotid arteries without significant stenosis. Mild stenosis at the origin of the right external carotid artery. Moderate stenosis at the origin of the right vertebral artery - MRI Brain: Numerous white matter T2 hyperintense foci likely reflect small vessel disease vs demyelinating disease - CT Orbits & sinuses - apparent mild left-sided proptosis with otherwise unremarkable - MRI Orbits - Mild asymmetric left-sided proptosis with mild preseptal and post septal edema. No orbital mass identified. Subtle asymmetric enhancement of the left optic nerve sheath compared to the right without significant enhancement of the nerve itself. Findings may be reactive or reflect early optic neuritis -Eyepatch to help with diplopia -Continue 81 mg aspirin tablet daily - continue Vancomycin, Ceftriaxone. DC'd Acyclovir. In doing literature review, IV antibiotics will need to have a 3 to 5-day course. In erring in side of caution, we will likely opt to do 5-day course if not longer for IV antibiotics, waiting for patient to plateau in improvement. Followed by p.o. antibiotics for 2 to 3 weeks (Bactrim or Clinda AND Augmentin or cefpodoxime or cefdinir). -started course of IV steroids to reduce possibility of jail optic nerve damage and speed recovery of vision. This will be for likely 5 days if not longer. Followed by oral Medrol Dosepak -Lyme/Anaplasmosis neg. Ehrlichiosis pending. ACh antibodies pending -pain control with acetaminophen/ibuprofen, well controlled - blood cultures NGTD - appreciate ophthalmology and neurology recommendations Cellulitis: - approximately 10cm erythematous plaque over L anterior thigh, margins outlined - with previous tick exposure history and appearance this may represent tick reaction - continue Doxycycline in addition to above antibiotics Chronic back pain/left hip pain: - patient with chronic low back pain, and acute L hip pain - recently was working in the yard with fall - CT pelvis does not demonstrate acute abnormalities, some osteoarthritis of b/l acetabular surfaces - Femur XR no acute abnormalities -PT/OT pendingrecommend can return home with family support -Discussed patient can follow-up with orthopedic Dr. Jennings as an outpatient HLD/HTN - Continue fenofibrate, triamterene/HCTZ and amlodipine/benazepril. DM2 -A1c 7.5 -Hold metformin. Reduce Lantus insulin from 27 units to 10 units subcu at bedtime -Placed on Accu-Cheks before meals and at bedtime with NovoLog coverage per scale. -We will monitor closely given high-dose steroids Hypothyroidism -TSH WNL .856 -Continue levothyroxine 88 mcg daily Diet: Heart Healthy, Carb consistent DVT ppx: SQ heparin Code: Full code Dispo: Med Surg. F/U Ophthalmology and Neurology after discharge and she would need a follow-up MRI in about 3-4 weeks. Admission and Anticipated Discharge Date Admission Date: December 02, 2019 Supervising Physician Co-Signing Physician Notes I personally examined the patient and verified all herrera points of history and exam, discussed case, and agree with decision making with Dr Schneider. still w double vision but overall vision seems to be doing better and feels like she can move her eye better. also notes hip pain improved. vitals noted nad heent L pupil more equal to R and moderately reactive. can move L eye fairly fluidly and fairly coordinated with R except for lateral gaze. subconjunctival bleed stable/slightly smaller than yesterday. visual acuity individually with both eyes grossly intact, binocular vision still with double vision. no focal tenderness around hip. A/P: 1. diplopia - 2nd left-sided orbital cellulitis and gaze dysfunction 2. left orbital cellulitis - still slowly improving; appreciate neuro and ophtho consultations. Cont rocephin and vanco. continue steroids. follow closely - but optimistic that she's showing improvement. 3. rash, left hip region - cont doxy, some concern this is early stage Lyme. follow clinically. showing improvement. mobility better and pain improved. 4. T2DM - continue to titrate insulins - sugars doing better but tighten mealtime slightly and follow. 5. hypothyroidism - compensated; continue current synthroid Subjective 69-year-old female found in bed this a.m. in no acute distress. No acute overnight events. Patient notes that she feels little less eye pain almost gone. Still complains of some diplopia. But overall markedly feels improved. Additional complaints of left hip pain, ongoing. Patient tolerating p.o. intake. Patient with no other acute, concerns or complaints. Review of Systems Review of Systems: All systems reviewed & are unremarkable except as noted in HPI & below Physical Exam Constitutional: WD/WN, vitals as above Eyes: + eyelid abnormality (L eye ptosis) and PERRL; + EOM not intact (L eye with difficulty in abduction, adduction, upward gaze) ENMT: external ear and nose normal, oropharynx normal Respiratory: normal respiratory effort, lungs clear to auscultation Cardiovascular: RRR, no murmur, no edema Gastrointestinal (Abdomen): normal bowel sounds, soft, nontender, no hepatosplenomegaly Skin: + rash (erythematous placque over anterior L inguinal area with tracking into groin) Neurologic: no focal motor deficits Psychiatric: A+Ox3, euthymic affect Results & Data Results & Data ([facility]) Vital Signs (Past 12 Hours) Vital Signs Temp Pulse Resp BP Pulse Ox 12/06/19 08:00 36.8 C 53 L 18 145/67 H 99 Laboratory Results Laboratory Results - last 24 hr 12/05/19 12/05/19 12/06/19 16:45 20:17 06:07 WBC RBC Hgb Hct MCV MCH MCHC RDW Std Deviation RDW Coeff of Ariel Plt Count MPV Immature Gran % (Auto) Neut % (Auto) Lymph % (Auto) Posey % (Auto) Eos % (Auto) Baso % (Auto) Neut # (Auto) Lymph # (Auto) Posey # (Auto) Eos # (Auto) Baso # (Auto) Immature Gran # (Auto) Sodium 141 Potassium 3.9 Chloride 107 Carbon Dioxide 27 Anion Gap 7.0 BUN 22 H D Creatinine 0.90 Est Cr Clr Drug Dosing 53.9 Est GFR ( Amer) 76.1 Est GFR (Non-Af Amer) 65.7 BUN/Creatinine Ratio 24.8 H Glucose 144 H POC Glucose 257 H 251 H Calcium 9.1 12/06/19 12/06/19 12/06/19 06:07 07:36 11:41 WBC 12.03 H RBC 4.16 L Hgb 11.2 L Hct 34.6 L MCV 83.2 MCH 26.9 MCHC 32.4 RDW Std Deviation 45.9 RDW Coeff of Ariel 15.1 H Plt Count 423 H MPV 9.1 Immature Gran % (Auto) 3.8 Neut % (Auto) 69.7 Lymph % (Auto) 18.3 Posey % (Auto) 6.9 Eos % (Auto) 0.8 Baso % (Auto) 0.5 Neut # (Auto) 8.38 H Lymph # (Auto) 2.20 Posey # (Auto) 0.83 H Eos # (Auto) 0.10 Baso # (Auto) 0.06 Immature Gran # (Auto) 0.46 H Sodium Potassium Chloride Carbon Dioxide Anion Gap BUN Creatinine Est Cr Clr Drug Dosing Est GFR ( Amer) Est GFR (Non-Af Amer) BUN/Creatinine Ratio Glucose POC Glucose 151 H 232 H Calcium Medications Administered Current Inpatient Medications Acetaminophen (Tylenol) 650 mg PO Q4H PRN PRN Reason: Pain or Fever Stop: 01/01/20 22:29 Last Admin: 12/04/19 15:49 Dose: 650 mg Documented by: Amlodipine Besylate (Norvasc) 10 mg PO [facility] Stop: 01/03/20 20:59 Last Admin: 12/05/19 20:23 Dose: 10 mg Documented by: Ascorbic Acid (Vitamin C) 1,000 mg PO [facility] Stop: 01/02/20 08:59 Last Admin: 12/06/19 09:16 Dose: 1,000 mg Documented by: Aspirin (Ecotrin Ectab) 81 mg PO [facility] Stop: 01/01/20 22:29 Last Admin: 12/05/19 20:25 Dose: 81 mg Documented by: Dextrose (Dextrose 50%) 25 - 50 ml IV UD PRN; Protocol PRN Reason: Hypoglycemia Protocol Stop: 01/01/20 22:29 Diphenhydramine HCl (Benadryl Capsule) 50 mg PO Q6H PRN PRN Reason: Itching Stop: 01/04/20 08:50 Enalapril Maleate (Vasotec) 20 mg PO [facility] Stop: 01/03/20 20:59 Last Admin: 07/07/20 20:24 Dose: 20 mg Documented by: Fenofibrate (Fenofibrate) 96 mg PO QAM [facility] Stop: 01/02/20 08:59 Last Admin: 12/06/19 09:14 Dose: 96 mg Documented by: Fenofibrate (Fenofibrate) 48 mg PO HS [facility] Stop: 01/01/20 22:29 Last Admin: 12/05/19 20:23 Dose: 48 mg Documented by: Gadobutrol (Gadavist 65ml) 8 ml IV ONCE PRN PRN Reason: MRI ORBITS W/ & W/O CONTRAST Stop: 12/07/19 16:32 Last Admin: 12/03/19 16:34 Dose: 8 ml Documented by: Glucagon (Glucagen) 1 mg SQ UD PRN; Protocol PRN Reason: Hypoglycemia Protocol Stop: 01/01/20 22:29 Glucose (Dex4 Glucose) 4 - 8 tabs PO UD PRN; Protocol PRN Reason: Hypoglycemia Protocol Stop: 01/01/20 22:29 Glucose (Glucose 40%) 15 - 30 gm PO UD PRN; Protocol PRN Reason: Hypoglycemia Protocol Stop: 01/01/20 22:29 Heparin Sodium (Porcine) (Heparin Sodium (Porcine)) 5,000 units SQ Q12 [facility] Stop: 01/01/20 22:29 Last Admin: 12/06/19 09:15 Dose: Not Given Documented by: Vancomycin HCl 1,000 mg/ (Sodium Chloride) 270 mls @ 125 mls/hr IV Q12H [facility]; Protocol Stop: 12/10/19 09:59 Last Infusion: 12/06/19 11:38 Dose: Infused Documented by: Ceftriaxone Sodium 2,000 mg/ (Dextrose) 70 mls @ 100 mls/hr IV Q24H [facility]; Protocol Stop: 12/10/19 15:59 Last Infusion: 12/05/19 16:40 Dose: Infused Documented by: Doxycycline Hyclate 100 mg/ (Dextrose) 110 mls @ 50 mls/hr IV Q12H [facility] Stop: 12/10/19 05:59 Last Infusion: 12/06/19 08:25 Dose: Infused Documented by: Methylprednisolone 40 mg/ (Syringe) 0.64 mls @ 1.5 mls/min IV DAILY [facility] Stop: 01/03/20 14:24 Last Admin: 12/06/19 09:16 Dose: 1.5 mls/min Documented by: Ibuprofen (Motrin) 600 mg PO Q8H PRN PRN Reason: Pain Stop: 01/03/20 08:59 Insulin Aspart (Novolog Flexpen) 0 units SC ACHS [facility] Stop: 01/01/20 22:29 Last Admin: 12/06/19 13:15 Dose: 7 units Documented by: Insulin Glargine (Lantus Solostar Pen) 20 units SC HS [facility] Stop: 01/04/20 20:59 Last Admin: 12/05/19 20:21 Dose: 20 units Documented by: Insulin Glargine (Lantus Solostar Pen) 10 units SC DAILY [facility] Stop: 01/05/20 08:59 Last Admin: 12/06/19 09:15 Dose: 10 units Documented by: Ioversol (Optiray 320 100ml) 91 ml IV ONCE PRN PRN Reason: Interaction Checking Stop: 12/07/19 14:45 Last Admin: 12/03/19 14:47 Dose: 91 ml Documented by: Levothyroxine Sodium (Synthroid) 88 mcg PO DAILYBB [facility] Stop: 01/02/20 06:29 Last Admin: 12/06/19 06:10 Dose: 88 mcg Documented by: Miscellaneous (Carbohydrates For Hypoglycemia) 15 - 30 gm PO UD PRN PRN Reason: Hypoglycemia Protocol Stop: 01/01/20 22:29 Miscellaneous Information (Consult) 1 ea N/A UD PRN PRN Reason: Consult Stop: 01/01/20 21:40 Multivitamins (Multivitamin Tab) 1 tab PO BID [facility] Stop: 01/03/20 20:59 Last Admin: 12/06/19 09:15 Dose: 1 tab Documented by: Ondansetron HCl (Zofran) 4 mg IV Q6H PRN PRN Reason: Nausea Stop: 01/01/20 22:29 Last Admin: 12/04/19 04:55 Dose: 4 mg Documented by: Polyethylene Glycol (Miralax Powder Packet) 17 gm PO DAILY PRN PRN Reason: Constipation Stop: 01/04/20 08:50 Last Admin: 12/06/19 09:14 Dose: 17 gm Documented by: Triamterene/HCTZ (Maxzide 37.5/25mg) 1 tab PO DAILY [facility] Stop: 01/04/20 08:59 Last Admin: 12/06/19 09:15 Dose: 1 tab Documented by: Resident Activity Tracking Resident Involvement: Resident Care Provided Care Provided: Adult Hospital Medicine
[2019-12-06] MEDS: cefTRIAXone SODIUM 2,000 MG in DEXTROSE 5% 50 ML IV SCH (15:58)
--- NOTE | 2019-12-06 16:16 | Billing Data ---
Date of Service December 06, 2019 Coding Level of Care Code 00225 Initial Inpt Care Lvl 3
[2019-12-06] MEDS: ENALAPRIL MALEATE 10 MG TAB PO SCH (20:42)
[2019-12-06] MEDS: AMLODIPINE BESYLATE 5 MG TAB PO SCH (20:42)
[2019-12-06] MEDS: ASPIRIN 81 MG ECTAB PO SCH (20:43)
[2019-12-07] MEDS: LEVOTHYROXINE SODIUM 88 MCG TABLET PO SCH (06:49)
[2019-12-07] MEDS: DOXYCYCLINE HYCLATE 100 MG in DEXTROSE 5% 100 ML IV SCH ×2 (06:49→18:19)
[2019-12-07] MEDS ORDERED: VANCOMYCIN TROUGH ONE (09:30)
[2019-12-07] MEDS: INSULIN ASPART 100 UNITS/ML 3 ML PEN SC SCH ×4 (09:35→21:58)
[2019-12-07] MEDS ORDERED: INSULIN GLARGINE SOLOSTAR 100 UNITS/ML 3 ML PEN SC ONE (09:36)
[2019-12-07] MEDS: FENOFIBRATE NANOCRYSTALLIZED 48 MG TABLET PO SCH ×2 (09:39→21:54)
[2019-12-07] MEDS: INSULIN GLARGINE SOLOSTAR 100 UNITS/ML 3 ML PEN SC SCH ×4 (09:41→22:01)
[2019-12-07] MEDS: MULTIVITAMIN TAB PO SCH ×2 (09:41→21:54)
[2019-12-07] MEDS: ASCORBIC ACID 500 MG TAB PO SCH (09:42)
[2019-12-07] MEDS: TRIAMTERENE/HCTZ 37.5/25MG TAB PO SCH (09:42)
[2019-12-07] MEDS: HEPARIN SOD 5,000 UNIT/0.5 ML VIAL SQ SCH ×2 (09:44→21:55)
[2019-12-07 09:48] LABS: Hematocrit (blood only) 36.6 % (37-47); Hemoglobin 12.2 g/dL (12.0-16.0); Mean Corpuscular Hemoglobin 27.7 pg (25-34); Mean Corpuscular Hgb Conc 33.3 g/dL (32-36); Mean Corpuscular Volume 83.2 fL (80-100); Mean Platelet Volume 9.1 fL (7.4-10.4); Platelet Count 435 K/uL (130-400); RDW Coefficient of Variation 14.9 % (11.5-14.5); RDW Standard Deviation 45.7 fL (36.4-46.3); White Blood Count 12.27 K/uL (4.8-10.8)
[2019-12-07 10:06] LABS: BUN Creatinine Ratio 23.1 (10-20); Calcium 9.4 mg/dl (8.5-10.1); Est GFR (African American) 71.3; Est GFR (Non-African American) 61.5; Potassium 3.6 mmol/L (3.5-5.1)
[2019-12-07] MEDS: methylPREDNISolone 40 MG in SYRINGE 0 ML IV SCH (10:10)
[2019-12-07] MEDS: VANCOMYCIN HCL 1,000 MG in SODIUM CHLORIDE 0.9% 250 ML IV SCH ×2 (10:11→22:26)
--- NOTE | 2019-12-07 10:20 | Pharmacy Report ---
Pharmacy Abx Dose Short Note - Date of Service December 07, 2019 - Assessment & Plan Assessment 69 year old F receiving vancomycin and rocephin for treatment of orbital cellulitis Day # 6 of antimicrobial therapy. Plan Vancomycin * Trough level came back therapeutic at ~16 mcg/ml (goal 15-20) * Will continue with current vancomycin regimen of 1 gm iv q 12 hrs * Blood cx's no growth - per provider notes likely transition to oral abx on discharge * Plan to obtain trough in another 2-3 days if continued Pharmacy will continue to follow and will adjust dose/frequency as necessary. Thank you.
[2019-12-07 10:21] LABS: Basophils # (auto) 0.05 K/uL (0-0.2); Basophils % (auto) 0.4 %; Eosinophils # (auto) 0.07 K/uL (0-0.5); Eosinophils % (auto) 0.6 %; Immature Granulocytes % (auto) 5.7 %; Lymphocytes # (auto) 1.78 K/uL (1.2-3.4); Lymphocytes % (auto) 14.5 %; Monocytes # (auto) 1.04 K/uL (0.11-0.59); Monocytes % (auto) 8.5 %; Neutrophils # (auto) 8.63 K/uL (1.4-6.5); Neutrophils % (auto) 70.3 %
--- NOTE | 2019-12-07 11:50 | Hospitalist Progress Note ---
Date of Service December 07, 2019 Assessment & Plan (1) Diplopia: Florina Delgado is a 69y/o F w/ PMH significant for HLD, HTN, depression, PTSD, T2DM, hypothyroidism, NAFLD, kidney stones, chronic back pain, osteoarthritis, and neuropathy of foot presenting with L hip pain and diplopia. Diplopia 2/2 L sided orbital cellulitis: - concern for orbital cellulitis given proptosis, pain with ocular movement -TSH, WBC WNL - seems to be responding to the current regimen of IV antibiotics and IV steroids - CT head no acute intracranial findings - CTA Head- no intraluminal thrombus, abrupt vessel cutoff, or hemodynamically significant stenosis - CTA Neck: Atherosclerotic plaque within the proximal bilateral internal carotid arteries without significant stenosis. Mild stenosis at the origin of the right external carotid artery. Moderate stenosis at the origin of the right vertebral artery - MRI Brain: Numerous white matter T2 hyperintense foci likely reflect small vessel disease vs demyelinating disease - CT Orbits & sinuses - apparent mild left-sided proptosis with otherwise unremarkable - MRI Orbits - Mild asymmetric left-sided proptosis with mild preseptal and post septal edema. No orbital mass identified. Subtle asymmetric enhancement of the left optic nerve sheath compared to the right without significant enhancement of the nerve itself. Findings may be reactive or reflect early optic neuritis -Eyepatch to help with diplopia -Continue 81 mg aspirin tablet daily - continue IV vancomycin, Ceftriaxone. DC'd Acyclovir. In doing literature review, IV antibiotics will need to have a 3 to 5-day course. In erring in side of caution, we will likely opt to do 5-day course if not longer for IV antibiotics, waiting for patient to plateau in improvement. Likely transition to p.o. will be this weekend. P.O. antibiotics for 2 to 3 weeks (Bactrim or Clinda AND Augmentin or cefpodoxime or cefdinir). -started course of IV steroids to reduce possibility of mcc optic nerve damage and speed recovery of vision. This will be for likely 5 days if not longer. Followed by oral Medrol Dosepak. Likely same time course as IV antibiotics -Lyme/Anaplasmosis neg. Ehrlichiosis pending. ACh antibodies pending -pain control with acetaminophen/ibuprofen, well controlled - blood cultures NGTD - appreciate ophthalmology and neurology recommendations Cellulitis: - approximately 10cm erythematous plaque over L anterior thigh, margins outlined - with previous tick exposure history and appearance this may represent tick reaction - continue Doxycycline in addition to above antibiotics Chronic back pain/left hip pain: - patient with chronic low back pain, and acute L hip pain - recently was working in the yard with fall - CT pelvis does not demonstrate acute abnormalities, some osteoarthritis of b/l acetabular surfaces - Femur XR no acute abnormalities -PT/OT recommend can return home with family support -Discussed patient can follow-up with orthopedic Dr. Jennings as an outpatient HLD/HTN - Continue fenofibrate, triamterene/HCTZ and amlodipine/benazepril. DM2 -A1c 7.5 -Hold metformin. Titrating insulin as needed. -Placed on Accu-Cheks before meals and at bedtime with NovoLog coverage per scale. Adjusting as needed -We will monitor closely given high-dose steroids Hypothyroidism -TSH WNL .856 -Continue levothyroxine 88 mcg daily Diet: Heart Healthy, Carb consistent DVT ppx: SQ heparin Code: Full code Dispo: Med Surg. F/U Ophthalmology and Neurology after discharge and she would need a follow-up MRI in about 3-4 weeks. Hopefully discharge sometime over the weekend. Admission and Anticipated Discharge Date Admission Date: December 02, 2019 Supervising Physician Co-Signing Physician Notes I personally examined the patient and verified all herrera points of history and exam, discussed case, and agree with decision making with Dr Schneider. still w double vision but this is improving! overall vision improving. vitals noted nad heent L pupil equal to R and reactive. can move L eye fairly fluidly and fairly (better) coordinated with R except for lateral gaze (but she is able to move a little bit to R lateral gaze today). subconjunctival bleed stable/slightly smaller than yesterday. A/P: 1. diplopia - 2nd left-sided orbital cellulitis and gaze dysfunction - improving 2. left orbital cellulitis - still improving daily; appreciate neuro and ophtho consultations. Cont rocephin and vanco. continue steroids. follow closely - but optimistic that she's showing improvement. 3. rash, left hip region - cont doxy, some concern this is early stage Lyme. follow clinically - but this seems to have improved. ongoing PT/OT 4. T2DM - continue to titrate insulins up to cover sugars in the face fo stero ids 5. hypothyroidism - compensated; continue current synthroid Subjective 69-year-old female found in bed this a.m. in no acute distress. No acute overnight events. Patient notes that she feels little less eye pain almost gone. Still complains of some diplopia, improving. But overall markedly feels improved. Additional complaints of left hip pain, ongoing but improved. She was able to work with PT yesterday with success. Patient tolerating p.o. intake. Patient with no other acute, concerns or complaints. Review of Systems Review of Systems: All systems reviewed & are unremarkable except as noted in HPI & below Physical Exam Constitutional: WD/WN, vitals as above Eyes: + eyelid abnormality (L eye ptosis almost resolved) and PERRL; + EOM not intact (L eye with difficulty in abduction still. Adduction nearly resolved as is upward and downward gaze) ENMT: external ear and nose normal, oropharynx normal Respiratory: normal respiratory effort, lungs clear to auscultation Cardiovascular: RRR, no murmur, no edema Gastrointestinal (Abdomen): normal bowel sounds, soft, nontender, no hepatosplenomegaly Skin: + rash (erythematous placque over anterior L inguinal area with tracking into groin) Neurologic: no focal motor deficits Psychiatric: A+Ox3, euthymic affect Results & Data Results & Data ([facility]) Vital Signs (Past 12 Hours) Vital Signs Temp Pulse Resp BP BP Pulse Ox 12/07/19 07:02 36.6 C 52 L 16 151/64 H 94 12/07/19 00:08 36.6 C 53 L 16 154/76 H 94 Laboratory Results Laboratory Results - last 24 hr 12/06/19 12/06/19 12/06/19 17:07 17:09 19:50 WBC RBC Hgb Hct MCV MCH MCHC RDW Std Deviation RDW Coeff of Ariel Plt Count MPV Immature Gran % (Auto) Neut % (Auto) Lymph % (Auto) [place] % (Auto) Eos % (Auto) Baso % (Auto) Neut # (Auto) Lymph # (Auto) [place] # (Auto) Eos # (Auto) Baso # (Auto) Immature Gran # (Auto) Sodium Potassium Chloride Carbon Dioxide Anion Gap BUN Creatinine Est Cr Clr Drug Dosing Est GFR ( Amer) Est GFR (Non-Af Amer) BUN/Creatinine Ratio Glucose POC Glucose 311 H* 283 H 292 H Calcium Vancomycin Trough 12/07/19 12/07/19 12/07/19 08:20 09:33 09:33 WBC 12.27 H RBC 4.40 Hgb 12.2 Hct 36.6 L MCV 83.2 MCH 27.7 MCHC 33.3 RDW Std Deviation 45.7 RDW Coeff of Ariel 14.9 H Plt Count 435 H MPV 9.1 Immature Gran % (Auto) 5.7 Neut % (Auto) 70.3 Lymph % (Auto) 14.5 [place] % (Auto) 8.5 Eos % (Auto) 0.6 Baso % (Auto) 0.4 Neut # (Auto) 8.63 H Lymph # (Auto) 1.78 [place] # (Auto) 1.04 H Eos # (Auto) 0.07 Baso # (Auto) 0.05 Immature Gran # (Auto) 0.70 H Sodium Potassium Chloride Carbon Dioxide Anion Gap BUN Creatinine Est Cr Clr Drug Dosing Est GFR ( Amer) Est GFR (Non-Af Amer) BUN/Creatinine Ratio Glucose POC Glucose 120 H Calcium Vancomycin Trough 16.7 12/07/19 09:33 WBC RBC Hgb Hct MCV MCH MCHC RDW Std Deviation RDW Coeff of Ariel Plt Count MPV Immature Gran % (Auto) Neut % (Auto) Lymph % (Auto) [place] % (Auto) Eos % (Auto) Baso % (Auto) Neut # (Auto) Lymph # (Auto) [place] # (Auto) Eos # (Auto) Baso # (Auto) Immature Gran # (Auto) Sodium 140 Potassium 3.6 Chloride 104 Carbon Dioxide 30 Anion Gap 6.0 BUN 22 H Creatinine 0.95 Est Cr Clr Drug Dosing 51.0 Est GFR ( Amer) 71.3 Est GFR (Non-Af Amer) 61.5 BUN/Creatinine Ratio 23.1 H Glucose 201 H POC Glucose Calcium 9.4 Vancomycin Trough Medications Administered Current Inpatient Medications Acetaminophen (Tylenol) 650 mg PO Q4H PRN PRN Reason: Pain or Fever Stop: 01/01/20 22:29 Last Admin: 12/04/19 15:49 Dose: 650 mg Documented by: Amlodipine Besylate (Norvasc) 10 mg PO HS [facility] Stop: 01/03/20 20:59 Last Admin: 12/06/19 20:42 Dose: 10 mg Documented by: Ascorbic Acid (Vitamin C) [facility] Stop: 01/02/20 08:59 Last Admin: 12/07/19 09:42 Dose: 1,000 mg Documented by: Aspirin (Ecotrin Ectab) 81 mg PO [facility] Stop: 01/01/20 22:29 Last Admin: 12/06/19 20:43 Dose: 81 mg Documented by: Dextrose (Dextrose 50%) 25 - 50 ml IV UD PRN; Protocol PRN Reason: Hypoglycemia Protocol Stop: 01/01/20 22:29 Diphenhydramine HCl (Benadryl Capsule) 50 mg PO Q6H PRN PRN Reason: Itching Stop: 01/04/20 08:50 Enalapril Maleate (Vasotec) 20 mg PO [facility] Stop: 01/03/20 20:59 Last Admin: 12/06/19 20:42 Dose: 20 mg Documented by: Fenofibrate (Fenofibrate) [address] [facility] Stop: 01/02/20 08:59 Last Admin: 12/07/19 09:39 Dose: 96 mg Documented by: Fenofibrate (Fenofibrate) 48 mg PO [facility] Stop: 01/01/20 22:29 Last Admin: 12/06/19 20:44 Dose: 48 mg Documented by: Gadobutrol (Gadavist 65ml) 8 ml IV ONCE PRN PRN Reason: MRI ORBITS W/ & W/O CONTRAST Stop: 12/07/19 16:32 Last Admin: 12/03/19 16:34 Dose: 8 ml Documented by: Glucagon (Glucagen) 1 mg SQ UD PRN; Protocol PRN Reason: Hypoglycemia Protocol Stop: 01/01/20 22:29 Glucose (Dex4 Glucose) 4 - 8 tabs PO UD PRN; Protocol PRN Reason: Hypoglycemia Protocol Stop: 01/01/20 22:29 Glucose (Glucose 40%) 15 - 30 gm PO UD PRN; Protocol PRN Reason: Hypoglycemia Protocol Stop: 01/01/20 22:29 Heparin Sodium (Porcine) (Heparin Sodium (Porcine)) 5,000 units SQ Q12 [facility] Stop: 01/01/20 22:29 Last Admin: 12/07/19 09:44 Dose: Not Given Documented by: Vancomycin HCl 1,000 mg/ (Sodium Chloride) 270 mls @ 125 mls/hr IV Q12H [facility]; Protocol Stop: 12/10/19 09:59 Last Admin: 12/07/19 10:11 Dose: 125 mls/hr Documented by: Ceftriaxone Sodium 2,000 mg/ (Dextrose) 70 mls @ 100 mls/hr IV Q24H [facility]; Protocol Stop: 12/10/19 15:59 Last Infusion: 12/06/19 16:34 Dose: Infused Documented by: Doxycycline Hyclate 100 mg/ (Dextrose) 110 mls @ 50 mls/hr IV Q12H [facility] Stop: 12/10/19 05:59 Last Infusion: 12/07/19 09:40 Dose: Infused Documented by: Methylprednisolone 40 mg/ (Syringe) 0.64 mls @ 1.5 mls/min IV DAILY [facility] Stop: 01/03/20 14:24 Last Admin: 12/07/19 10:10 Dose: 1.5 mls/min Documented by: Ibuprofen (Motrin) 600 mg PO Q8H PRN PRN Reason: Pain Stop: 01/03/20 08:59 Insulin Aspart (Novolog Flexpen) 0 units SC ACHS [facility] Stop: 01/01/20 22:29 Last Admin: 12/07/19 09:35 Dose: 7 units Documented by: Insulin Glargine (Lantus Solostar Pen) 20 units SC HS [facility] Stop: 01/04/20 20:59 Last Admin: 12/06/19 20:40 Dose: 20 units Documented by: Insulin Glargine (Lantus Solostar Pen) 15 units SC DAILY [facility] Stop: 01/06/20 09:44 Last Admin: 12/07/19 09:53 Dose: 15 units Documented by: Ioversol (Optiray 320 100ml) 91 ml IV ONCE PRN PRN Reason: Interaction Checking Stop: 12/07/19 14:45 Last Admin: 12/03/19 14:47 Dose: 91 ml Documented by: Levothyroxine Sodium (Synthroid) 88 mcg PO DAILYBB [facility] Stop: 01/02/20 06:29 Last Admin: 12/07/19 06:49 Dose: 88 mcg Documented by: Miscellaneous (Carbohydrates For Hypoglycemia) 15 - 30 gm PO UD PRN PRN Reason: Hypoglycemia Protocol Stop: 01/01/20 22:29 Miscellaneous Information (Consult) 1 ea N/A UD PRN PRN Reason: Consult Stop: 01/01/20 21:40 Multivitamins (Multivitamin Tab) 1 tab PO BID [facility] Stop: 01/03/20 20:59 Last Admin: 12/07/19 09:41 Dose: 1 tab Documented by: Ondansetron HCl (Zofran) 4 mg IV Q6H PRN PRN Reason: Nausea Stop: 01/01/20 22:29 Last Admin: 12/04/19 04:55 Dose: 4 mg Documented by: Polyethylene Glycol (Miralax Powder Packet) 17 gm PO DAILY PRN PRN Reason: Constipation Stop: 01/04/20 08:50 Last Admin: 12/06/19 09:14 Dose: 17 gm Documented by: Triamterene/HCTZ (Maxzide 37.5/25mg) 1 tab PO DAILY [facility] Stop: 01/04/20 08:59 Last Admin: 12/07/19 09:42 Dose: 1 tab Documented by: Resident Activity Tracking Resident Involvement: Resident Care Provided Care Provided: Adult Hospital Medicine
[2019-12-07] MEDS: cefTRIAXone SODIUM 2,000 MG in DEXTROSE 5% 50 ML IV SCH (15:42)
--- NOTE | 2019-12-07 19:29 | Billing Data ---
Date of Service December 07, 2019 Coding Level of Care Code 41308 Subseq Hosp Care Lvl 3
[2019-12-07] MEDS: ENALAPRIL MALEATE 10 MG TAB PO SCH (21:53)
[2019-12-07] MEDS: AMLODIPINE BESYLATE 5 MG TAB PO SCH (21:53)
[2019-12-07] MEDS: ASPIRIN 81 MG ECTAB PO SCH (21:54)
[2019-12-08 03:48] LABS: Ehrlichia chaff IgG Ab <1:64 (<1:64); Ehrlichia chaff IgM Ab <1:20 (<1:20)
[2019-12-08 06:06] LABS: Hematocrit (blood only) 33.8 % (37-47); Hemoglobin 11.3 g/dL (12.0-16.0); Mean Corpuscular Hemoglobin 27.8 pg (25-34); Mean Corpuscular Hgb Conc 33.4 g/dL (32-36); Mean Corpuscular Volume 83.3 fL (80-100); Mean Platelet Volume 9.6 fL (7.4-10.4); Platelet Count 464 K/uL (130-400); RDW Coefficient of Variation 15.1 % (11.5-14.5); RDW Standard Deviation 45.4 fL (36.4-46.3); Red Blood Count 4.06 M/uL (4.2-5.4); White Blood Count 14.05 K/uL (4.8-10.8)
[2019-12-08 06:33] LABS: Basophils # (auto) 0.07 K/uL (0-0.2); Basophils % (auto) 0.5 %; Eosinophils # (auto) 0.05 K/uL (0-0.5); Eosinophils % (auto) 0.4 %; Hypochromasia Present; Immature Granulocytes # (auto) 0.78 K/uL (0.00-0.02); Immature Granulocytes % (auto) 5.6 %; Lymphocytes # (auto) 2.32 K/uL (1.2-3.4); Lymphocytes % (auto) 16.5 %; Monocytes # (auto) 1.12 K/uL (0.11-0.59); Neutrophils # (auto) 9.71 K/uL (1.4-6.5)
[2019-12-08 06:44] LABS: BUN Creatinine Ratio 29.7 (10-20); Calcium 8.9 mg/dl (8.5-10.1); Creatinine Clr Calc Pharmacy 55.1 ml/min; Est GFR (African American) 78.2; Est GFR (Non-African American) 67.5; Potassium 3.7 mmol/L (3.5-5.1)
[2019-12-08] MEDS: LEVOTHYROXINE SODIUM 88 MCG TABLET PO SCH (06:58)
[2019-12-08] MEDS: DOXYCYCLINE HYCLATE 100 MG in DEXTROSE 5% 100 ML IV SCH (07:00)
[2019-12-08] MEDS: TRIAMTERENE/HCTZ 37.5/25MG TAB PO SCH (08:37)
[2019-12-08] MEDS: HEPARIN SOD 5,000 UNIT/0.5 ML VIAL SQ SCH ×2 (08:37→21:32)
[2019-12-08] MEDS: ASCORBIC ACID 500 MG TAB PO SCH (08:37)
[2019-12-08] MEDS: FENOFIBRATE NANOCRYSTALLIZED 48 MG TABLET PO SCH ×2 (08:38→21:31)
[2019-12-08] MEDS: MULTIVITAMIN TAB PO SCH ×2 (08:38→21:31)
[2019-12-08] MEDS: INSULIN GLARGINE SOLOSTAR 100 UNITS/ML 3 ML PEN SC SCH ×2 (08:39→22:08)
[2019-12-08] MEDS: methylPREDNISolone 40 MG in SYRINGE 0 ML IV SCH (08:39)
[2019-12-08] MEDS: INSULIN ASPART 100 UNITS/ML 3 ML PEN SC SCH ×4 (08:40→22:07)
[2019-12-08] MEDS ORDERED: INSULIN GLARGINE SOLOSTAR 100 UNITS/ML 3 ML PEN SC ONE (09:45)
--- NOTE | 2019-12-08 11:08 | Hospitalist Progress Note ---
Date of Service December 08, 2019 Assessment & Plan (1) Diplopia: Florina Delgado is a 69y/o F w/ PMH significant for HLD, HTN, depression, PTSD, T2DM, hypothyroidism, NAFLD, kidney stones, chronic back pain, osteoarthritis, and neuropathy of foot presenting with L hip pain and diplopia. Diplopia 2/2 L sided orbital cellulitis: - concern for orbital cellulitis given proptosis, pain with ocular movement - CT head no acute intracranial findings - CTA Head- no intraluminal thrombus, abrupt vessel cutoff, or hemodynamically significant stenosis - CTA Neck: Atherosclerotic plaque within the proximal bilateral internal carotid arteries without significant stenosis. Mild stenosis at the origin of the right external carotid artery. Moderate stenosis at the origin of the right vertebral artery - MRI Brain: Numerous white matter T2 hyperintense foci likely reflect small vessel disease vs demyelinating disease - CT Orbits & sinuses - apparent mild left-sided proptosis with otherwise unremarkable - MRI Orbits - Mild asymmetric left-sided proptosis with mild preseptal and post septal edema. No orbital mass identified. Subtle asymmetric enhancement of the left optic nerve sheath compared to the right without significant enhancement of the nerve itself. Findings may be reactive or reflect early optic neuritis - continue utilization of eye-patch to help with diplopia; alternating eyes to continue to promote function of extra-ocular muscles - Continue 81 mg aspirin tablet daily - discontinue IV vancomycin, Ceftriaxone, and Acyclovir; start oral Bactrim 800mg BID, Augmentin 875mg BID - completed course of IV steroids to reduce possibility of usp optic nerve damage and speed recovery of vision; converted to PO prednisone 40mg daily starting on 12/08 - Lyme/Anaplasmosis neg. Ehrlichiosis pending. ACh antibodies pending - blood cultures NGTD - appreciate ophthalmology and neurology recommendations Cellulitis: - approximately 10cm erythematous plaque over L anterior thigh, margins outlined - with previous tick exposure history and appearance this may represent tick reaction - switched Doxycycline to PO Chronic back pain/left hip pain: - patient with chronic low back pain, and acute L hip pain - recently was working in the yard with fall - CT pelvis does not demonstrate acute abnormalities, some osteoarthritis of b/l acetabular surfaces - Femur XR no acute abnormalities - PT/OT recommend can return home with family support - Discussed patient can follow-up with orthopedic Dr. Jennings as an outpatient HLD/HTN - Continue fenofibrate, triamterene/HCTZ and amlodipine/benazepril. DM2 - A1c 7.5 - Hold metformin. Titrating insulin as needed. - Placed on Accu-Cheks before meals and at bedtime with NovoLog coverage per scale. Adjusting as needed - We will monitor closely given high-dose steroids Hypothyroidism - TSH WNL .856 - Continue levothyroxine 88 mcg daily Diet: Heart Healthy, Carb consistent DVT ppx: SQ heparin Code: Full code Admission and Anticipated Discharge Date Admission Date: December 02, 2019 Supervising Physician Co-Signing Physician Notes I personally examined the patient and verified all herrera points of history and exam, discussed case, and agree with decision making with Dr Laguna. double vision improved well! vitals noted nad heent L pupil equal to R and reactive. can move L eye fluidly and overall very coordinated with R except for lateral gaze (but lateral gaze now sligthly able to move - better than before). subconjunctival bleed improving A/P: 1. diplopia - 2nd left-sided orbital cellulitis and gaze dysfunction - improving - continue to follow 2. left orbital cellulitis - still improving daily; agree change to PO abx and follow -- if ongoing improvement then hopefully home tomorrow; if slight ipmrovement follow into wednesday; if no imporvement or worsening then would return to IV but doubt this will be the case. 3. rash, left hip region - cont doxy, some concern this is early stage Lyme. follow clinically - essentially improved. ongoing PT/OT 4. T2DM - titrate basal bolus, discussed. 5. hypothyroidism - compensated; continue current synthroid Subjective Patient feels considerably better at this point, through the utilization of her eye-patch she is having significantly less double vision and she feels like she is able to follow with her gaze much more easily without seeing double. Review of Systems Review of Systems: All systems reviewed & are unremarkable except as noted in Subjective Physical Exam Constitutional: WD/WN, vitals as above Eyes: PERRL and + EOM movement deficit (L eye leftward gaze limited to 30-40 degrees); no eyelid abnormality, no conjunctival abnormality, no scleral abnormality and no photophobia Respiratory: normal respiratory effort, lungs clear to auscultation Cardiovascular: Rate/Rhythm: regular rate and regular rhythm Heart Sounds: normal S1 and normal S2; no gallop, no murmur and no cardiac rub Vessels: no JVD Extremities: no pedal edema Gastrointestinal (Abdomen): normal bowel sounds, soft, nontender, no hepatosplenomegaly Musculoskeletal: no cyanosis or clubbing, extremities motor strength 5/5 Psychiatric: A+Ox3, euthymic affect Results & Data Results & Data ([facility]) Vital Signs (Past 12 Hours) Vital Signs Temp Pulse Resp BP BP Pulse Ox 12/08/19 07:00 36.6 C 52 L 16 123/69 97 12/07/19 23:52 36.5 C 56 L 16 168/78 H 97 Laboratory Results 12/08/19 12/08/19 12/08/19 Range/Units 08:32 05:04 05:04 WBC 14.05 H (4.8-10.8) K/uL RBC 4.06 L (4.2-5.4) M/uL Hgb 11.3 L (12.0-16.0) g/dL Hct 33.8 L (37-47) % MCV 83.3 (80-100) fL MCH 27.8 (25-34) pg MCHC 33.4 (32-36) g/dL RDW Std Deviation 45.4 (36.4-46.3) fL RDW Coeff of Ariel 15.1 H (11.5-14.5) % Plt Count 464 H (130-400) K/uL MPV 9.6 (7.4-10.4) fL Immature Gran % (Auto) 5.6 % Neut % (Auto) 69.0 % Lymph % (Auto) 16.5 % [place] % (Auto) 8.0 % Eos % (Auto) 0.4 % Baso % (Auto) 0.5 % Neut # (Auto) 9.71 H (1.4-6.5) K/uL Lymph # (Auto) 2.32 (1.2-3.4) K/uL [place] # (Auto) 1.12 H (0.11-0.59) K/uL Eos # (Auto) 0.05 (0-0.5) K/uL Baso # (Auto) 0.07 (0-0.2) K/uL Immature Gran # (Auto) 0.78 H (0.00-0.02) K/uL Hypochromasia Present Sodium 141 (136-145) mmol/L Potassium 3.7 (3.5-5.1) mmol/L Chloride 107 (98-107) mmol/L Carbon Dioxide 26 (21-32) mmol/L Anion Gap 8.0 (3-11) BUN 26 H (7-18) mg/dl Creatinine 0.88 (0.6-1.2) mg/dl Est Cr Clr Drug Dosing 55.1 ml/min Est GFR ( Amer) 78.2 Est GFR (Non-Af Amer) 67.5 BUN/Creatinine Ratio 29.7 H (10-20) Glucose 139 H (70-99) mg/dl POC Glucose 173 H (70-99) mg/dl Calcium 8.9 (8.5-10.1) mg/dl A. phagocytophilum DNA (Not Detected) E. chaffeensis IgG Ab (<1:64) E. chaffeensis IgM Ab (<1:20) E. chaffeensis Interp E. chaffeensis Comment 12/07/19 12/07/19 12/07/19 Range/Units 21:05 17:15 12:05 WBC (4.8-10.8) K/uL RBC (4.2-5.4) M/uL Hgb (12.0-16.0) g/dL Hct (37-47) % MCV (80-100) fL MCH (25-34) pg MCHC (32-36) g/dL RDW Std Deviation (36.4-46.3) fL RDW Coeff of Ariel (11.5-14.5) % Plt Count (130-400) K/uL MPV (7.4-10.4) fL Immature Gran % (Auto) % Neut % (Auto) % Lymph % (Auto) % [place] % (Auto) % Eos % (Auto) % Baso % (Auto) % Neut # (Auto) (1.4-6.5) K/uL Lymph # (Auto) (1.2-3.4) K/uL [place] # (Auto) (0.11-0.59) K/uL Eos # (Auto) (0-0.5) K/uL Baso # (Auto) (0-0.2) K/uL Immature Gran # (Auto) (0.00-0.02) K/uL Hypochromasia Sodium (136-145) mmol/L Potassium (3.5-5.1) mmol/L Chloride (98-107) mmol/L Carbon Dioxide (21-32) mmol/L Anion Gap (3-11) BUN (7-18) mg/dl Creatinine (0.6-1.2) mg/dl Est Cr Clr Drug Dosing ml/min Est GFR ( Amer) Est GFR (Non-Af Amer) BUN/Creatinine Ratio (10-20) Glucose (70-99) mg/dl POC Glucose 233 H 225 H 197 H (70-99) mg/dl Calcium (8.5-10.1) mg/dl A. phagocytophilum DNA (Not Detected) E. chaffeensis IgG Ab (<1:64) E. chaffeensis IgM Ab (<1:20) E. chaffeensis Interp E. chaffeensis Comment 12/02/19 Range/Units 14:32 WBC (4.8-10.8) K/uL RBC (4.2-5.4) M/uL Hgb (12.0-16.0) g/dL Hct (37-47) % MCV (80-100) fL MCH (25-34) pg MCHC (32-36) g/dL RDW Std Deviation (36.4-46.3) fL RDW Coeff of Ariel (11.5-14.5) % Plt Count (130-400) K/uL MPV (7.4-10.4) fL Immature Gran % (Auto) % Neut % (Auto) % Lymph % (Auto) % [place] % (Auto) % Eos % (Auto) % Baso % (Auto) % Neut # (Auto) (1.4-6.5) K/uL Lymph # (Auto) (1.2-3.4) K/uL [place] # (Auto) (0.11-0.59) K/uL Eos # (Auto) (0-0.5) K/uL Baso # (Auto) (0-0.2) K/uL Immature Gran # (Auto) (0.00-0.02) K/uL Hypochromasia Sodium (136-145) mmol/L Potassium (3.5-5.1) mmol/L Chloride (98-107) mmol/L Carbon Dioxide (21-32) mmol/L Anion Gap (3-11) BUN (7-18) mg/dl Creatinine (0.6-1.2) mg/dl Est Cr Clr Drug Dosing ml/min Est GFR ( Amer) Est GFR (Non-Af Amer) BUN/Creatinine Ratio (10-20) Glucose (70-99) mg/dl POC Glucose (70-99) mg/dl Calcium (8.5-10.1) mg/dl A. phagocytophilum DNA Not Detected (Not Detected) E. chaffeensis IgG Ab <1:64 (<1:64) E. chaffeensis IgM Ab <1:20 (<1:20) E. chaffeensis Interp see note E. chaffeensis Comment see note Medications Administered Current Inpatient Medications Acetaminophen (Tylenol) 650 mg PO Q4H PRN PRN Reason: Pain or Fever Stop: 01/01/20 22:29 Last Admin: 12/04/19 15:49 Dose: 650 mg Documented by: Amlodipine Besylate (Norvasc) 10 mg PO [facility] Stop: 01/03/20 20:59 Last Admin: 12/07/19 21:53 Dose: 10 mg Documented by: Amoxicillin/Clavulanate Potassium (Augmentin 875mg) 1 tab PO BIDM [facility]; Protocol Stop: 12/15/19 16:59 Ascorbic [facility] ([facility]itamin [facility]) [facility] [place] [place] Stop: 01/02/20 08:59 Last Admin: 12/08/19 08:37 Dose: 1,000 mg Documented by: Aspirin (Ecotrin Ectab) 81 mg PO [facility] Stop: 01/01/20 22:29 Last Admin: 12/07/19 21:54 Dose: 81 mg Documented by: Dextrose (Dextrose 50%) 25 - 50 ml IV UD PRN; Protocol PRN Reason: Hypoglycemia Protocol Stop: 01/01/20 22:29 Diphenhydramine HCl (Benadryl Capsule) 50 mg PO Q6H PRN PRN Reason: Itching Stop: 01/04/20 08:50 Doxycycline Hyclate (Vibramycin) 100 mg PO BID [facility] Stop: 12/15/19 20:59 Enalapril Maleate (Vasotec) 20 mg PO [facility] Stop: 01/03/20 20:59 Last Admin: 12/07/19 21:53 Dose: 20 mg Documented by: Fenofibrate (Fenofibrate) 96 mg PO QAM [facility] Stop: 01/02/20 08:59 Last Admin: 12/08/19 08:38 Dose: 96 mg Documented by: Fenofibrate (Fenofibrate) 48 mg PO HS [facility] Stop: 01/01/20 22:29 Last Admin: 12/07/19 21:54 Dose: 48 mg Documented by: Glucagon (Glucagen) 1 mg SQ UD PRN; Protocol PRN Reason: Hypoglycemia Protocol Stop: 01/01/20 22:29 Glucose (Dex4 Glucose) 4 - 8 tabs PO UD PRN; Protocol PRN Reason: Hypoglycemia Protocol Stop: 01/01/20 22:29 Glucose (Glucose 40%) 15 - 30 gm PO UD PRN; Protocol PRN Reason: Hypoglycemia Protocol Stop: 01/01/20 22:29 Heparin Sodium (Porcine) (Heparin Sodium (Porcine)) 5,000 units SQ Q12 [facility] Stop: 01/01/20 22:29 Last Admin: 12/08/19 08:37 Dose: Not Given Documented by: Methylprednisolone 40 mg/ (Syringe) 0.64 mls @ 1.5 mls/min IV DAILY [facility] Stop: 01/03/20 14:24 Last Admin: 12/08/19 08:39 Dose: 1.5 mls/min Documented by: Ibuprofen (Motrin) 600 mg PO Q8H PRN PRN Reason: Pain Stop: 01/03/20 08:59 Insulin Aspart (Novolog Flexpen) 0 units SC ACHS [facility] Stop: 01/01/20 22:29 Last Admin: 12/08/19 08:40 Dose: 18 units Documented by: Insulin Glargine (Lantus Solostar Pen) 20 units SC HS [facility] Stop: 01/04/20 20:59 Last Admin: 12/07/19 22:01 Dose: 20 units Documented by: Insulin Glargine (Lantus Solostar Pen) 20 units SC DAILY [facility] Stop: 01/08/20 08:59 Levothyroxine Sodium (Synthroid) 88 mcg PO DAILYBB [facility] Stop: 01/02/20 06:29 Last Admin: 12/08/19 06:58 Dose: 88 mcg Documented by: Miscellaneous (Carbohydrates For Hypoglycemia) 15 - 30 gm PO UD PRN PRN Reason: Hypoglycemia Protocol Stop: 01/01/20 22:29 Multivitamins (Multivitamin Tab) 1 tab PO BID [facility] Stop: 01/03/20 20:59 Last Admin: 12/08/19 08:38 Dose: 1 tab Documented by: Ondansetron HCl (Zofran) 4 mg IV Q6H PRN PRN Reason: Nausea Stop: 01/01/20 22:29 Last Admin: 12/04/19 04:55 Dose: 4 mg Documented by: Polyethylene Glycol (Miralax Powder Packet) 17 gm PO DAILY PRN PRN Reason: Constipation Stop: 01/04/20 08:50 Last Admin: 12/06/19 09:14 Dose: 17 gm Documented by: Prednisone (Prednisone) 40 mg PO DAILY [facility] Stop: 01/08/20 08:59 Triamterene/HCTZ (Maxzide 37.5/25mg) 1 tab PO DAILY [facility] Stop: 01/04/20 08:59 Last Admin: 12/08/19 08:37 Dose: 1 tab Documented by: Trimethoprim/Sulfamethoxazole (Septra Ds 800/160mg Tab) 1 tab PO Q12 [facility]; Protocol Stop: 12/15/19 20:59 Resident Activity Tracking Resident Involvement: Resident Care Provided Care Provided: Adult Hospital Medicine
[2019-12-08] MEDS: VANCOMYCIN HCL 1,000 MG in SODIUM CHLORIDE 0.9% 250 ML IV SCH (11:10)
--- NOTE | 2019-12-08 15:03 | Billing Data ---
Date of Service December 08, 2019 Coding Level of Care Code 66365 Subseq Hosp Care Lvl 3
[2019-12-08] MEDS: AMOXICILLIN/CLAVULANATE 875 MG TAB PO SCH (17:45)
[2019-12-08] MEDS ORDERED: methylPREDNISolone 4 MG TAB, 6 DAY TAPER PO SCH (19:30)
[2019-12-08] MEDS: ENALAPRIL MALEATE 10 MG TAB PO SCH (21:30)
[2019-12-08] MEDS: SULFAMETHOXAZOLE/TRIMETHOPRIM DS 800/160MG TAB PO SCH (21:31)
[2019-12-08] MEDS: ASPIRIN 81 MG ECTAB PO SCH (21:31)
[2019-12-08] MEDS: AMLODIPINE BESYLATE 5 MG TAB PO SCH (21:31)
[2019-12-08] MEDS: DOXYCYCLINE HYCLATE 100 MG CAP PO SCH (21:31)
[2019-12-09] MEDS: methylPREDNISolone 4 MG TAB PO SCH ×4 (05:52→21:14)
[2019-12-09] MEDS: LEVOTHYROXINE SODIUM 88 MCG TABLET PO SCH (05:52)
[2019-12-09 08:19] LABS: Est GFR (African American) 67.9; Est GFR (Non-African American) 58.6
--- NOTE | 2019-12-09 08:57 | Hospitalist Progress Note ---
Date of Service December 09, 2019 Assessment & Plan (1) Diplopia: Florina Delgado is a 69y/o F w/ PMH significant for HLD, HTN, depression, PTSD, T2DM, hypothyroidism, NAFLD, kidney stones, chronic back pain, osteoarthritis, and neuropathy of foot presenting with L hip pain and diplopia. Diplopia 2/2 L sided orbital cellulitis: - concern for orbital cellulitis given proptosis, pain with ocular movement - CT head no acute intracranial findings - CTA Head- no intraluminal thrombus, abrupt vessel cutoff, or hemodynamically significant stenosis - CTA Neck: Atherosclerotic plaque within the proximal bilateral internal carotid arteries without significant stenosis. Mild stenosis at the origin of the right external carotid artery. Moderate stenosis at the origin of the right vertebral artery - MRI Brain: Numerous white matter T2 hyperintense foci likely reflect small vessel disease vs demyelinating disease - CT Orbits & sinuses - apparent mild left-sided proptosis with otherwise unremarkable - MRI Orbits - Mild asymmetric left-sided proptosis with mild preseptal and post septal edema. No orbital mass identified. Subtle asymmetric enhancement of the left optic nerve sheath compared to the right without significant enhancement of the nerve itself. Findings may be reactive or reflect early optic neuritis - continue utilization of eye-patch to help with diplopia; alternating eyes to continue to promote function of extra-ocular muscles - Continue 81 mg aspirin tablet daily - discontinue IV vancomycin, Ceftriaxone, and Acyclovir -Continue oral Bactrim 800mg BID, Augmentin 875mg BID - completed course of IV steroids to reduce possibility of detention optic nerve damage and speed recovery of vision - Converted to medrol dose pack for tapering. - Lyme/Anaplasmosis neg. Ehrlichiosis pending. ACh antibodies pending - blood cultures NGTD - appreciate ophthalmology and neurology recommendations Cellulitis: - approximately 10cm erythematous plaque over L anterior thigh, margins outlined -- has receded roughly 4cm from outlined margin - with previous tick exposure history and appearance this may represent tick reaction - Continue doxycycline PO Chronic back pain/left hip pain: - patient with chronic low back pain, and acute L hip pain - recently was working in the yard with fall - CT pelvis does not demonstrate acute abnormalities, some osteoarthritis of b/l acetabular surfaces - Femur XR no acute abnormalities - PT/OT recommend can return home with family support - Discussed patient can follow-up with orthopedic Dr. Jennings as an outpatient HLD/HTN - Continue fenofibrate, triamterene/HCTZ and amlodipine/benazepril. DM2 - A1c 7.5 - Hold metformin. Titrating insulin as needed. - Placed on Accu-Cheks before meals and at bedtime with NovoLog coverage per scale. Adjusting as needed - We will monitor closely given high-dose steroids Hypothyroidism - TSH WNL .856 - Continue levothyroxine 88 mcg daily Diet: Heart Healthy, Carb consistent DVT ppx: SQ heparin Code: Full code Dispo: Med Surg Admission and Anticipated Discharge Date Admission Date: December 02, 2019 Supervising Physician Co-Signing Physician Notes I personally examined the patient and verified all herrera points of history and exam, discussed case, and agree with decision making with Dr Laguna. at times her double vision is nearly gone in every way except L lateral gaze. when she fatigues double vision comes back more - but still overall very improved. vitals noted nad heent L pupil equal to R and reactive. can move L eye fluidly and overall are coordinated with R except for lateral gaze (but lateral gaze now able to move ~40 degrees) A/P: 1. diplopia - 2nd left-sided orbital cellulitis and gaze dysfunction - improving - continue to follow on PO abx 2. left orbital cellulitis - still improving daily; follow one more day on PO abx before discharge to ensure no backsliding 3. rash, left hip region - cont doxy, some concern this is early stage Lyme. follow clinically - essentially resolved 4. T2DM - basal bolus, discussed previously. 5. hypothyroidism - compensated; continue current synthroid Subjective Patient is a 69 year old female seen while seated in her chair this morning. Patient noting that she is feeling much better and that her diplopia has improved immensely. Notes that at certain angles she still has double vision, but that they are more limited than before. Also stating that she is tolerating the PO antibiotics and steroids well. Has added yogurt to her daily regiment to assist in preventing GI discomfort. Patient has some anxiety about leaving, concerned about driving and need for readmission/returning for checks. Would feel more comfortable staying another night as she was just converted to PO antibiotics yesterday and PO steroids today. No other concerns at this time. Review of Systems Constitutional: no fever and no chills Eyes: + diplopia (though improving); no photophobia Respiratory: no cough, no dyspnea and no pain on inspiration Cardiovascular: no chest pain, no dyspnea on exertion and no palpitations Gastrointestinal: no abdominal pain, no nausea and no vomiting Genitourinary: no dysuria Musculoskeletal: no stiffness, no myalgia and no muscle weakness Integumentary: + rash (on L thigh, though significantly improving ) Physical Exam Constitutional: WD/WN, vitals as above Eyes: PERRL and + EOM movement deficit (L eye leftward gaze limited to 30-40 degrees); no eyelid abnormality, no conjunctival abnormality, no scleral abnormality, + EOM not intact (Limited lateral gaze of L eye to ~40 degrees) and no photophobia ENMT: external ear and nose normal, oropharynx normal Respiratory: normal respiratory effort, lungs clear to auscultation Cardiovascular: Rate/Rhythm: regular rate and regular rhythm Heart Sounds: normal S1 and normal S2; no gallop, no murmur and no cardiac rub Vessels: no JVD Extremities: no pedal edema Gastrointestinal (Abdomen): normal bowel sounds, soft, nontender, no hepatosplenomegaly Skin: + rash (Red macular rash on L thigh receeded ~4cm from marked line ) Psychiatric: A+Ox3, euthymic affect Results & Data Results & Data ([facility]) Vital Signs (Past 12 Hours) Vital Signs Temp Pulse Pulse Resp BP Pulse Ox 12/09/19 07:58 36.8 C 57 L 16 134/74 97 12/08/19 23:05 36.8 C 54 L 16 133/67 95 Resident Activity Tracking Resident Involvement: Resident Care Provided Care Provided: Adult Hospital Medicine
[2019-12-09] MEDS ORDERED: predniSONE 20 MG TAB PO SCH (09:00)
[2019-12-09] MEDS: AMOXICILLIN/CLAVULANATE 875 MG TAB PO SCH ×2 (09:12→16:22)
[2019-12-09] MEDS: FENOFIBRATE NANOCRYSTALLIZED 48 MG TABLET PO SCH ×2 (09:13→21:12)
[2019-12-09] MEDS: TRIAMTERENE/HCTZ 37.5/25MG TAB PO SCH (09:13)
[2019-12-09] MEDS: MULTIVITAMIN TAB PO SCH ×2 (09:14→21:14)
[2019-12-09] MEDS: SULFAMETHOXAZOLE/TRIMETHOPRIM DS 800/160MG TAB PO SCH ×2 (09:14→21:12)
[2019-12-09] MEDS: DOXYCYCLINE HYCLATE 100 MG CAP PO SCH ×2 (09:15→21:10)
[2019-12-09] MEDS: ASCORBIC ACID 500 MG TAB PO SCH (09:15)
[2019-12-09] MEDS: HEPARIN SOD 5,000 UNIT/0.5 ML VIAL SQ SCH ×3 (09:16→21:28)
[2019-12-09] MEDS: INSULIN GLARGINE SOLOSTAR 100 UNITS/ML 3 ML PEN SC SCH ×2 (09:17→21:18)
[2019-12-09] MEDS: INSULIN ASPART 100 UNITS/ML 3 ML PEN SC SCH ×4 (09:19→21:18)
[2019-12-09 16:14] LABS: Acetylcholine Recep Modulating 19; Acetylcholine Recept Blocking <15 (<15); Receptor Binding Ab <0.30 nmol/L
--- NOTE | 2019-12-09 19:16 | Billing Data ---
Date of Service December 09, 2019 Coding Level of Care Code 21229 Subseq Hosp Care Lvl 3
[2019-12-09] MEDS: ASPIRIN 81 MG ECTAB PO SCH (21:11)
[2019-12-09] MEDS: ENALAPRIL MALEATE 10 MG TAB PO SCH (21:11)
[2019-12-09] MEDS: AMLODIPINE BESYLATE 5 MG TAB PO SCH (21:13)
[2019-12-09 23:22] VITALS: O2SAT 96
[2019-12-10] MEDS: LEVOTHYROXINE SODIUM 88 MCG TABLET PO SCH (05:26)
[2019-12-10] MEDS: methylPREDNISolone 4 MG TAB PO SCH ×2 (05:28→12:46)
[2019-12-10 06:06] LABS: Creatinine Clr Calc Pharmacy 47.5 ml/min; Est GFR (African American) 65.5; Est GFR (Non-African American) 56.5
[2019-12-10 08:23] VITALS: BP 121/68; PULSE 53; TEMP 97.9
[2019-12-10] MEDS: INSULIN ASPART 100 UNITS/ML 3 ML PEN SC SCH ×2 (09:35→13:08)
[2019-12-10] MEDS: INSULIN GLARGINE SOLOSTAR 100 UNITS/ML 3 ML PEN SC SCH (09:37)
[2019-12-10] MEDS: HEPARIN SOD 5,000 UNIT/0.5 ML VIAL SQ SCH (09:39)
[2019-12-10] MEDS: TRIAMTERENE/HCTZ 37.5/25MG TAB PO SCH (09:42)
[2019-12-10] MEDS: AMOXICILLIN/CLAVULANATE 875 MG TAB PO SCH (09:42)
[2019-12-10] MEDS: ASCORBIC ACID 500 MG TAB PO SCH (09:42)
[2019-12-10] MEDS: MULTIVITAMIN TAB PO SCH (09:42)
[2019-12-10] MEDS: DOXYCYCLINE HYCLATE 100 MG CAP PO SCH (09:43)
[2019-12-10] MEDS: SULFAMETHOXAZOLE/TRIMETHOPRIM DS 800/160MG TAB PO SCH (09:43)
[2019-12-10] MEDS: FENOFIBRATE NANOCRYSTALLIZED 48 MG TABLET PO SCH (09:43)
--- NOTE | 2019-12-10 11:11 | Discharge Summary ---
Date of Service December 10, 2019 Admission HPI Per Admitting Provider The patient is a 69-year-old female with a past medical history including vitamin D deficiency, hyperlipidemia, hypertension, depression, PTSD, diabetes mellitus type 2, hypothyroidism, NAFLD, kidney stones, chronic back pain, osteoarthritis, and neuropathy of foot. She reports that she was working outside over the past few days, and developed worsening low back and left hip pain. She also notes the development of a a large red rash on her anterior left thigh surface. She also reports double vision that began after pain over her left forehead area and presented to the ED with family concerns regarding a stroke. The patient is unaware of any current tick bite, but has reportedly been diagnosed with Lyme disease in the past. In the emergency department, she underwent a thorough work-up, including CT of the head without contrast which was negative, CTA of head which was negative, CTA of neck which showed moderate stenosis of right vertebral artery, an MRI brain which showed findings consistent with small vessel disease versus demyelination. Upon questioning, patient does report that she had an episode of double vision a few years ago, that resolved with taking antihistamines. Admission Exam Per Admitting Provider The patient is awake, alert and oriented 3, well developed and well nourished, edema of left upper and lower lids, and edema of left periorbital area, lying in bed and in no acute distress. HEENT--PERRL, EOMI, mucous membranes and oropharynx normal. Neck--supple. No JVD. No bruits. Thyroid normal, trachea midline, no adenopathy. Heart--normal S1 and S2. No murmurs, rubs or gallops. Lungs--clear bilaterally, no respiratory distress, no accessory muscle use. Abdomen--normal bowel sounds and soft. Nontender. Moderately distended and tympanitic. Extremities--no cyanosis or clubbing. No edema. Dermatologic--left upper thigh and groin area with moderately erythematous, warm and nontender area about 10 cm in diameter. Neurologic--pupils 2 mm in diameter with left more sluggish but no obvious Salvador Kavitha pupil. Patient has poor tracking, with unrestricted movement of right eye. Left eye is unable to move well in any direction, and periodically appears frozen and retracted. Exam is difficult. Rheumatologic--normal range of motion. Psychiatric--normal affect. Principal Diagnosis L Periorbital Cellulitis Discharge Exam Constitutional WD/WN, vitals as above Eyes PERRL and + EOM movement deficit (L eye leftward gaze limited to ~40 degrees); no eyelid abnormality, no conjunctival abnormality, no scleral abnormality, + EOM not intact (Limited lateral gaze of L eye to ~40 degrees) and no photophobia ENMT external ear and nose normal, oropharynx normal Respiratory normal respiratory effort, lungs clear to auscultation Cardiovascular Rate/Rhythm: regular rate and regular rhythm Heart Sounds: normal S1 and normal S2; no gallop, no murmur and no cardiac rub Vessels: no JVD Extremities: no pedal edema Gastrointestinal (Abdomen) normal bowel sounds, soft, nontender, no hepatosplenomegaly Skin + rash (Red macular rash on L thigh relatively resolved) Psychiatric A+Ox3, euthymic affect Discharge Data Allergies Allergy/AdvReac Type Severity Reaction Status Date / Time bee venom protein (honey bee) Allergy Severe Anaphylaxis Verified 12/02/19 16:23 latex Allergy Mild REDNESS, Verified 12/02/19 16:23 HURTS monosodium glutamate AdvReac Mild restless Verified 12/02/19 22:51 leg syndrome Consultations 12/02/19 19:24 ED Decision to Admit Stat 12/02/19 22:30 Consult Case Management - Discharge Planning Routine Consult Neurology Routine 12/03/19 14:07 Consult Ophthalmology Routine 12/05/19 18:03 Consult [facility] journalist Routine 12/07/19 02:42 Consult Patient Rep / Service Excellence [Consult Patient Services] Routine Ordered Studies 12/02/19 14:24 CT angio head w con Stat CT angio neck with con Stat CT head/brain wo con Stat 12/02/19 15:27 MR brain wo con Stat 12/02/19 20:08 CT pelvis wo con Urgent 12/03/19 09:24 CT orbit BI w con Stat CT sinus w con Stat 12/03/19 10:28 MR orbit wo/w con Urgent Hospital Course (1) Diplopia: Florina Delgado is a 69y/o F w/ PMH significant for HLD, HTN, depression, PTSD, T2DM, hypothyroidism, NAFLD, kidney stones, chronic back pain, osteoarthritis, and neuropathy of foot presenting with L hip pain and diplopia. Diplopia 2/2 L sided orbital cellulitis: - concern for orbital cellulitis given proptosis, pain with ocular movement - CT head no acute intracranial findings - CTA Head- no intraluminal thrombus, abrupt vessel cutoff, or hemodynamically significant stenosis - CTA Neck: Atherosclerotic plaque within the proximal bilateral internal carotid arteries without significant stenosis. Mild stenosis at the origin of the right external carotid artery. Moderate stenosis at the origin of the right vertebral artery - MRI Brain: Numerous white matter T2 hyperintense foci likely reflect small vessel disease vs demyelinating disease - CT Orbits & sinuses - apparent mild left-sided proptosis with otherwise unremarkable - MRI Orbits - Mild asymmetric left-sided proptosis with mild preseptal and post septal edema. No orbital mass identified. Subtle asymmetric enhancement of the left optic nerve sheath compared to the right without significant enhancement of the nerve itself. Findings may be reactive or reflect early optic neuritis - continued utilization of eye-patch to help with diplopia; alternating eyes to continue to promote function of extra-ocular muscles - Continued 81 mg aspirin tablet daily - Initially on IV vancomycin, Ceftriaxone, and Acyclovir which was converted to PO - Continued oral Bactrim 800mg BID, Augmentin 875mg BID for 12 days s/p discha rge for a total treatment time of 21 days. 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 - Lyme/Anaplasmosis neg. Ehrlichiosis negative. ACh antibodies negative - blood cultures NGTD - appreciated ophthalmology and neurology recommendations - Patient further follow up with Neurology and Ophthalmology upon discharge Cellulitis: - approximately 10cm erythematous plaque over L anterior thigh, margins outlined -- was relatively resolved by discharge. - with previous tick exposure history and appearance this may represent tick reaction - Continued doxycycline PO, will complete course 1 day discharge at home. Chronic back pain/left hip pain: - patient with chronic low back pain, and acute L hip pain - recently was working in the yard with fall - CT pelvis did not demonstrate acute abnormalities, some osteoarthritis of b/l acetabular surfaces - Femur XR no acute abnormalities - PT/OT recommend can return home with family support - Discussed patient can follow-up with orthopedic Dr. Jennings as an outpatient HLD/HTN - Continued fenofibrate, triamterene/HCTZ and amlodipine/benazepril. DM2 - A1c 7.5 - Held home metformin. Titrating insulin as needed. - Placed on Accu-Cheks before meals and at bedtime with NovoLog coverage per scale. Hypothyroidism - TSH WNL .856 - Continued levothyroxine 88 mcg daily Total Time Total Time Spent Total Time Spent (In Minutes): <30 Discharge Plan Discharge Items Patient Disposition: Home - Self-Care Reason For Visit: DIPLOPIA, CELLULITIS OF LLE, HIP PAIN Discharge Diagnosis: Left sided Orbital Cellulitis, Cellulitis concerning for Lyme Disease Condition on Discharge: Good Activity: Resume your previous activity Non-emergency contact: Primary Care Provider, Neurologist and Dredge Pump Operator Call non-emergency contact if: you have any medication questions, your symptoms worsen and your temperature is above 101 Follow-up/Referrals: Melquiades Nino MD [Physician] - 02/01/20 9:45 am (Please, follow up at [facility]rology Office with Dr. Nino on January 31 at 9:45 am. We booked you in the first available time slot. However, we requested a sooner appointment and a nurse from the office is to contact you with the details. *The office is located at [facility] in [place]. If you have any questions, call the office at [phone]. ) Corrie Ahumada MD [Primary Care Provider] - 12/11/19 10:30 am (You have a follow up appt scheduled Wednesdaydecember 10 at 1030, with Yane BARRERA. If this appt does not fit your schedule please call [phone] to reschedule. Please arrive 15 minutes prior to your appt time, and remember to bring your mask!) Zafar Calix MD [Physician] - 12/14/19 9:15 am (Please, follow up at [facility] with Dr. Zafar Calix on December 13 at 9:15 am. *The office is located at [address] [place] [address] in [place]. If you have any questions, call the office at [phone].) Diet: Regular Addtl Attending Provider Instructions: Ms. Delgado, It was our pleasure to care for you at [facility] from 12/01- 12/10/19. Please see below for a brief summary of your stay. Please see above for your follow up appointments with your PCP, Neurology, and Ophthalmology. Medications you are being prescribed: -Doxycycline 1 tablet by mouth twice a day x 1 day - starts tonight -Augmentin 875 mg 1 tablet by mouth twice a day x 12 days - starts tonight -Bactrim 800/160 mg 1 tablet by mouth twice a day x 12 days - starts tonight -Medrol Dose Mekhi, please skip "Day 1" and then follow as prescribed - starts morning of 12/10/2019 Left sided Orbital Cellulitis with Diplopia -As we discussed in the hospital, you were found to have an infection of your L orbit (infection around your eye) that led to many of your symptoms of pain with moving your eye and likely the weakness in moving your eye. This weakness in movement of your eye would also contribute towards your diplopia (double vision). -You had multiple CT scans and MRI scans of your head which led us to believe that your current symptoms were primarily from the infection. -There is some slight concern for possible nerve involvement known as Optic Neuritis. While this concern is low, we would like you to continue with follow up with Ophthalmology and Neurology. -You were initially treated with IV antibiotics, and have since been transitioned to oral antibiotics. Upon discharge you will be provided with enough for treatment of a total of 21 days of antibiotics (both in the hospital and at home), but please know this may need to increase/decrease depending on your symptoms and is not a hard and fast number. -Please continue to use the eye patch in order to limit the double vision and build up strength in your L eye. Cellulitis of L Leg -With previous tick exposure and concern for Lyme Disease, you were treated with Doxycycline -You will be sent home with one more day of Doxycycline, the medication for treatment for a total 10 days of treatment. Chronic Conditions -Please resume and continue your home medications as prescribed unless noted above. Pending Studies at Discharge: No Studies:: XR femur LT 2V routine CLINICAL HISTORY: Left hip pain. COMPARISON: CT of the abdomen and pelvis April 20, 2019. FINDINGS: Note is made of contrast within the bladder from recent contrast- enhanced CT. No acute fracture within the left femur is noted. Alignment of the left hip and left knee is anatomic. There is extensive vascular calcification. There is mild medial compartment osteoarthritis of the left knee. IMPRESSION: No acute fracture of the left femur. ACT 112: Negative or not required by law. Electronically signed by: Samir Ahumada M.D. 12/02/2019 4:22 PM Dictated: 12/02/19 162 Transcribed: 12/02/19 162 XR pelvis 1-2V routine CLINICAL HISTORY: Left hip pain. COMPARISON: CT of the abdomen and pelvis April 20, 2019. FINDINGS: Note is made of contrast within the bladder from recent contrast- enhanced CT. This obscures the sacrum and medial pubic bones. No acute fracture is identified within the pelvis or hips. IMPRESSION: No acute fracture identified within the pelvis or hips although medial pubic bones and sacrum partially obscured by contrast within the bladder. ACT 112: Negative or not required by law. Electronically signed by: Samir Ahumada M.D. 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 FINDINGS: Lung volumes are normal. Lungs are clear. There is no pneumothorax or pleural effusion. Cardiac size is stable. Mediastinal contours are normal. There is no evidence for pulmonary edema. IMPRESSION: No acute cardiopulmonary findings. No change in appearance of the chest. ACT 112: Negative or not required by law. Electronically signed by: Samir Ahumada M.D. 12/02/2019 4:19 PM Dictated: 12/02/19 161 Transcribed: 12/02/[address] OF THE HEAD WITHOUT CONTRAST CLINICAL HISTORY: Stroke evaluation COMPARISON STUDY: No previous studies for comparison. TECHNIQUE: Helical axial images of the head were obtained without IV contrast. Automated exposure control was utilized for the study. A dose lowering technique was utilized adhering to the principles of ALARA. FINDINGS: No acute intracranial hemorrhage, midline shift or mass effect is present. The ventricular system is unremarkable. The basilar cisterns are patent. White matter hypodensity suggests small vessel disease. No extra-axial collections are present. There are no findings to suggest acute dural sinus thrombosis or acute territorial infarct. No significant calvarial abnormalities are present. Visualized portions of the sinuses and mastoid air cells are clear. IMPRESSION: No acute intracranial findings. ACT 112: Negative or not required by law. Electronically signed by: Samir Ahumada M.D. 12/02/2019 3:22 PM Dictated: 12/02/19 1519 Transcribed: 12/02/19 1519 CTA ANGIOGRAPHY OF THE HEAD CLINICAL HISTORY: Stroke evaluation COMPARISON STUDY: No previous studies for comparison. TECHNIQUE: Helical axial images of the head were obtained following uneventful intravenous administration of 119 cc of Optiray 320. Sagittal and coronal reconstructions were viewed as well as maximal intensity projections on an independent 3-D workstation. Automated exposure control was utilized for the study. A dose lowering technique was utilized adhering to the principles of ALARA. CT DOSE: 1012.33 mGy.cm FINDINGS: No acute intracranial hemorrhage, midline shift or mass effect is present. Ventricular system is normal. The basilar cisterns are patent. There are no extra-axial collections. The bilateral M1, M2, A1 and A2 segments are patent. There is mild plaque within the bilateral cavernous carotids. The posterior circulation is intact. There is no intracranial aneurysm. There is no intraluminal thrombus or abrupt vessel cut off. IMPRESSION: No intraluminal thrombus, abrupt vessel cutoff or hemodynamically significant stenosis within the intracranial vessels. ACT 112: Negative or not required by law. Electronically signed by: Samir Ahumada M.D. 12/02/2019 3:35 PM Dictated: 12/02/19 1532 Transcribed: 12/02/[address] ANGIOGRAPHY OF THE NECK WITH CONTRAST CLINICAL HISTORY: Stroke evaluation COMPARISON STUDY: No previous studies for comparison. Technique: CT angiography of the carotid and vertebral arteries was obtained using OptiraTalentSoft 320 IV and 3D reconstruction on an independent workstation. NASCET criteria was utilized. Automated exposure control was utilized for the study. A dose lowering technique was utilized adhering to the principles of ALARA. Findings: Lung apices are clear. There is asymmetric enlargement of the right thyroid lobe with suspected thyroid nodules. There is no cervical lymphadenopathy. There is no cervical spine fracture. There is moderate stenosis at origin of the right vertebral artery. There is tortuosity of the distal cervical portion of the right vertebral artery. There is no dissection within the major vessels of the neck. There is mild stenosis at the origin of the right external carotid artery. There is mild plaque within the proximal right internal carotid artery without stenosis. There is moderate plaque within the proximal left internal carotid artery without significant stenosis. IMPRESSION: 1. Atherosclerotic plaque within the proximal bilateral internal carotid arteries without significant stenosis. 2. Mild stenosis at the origin of the right external carotid artery. 3. Moderate stenosis at the origin of the right vertebral artery. ACT 112: Negative or not required by law. Electronically signed by: Samir Ahumada M.D. 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 TECHNIQUE: Utilizing a 1.5 Nilda magnet and dedicated coil, multiplanar, multiecho imaging of the brain was performed without IV contrast. FINDINGS: There are no foci of restricted diffusion to suggest acute infarct. No acute intracranial hemorrhage, midline shift or mass effect is present. Ventricular system is unremarkable. Basilar cisterns are patent. There are no extra axial collections. Flow-voids for the major intracranial vessels are present. No intracranial masses are identified on this unenhanced examination. There are multiple white matter T2 hyperintense foci. Statistically, these reflect small vessel disease however demyelinating disease could appear similar. Calvarial signal is normal. Orbits are unremarkable. IMPRESSION: 1. No evidence for acute infarction. 2. Numerous white matter T2 hyperintense foci. Statistically, these reflect small vessel disease however demyelinating disease could also have this appearance. ACT 112: Negative or not required by law. Electronically signed by: Samir Ahumada M.D. 12/02/2019 6:01 PM Dictated: 12/02/191757 Transcribed: 12/02/191757 CT pelvis wo con HISTORY: 69 years-old Female Pt c/o left hip pain acute left hip pain status post fall COMPARISON: CT abdomen and pelvis 04/20/2019 TECHNIQUE: Multiple axial CT images of the pelvis were obtained without the use of IV contrast. A dose lowering technique was used consistent with the principals of [place]. FINDINGS: Hepatomegaly with hepatic steatosis. Fibroid uterus. No bowel obstruction or bowel wall thickening identified. Moderate urinary bladder distention with excreted contrast in the urinary bladder lumen. Calcified plaque of the aorta common iliac and femoral arteries. Spondylitic spurring and facet arthrosis of the lumbar spine. Severe disc space narrowing at L5-S1. 7 mm anterolisthesis L4 on L5 is likely secondary to long- standing facet arthrosis. This results in at least moderate central canal stenosis. Moderate degeneration of the SI joints. No evidence of sacral insufficiency fracture. There are scattered sclerotic foci of the pelvis and proximal femora which are subcentimeter and unchanged suggestive of probable bone islands. Severe degeneration of the pubic symphysis. No acute fracture, avascular necrosis or dislocation. 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 IMPRESSION: 1. 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 2. No acute fracture, dislocation or avascular necrosis. 3. Additional findings as above. ACT 112: Negative or not required by law. The above report was generated using voice recognition software. It may contain grammatical, syntax or spelling errors. Electronically signed by: Jordan Grayson M.D. 12/03/2019 9:58 AM Dictated: 12/03/19 0951 Transcribed: 12/03/[address] orbit BI w con HISTORY: 69 years-old Female proptosis L eye, pain with movement, double vision acute left eye pain with double vision COMPARISON: CT sinus of same day, MRI brain and CT head 12/02/2019 TECHNIQUE: Multiple axial CT images of the orbits were obtained following the intravenous administration of 94 mL Optiray 320. A dose lowering technique was used consistent with the principals of WESTON. FINDINGS: Limited study secondary to the patient rotated in the CT gantry. Inter-zygomatic line is drawn. The anterior surface of the globe on the left to this line measures 2.5 cm (please refer to image 14 of series 5). The anterior surface of the right globe in relation to this line measures 2.3 cm. Again however these measurements are limited secondary to the aforementioned positioning of the patient. Prior bilateral lens replacement. Unremarkable appearance of the bilateral optic nerves, extraocular musculature and lacrimal glands. No orbital mass or inflammation. Superior orbital veins appear symmetric and unremarkable. IMPRESSION: 1. Mildly limited exam secondary to positioning of the patient. There is apparent mild left-sided proptosis with otherwise unremarkable appearance of the bilateral orbits. 2. No orbital mass, extraocular muscular abnormality or inflammation. ACT 112: Negative or not required by law. The above report was generated using voice recognition software. It may contain grammatical, syntax or spelling errors. Electronically signed by: Jordan Grayson M.D. 12/03/2019 3:24 PM Dictated: 12/03/19 1512 Transcribed: 12/03/[address] sinus w con HISTORY: 69 years-old Female proptosis L eye, pain with movement, double vision acute left-sided proptosis with double vision COMPARISON: CT of the orbits of same day, head CT 12/02/2019 TECHNIQUE: Multiple axial CT images of the paranasal sinuses were obtained following the intravenous administration of 94 mL Optiray 320. A dose lowering technique was used consistent with the principals of [place]. FINDINGS: Orbital findings will be discussed on the CT orbit study of same day. The imaged intracranial structures demonstrate no acute abnormality. Moderate atherosclerotic plaque of the intracranial arteries. There is no acute facial bone or calvarial fracture identified. Imaged mastoid air cells are clear. Streak artifact from dental amalgam hardware limits evaluation of the adjacent tissues. There is minimal mucosal thickening of the left sphenoid sinus. Clear right sphenoid and bilateral maxillary sinuses. Hypoplastic right frontal sinus. Minimal mucosal thickening of the superolateral left frontal sinus. There is minimal mucosal thickening involving a few ethmoid air cells bilaterally. No taylor bullosa. Small right-sided Gwen cell. Patency of the maxillary ostiomeatal units, frontoethmoidal and sphenoethmoidal recesses. Minimal rightward bowing and spurring of the nasal septum. Patent nasopharynx. IMPRESSION: 1. Minimal paranasal sinus disease as above. 2. Patency of the sinus outflow tracts. 3. Minimal rightward bowing and spurring of the nasal septum. ACT 112: Negative or not required by law. The above report was generated using voice recognition software. It may contain grammatical, syntax or spelling errors. Electronically signed by: Jordan Grayson M.D. 12/03/2019 3:12 PM Dictated: 12/03/19 1508 Transcribed: 12/03/19 1508 ADDENDUM Upon further review of the case, there is also enhancement of the mandibular division of cranial nerve V (V3). Constellation of findings is suggestive of an infectious or inflammatory etiology with perineural spread of neoplasm considered less likely. Close clinical follow-up recommended. Electronically signed by: Jordan Grayson M.D. 12/04/2019 9:06 AM ADDENDUM END MR orbit wo/w con HISTORY: 69 years-old Female left ophthalmoplegia, swelling, injection acute double vision with left ICA pain and soft tissue swelling. 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 There is no restricted diffusion to suggest acute or subacute infarct. Moderate to extensive T2/FLAIR hyperintensities about the white matter are nonspecific. No acute intracranial hemorrhage, midline shift, abnormal extra axial collection, hydrocephalus or intracranial mass identified. The major vascular flow voids appear patent. Mastoid air cells appear clear. Mild mucosal thickening of the nasal turbinates and ethmoid air cells. Loss of flow-related signal with apparent filling defect is noted within the posterior aspect of the superior sagittal sinus, image 9 of series 7 for example images unchanged from the recent comparison studies. On the CTA of the head study recently performed, contrast was noted flowing around this defect which may reflect an arachnoid granulation versus nonocclusive thrombus which is considered less likely. The bilateral 7th and 8th cranial nerves and internal auditory canals appear unremarkable. No mass of the cerebellar pontine angles. There is mild fluid distention of the subarachnoid spaces surrounding the optic nerves which appears to be within normal limits. Additionally, there is subtle enhancement of the left optic nerve sheath which is asymmetric compared to the right (best seen on image 13 of series 16). Prior bilateral lens replacement. The bilateral superior ophthalmic veins and extraocular muscles appear to be within normal limits. There is equivocal mild post septal stranding. There is mild preseptal nonspecific edema of the left orbit seen best on the axial T2 series. There is mild left-sided proptosis. Lacrimal glands are unremarkable. There is mild non specific edema and enhancement of the superior temporalis muscle (please see bookmarks). IMPRESSION: 1. Mild asymmetric left-sided proptosis with mild preseptal and post septal edema of unknown clinical significance. No orbital mass identified. 2. Subtle asymmetric enhancement of the left optic nerve sheath compared to the right without significant enhancement of the nerve itself. Findings may be reactive or reflect early optic neuritis in the appropriate clinical setting. 3. Prior bilateral lens replacement. 4. Moderate to extensive T2/FLAIR hyperintensities throughout the white matter are indeterminate. Statistically these would favor chronic microvascular ischemic disease with demyelinating process such as multiple sclerosis also within the differential however considered less likely. 5. Mild nonspecific edema and enhancement of the left temporalis muscle is suggestive of a nonspecific myositis. ACT 112: Negative or not required by law. The above report was generated using voice recognition software. It may contain grammatical, syntax or spelling errors. Electronically signed by: Jordan Grayson M.D. 12/03/2019 6:03 PM Dictated: 12/03/191730 Transcribed: 12/03/191751 Stand-Alone Forms: My [facility], Smoking Cessation Medications and DC Order Prescriptions: New doxycycline hyclate 100 mg Capsule 100 mg PO BID Qty: 2 RF: 0 sulfamethoxazole-trimethoprim 800-160 mg Tablet 1 tab PO Q12 12 Days Qty: 25 RF: 0 amoxicillin-pot clavulanate [Augmentin] 875-125 mg Tablet 1 tab PO BID 12 Days Qty: 25 RF: 0 methylprednisolone [Medrol (Mekhi)] 4 mg tablets,dose pack See Rx Instructions .ROUTE .COMPLEX Qty: 21 RF: 0 Continued multivitamin Tablet 1 tab PO BID Qty: 0 RF: 0 ascorbic acid (vitamin C) [Vitamin C With Lucia Hips] 1,000 mg Tablet 1,000 mg PO QAM Qty: 0 RF: 0 aspirin 81 mg Tablet,Delayed Release (Dr/Ec) 81 mg PO HS Qty: 0 RF: 0 cholecalciferol (vitamin D3) [Vitamin D3] 1,000 unit Capsule 1,000 inter.unit PO HS PRN (Reason: LOW LEVEL) Qty: 0 RF: 0 coenzyme Q10 [Co Q-10] 200 mg Capsule 200 mg PO HS Qty: 0 RF: 0 [place] Oil 1,000 mg Capsule 1,000 mg PO HS Qty: 0 RF: 0 omega-3 fatty acids-fish oil [Fish Oil] 360-1,200 mg Capsule 1 cap PO TID Qty: 0 RF: 0 bilberry fruit extract 80 mg Capsule 80 mg PO QAM Qty: 0 RF: 0 Hyaluronic Acid (chond-collgn) 40-80-400 mg Capsule 1 cap PO BID Qty: 0 RF: 0 amlodipine-benazepril [Lotrel] 10-20 mg capsule 1 cap PO HS Qty: 90 RF: 1 levothyroxine [Synthroid] 88 mcg tablet 88 mcg PO DAILY Qty: 90 RF: 3 triamterene-hydrochlorothiazid [Maxzide-25mg] 37.5-25 mg tablet 1 tab PO DAILY Qty: 90 RF: 3 Lantus Solostar U-100 Insulin 100 unit/mL (3 mL) insulin pen 27 units SC HS Qty: 30 RF: 1 milk thistle 500 mg Capsule 250 mg PO BID RF: 0 fenofibrate nanocrystallized [Tricor] 48 mg Tablet 48 mg PO HS RF: 0 metformin [Glucophage] 1,000 mg tablet 500 mg PO BID RF: 0 fenofibrate nanocrystallized [Tricor] 48 mg tablet 96 mg PO QAM RF: 0 insulin aspart U-100 [Novolog Flexpen U-100 Insulin] 100 unit/mL (3 mL) insulin pen 4 unit SC DIRECTED RF: 0 Discharge Orders: Discharge Order (Routine); Ordered 12/10/19 Ordered By: Jaciel Orta/Other Patient Handouts: Managing Type 2 Diabetes Admission Data Admit Date/Time: 12/02/19 20:54 Attending Provider: Rigoberto Regalado Admit Provider: Gregorio Aguiar Primary Care Provider: Corrie Ahumada Other Providers: Gregorio Aguiar ; Shyam Knowlse ; Zafar Calix ; Maylin Dominguez Other Interventions: Discharge Summary Assessment (RN) Last Done: 12/10/19 14:18 DC Date/Time DO NOT enter until pt leaves facility: 12/10/19 16:27 Supervising Physician Co-Signing Physician Notes I personally examined the patient and verified all herrera points of history and exam, discussed case, and agree with decision making with Dr Bautista. vision continues to improve. can focus well except fatigues at times. vitals noted nad heent L pupil equal to R and reactive. can move L eye fluidly and overall are coordinated with R except for lateral gaze (but lateral gaze now able to move ~45-50 degrees) A/P: 1. diplopia - 2nd left-sided orbital cellulitis and gaze dysfunction - improving - continue to follow on PO abx as outpt 2. left orbital cellulitis - still improving daily; transition to PO abx has gone well. stable/safe for home close outpt f/u 3. rash, left hip region - cont doxy, some concern this is early stage Lyme. follow up clinically - essentially resolved 4. T2DM - home insulins. discussed effect of steroids. 5. hypothyroidism - compensated; continue current synthroid Resident Activity Tracking Resident Involvement: Resident Care Provided Care Provided: Adult Hospital Medicine
--- NOTE | 2019-12-10 19:36 | Billing Data ---
Date of Service December 10, 2019 Coding Level of Care Code D/C Day Management <30 mins
[2019-12-10] MEDS ORDERED: methylPREDNISolone 4 MG TAB PO SCH (21:00)
[2019-12-11] MEDS ORDERED: methylPREDNISolone 4 MG TAB PO SCH (07:00)
[2019-12-12] MEDS ORDERED: methylPREDNISolone 4 MG TAB PO SCH (07:00)
[2019-12-13] MEDS ORDERED: methylPREDNISolone 4 MG TAB PO SCH (07:00)
[2019-12-14] MEDS ORDERED: methylPREDNISolone 4 MG TAB PO SCH (07:00)
== END 2019-12-10 16:27 | disposition home or self-care (01) | DRG 868 ==
LOC: ED 14:04 → SUATTDRO 20:54 → 2N 20:54 → 3N 12-07 00:12

== ENCOUNTER 2022-08-22 10:33 | Inpatient (IN) ==
[2022-08-22] MEDS ORDERED: SODIUM CHLORIDE 0.9% 1000ML 1,000 ML IV ONE (10:54)
--- NOTE | 2022-08-22 10:57 | Emergency Department Note ---
Impression & Plan Epigastric abdominal pain, Partial small bowel obstruction, Hypoxia ED Provider Note Name: STANISLAV LÓPEZ Age: 72 Sex: F Arrives Via: Ambulance Informant: Patient ED Provider: Krishna Oh MD Chief Complaint: Abdominal pain Impression: As per impression above Medical Decision Makin-year-old female with history of Crohn's disease, pancreatitis and previous gallbladder removal arrives for evaluation of epigastric pain, nausea, vomiting, diarrhea for the last few hours. Symptoms have actually been improving since she got here. On examination she does have epigastric tenderness palpation. She is also noted to be mildly hypoxic on arrival. My blood cell count is 17 but she is afebrile and is somewhat dehydrated appearing. We will hold off on antibiotics at this time as I do not feel that she is septic at this time. CT of the abdomen pelvis obtained which reveals partial small bowel obstruction versus ileus. I suspect she has a ileitis secondary to her Crohn's disease causing some backup. That said we will hold off on steroids for further evaluat ion. I did discuss this with GEN surgery who agreed no emergent surgical and indication. I discussed with the hospitalist and they will further review with GI. I related the mild hypoxia the patient is not significantly short of breath. There is a chest x-ray with bilateral congestion at the bases. I will note that hypoxia was prior to IV fluids and she is clearly dehydrated thus I felt that fluids were indicated. She is not having any cough shortness of breath think this is unlikely bilateral pneumonia will defer to hospitalist Triage/Nursing Notes reviewed by Me External chart reviewed by me Differentials:Obstruction, pancreatitis, small bowel infection, gas troenteritis, UTI amongst many other pathologies considered Vital Signs: reviewed and remarkable for mild hypoxia Interventions: Normal saline bolus, Dilaudid 0.5 mg IV, Zofran 4 mg IV Labs:Reviewed and remarkable for mild elevation and white blood cell count Imagin view chest x-ray bilateral congestion at bases as per my interpretation. CT of the ab pelvis with IV contrast as per my informal interpretation reveals moderately dilated small bowel with a transition point mid abdomen. Radiologist reviewed this and agrees Consults:Gen Surg. Hospitalist Dr Miller Plan: Disposition:Hospitalization. Condition: Good History of Present Illness:72-year-old female arrives for evaluation of abdominal pain. Patient with a long history of on and off abdominal issues secondary to her Crohn's disease, previous pancreatitis and gall issues. She notes her gallbladder is previously been removed currently she is on no medications for chron's disease. She notes that around 3 AM she awoke with increasing epigastric abdominal pain. This was about 2 hours in length before mostly resolving. She notes associated nausea and vomiting as well as multiple rounds of diarrhea. No black or bloody stools. Denies any current abdominal pain other than when she moves. States she feels dehydrated and worn out. Denies any fevers, chills, chest pain, shortness of breath, syncope, back pain, urinary burning/frequency, leg swelling, calf pain or other concerning signs or symptoms. No medications prior to arrival. States she feels much better than when she had left her house. Past History:See Below Home Medications:See Below Allergies:See Below Vitals:Blood Pressure: 159/87, Pulse 72, RR 18, T 36.7C, O2 94% on RA Physical Exam: GENERAL: Patient is tired appearing and in mild distress. EYES: No scleral icterus, unremarkable pupils. ENT: Mucous membranes dry, no nasal congestion. NECK: No masses appreciated, nomeningismus, trachea is midline. RESPIRATORY: No dyspnea. Clear to auscultation and equal bilaterally. No wheeze, no rhonchi. CARDIOVASCULAR: Regular rate and rhythm.No murmurs, rubs, gallops appreciated. GASTROINTESTINAL: Abdomen soft, moderate epigastric tenderness palpation but not peritonitic otherwise bowel sounds positive EXTREMITIES: Normal motion all extremities, no cyanosis, no edema. NEUROLOGIC: Alert and oriented, no focal neurologic deficit SKIN: No rash, no jaundice, no diaphoresis. PSYCH: Appropriate GCS: 15 ED Course: Times/Reassessments: Patient stable though just a bit hypoxic on room air resolves with nasal cannula does not think that she aspirated Krishna Oh MD Past Med/Surg History Medical History (Updated 08/22/22 @ 15:20 by Krishna Oh MD) Actinic keratoses Chronic back pain Crohn's disease Depression Diabetes mellitus, type 2 Fatty liver disease, nonalcoholic Hearing difficulty of both ears History of kidney stones Hyperlipidemia Hypertension Hypothyroidism Intraductal papillary mucinous neoplasm of pancreas Neuropathy of foot Orbital cellulitis on left (2019) Osteoarthritis Post traumatic stress disorder Statin myopathy Terminal ileitis Tubular adenoma Urinary incontinence in female Vertebral artery stenosis Right. Moderate Vitamin D deficiency Surgical History H/O umbilical hernia repair 05/22/2010 History of cataract surgery bilt 4 mg of versed for prior cataract without apparent complications History of cholecystectomy 05/22/2010 History of colonoscopy History of esophagogastroduodenoscopy (EGD) History of surgical procedure on eye proper using laser History of tonsillectomy Family History Father Family history of diabetes mellitus Diabetes Hypertension Sister Cancer Grandfather No problems noted. Grandmother (Maternal) Cancer Denies family history of Ovarian cancer Prostate cancer Myocardial infarction Breast cancer Lung cancer Colorectal cancer Social History Smoking Status: Never smoker Second Hand Exposure: No; Hx Alcohol Use: Yes (occassional) Alcohol type: wine Alcohol Intake Frequency: Monthly or Less Hx Substance Use: No Preferred Language: Citizen Of [place] Communication Ability: Effective Visual Impairment: No Limitations Hearing Ability: Hard of Hearing Paradichlorobenzene Machine Operator Required: No Beliefs That Will Affect Care: None marital status: Single Current Living Situation: Alone current occupational status: employed and retired 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 [place], 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 [employer] Feels Safe at Home: Yes Childhood Exposure to Second-Hand Smoke: No Diet Comment: calorie counting, under 1500 calories Dental Care, Regularly: Yes Physical Activity Frequency: 5-6 Times per Week Seatbelt Use: always Sunscreen Use: Yes (sometimes ) Assistive Devices: Glasses Allergies Allergies Allergy/AdvReac Type Severity Reaction Status Date / Time bee venom protein (honey bee) Allergy Severe Anaphylaxis Verified 08/22/22 14:00 latex Allergy Mild REDNESS, Verified 08/22/22 14:00 HURTS atorvastatin AdvReac Severe Joint Pain Verified 08/22/22 14:00 monosodium glutamate AdvReac Mild restless Verified 08/22/22 14:00 leg syndrome Home Meds Home Medications Medication Instructions Recorded Confirmed multivitamin 1 tab PO BID ##0 05/21/10 08/22/22 ascorbic acid (vitamin C) 1,000 mg 1,000 mg PO QDL ##0 01/27/18 08/22/22 tablet (Vitamin C With Lucia Hips) aspirin 81 mg tablet,delayed 81 mg PO HS ##0 01/27/18 08/22/22 release bilberry fruit extract 80 mg 80 mg PO QAM ##0 01/27/18 08/22/22 capsule cholecalciferol (vitamin D3) 25 1,000 inter.unit PO HS PRN LOW 01/27/18 08/22/22 mcg (1,000 unit) capsule (Vitamin LEVEL ##0 D3) hyalur ac-chond sul-colg II-AA 40 1 cap PO BID ##0 01/27/18 08/22/22 mg-80 mg-400 mg capsule (Hyaluronic Acid(with chondroitin-collagenII)) omega-3 fatty acids-fish oil 360 1 cap PO TID ##0 01/27/18 08/22/22 mg-1,200 mg capsule (Fish Oil) coenzyme Q10 100 mg tablet 100 mg PO BID 09/12/20 08/22/22 tumeric gummies 1 gummy PO DAILY 03/06/22 08/22/22 ferrous sulfate 325 mg (65 mg 325 mg PO Q OTHER DAY 06/04/22 08/22/22 iron) tablet (Feosol) milk thistle 500 mg capsule 500 mg PO BID 06/04/22 08/22/22 olopatadine 0.2 % eye drops (Clear 1 drp ophthalmic (eye) DAILY PRN 06/04/22 08/22/22 Eyes Once Daily Allergy) allergies Previous Rx's Medication Instructions Recorded blood-glucose meter (OneTouch #1 ea 04/12/20 Verio IQ Meter kit) lancets 33 gauge (OneTouch Delica #100 ea 04/12/20 Lancets) insulin aspart U-100 100 unit/mL See Rx Instructions SC DIRECTED 06/27/21 (3 mL) subcutaneous pen (Novolog #45 mL FlexPen U-100 Insulin aspart) insulin glargine 100 unit/mL (3 See Rx Instructions .Route 12/02/21 mL) subcutaneous pen (Lantus .COMPLEX #15 mL Solostar U-100 Insulin) Wheeled Walker #1 ea 12/17/21 fenofibrate nanocrystallized 48 mg 48 mg PO TID #270 tabs 01/19/22 tablet (Tricor) levothyroxine 88 mcg tablet 88 mcg PO DAILY #90 tabs 01/19/22 (Synthroid) Walking Cane #1 ea 02/05/22 pen needle, diabetic 33 gauge x #100 ea 03/18/22 1/" (Easy Comfort Pen [place]) triamterene 37.5 1 tab PO DAILY #90 tabs 04/24/22 mg-hydrochlorothiazide 25 mg tablet amlodipine 10 mg-benazepril 20 mg 1 cap PO DAILY #90 caps 05/26/22 capsule (Lotrel) metformin 500 mg tablet 500 mg PO BID #180 tabs 05/26/22 blood sugar diagnostic (OneTouch #150 ea 06/22/22 Verio test strips) Results & Data (ED) Vital Signs Vital Signs - 24 hr 08/22/22 10:40 08/22/22 10:40 08/22/22 10:36 Temperature 36.7 C 36.7 C Temperature Source Oral Oral Pulse Rate 72 67 Pulse Rate [Apical] 72 Pulse Rate from SpO2 Sensor Respiratory Rate 18 18 Respiratory Depth Normal Normal Blood Pressure 159/87 H Blood Pressure [Right Arm] 159/87 H Blood Pressure Mean 111 Blood Pressure Mean [Right Arm] 111 Pulse Oximetry 94 94 Oxygen Delivery Method Room Air Room Air Oxygen Flow Rate Sepsis Recent Fever Within 48 Hours No Sepsis New/Unexplained Change in Mental Status No Sepsis Action Taken by Nursing No Action Required Oxygen Flow Rate - Titration Pulse Oximetry Post Tiitration 08/22/22 11:55 08/22/22 11:30 08/22/22 12:10 Temperature Temperature Source Pulse Rate 74 63 Pulse Rate [Apical] Pulse Rate from SpO2 Sensor 68 64 Respiratory Rate 19 19 Respiratory Depth Blood Pressure 126/77 Blood Pressure [Right Arm] Blood Pressure Mean 93 Blood Pressure Mean [Right Arm] Pulse Oximetry 88 L 95 94 Oxygen Delivery Method Nasal Cannula Oxygen Flow Rate 0 Sepsis Recent Fever Within 48 Hours Sepsis New/Unexplained Change in Mental Status Sepsis Action Taken by Nursing Oxygen Flow Rate - Titration 2 Pulse Oximetry Post Tiitration 93 08/22/22 13:00 08/22/22 13:30 08/22/22 14:00 Temperature Temperature Source Pulse Rate 77 61 59 L Pulse Rate [Apical] Pulse Rate from SpO2 Sensor 64 61 60 Respiratory Rate 23 19 21 Respiratory Depth Blood Pressure 136/67 145/69 H 150/75 H Blood Pressure [Right Arm] Blood Pressure Mean 90 94 100 Blood Pressure Mean [Right Arm] Pulse Oximetry 97 94 95 Oxygen Delivery Method Oxygen Flow Rate Sepsis Recent Fever Within 48 Hours Sepsis New/Unexplained Change in Mental Status Sepsis Action Taken by Nursing Oxygen Flow Rate - Titration Pulse Oximetry Post Tiitration 08/22/22 14:30 08/22/22 14:40 Temperature Temperature Source Pulse Rate 62 61 Pulse Rate [Apical] Pulse Rate from SpO2 Sensor 62 61 Respiratory Rate 18 15 Respiratory Depth Blood Pressure 138/66 Blood Pressure [Right Arm] Blood Pressure Mean 90 Blood Pressure Mean [Right Arm] Pulse Oximetry 90 92 Oxygen Delivery Method Oxygen Flow Rate Sepsis Recent Fever Within 48 Hours Sepsis New/Unexplained Change in Mental Status Sepsis Action Taken by Nursing Oxygen Flow Rate - Titration Pulse Oximetry Post Tiitration Laboratory Data 08/22/22 10:55 08/22/22 10:55 Lab Results 08/22/22 08/22/22 08/22/22 Range/Units 10:55 10:55 13:40 WBC 17.92 H (4.8-10.8) K/ul RBC 5.03 (4.20-5.40) M/uL Hgb 14.1 (12.0-16.0) g/dl Hct 42.8 (37.0-47.0) % MCV 85.1 (80.0-100.0) fL MCH 28.0 (25.0-34.0) pg MCHC 32.9 (32.0-36.0) g/dL RDW Std Deviation 45.4 (36.4-46.3) fL RDW Coeff of Ariel 14.6 H (11.5-14.5) % Plt Count 345 (130-400) K/uL MPV 10.2 (9.4-12.4) fL Immature Gran % (Auto) 0.5 % Neut % (Auto) 87.8 % Lymph % (Auto) 5.1 % [place] % (Auto) 6.0 % Eos % (Auto) 0.2 % Baso % (Auto) 0.4 % Neut # (Auto) 15.72 H (1.40-6.50) K/uL Lymph # (Auto) 0.92 L (1.2-3.4) K/uL [place] # (Auto) 1.08 H (0.11-0.59) K/uL Eos # (Auto) 0.04 (0-0.50) K/uL Baso # (Auto) 0.07 (0-0.2) K/uL Immature Gran # (Auto) 0.09 (0.01-0.20) K/uL Sodium 140 (136-145) mmol/L Potassium 3.8 (3.5-5.1) mmol/L Chloride 104 (98-107) mmol/L Carbon Dioxide 25 (21-32) mmol/L Anion Gap 11 (3-11) BUN 32 H (6-23) mg/dl Creatinine 0.96 (0.6-1.2) mg/dl Est Cr Clr Drug Dosing Not Reportable Est GFR ( Amer) 69.0 ml/min Est GFR (Non-Af Amer) 59.5 ml/min BUN/Creatinine Ratio 33.3 H (10-20) Glucose 262 H (70-99(Fasting)) mg/dl Calcium 9.4 (8.6-10.3) mg/dl Total Bilirubin 0.4 (0.2-1.0) mg/dl Direct Bilirubin 0.0 (0-0.2) mg/dl AST 32 (13-39) U/L ALT 32 (7-52) U/L Alkaline Phosphatase 49 (34-104) U/L Troponin I High Sens 9.4 (0-14) pg/ml Total Protein 6.4 (6.0-8.3) gm/dl Albumin 3.9 (3.4-5.0) gm/dl Lipase 36 (11-82) U/L Urine Color Dark Yellow Urine Appearance Clear (Clear) Urine pH 6.5 (4.5-7.5) Ur Specific [place] 1.018 (1.000-1.030) Urine Protein Negative (Negative) Urine Glucose (UA) Negative (Negative) Urine Ketones Negative (Negative) Urine Blood Negative (Negative) Urine Nitrite Negative (Negative) Urine Bilirubin Negative (Negative) Urine Urobilinogen Negative (Negative) Ur Leukocyte Esterase Negative (Negative) SARS-CoV-2 (PCR) (Negative) Influenza Type A (PCR) (Neg) Influenza Type B (PCR) (Neg) RSV (RT-PCR) (Neg) 08/22/22 Range/Units 13:40 WBC (4.8-10.8) K/ul RBC (4.20-5.40) M/uL Hgb (12.0-16.0) g/dl Hct (37.0-47.0) % MCV (80.0-100.0) fL MCH (25.0-34.0) pg MCHC (32.0-36.0) g/dL RDW Std Deviation (36.4-46.3) fL RDW Coeff of Ariel (11.5-14.5) % Plt Count (130-400) K/uL MPV (9.4-12.4) fL Immature Gran % (Auto) % Neut % (Auto) % Lymph % (Auto) % [place] % (Auto) % Eos % (Auto) % Baso % (Auto) % Neut # (Auto) (1.40-6.50) K/uL Lymph # (Auto) (1.2-3.4) K/uL [place] # (Auto) (0.11-0.59) K/uL Eos # (Auto) (0-0.50) K/uL Baso # (Auto) (0-0.2) K/uL Immature Gran # (Auto) (0.01-0.20) K/uL Sodium (136-145) mmol/L Potassium (3.5-5.1) mmol/L Chloride (98-107) mmol/L Carbon Dioxide (21-32) mmol/L Anion Gap (3-11) BUN (6-23) mg/dl Creatinine (0.6-1.2) mg/dl Est Cr Clr Drug Dosing Est GFR ( Amer) ml/min Est GFR (Non-Af Amer) ml/min BUN/Creatinine Ratio (10-20) Glucose (70-99(Fasting)) mg/dl Calcium (8.6-10.3) mg/dl Total Bilirubin (0.2-1.0) mg/dl Direct Bilirubin (0-0.2) mg/dl AST (13-39) U/L ALT (7-52) U/L Alkaline Phosphatase (34-104) U/L Troponin I High Sens (0-14) pg/ml Total Protein (6.0-8.3) gm/dl Albumin (3.4-5.0) gm/dl Lipase (11-82) U/L Urine Color Urine Appearance (Clear) Urine pH (4.5-7.5) Ur Specific [place] (1.000-1.030) Urine Protein (Negative) Urine Glucose (UA) (Negative) Urine Ketones (Negative) Urine Blood (Negative) Urine Nitrite (Negative) Urine Bilirubin (Negative) Urine Urobilinogen (Negative) Ur Leukocyte Esterase (Negative) SARS-CoV-2 (PCR) NEGATIVE (Negative) Influenza Type A (PCR) Negative (Neg) Influenza Type B (PCR) Negative (Neg) RSV (RT-PCR) Negative (Neg) Administered Medications Discontinued Medications Hydromorphone HCl (Hydromorphone Inj 0.5 Mg/0.5 Ml Syr) 0.5 mg IV NOW STA Stop: 08/22/22 13:50 Last Admin: 08/22/22 14:00 Dose: 0.5 mg Documented By: NRB Sodium Chloride (Nss 1000ml) 1,000 mls @ 999 mls/hr IV .Q1H1M ONE Stop: 08/22/22 11:54 Last Infusion: 08/22/22 12:41 Dose: 0 mls/hr Documented By: Admin: 08/22/22 11:40 Dose: 999 mls/hr Documented By: NRB Sodium Chloride (Nss 1000ml) 500 mls @ 999 mls/hr IV .Q31M ONE Stop: 08/22/22 14:19 Last Infusion: 08/22/22 14:30 Dose: 0 mls/hr Documented By: Admin: 08/22/22 13:57 Dose: 999 mls/hr Documented By: NRSimi Ioversol (Optiray 350 100ml) 84 ml IV ONCE ONE Stop: 08/22/22 12:35 Last Admin: 08/22/22 12:35 Dose: 84 ml Documented By: THOMAS Ondansetron HCl (Ondansetron Inj 2 Mg/Ml 2 Ml Vial) 4 mg IV NOW STA Stop: 08/22/22 13:50 Last Admin: 08/22/22 13:57 Dose: 4 mg Documented By: NRB Imaging Data Radiologist's Impression: Abdomen/Pelvis CT 08/22/22 10:54 CT SCAN OF THE ABDOMEN AND PELVIS WITH IV CONTRAST CLINICAL HISTORY: Epigastric abdominal pain. COMPARISON STUDY: Abdominal CT dated 04/20/2019. Pelvic CT dated 12/02/2019. TECHNIQUE: Following the IV administration of 84 cc of Optiray 350, CT scan of the abdomen and pelvis is performed from the lung bases to the proximal femora. Images are reviewed in the axial, sagittal, and coronal planes. IV contrast was administered without complication. A dose lowering technique was utilized adhering to the principles of ALARA. CT DOSE: 735.84 mGy.cm FINDINGS: Lung bases: The heart is normal in size and without pericardial effusion. A calcified granuloma is seen at the left lung base. The lung bases are otherwise clear noting bibasilar atelectasis. There is a cyael-sc-stpkythb hiatal hernia. Liver: The contrast-enhanced liver is enlarged, measuring 27.5 cm in craniocaudal length. The liver demonstrates diffusely diminished attenuation indicating steatosis. There is mild intrahepatic biliary ductal dilatation. Pneumobilia is noted. The hepatic veins and portal veins are patent. Gallbladder: Surgically absent noting clips in the gallbladder fossa. Spleen: Normal in size and attenuation. Splenic calcifications are unchanged. A subcentimeter splenic hypodensity on image #92 is pathologically indeterminate but statistically doubtful significance. Pancreas: Atrophy and calcification of the pancreatic tail is new from 2019. The pancreas is otherwise normal in appearance. These may represent a distal ductal stones. Adrenal glands: Unremarkable. Kidneys: The contrast enhanced kidneys demonstrate mild cortical atrophy and are without hydronephrosis. Renal sinus cysts are noted on the left. The kidneys enhance symmetrically. Abdominal vasculature: The abdominal aorta is normal in course and caliber noting advanced atherosclerotic calcification. Bowel: There is mild colonic diverticulosis without CT evidence of acute diverticulitis. Liquid stool is seen throughout the colon. There are distended and fluid-filled loops of small bowel with mild surrounding infiltration and interloop fluid. These loops measure up to 4.1 cm diameter. The distal small bowel is relatively decompressed, as are proximal small bowel loops. There is a questionable transition point involving the distal ileum on image #302. There is no pneumatosis intestinalis or portal venous gas. There are large duodenal diverticula. Intraluminal calcifications with a loop of small bowel in the right lower quadrant are noted on image #288. The have been seen on prior examinations, and likely do not represent colonic contents. There is also the suggestion of a 1.8 cm polypoid lesion within an adjacent loop of small bowel in image #299. The appendix is well-visualized and normal. Peritoneum: There is no intraperitoneal free air or abdominal ascites. There is a fat-containing umbilical hernia. Lymphadenopathy: None. Pelvic viscera: There are calcified uterine fibroids. The bladder, uterus, and adnexa are otherwise normal as imaged. Skeletal structures: The skeletal structures are osteopenic. There is moderate lumbosacral spondylosis. Sclerotic changes seen in the sacroiliac joints. No lytic or blastic lesions are seen. IMPRESSION: 1. There are distended and fluid-filled loops of small bowel with mild surrounding infiltration and interloop fluid. There is also liquid stool seen throughout the colon. A transition point is suggested involving distal ileum. These finding could represent a nonspecific enterocolitis or possibly a partial small bowel obstruction. Clinical correlation will be essential, and these findings are similar to the 04/20/2019 examination. 2. No intraperitoneal free air is seen. There is no pneumatosis intestinalis or portal venous gas. 3. There is the suggestion of a 1.8 cm polypoid lesion within a loop of distal small bowel, as well as calcifications within an adjacent loop of small bowel. These calcifications have been present on prior examinations dating back to at least 2018 and are unlikely to represent intraluminal contents. This is near the most dilated loops of small bowel, and an underlying mucosal lesion of the distal small bowel is not excluded. Follow up with GI is recommended. Capsule endoscopy may provide further information. 4. Marked hepatomegaly and hepatic steatosis. 5. There are calcifications of the pancreatic tail with associated parenchymal atrophy. This is new from 04/20/2019, and this may related to the presence of i ntraductal calculi. There is no CT evidence of mass lesion. This can also be assessed at GI follow-up. 6. Additional findings as above. ACT 112: Negative or not required by law. Electronically signed by: Mateo Davis M.D. 08/22/2022 1:36 PM Chest X-Ray 08/22/22 13:24 XR chest 1V portable CLINICAL HISTORY: hypoxia TECHNIQUE: Single frontal radiograph of the chest was obtained. Comparison: Comparison is made to chest radiograph 12/02/2019 FINDINGS: No lines and tubes are seen. Cardiomegaly is noted. Bilateral lower lung predominant airspace opacities are seen. No evidence of pleural effusion or pneumothorax. IMPRESSION: Bilateral lower lung predominant airspace opacities which may represent atelectasis, pneumonia, and/or aspiration. ACT 112: Negative or not required by law. Electronically signed by: Matthew Kelly M.D. 08/22/2022 3:10 PM Discharge Plan Visit Data Chief Complaint: Abdominal Pain Stated Complaint: ABD PAIN ED Provider: Krishna Oh Discharge Problem: Epigastric abdominal pain, Partial small bowel obstruction, Hypoxia Forms Stand Alone Forms: My [facility] Prescriptions Prescriptions: No Action multivitamin Tablet 1 tab PO BID Qty: 0 ascorbic acid (vitamin C) [Vitamin C With Lucia Hips] 1,000 mg Tablet 1,000 mg PO QDL Qty: 0 aspirin 81 mg Tablet,Delayed Release (Dr/Ec) 81 mg PO HS Qty: 0 cholecalciferol (vitamin D3) [Vitamin D3] 1,000 unit Capsule 1,000 inter.unit PO HS PRN (Reason: LOW LEVEL) Qty: 0 omega-3 fatty acids-fish oil [Fish Oil] 360-1,200 mg Capsule 1 cap PO TID Qty: 0 bilberry fruit extract 80 mg Capsule 80 mg PO QAM Qty: 0 Hyaluronic Acid (chond-collgn) 40-80-400 mg Capsule 1 cap PO BID Qty: 0 (DME) blood-glucose meter [OneTouch Verio IQ Meter] Kit See Rx Instructions .ROUTE .MEDSUPPLY Qty: 1 0RF Rx Instructions: Use to test blood sugar 5 times daily (insulin dependent) (DME) lancets [OneTouch Delica Lancets] [facility] See Rx Instructions .ROUTE .MEDSUPPLY Qty: 100 0RF Rx Instructions: Use to test blood sugar 5 times daily (insulin dependent) insulin aspart U-100 [Novolog FlexPen U-100 Insulin] 100 unit/mL (3 mL) in sulin pen See Rx Instructions SC DIRECTED MDD 50 units Qty: 45 3RF Rx Instructions: Take with meals as directed by physician plus sliding scale as needed. Max daily dose 50 units. Lantus Solostar U-100 Insulin 100 unit/mL (3 mL) insulin pen See Rx Instructions .ROUTE .COMPLEX Qty: 15 11RF Dose Instruction: START 35 UNITS AT BEDTIME SUBQ AT BEDTIME AND INCREASE DIRECTED BY PHYSCIAN MDD 50 UNITS Rx Instructions: START 35 UNITS AT BEDTIME SUBQ AT BEDTIME AND INCREASE DIRECTED BY PHYSCIAN MDD 50 UNITS (DME) Wheeled Walker Misc See Rx Instructions .Route Qty: 1 0RF Rx Instructions: Seated walker As directed Drive folding smaller walker fenofibrate nanocrystallized [Tricor] 48 mg tablet 48 mg PO TID Qty: 270 3RF levothyroxine [Synthroid] 88 mcg tablet 88 mcg PO DAILY Qty: 90 3RF Rx Instructions: with a glass of water on an empty stomach. Wait 30 minutes to eat (DME) Walking Cane Misc See Rx Instructions .Route Qty: 1 0RF Rx Instructions: As directed (DME) pen needle, diabetic [Easy Comfort Pen [place]] 33 gauge x 1/4" needle See Rx Instructions .Route Qty: 100 5RF Rx Instructions: As directed 4 times daily metformin 500 mg tablet 500 mg PO BID Qty: 180 3RF amlodipine-benazepril [Lotrel] 10-20 mg capsule 1 cap PO DAILY Qty: 90 3RF (DME) OneTouch Verio test strips Strip See Rx Instructions .ROUTE .MEDSUPPLY Qty: 150 11RF Rx Instructions: Use to test blood sugar 5 times daily (insulin dependent) ferrous sulfate [Feosol] 325 mg (65 mg iron) tablet 325 mg PO Q OTHER DAY tumeric gummies 1 gummy PO DAILY olopatadine [Clear Eyes Once Daily Allergy] 0.2 % drops 1 drp ophthalmic (eye) DAILY PRN (Reason: allergies) triamterene-hydrochlorothiazid 37.5-25 mg tablet 1 tab PO DAILY Qty: 90 3RF milk thistle 500 mg capsule 500 mg PO BID coenzyme Q10 100 mg Tablet 100 mg PO BID Referrals Referrals: PCP,NO [Physician] -
[2022-08-22 11:43] LABS: Basophils # (auto) 0.07 K/uL (0-0.2); Basophils % (auto) 0.4 %; Eosinophils # (auto) 0.04 K/uL (0-0.50); Eosinophils % (auto) 0.2 %; Hematocrit (blood only) 42.8 % (37.0-47.0); Hemoglobin 14.1 g/dl (12.0-16.0); Immature Granulocytes # (auto) 0.09 K/uL (0.01-0.20); Immature Granulocytes % (auto) 0.5 %; Lymphocytes # (auto) 0.92 K/uL (1.2-3.4); Lymphocytes % (auto) 5.1 %; Mean Corpuscular Hgb Conc 32.9 g/dL (32.0-36.0); Mean Corpuscular Volume 85.1 fL (80.0-100.0); Mean Platelet Volume 10.2 fL (9.4-12.4); Monocytes # (auto) 1.08 K/uL (0.11-0.59); Neutrophils # (auto) 15.72 K/uL (1.40-6.50); Neutrophils % (auto) 87.8 %; Platelet Count 345 K/uL (130-400); RDW Coefficient of Variation 14.6 % (11.5-14.5); RDW Standard Deviation 45.4 fL (36.4-46.3); Red Blood Count 5.03 M/uL (4.20-5.40); White Blood Count 17.92 K/ul (4.8-10.8)
[2022-08-22 11:59] LABS: Alanine Aminotransferase 32 U/L (7-52); Albumin Level 3.9 gm/dl (3.4-5.0); Alkaline Phosphatase 49 U/L (34-104); Anion Gap 11 (3-11); Aspartate Aminotransferase 32 U/L (13-39); BUN Creatinine Ratio 33.3 (10-20); Bilirubin,Total 0.4 mg/dl (0.2-1.0); Blood Urea Nitrogen 32 mg/dl (6-23); Calcium 9.4 mg/dl (8.6-10.3); Carbon Dioxide 25 mmol/L (21-32); Chloride 104 mmol/L (98-107); Est GFR (Non-African American) 59.5 ml/min; Glucose 262 mg/dl (70-99(Fasting)); Lipase 36 U/L (11-82); Potassium 3.8 mmol/L (3.5-5.1); Sodium 140 mmol/L (136-145); Total Protein 6.4 gm/dl (6.0-8.3)
[2022-08-22 12:05] LABS: Troponin I High Sensitivity 9.4 pg/ml (0-14)
[2022-08-22] MEDS ORDERED: OPTIRAY 350 100ml IV ONE (12:34)
--- NOTE | 2022-08-22 13:38 | CT Scan Report ---
CT SCAN OF THE ABDOMEN AND PELVIS WITH IV CONTRAST CLINICAL HISTORY: Epigastric abdominal pain. COMPARISON STUDY: Abdominal CT dated 04/20/2019. Pelvic CT dated 12/02/2019. TECHNIQUE: Following the IV administration of 84 cc of Optiray 350, CT scan of the abdomen and pelvi s is performed from the lung bases to the proximal femora. Images are reviewed in the axial, sagittal , and coronal planes. IV contrast was administered without complication. A dose lowering technique wa s utilized adhering to the principles of ALARA. CT DOSE: 735.84 mGy.cm FINDINGS: Lung bases: The heart is normal in size and without pericardial effusion. A calcified granuloma is se en at the left lung base. The lung bases are otherwise clear noting bibasilar atelectasis. There is a xzlwx-tc-vxzknxig hiatal hernia. Liver: The contrast-enhanced liver is enlarged, measuring 27.5 cm in craniocaudal length. The liver d emonstrates diffusely diminished attenuation indicating steatosis. There is mild intrahepatic biliary ductal dilatation. Pneumobilia is noted. The hepatic veins and portal veins are patent. Gallbladder: Surgically absent noting clips in the gallbladder fossa. Spleen: Normal in size and attenuation. Splenic calcifications are unchanged. A subcentimeter splenic hypodensity on image #92 is pathologically indeterminate but statistically doubtful significance. Pancreas: Atrophy and calcification of the pancreatic tail is new from 2019. The pancreas is otherwis e normal in appearance. These may represent a distal ductal stones. Adrenal glands: Unremarkable. Kidneys: The contrast enhanced kidneys demonstrate mild cortical atrophy and are without hydronephros is. Renal sinus cysts are noted on the left. The kidneys enhance symmetrically. Abdominal vasculature: The abdominal aorta is normal in course and caliber noting advanced atheroscle rotic calcification. Bowel: There is mild colonic diverticulosis without CT evidence of acute diverticulitis. Liquid stool is seen throughout the colon. There are distended and fluid-filled loops of small bowel with mild north rrounding infiltration and interloop fluid. These loops measure up to 4.1 cm diameter. The distal sma ll bowel is relatively decompressed, as are proximal small bowel loops. There is a questionable trans ition point involving the distal ileum on image #302. There is no pneumatosis intestinalis or portal venous gas. There are large duodenal diverticula. Intraluminal calcifications with a loop of small arnaldo wel in the right lower quadrant are noted on image #288. The have been seen on prior examinations, an d likely do not represent colonic contents. There is also the suggestion of a 1.8 cm polypoid lesion within an adjacent loop of small bowel in image #299. The appendix is well-visualized and normal. Peritoneum: There is no intraperitoneal free air or abdominal ascites. There is a fat-containing umbi lical hernia. Lymphadenopathy: None. Pelvic viscera: There are calcified uterine fibroids. The bladder, uterus, and adnexa are otherwise n ormal as imaged. Skeletal structures: The skeletal structures are osteopenic. There is moderate lumbosacral spondylosi s. Sclerotic changes seen in the sacroiliac joints. No lytic or blastic lesions are seen. IMPRESSION: 1. There are distended and fluid-filled loops of small bowel with mild surrounding infiltration and i nterloop fluid. There is also liquid stool seen throughout the colon. A transition point is suggested involving distal ileum. These finding could represent a nonspecific enterocolitis or possibly a part ial small bowel obstruction. Clinical correlation will be essential, and these findings are similar t o the 04/20/2019 examination. 2. No intraperitoneal free air is seen. There is no pneumatosis intestinalis or portal venous gas. 3. There is the suggestion of a 1.8 cm polypoid lesion within a loop of distal small bowel, as well a s calcifications within an adjacent loop of small bowel. These calcifications have been present on pr ior examinations dating back to at least 2018 and are unlikely to represent intraluminal contents. Th is is near the most dilated loops of small bowel, and an underlying mucosal lesion of the distal smal l bowel is not excluded. Follow up with GI is recommended. Capsule endoscopy may provide further info rmation. 4. Marked hepatomegaly and hepatic steatosis. 5. There are calcifications of the pancreatic tail with associated parenchymal atrophy. This is new f rom 04/20/2019, and this may related to the presence of intraductal calculi. There is no CT evidence of mass lesion. This can also be assessed at GI follow-up. 6. Additional findings as above. ACT 112: Negative or not required by law. Electronically signed by: Mateo Davis M.D. 08/22/2022 1:36 PM
[2022-08-22] MEDS ORDERED: SODIUM CHLORIDE 0.9% 1000ML 500 ML IV ONE (13:49)
[2022-08-22] MEDS ORDERED: HYDROmorphone INJ 0.5 MG/0.5 ML SYR IV STA (13:49)
[2022-08-22] MEDS ORDERED: ONDANSETRON INJ 2 MG/ML 2 ML VIAL IV STA (13:49)
[2022-08-22 14:02] LABS: Appearance Urine Clear (Clear); Bilirubin Urine Negative (Negative); Blood Urine Negative (Negative); Color Urine Dark Yellow; Glucose Urine UA Negative (Negative); Ketones Urine Negative (Negative); Leukocyte Esterase Urine Negative (Negative); Nitrite Urine Negative (Negative); Protein Urine Negative (Negative); Specific Gravity Urine 1.018 (1.000-1.030); Urobilinogen Urine Negative (Negative); pH Urine 6.5 (4.5-7.5)
--- NOTE | 2022-08-22 14:34 | History & Physical Report ---
Date of Service August 22, 2022 Assessment & Plan (1) Epigastric abdominal pain: (2) Enterocolitis: (3) Crohn's disease: Plan: Patient is 72-year-old female with PMH HTN, HLD, DM II, hypothyroidism, Raynaud's disease, chronic back pain presented to ER with complaint of abdominal pain x 1 day. Vomiting x3 episodes, 5 episodes formed/similar loose stool. Does denies diffuse watery diarrhea, fever, chills, melena, hematochezia, hematemesis. DDX: Enterocolitis, Crohn's flare, partial small bowel obstruction WBC: 17.9 CT abdomen pelvis: 1. There are distended and fluid-filled loops of small bowel with mild surrounding infiltration and interloop fluid. There is also liquid stool seen throughout the colon. A transition point is suggested involving distal ileum. These finding could represent a nonspecific enterocolitis or possibly a partial small bowel obstruction. Clinical correlation will be essential, and these findings are similar to the 04/20/2019 examination. 2. No intraperitoneal free air is seen. There is no pneumatosis intestinalis or portal venous gas. In ER given 1500 mL NSS, Zofran, 0.5 mg Dilaudid IV Obtain stool studies, C. difficile if patient develops diarrhea Gentle IVF N.p.o. for now, will reevaluate later to see if can progress to clear fluids Zosyn ESR, CRP pending. Consider adding steroids General surgery consult, no surgical intervention warranted at this time GI consult CBC, BMP in a.m. (4) Hypoxia: Plan: DDx: Atelectasis versus pneumonia, possible aspiration + Leukocytosis CXR: Bilateral lower lung predominant airspace opacities which may represent atelectasis, pneumonia, and/or aspiration. In ER noted O2 sats dropped to 88% on room air, up to 97% on 2 L via nasal cannula Procalcitonin pending Supplemental oxygen as needed, wean as able Incentive spirometer Zosyn CBC in a.m. (5) Diabetes mellitus, type 2: Plan: Insulin-dependent diabetes A1c: 7.7 on 05/28/2022 Hold home metformin, home basal bolus insulin Basal bolus insulin per protocol. May need to further adjust if patient receiving steroids A1c in a.m. (6) Hypertension: Plan: Continue amlodipine, benazepril Hold HCTZ, triamterene for now (7) Hyperlipidemia: Plan: Continue fenofibrate (8) Hypothyroidism: Plan: Continue levothyroxine (9) Abnormal computed tomography of abdomen and pelvis: Plan: Pancreatic Cysts CT abdomen pelvis: There is the suggestion of a 1.8 cm polypoid lesion within a loop of distal small bowel, as well as calcifications within an adjacent loop of small bowel. These calcifications have been present on prior examinations dating back to at least 2018 and are unlikely to represent intraluminal contents. This is near the most dilated loops of small bowel, and an underlying mucosal lesion of the distal small bowel is not excluded. Follow up with GI is recommended. Capsule endoscopy may provide further information. Marked hepatomegaly and hepatic steatosis. There are calcifications of the pancreatic tail with associated parenchymal atrophy. This is new from 04/20/2019, and this may related to the presence of intraductal calculi. There is no CT evidence of mass lesion. [facility] Outpatient records reviewed: 03/12/2021 MRE: Active inflammatory changes in the terminal ileum and distal ileum compatible with Crohn's disease. Focal stricture suspected in proximal sigmoid colon. Cystic lesions in the pancreas 10/30/2021 MRI pancreas: No significant interval change in multiple pancreatic cystic lesions likely side branch IPMNs. Hepatomegaly with hepatic steatosis. Persistent biliary dilation 06/18/2022 colonoscopy: Ileitis. No polyp seen in ileum DVT Prophylaxis Lovenox SQ Full code as per discussion with patient, however patient would not want to stand on life support if poor prognosis Follows with Dr Bull for routine care Pt was seen and care coordinated with Dr Miller. See addendum I spent a total of 82 minutes reviewing notes, outpatient records, labs, medication, coordinating, documenting and providing care for this patient excluding time spent in the performance of separately billed services. History of Present Illness Chief Complaint: Abdominal pain Primary Care Provider: Yohana Bull DO Patient is 72-year-old female with PMH HTN, HLD, DM II, hypothyroidism, Raynaud's disease, chronic back pain presented to ER with complaint of abdominal pain x 1 day. History obtained from patient, and outpatient chart review. Patient with history recurrent abdominal pain for 10 years. She follows with GI, Dr. Mercer. History of terminal ileitis, likely Crohn's. Last visit with GI 08/03/2022 discussion on starting Entyvio however was not started yet. Patient states last night had onset of upper abdominal pain described as soreness and burning sensation. Had 3 episodes of vomiting with several episodes of dry heaving after. Patient reports had 5 bowel movements that were formed to slightly loose. She felt she was getting dehydrated and weak. She reports that she called her daughter this morning who called EMS for her. Patient denies any noted hematuria, hematochezia, melena. Denies fever/chills, diaphoresis, LUU, syncope, vision changes, neck pain, CP, SOB, orthopnea, palpitations, cough, sore throat, choking, rhinorrhea, paresthesias, increased extremity edema, rashes, urinary symptoms. Allergies Allergy/AdvReac Type Severity Reaction Status Date / Time bee venom protein (honey bee) Allergy Severe Anaphylaxis Verified 08/22/22 14:00 latex Allergy Mild REDNESS, Verified 08/22/22 14:00 HURTS atorvastatin AdvReac Severe Joint Pain Verified 08/22/22 14:00 monosodium glutamate AdvReac Mild restless Verified 08/22/22 14:00 leg syndrome Home Medications Medication Instructions Recorded Confirmed Type multivitamin 1 tab PO BID ##0 05/21/10 08/22/22 History ascorbic acid (vitamin C) 1,000 mg 1,000 mg PO QDL ##0 01/27/18 08/22/22 History tablet (Vitamin C With Lucia Hips) aspirin 81 mg tablet,delayed 81 mg PO HS ##0 01/27/18 08/22/22 History release bilberry fruit extract 80 mg 80 mg PO QAM ##0 01/27/18 08/22/22 History capsule cholecalciferol (vitamin D3) 25 1,000 inter.unit PO HS ##0 01/27/18 08/22/22 History mcg (1,000 unit) capsule (Vitamin D3) hyalur ac-chond sul-colg II-AA 40 1 cap PO BID ##0 01/27/18 08/22/22 History mg-80 mg-400 mg capsule (Hyaluronic Acid(with chondroitin-collagenII)) omega-3 fatty acids-fish oil 360 1 cap PO TID ##0 01/27/18 08/22/22 History mg-1,200 mg capsule (Fish Oil) blood-glucose meter (OneTouch #1 ea 04/12/20 08/22/22 Rx Verio IQ Meter kit) lancets 33 gauge (OneTouch Delica #100 ea 04/12/20 08/22/22 Rx Lancets) coenzyme Q10 100 mg tablet 100 mg PO BID 09/12/20 08/22/22 History insulin aspart U-100 100 unit/mL See Rx Instructions SC DIRECTED 06/27/21 08/22/22 Rx (3 mL) subcutaneous pen (Novolog #45 mL FlexPen U-100 Insulin aspart) Wheeled Walker #1 ea 12/17/21 08/22/22 Rx fenofibrate nanocrystallized 48 mg 48 mg PO TID #270 tabs 01/19/22 08/22/22 Rx tablet (Tricor) levothyroxine 88 mcg tablet 88 mcg PO DAILY #90 tabs 01/19/22 08/22/22 Rx (Synthroid) Walking Cane #1 ea 02/05/22 08/22/22 Rx tumeric gummies 1 gummy PO DAILY 03/06/22 08/22/22 History pen needle, diabetic 33 gauge x #100 ea 03/18/22 08/22/22 Rx 1/4" (Easy Comfort Pen [place]) triamterene 37.5 1 tab PO DAILY #90 tabs 04/24/22 08/22/22 Rx mg-hydrochlorothiazide 25 mg tablet amlodipine 10 mg-benazepril 20 mg 1 cap PO DAILY #90 caps 05/26/22 08/22/22 Rx capsule (Lotrel) metformin 500 mg tablet 500 mg PO BID #180 tabs 05/26/22 08/22/22 Rx ferrous sulfate 325 mg (65 mg 325 mg PO Q OTHER DAY 06/04/22 08/22/22 History iron) tablet (Feosol) milk thistle 500 mg capsule 500 mg PO DAILY 06/04/22 08/22/22 History olopatadine 0.2 % eye drops (Clear 1 drp ophthalmic (eye) DAILY PRN 06/04/22 08/22/22 History Eyes Once Daily Allergy) allergies blood sugar diagnostic (OneTouch #150 ea 06/22/22 08/22/22 Rx Verio test strips) insulin glargine 100 unit/mL (3 34 unit subcut HS 08/22/22 08/22/22 History mL) subcutaneous pen (Lantus Solostar U-100 Insulin) Past Med/Surg History Medical History Actinic keratoses Chronic back pain Crohn's disease Depression Diabetes mellitus, type 2 Fatty liver disease, nonalcoholic Hearing difficulty of both ears History of kidney stones Hyperlipidemia Hypertension Hypothyroidism Intraductal papillary mucinous neoplasm of pancreas Neuropathy of foot Orbital cellulitis on left (2019) Osteoarthritis Post traumatic stress disorder Statin myopathy Terminal ileitis Tubular adenoma Urinary incontinence in female Vertebral artery stenosis Right. Moderate Vitamin D deficiency Surgical History H/O umbilical hernia repair 05/22/2010 History of cataract surgery bilt 4 mg of versed for prior cataract without apparent complications History of cholecystectomy 05/22/2010 History of colonoscopy History of esophagogastroduodenoscopy (EGD) History of surgical procedure on eye proper using laser History of tonsillectomy Family History Father Family history of diabetes mellitus Diabetes Hypertension Sister Cancer Grandfather No problems noted. 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, 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 [employer] Feels Safe at Home: Yes Childhood Exposure to Second-Hand Smoke: No Diet Comment: calorie counting, under 1500 calories Dental Care, Regularly: Yes Physical Activity Frequency: 5-6 Times per Week Seatbelt Use: always Sunscreen Use: Yes (sometimes ) Assistive Devices: Cane Review of Systems Review of Systems: All systems reviewed & are unremarkable except as noted in HPI & below Physical Exam Physical Exam: General: no acute distress, WDWN Head: normocephalic, atraumatic Eyes: conjunctiva non-injected, anicteric ENT: normal inspection external ears, nose, mucous membranes dry Neck: supple, trachea midline Lungs: no respiratory distress on current 2L via NC, +rales bilateral bases, no wheezing/rhonchi CV: RRR, no murmur, trace pretibial edema Abd: +distended, normal BS, soft, +tender to palpation epigastric without rebound or guarding Ext: no cyanosis, no calf tenderness Neuro: A&O x 3, no focal deficits noted, normal affect Skin: warm, dry Results & Data Results & Data Vital Signs (Past 12 Hours) Vital Signs Temp Pulse Pulse Resp BP BP Pulse Ox 08/22/22 11:30 74 19 126/77 95 08/22/22 11:55 88 L 08/22/22 10:36 67 08/22/22 10:40 36.7 C 72 18 159/87 H 94 08/22/22 10:40 36.7 C 72 18 159/87 H 94 O2 Del Method O2 Flow Rate 08/22/22 11:30 08/22/22 11:55 Nasal Cannula 0 08/22/22 10:36 08/22/22 10:40 Room Air 08/22/22 10:40 Room Air Laboratory Results Short CBC 08/22/22 Range/Units 10:55 WBC 17.92 H (4.8-10.8) K/ul Hgb 14.1 (12.0-16.0) g/dl Hct 42.8 (37.0-47.0) % Plt Count 345 (130-400) K/uL BMP 08/22/22 10:55 Sodium 140 Potassium 3.8 Chloride 104 Carbon Dioxide 25 BUN 32 H Creatinine 0.96 Glucose 262 H Calcium 9.4 Liver Function 08/22/22 Range/Units 10:55 Total Bilirubin 0.4 (0.2-1.0) mg/dl Direct Bilirubin 0.0 (0-0.2) mg/dl AST 32 (13-39) U/L ALT 32 (7-52) U/L Alkaline Phosphatase 49 (34-104) U/L Albumin 3.9 (3.4-5.0) gm/dl Urine 08/22/22 Range/Units 13:40 Urine Color Dark Yellow Urine Appearance Clear (Clear) Urine pH 6.5 (4.5-7.5) Ur Specific [place] 1.018 (1.000-1.030) Urine Protein Negative (Negative) Urine Glucose (UA) Negative (Negative) Diagnostic Findings Abdomen/Pelvis CT 08/22/22 10:54 CT SCAN OF THE ABDOMEN AND PELVIS WITH IV CONTRAST CLINICAL HISTORY: Epigastric abdominal pain. COMPARISON STUDY: Abdominal CT dated 04/20/2019. Pelvic CT dated 12/02/2019. TECHNIQUE: Following the IV administration of 84 cc of Optiray 350, CT scan of the abdomen and pelvis is performed from the lung bases to the proximal femora. Images are reviewed in the axial, sagittal, and coronal planes. IV contrast was administered without complication. A dose lowering technique was utilized adhering to the principles of ALARA. CT DOSE: 735.84 mGy.cm FINDINGS: Lung bases: The heart is normal in size and without pericardial effusion. A calcified granuloma is seen at the left lung base. The lung bases are otherwise clear noting bibasilar atelectasis. There is a ymnib-bj-lxglqaou hiatal hernia. Liver: The contrast-enhanced liver is enlarged, measuring 27.5 cm in craniocaudal length. The liver demonstrates diffusely diminished attenuation indicating steatosis. There is mild intrahepatic biliary ductal dilatation. Pneumobilia is noted. The hepatic veins and portal veins are patent. Gallbladder: Surgically absent noting clips in the gallbladder fossa. Spleen: Normal in size and attenuation. Splenic calcifications are unchanged. A subcentimeter splenic hypodensity on image #92 is pathologically indeterminate but statistically doubtful significance. Pancreas: Atrophy and calcification of the pancreatic tail is new from 2019. The pancreas is otherwise normal in appearance. These may represent a distal ductal stones. Adrenal glands: Unremarkable. Kidneys: The contrast enhanced kidneys demonstrate mild cortical atrophy and are without hydronephrosis. Renal sinus cysts are noted on the left. The kidneys enhance symmetrically. Abdominal vasculature: The abdominal aorta is normal in course and caliber noting advanced atherosclerotic calcification. Bowel: There is mild colonic diverticulosis without CT evidence of acute diverticulitis. Liquid stool is seen throughout the colon. There are distended and fluid-filled loops of small bowel with mild surrounding infiltration and interloop fluid. These loops measure up to 4.1 cm diameter. The distal small bowel is relatively decompressed, as are proximal small bowel loops. There is a questionable transition point involving the distal ileum on image #302. There is no pneumatosis intestinalis or portal venous gas. There are large duodenal diverticula. Intraluminal calcifications with a loop of small bowel in the right lower quadrant are noted on image #288. The have been seen on prior examinations, and likely do not represent colonic contents. There is also the suggestion of a 1.8 cm polypoid lesion within an adjacent loop of small bowel in image #299. The appendix is well-visualized and normal. Peritoneum: There is no intraperitoneal free air or abdominal ascites. There is a fat-containing umbilical hernia. Lymphadenopathy: None. Pelvic viscera: There are calcified uterine fibroids. The bladder, uterus, and adnexa are otherwise normal as imaged. Skeletal structures: The skeletal structures are osteopenic. There is moderate lumbosacral spondylosis. Sclerotic changes seen in the sacroiliac joints. No lytic or blastic lesions are seen. IMPRESSION: 1. There are distended and fluid-filled loops of small bowel with mild surrounding infiltration and interloop fluid. There is also liquid stool seen throughout the colon. A transition point is suggested involving distal ileum. These finding could represent a nonspecific enterocolitis or possibly a partial small bowel obstruction. Clinical correlation will be essential, and these findings are similar to the 04/20/2019 examination. 2. No intraperitoneal free air is seen. There is no pneumatosis intestinalis or portal venous gas. 3. There is the suggestion of a 1.8 cm polypoid lesion within a loop of distal small bowel, as well as calcifications within an adjacent loop of small bowel. These calcifications have been present on prior examinations dating back to at least 2018 and are unlikely to represent intraluminal contents. This is near the most dilated loops of small bowel, and an underlying mucosal lesion of the distal small bowel is not excluded. Follow up with GI is recommended. Capsule endoscopy may provide further information. 4. Marked hepatomegaly and hepatic steatosis. 5. There are calcifications of the pancreatic tail with associated parenchymal atrophy. This is new from 04/20/2019, and this may related to the presence of intraductal calculi. There is no CT evidence of mass lesion. This can also be assessed at GI follow-up. 6. Additional findings as above. ACT 112: Negative or not required by law. Electronically signed by: Mateo Davis M.D. 08/22/2022 1:36 PM Chest X-Ray 08/22/22 13:24 XR chest 1V portable CLINICAL HISTORY: hypoxia TECHNIQUE: Single frontal radiograph of the chest was obtained. Comparison: Comparison is made to chest radiograph 12/02/2019 FINDINGS: No lines and tubes are seen. Cardiomegaly is noted. Bilateral lower lung predominant airspace opacities are seen. No evidence of pleural effusion or pneumothorax. IMPRESSION: Bilateral lower lung predominant airspace opacities which may represent atelectasis, pneumonia, and/or aspiration. ACT 112: Negative or not required by law. Electronically signed by: Matthew Kelly M.D. 08/22/2022 3:10 PM Supervising Physician Co-Signing Physician Notes Care coordinated with Jessica Shell PA-C Agree with above note. Patient seen and examined. Please refer to her notes for full details. Vital signs reviewed. Physical exam: General exam: Alert and oriented. Not in acute distress. CVS: S1 and S2 heard, regular rate and rhythm, no murmurs. RS: Clear to auscultation, no wheezing or crackles. ABD: Soft, bowel sounds present, nontender, no distention. 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 EXT: No edema, no erythema. Labs: Reviewed. Assessment and plan: 72F who hs ongoing episodic abdominal pain for 10yrs recently seen by GI , has terminal ileitis and recent stool calprotectin ws elevated at 327 and there is plan to start on entyvio but not started yet comes with abdominal pain since ;last night. Had few episodes o vomiting. Having several loos stools. denies any blod in stools. Afberile.CT scan showing non specific enterocolitis or PSBO. Seen by surgery and thinks no obvious bowel obstruction as patient having diarrhea. Starting on iv Zosyn for leukocytosis and possible lung opacities on cxr though no cough. await stool studies. Also staring on iv solumedrol for possible crohns flare and GI consult. Other diagnosis and plan of care as per AMADO Plunkett MD.
[2022-08-22 14:41] LABS: Influenza A virus by PCR Negative (Neg); Influenza B virus by PCR Negative (Neg); RSV by PCR Negative (Neg); SARS CoV2 RNA(COVID-19) Ceph NEGATIVE (Negative)
--- NOTE | 2022-08-22 14:58 | Surgery Consultation ---
Date of Consultation August 22, 2022 Assessment & Plan (1) Crohn's disease: 72-year-old female with what appears to be a Crohn's flare. There is no obvious obstruction and she has been having diarrhea. No acute surgical intervention indicated Recommend admission to medicine service Recommend GI consultation, may need steroids Surgery will continue to follow, if continues to have bowel movements and symptoms improving may advance to clear liquids at any time (2) Terminal ileitis: (3) Fatty liver disease, nonalcoholic: (4) Diabetes mellitus, type 2: (5) Hypertension: (6) Hyperlipidemia: History of Present Illness Reason for Consultation: Abdominal pain History of Present Illness 72-year-old female with history of Crohn's disease presents with nausea vomiting, diarrhea and abdominal pain. She states it feels like prior episodes. She is not on any maintenance therapy because she is waiting insurance approval. She follows with Dr. Mercer with [facility]. Prior cholecystectomy, no prior bowel surgery. Allergies Allergy/AdvReac Type Severity Reaction Status Date / Time bee venom protein (honey bee) Allergy Severe Anaphylaxis Verified 08/22/22 14:00 latex Allergy Mild REDNESS, Verified 08/22/22 14:00 HURTS atorvastatin AdvReac Severe Joint Pain Verified 08/22/22 14:00 monosodium glutamate AdvReac Mild restless Verified 08/22/22 14:00 leg syndrome Home Medications Medication Instructions Recorded Confirmed Type multivitamin 1 tab PO BID ##0 05/21/10 08/22/22 History ascorbic acid (vitamin C) 1,000 mg 1,000 mg PO QDL ##0 01/27/18 08/22/22 History tablet (Vitamin C With Lucia Hips) aspirin 81 mg tablet,delayed 81 mg PO HS ##0 01/27/18 08/22/22 History release bilberry fruit extract 80 mg 80 mg PO QAM ##0 01/27/18 08/22/22 History capsule cholecalciferol (vitamin D3) 25 1,000 inter.unit PO HS PRN LOW 01/27/18 08/22/22 History mcg (1,000 unit) capsule (Vitamin LEVEL ##0 D3) hyalur ac-chond sul-colg II-AA 40 1 cap PO BID ##0 01/27/18 08/22/22 History mg-80 mg-400 mg capsule (Hyaluronic Acid(with chondroitin-collagenII)) omega-3 fatty acids-fish oil 360 1 cap PO TID ##0 01/27/18 08/22/22 History mg-1,200 mg capsule (Fish Oil) blood-glucose meter (OneTouch #1 ea 04/12/20 04/09/22 Rx Verio IQ Meter kit) lancets 33 gauge (OneTouch Delica #100 ea 04/12/20 04/09/22 Rx Lancets) coenzyme Q10 100 mg tablet 100 mg PO BID 09/12/20 08/22/22 History insulin aspart U-100 100 unit/mL See Rx Instructions SC DIRECTED 06/27/21 08/22/22 Rx (3 mL) subcutaneous pen (Novolog #45 mL FlexPen U-100 Insulin aspart) insulin glargine 100 unit/mL (3 See Rx Instructions .Route 12/02/21 08/22/22 Rx mL) subcutaneous pen (Lantus .COMPLEX #15 mL Solostar U-100 Insulin) Wheeled Walker #1 ea 12/17/21 06/04/22 Rx fenofibrate nanocrystallized 48 mg 48 mg PO TID #270 tabs 01/19/22 08/22/22 Rx tablet (Tricor) levothyroxine 88 mcg tablet 88 mcg PO DAILY #90 tabs 01/19/22 08/22/22 Rx (Synthroid) Walking Cane #1 ea 02/05/22 06/04/22 Rx tumeric gummies 1 gummy PO DAILY 03/06/22 08/22/22 History pen needle, diabetic 33 gauge x #100 ea 03/18/22 04/09/22 Rx 1/4" (Easy Comfort Pen [place]) triamterene 37.5 1 tab PO DAILY #90 tabs 04/24/22 08/22/22 Rx mg-hydrochlorothiazide 25 mg tablet amlodipine 10 mg-benazepril 20 mg 1 cap PO DAILY #90 caps 05/26/22 08/22/22 Rx capsule (Lotrel) metformin 500 mg tablet 500 mg PO BID #180 tabs 05/26/22 08/22/22 Rx ferrous sulfate 325 mg (65 mg 325 mg PO Q OTHER DAY 06/04/22 08/22/22 History iron) tablet (Feosol) milk thistle 500 mg capsule 500 mg PO BID 06/04/22 08/22/22 History olopatadine 0.2 % eye drops (Clear 1 drp ophthalmic (eye) DAILY PRN 06/04/22 08/22/22 History Eyes Once Daily Allergy) allergies blood sugar diagnostic (OneTouch #150 ea 06/22/22 Rx Verio test strips) Patient History Medical History (Updated 08/22/22 @ 14:57 by Luis Hennessy DO, FACS) Actinic keratoses Chronic back pain Crohn's disease Depression Diabetes mellitus, type 2 Fatty liver disease, nonalcoholic Hearing difficulty of both ears History of kidney stones Hyperlipidemia Hypertension Hypothyroidism Intraductal papillary mucinous neoplasm of pancreas Neuropathy of foot Orbital cellulitis on left (2019) Osteoarthritis Post traumatic stress disorder Statin myopathy Terminal ileitis Tubular adenoma Urinary incontinence in female Vertebral artery stenosis Right. Moderate Vitamin D deficiency Surgical History H/O umbilical hernia repair 05/22/2010 History of cataract surgery bilt 4 mg of versed for prior cataract without apparent complications History of cholecystectomy 05/22/2010 History of colonoscopy History of esophagogastroduodenoscopy (EGD) History of surgical procedure on eye proper using laser History of tonsillectomy Family History Father Family history of diabetes mellitus Diabetes Hypertension Sister Cancer Grandfather No problems noted. Grandmother (Maternal) Cancer Denies family history of Ovarian cancer Prostate cancer Myocardial infarction Breast cancer Lung cancer Colorectal cancer Social History Smoking Status: Never smoker Second Hand Exposure: No; Hx Alcohol Use: Yes (occassional) Alcohol type: wine Alcohol Intake Frequency: Monthly or Less Hx Substance Use: No Preferred Language: Lao Communication Ability: Effective Visual Impairment: No Limitations Hearing Ability: Hard of Hearing Mushroom Growing Supervisor Required: No Beliefs That Will Affect Care: None marital status: Single Current Living Situation: Alone current occupational status: employed and retired 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, 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 [employer] Feels Safe at Home: Yes Childhood Exposure to Second-Hand Smoke: No Diet Comment: calorie counting, under 1500 calories Dental Care, Regularly: Yes Physical Activity Frequency: 5-6 Times per Week Seatbelt Use: always Sunscreen Use: Yes (sometimes ) Assistive Devices: Glasses Review of Systems Review of Systems: All systems reviewed & are unremarkable except as noted in HPI & below Physical Exam Constitutional: WD/WN, vitals as above + obese Respiratory: normal respiratory effort, lungs clear to auscultation Cardiovascular: RRR, no murmur, no edema Gastrointestinal (Abdomen): normal bowel sounds, soft, nontender, no hepatosplenomegaly Inspection/Auscultation: + abdomen distended Results & Data Vital Signs (Past 12 Hours) Vital Signs Temp Pulse Pulse Resp BP BP Pulse Ox 08/22/22 14:40 61 15 92 08/22/22 14:30 62 18 138/66 90 08/22/22 14:00 59 L 21 150/75 H 95 08/22/22 13:30 61 19 145/69 H 94 08/22/22 13:00 77 23 136/67 97 08/22/22 12:10 63 19 94 08/22/22 11:30 74 19 126/77 95 08/22/22 11:55 88 L 08/22/22 10:36 67 08/22/22 10:40 36.7 C 72 18 159/87 H 94 08/22/22 10:40 36.7 C 72 18 159/87 H 94 O2 Del Method O2 Flow Rate 08/22/22 14:40 08/22/22 14:30 08/22/22 14:00 08/22/22 13:30 08/22/22 13:00 08/22/22 12:10 08/22/22 11:30 08/22/22 11:55 Nasal Cannula 0 08/22/22 10:36 08/22/22 10:40 Room Air 08/22/22 10:40 Room Air Laboratory Results Laboratory Results - last 24 hr 08/22/22 08/22/22 08/22/22 10:55 10:55 13:40 WBC 17.92 H RBC 5.03 Hgb 14.1 Hct 42.8 MCV 85.1 MCH 28.0 MCHC 32.9 RDW Std Deviation 45.4 RDW Coeff of Ariel 14.6 H Plt Count 345 MPV 10.2 Immature Gran % (Auto) 0.5 Neut % (Auto) 87.8 Lymph % (Auto) 5.1 Maries % (Auto) 6.0 Eos % (Auto) 0.2 Baso % (Auto) 0.4 Neut # (Auto) 15.72 H Lymph # (Auto) 0.92 L Maries # (Auto) 1.08 H Eos # (Auto) 0.04 Baso # (Auto) 0.07 Immature Gran # (Auto) 0.09 Sodium 140 Potassium 3.8 Chloride 104 Carbon Dioxide 25 Anion Gap 11 BUN 32 H Creatinine 0.96 Est Cr Clr Drug Dosing Not Reportable Est GFR ( Amer) 69.0 Est GFR (Non-Af Amer) 59.5 BUN/Creatinine Ratio 33.3 H Glucose 262 H Calcium 9.4 Total Bilirubin 0.4 Direct Bilirubin 0.0 AST 32 ALT 32 Alkaline Phosphatase 49 Troponin I High Sens 9.4 Total Protein 6.4 Albumin 3.9 Lipase 36 Urine Color Dark Yellow Urine Appearance Clear Urine pH 6.5 Ur Specific Gail 1.018 Urine Protein Negative Urine Glucose (UA) Negative Urine Ketones Negative Urine Blood Negative Urine Nitrite Negative Urine Bilirubin Negative Urine Urobilinogen Negative Ur Leukocyte Esterase Negative SARS-CoV-2 (PCR) Influenza Type A (PCR) Influenza Type B (PCR) RSV (RT-PCR) 08/22/22 13:40 WBC RBC Hgb Hct MCV MCH MCHC RDW Std Deviation RDW Coeff of Ariel Plt Count MPV Immature Gran % (Auto) Neut % (Auto) Lymph % (Auto) Maries % (Auto) Eos % (Auto) Baso % (Auto) Neut # (Auto) Lymph # (Auto) Maries # (Auto) Eos # (Auto) Baso # (Auto) Immature Gran # (Auto) Sodium Potassium Chloride Carbon Dioxide Anion Gap BUN Creatinine Est Cr Clr Drug Dosing Est GFR ( Amer) Est GFR (Non-Af Amer) BUN/Creatinine Ratio Glucose Calcium Total Bilirubin Direct Bilirubin AST ALT Alkaline Phosphatase Troponin I High Sens Total Protein Albumin Lipase Urine Color Urine Appearance Urine pH Ur Specific Gail Urine Protein Urine Glucose (UA) Urine Ketones Urine Blood Urine Nitrite Urine Bilirubin Urine Urobilinogen Ur Leukocyte Esterase SARS-CoV-2 (PCR) NEGATIVE Influenza Type A (PCR) Negative Influenza Type B (PCR) Negative RSV (RT-PCR) Negative Diagnostic Findings I personally reviewed and interpreted the CT scan and agree with the assessment of dilated small bowel that gently tapers. This likely represents a enteritis associated with Crohn's disease. There may be small bowel masses that appear stable and probably benign. No definitive transition point. CT SCAN OF THE ABDOMEN AND PELVIS WITH IV CONTRAST CLINICAL HISTORY: Epigastric abdominal pain. COMPARISON STUDY: Abdominal CT dated 04/20/2019. Pelvic CT dated 12/02/2019. TECHNIQUE: Following the IV administration of 84 cc of Optiray 350, CT scan of the abdomen and pelvis is performed from the lung bases to the proximal femora. Images are reviewed in the axial, sagittal, and coronal planes. IV contrast was administered without complication. A dose lowering technique was utilized adhering to the principles of ALARA. CT DOSE: 735.84 mGy.cm FINDINGS: Lung bases: The heart is normal in size and without pericardial effusion. A calcified granuloma is seen at the left lung base. The lung bases are otherwise clear noting bibasilar atelectasis. There is a [id number] hiatal hernia. Liver: The contrast-enhanced liver is enlarged, measuring 27.5 cm in craniocaudal length. The liver demonstrates diffusely diminished attenuation indicating steatosis. There is mild intrahepatic biliary ductal dilatation. Pneumobilia is noted. The hepatic veins and portal veins are patent. Gallbladder: Surgically absent noting clips in the gallbladder fossa. Spleen: Normal in size and attenuation. Splenic calcifications are unchanged. A subcentimeter splenic hypodensity on image #92 is pathologically indeterminate but statistically doubtful significance. Pancreas: Atrophy and calcification of the pancreatic tail is new from 2019. The pancreas is otherwise normal in appearance. These may represent a distal ductal stones. Adrenal glands: Unremarkable. Kidneys: The contrast enhanced kidneys demonstrate mild cortical atrophy and are without hydronephrosis. Renal sinus cysts are noted on the left. The kidneys enhance symmetrically. Abdominal vasculature: The abdominal aorta is normal in course and caliber noting advanced atherosclerotic calcification. Bowel: There is mild colonic diverticulosis without CT evidence of acute diverticulitis. Liquid stool is seen throughout the colon. There are distended and fluid-filled loops of small bowel with mild surrounding infiltration and interloop fluid. These loops measure up to 4.1 cm diameter. The distal small bowel is relatively decompressed, as are proximal small bowel loops. There is a questionable transition point involving the distal ileum on image #302. There is no pneumatosis intestinalis or portal venous gas. There are large duodenal diverticula. Intraluminal calcifications with a loop of small bowel in the right lower quadrant are noted on image #288. The have been seen on prior exa minations, and likely do not represent colonic contents. There is also the suggestion of a 1.8 cm polypoid lesion within an adjacent loop of small bowel in image #299. The appendix is well-visualized and normal. Peritoneum: There is no intraperitoneal free air or abdominal ascites. There is a fat-containing umbilical hernia. Lymphadenopathy: None. Pelvic viscera: There are calcified uterine fibroids. The bladder, uterus, and adnexa are otherwise normal as imaged. Skeletal structures: The skeletal structures are osteopenic. There is moderate lumbosacral spondylosis. Sclerotic changes seen in the sacroiliac joints. No lytic or blastic lesions are seen. IMPRESSION: 1. There are distended and fluid-filled loops of small bowel with mild surrounding infiltration and interloop fluid. There is also liquid stool seen throughout the colon. A transition point is suggested involving distal ileum. These finding could represent a nonspecific enterocolitis or possibly a partial small bowel obstruction. Clinical correlation will be essential, and these findings are similar to the 04/20/2019 examination. 2. No intraperitoneal free air is seen. There is no pneumatosis intestinalis or portal venous gas. 3. There is the suggestion of a 1.8 cm polypoid lesion within a loop of distal small bowel, as well as calcifications within an adjacent loop of small bowel. These calcifications have been present on prior examinations dating back to at least 2018 and are unlikely to represent intraluminal contents. This is near the most dilated loops of small bowel, and an underlying mucosal lesion of the distal small bowel is not excluded. Follow up with GI is recommended. Capsule endoscopy may provide further information. 4. Marked hepatomegaly and hepatic steatosis. 5. There are calcifications of the pancreatic tail with associated parenchymal atrophy. This is new from 04/20/2019, and this may related to the presence of intraductal calculi. There is no CT evidence of mass lesion. This can also be assessed at GI follow-up. 6. Additional findings as above. PG Care Time/CCT Total # of Minutes Spent Total Time Spent with Patient: Total time spent is greater than 50% in coordination of care (as documented) at patient's floor/unit and/or counseling patient: Coding Level of Care Code 14149 INT INP/OBS CARE 1/40MIN Diagnoses Crohn's disease K50.90 Terminal ileitis K50.00 Fatty liver disease, nonalcoholic K76.0 Diabetes mellitus, type 2 E11.9 Hypertension I10 Hyperlipidemia E78.5
--- NOTE | 2022-08-22 15:11 | XRay Report ---
XR chest 1V portable CLINICAL HISTORY: hypoxia TECHNIQUE: Single frontal radiograph of the chest was obtained. Comparison: Comparison is made to chest radiograph 12/02/2019 FINDINGS: No lines and tubes are seen. Cardiomegaly is noted. Bilateral lower lung predominant airspace opaciti es are seen. No evidence of pleural effusion or pneumothorax. IMPRESSION: Bilateral lower lung predominant airspace opacities which may represent atelectasis, pneumonia, and/o r aspiration. ACT 112: Negative or not required by law. Electronically signed by: Matthew Kelly M.D. 08/22/2022 3:10 PM
[2022-08-22 16:38] LABS: C Reactive Protein 0.72 mg/dl (0-0.5)
[2022-08-22] MEDS ORDERED: DEXTROSE 50% 50 ML SYRINGE IV PRN (18:47)
[2022-08-22] MEDS ORDERED: ACETAMINOPHEN 325 MG TAB PO PRN (18:47)
[2022-08-22] MEDS ORDERED: SODIUM CHLORIDE 0.9% 1000ML 1,000 ML IV SCH (18:47)
[2022-08-22] MEDS ORDERED: GLUCAGON FOR INJ 1 MG VIAL SQ PRN (18:47)
[2022-08-22] MEDS ORDERED: CARBOHYDRATES FOR HYPOGLYCEMIA PO PRN (18:47)
[2022-08-22] MEDS ORDERED: ONDANSETRON INJ 2 MG/ML 2 ML VIAL IV PRN (18:47)
[2022-08-22] MEDS ORDERED: GLUCOSE 40% GEL 15 GM TUBE PO PRN (18:47)
[2022-08-22] MEDS ORDERED: GLUCOSE 10 TAB/TUBE PO PRN (18:47)
[2022-08-22] MEDS: INSULIN ASPART PER UNIT CHARGE SC SCH ×2 (18:51→21:08)
[2022-08-22] MEDS ORDERED: PIPERACILLIN/TAZOBACTAM 4.5 GM (over 30 mins) IV ONE (19:45)
[2022-08-22] MEDS: methylPREDNISolone 40 MG in SYRINGE 0 ML IV SCH (20:19)
[2022-08-22] MEDS: ASPIRIN 81 MG ECTAB PO SCH (20:20)
[2022-08-22] MEDS: ENOXAPARIN INJ 40 MG/0.4 ML SYR SQ SCH (20:20)
[2022-08-22] MEDS: FENOFIBRATE NANOCRYSTALLIZED 48 MG TABLET PO SCH (20:20)
[2022-08-22] MEDS: LANTUS PER UNIT CHARGE SQ SCH (21:08)
[2022-08-23] MEDS: PIPERACILLIN/TAZOBACTAM 4.5 GM in DEXTROSE 5% 100 ML IV SCH ×3 (00:15→16:31)
[2022-08-23] MEDS: LEVOTHYROXINE SODIUM 88 MCG TABLET PO SCH (05:35)
[2022-08-23 06:44] LABS: Basophils # (auto) 0.02 K/uL (0-0.2); Basophils % (auto) 0.2 %; Hemoglobin 11.7 g/dl (12.0-16.0); Immature Granulocytes # (auto) 0.05 K/uL (0.01-0.20); Immature Granulocytes % (auto) 0.6 %; Lymphocytes # (auto) 0.92 K/uL (1.2-3.4); Lymphocytes % (auto) 10.7 %; Mean Corpuscular Hgb Conc 32.5 g/dL (32.0-36.0); Mean Corpuscular Volume 86.1 fL (80.0-100.0); Mean Platelet Volume 10.3 fL (9.4-12.4); Monocytes # (auto) 0.22 K/uL (0.11-0.59); Monocytes % (auto) 2.5 %; Neutrophils # (auto) 7.42 K/uL (1.40-6.50); Platelet Count 291 K/uL (130-400); RDW Coefficient of Variation 14.7 % (11.5-14.5); RDW Standard Deviation 46.1 fL (36.4-46.3); Red Blood Count 4.18 M/uL (4.20-5.40); White Blood Count 8.63 K/ul (4.8-10.8)
[2022-08-23 06:59] LABS: BUN Creatinine Ratio 21.4 (10-20); Calcium 7.9 mg/dl (8.6-10.3); Creatinine Clr Calc Pharmacy 55.6 ml/min; Est GFR (Non-African American) 69.9 ml/min; Potassium 3.7 mmol/L (3.5-5.1)
[2022-08-23] MEDS: ENALAPRIL MALEATE 10 MG TAB PO SCH (08:34)
[2022-08-23] MEDS: amLODIPine BESYLATE 5 MG TAB PO SCH (08:34)
[2022-08-23] MEDS: FENOFIBRATE NANOCRYSTALLIZED 48 MG TABLET PO SCH ×3 (08:35→21:29)
[2022-08-23] MEDS: methylPREDNISolone 40 MG in SYRINGE 0 ML IV SCH ×3 (08:35→21:29)
[2022-08-23] MEDS: INSULIN ASPART PER UNIT CHARGE SC SCH ×4 (08:51→21:26)
[2022-08-23] MEDS: LANTUS PER UNIT CHARGE SQ SCH ×2 (08:52→21:26)
--- NOTE | 2022-08-23 10:29 | Gastrointestinal Consultation ---
Date of Consultation August 23, 2022 Assessment & Plan (1) Partial small bowel obstruction: (2) Crohn's disease: (3) Terminal ileitis: Plan 72 y/o F with known terminal ileitis due to crohn's disease who presented with abdominal pain, N/V, and diarrhea concerning for flare on imaging as well as partial SBO which is likely related to the inflammation. Please start IV solumedrol 40 mg daily, check CRP and fecal calprotectin, obtain stool studies including C. diff and enteric stool panel. Ensure she is on DVT prophylaxis as IBD patient's are hypercoagulable during time of flare. Strict I+Os and charting of bowel movements. General surgery is following and appreciate recs. Ok for liquid diet as she has been tolerating that without any nausea or vomiting. GI will follow. Will continue to work on getting Entyvio approved as outpatient. Alannah Navarro DO Gastroenterology and Hepatology History of Present Illness Reason for Consultation: crohn's flare Attending Physician: Yessenia Gomes MD History of Present Illness 72 y/o F with history of crohn's ileitis followed by Dr. Mercer in clinic and currently in the process of getting Entyvio approved who presented with nausea, vomiting, diarrhea, and abdominal pain concerning for crohn's flare. She states that she typically has 1-2 formed bowel movements/day but that prior to presentation she was waking up in the middle of the night with urgency and having 4 liquid bowel movements. Denies any bleeding and stools were all brown. She states she has been having an issue getting Entyvio due to cost but has been working with the pharmacist to get this approved so she can afford it. On arrival she underwent a CT scan notable for distended and fluid-filled loops of small bowel with mild surrounding infiltration and interloop fluid. There is also liquid stool seen throughout the colon. A transition point is suggested involving distal ileum. These finding could represent a nonspecific enterocolitis or possibly a partial small bowel obstruction. Also noted to have a 1.8 cm polypoid lesion within a loop of distal small bowel,which has been seen on imaging since 2019. Surgery is following no plans for surgical intervention. WBC 17k which improved to 8 after starting zosyn. hgb 11.7. CRP pending. All stool studies are pending. Today she states she actually feels wonderful with no further abdominal pain or nausea/vomiting. Allergies Allergy/AdvReac Type Severity Reaction Status Date / Time bee venom protein (honey bee) Allergy Severe Anaphylaxis Verified 08/22/22 14:00 latex Allergy Mild REDNESS, Verified 08/22/22 14:00 HURTS atorvastatin AdvReac Severe Joint Pain Verified 08/22/22 14:00 monosodium glutamate AdvReac Mild restless Verified 08/22/22 14:00 leg syndrome Home Medications Medication Instructions Recorded Confirmed Type multivitamin 1 tab PO BID ##0 05/21/10 08/22/22 History ascorbic acid (vitamin C) 1,000 mg 1,000 mg PO QDL ##0 01/27/18 08/22/22 History tablet (Vitamin C With Lucia Hips) aspirin 81 mg tablet,delayed 81 mg PO HS ##0 01/27/18 08/22/22 History release bilberry fruit extract 80 mg 80 mg PO QAM ##0 01/27/18 08/22/22 History capsule cholecalciferol (vitamin D3) 25 1,000 inter.unit PO HS ##0 01/27/18 08/22/22 History mcg (1,000 unit) capsule (Vitamin D3) hyalur ac-chond sul-colg II-AA 40 1 cap PO BID ##0 01/27/18 08/22/22 History mg-80 mg-400 mg capsule (Hyaluronic Acid(with chondroitin-collagenII)) omega-3 fatty acids-fish oil 360 1 cap PO TID ##0 01/27/18 08/22/22 History mg-1,200 mg capsule (Fish Oil) blood-glucose meter (OneTouch #1 ea 04/12/20 08/22/22 Rx Verio IQ Meter kit) lancets 33 gauge (OneTouch Delica #100 ea 04/12/20 08/22/22 Rx Lancets) coenzyme Q10 100 mg tablet 100 mg PO BID 09/12/20 08/22/22 History insulin aspart U-100 100 unit/mL See Rx Instructions SC DIRECTED 06/27/21 08/22/22 Rx (3 mL) subcutaneous pen (Novolog #45 mL FlexPen U-100 Insulin aspart) Manav Bernardo #1 ea 12/17/21 08/22/22 Rx fenofibrate nanocrystallized 48 mg 48 mg PO TID #270 tabs 01/19/22 08/22/22 Rx tablet (Tricor) levothyroxine 88 mcg tablet 88 mcg PO DAILY #90 tabs 01/19/22 08/22/22 Rx (Synthroid) Walking Cane #1 ea 02/05/22 08/22/22 Rx tumeric gummies 1 gummy PO DAILY 03/06/22 08/22/22 History pen needle, diabetic 33 gauge x #100 ea 03/18/22 08/22/22 Rx 1/4" (Easy Comfort Pen [place]) triamterene 37.5 1 tab PO DAILY #90 tabs 04/24/22 08/22/22 Rx mg-hydrochlorothiazide 25 mg tablet amlodipine 10 mg-benazepril 20 mg 1 cap PO DAILY #90 caps 05/26/22 08/22/22 Rx capsule (Lotrel) metformin 500 mg tablet 500 mg PO BID #180 tabs 05/26/22 08/22/22 Rx ferrous sulfate 325 mg (65 mg 325 mg PO Q OTHER DAY 06/04/22 08/22/22 History iron) tablet (Feosol) milk thistle 500 mg capsule 500 mg PO DAILY 06/04/22 08/22/22 History olopatadine 0.2 % eye drops (Clear 1 drp ophthalmic (eye) DAILY PRN 06/04/22 08/22/22 History Eyes Once Daily Allergy) allergies blood sugar diagnostic (OneTouch #150 ea 06/22/22 08/22/22 Rx Verio test strips) insulin glargine 100 unit/mL (3 34 unit subcut HS 08/22/22 08/22/22 History mL) subcutaneous pen (Lantus Solostar U-100 Insulin) Patient History Medical History Actinic keratoses Chronic back pain Crohn's disease Depression Diabetes mellitus, type 2 Fatty liver disease, nonalcoholic Hearing difficulty of both ears History of kidney stones Hyperlipidemia Hypertension Hypothyroidism Intraductal papillary mucinous neoplasm of pancreas Neuropathy of foot Orbital cellulitis on left (2019) Osteoarthritis Post traumatic stress disorder Statin myopathy Terminal ileitis Tubular adenoma Urinary incontinence in female Vertebral artery stenosis Right. Moderate Vitamin D deficiency Surgical History H/O umbilical hernia repair 05/22/2010 History of cataract surgery bilt 4 mg of versed for prior cataract without apparent complications History of cholecystectomy 05/22/2010 History of colonoscopy History of esophagogastroduodenoscopy (EGD) History of surgical procedure on eye proper using laser History of tonsillectomy Family History Father Family history of diabetes mellitus Diabetes Hypertension Sister Cancer Grandfather No problems noted. 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[place], 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 [employer] Feels Safe at Home: Yes Childhood Exposure to Second-Hand Smoke: No Diet Comment: calorie counting, under 1500 calories Dental Care, Regularly: Yes Physical Activity Frequency: 5-6 Times per Week Seatbelt Use: always Sunscreen Use: Yes (sometimes ) Assistive Devices: Cane Review of Systems Review of Systems: All systems reviewed & are unremarkable except as noted in HPI & below Physical Exam Constitutional: WD/WN, vitals as above Respiratory: normal respiratory effort, lungs clear to auscultation Cardiovascular: RRR, no murmur, no edema Gastrointestinal (Abdomen): Abdomen soft with notable hernia, non-tender, mildly distended, notable hepato megaly, good bowel sounds Psychiatric: A+Ox3, euthymic affect Results & Data Vital Signs (Past 12 Hours) Vital Signs Temp Pulse Pulse Pulse Resp BP Pulse Ox 08/23/22 08:00 08/23/22 07:36 36.7 C 49 L 18 126/62 95 08/23/22 07:23 58 L 08/23/22 03:06 61 16 124/73 94 08/23/22 02:40 36.9 C 73 16 108/56 L 92 08/23/22 00:49 94 08/22/22 23:01 37 C 58 L 16 131/61 90 08/22/22 23:13 O2 Del Method 08/23/22 08:00 Room Air 08/23/22 07:36 Room Air 08/23/22 07:23 08/23/22 03:06 Room Air 08/23/22 02:40 Room Air 08/23/22 00:49 Room Air 08/22/22 23:01 Room Air 08/22/22 23:13 Room Air
[2022-08-23 11:31] LABS: Adenovirus F 40/41 PCR Not Detected (NotDetected); Astrovirus PCR Not Detected (NotDetected); Campylobacter PCR Not Detected (NotDetected); Cryptosporidium PCR Not Detected (NotDetected); Cyclospora cayetanensis PCR Not Detected (NotDetected); Entamoeba histolytica PCR Not Detected (NotDetected); Enteroaggregative E.coli(EAEC) Not Detected (NotDetected); Enteropathogenic E.coli (EPEC) Not Detected (NotDetected); Enterotoxigenic E.coli (ETEC) Not Detected (NotDetected); Giardia lamblia PCR Not Detected (NotDetected); Norovirus GI/GII PCR Not Detected (NotDetected); Plesiomonas shigelloides PCR Not Detected (NotDetected); Rotavirus A PCR Not Detected (NotDetected); Salmonella PCR Not Detected (NotDetected); Sapovirus PCR Not Detected (NotDetected); Shiga-like Toxin E.coli (STEC) Not Detected (NotDetected); Shigella/Enteroinvasive E.coli Not Detected (NotDetected); Vibrio cholerae PCR Not Detected (NotDetected); Vibrio species PCR Not Detected (NotDetected); Yersinia enterocolitica PCR Not Detected (NotDetected)
[2022-08-23 12:26] LABS: Estimated Average Glucose 177 mg/dl; Hemoglobin A1C 7.8 % (4.5-5.6)
--- NOTE | 2022-08-23 15:33 | Hospitalist Progress Note ---
Date of Service August 23, 2022 Assessment & Plan (1) Epigastric abdominal pain: (2) Enterocolitis: (3) Crohn's disease: Plan: Patient is 72-year-old female with PMH HTN, HLD, DM II, hypothyroidism, Raynaud's disease, chronic back pain presented to ER with complaint of abdominal pain x 1 day. Vomiting x3 episodes, 5 episodes formed/similar loose stool. Does denies diffuse watery diarrhea, fever, chills, melena, hematochezia, hematemesis. Possible related to crohn's disease fare up CT abd/pelvis showed distended and fluid-filled loops of small bowel with mild surrounding infiltration and interloop fluid. There is also liquid stool seen throughout the colon. A transition point is suggested involving distal ileum. These finding could represent a nonspecific enterocolitis or possibly a partial small bowel obstruction. Surgery on board - No acute surgical intervention indicated Gastro on board recommended to continue solumedrol 40mg IV daily CRP 0.7 and ESR and procalcitonin wnl Will check fecal calprotectin Continue IV abx with Zosyn Diet advanced to full liquid (4) Hypoxia: Plan: CXR: Bilateral lower lung predominant airspace opacities which may represent atelectasis, pneumonia, and/or aspiration. In ER noted O2 sats dropped to 88% on room air, up to 97% on 2 L via nasal cannula Procalcitonin normal Continue Incentive spirometer Currently saturated on RA Continue monitor closely (5) Diabetes mellitus, type 2: Plan: Insulin-dependent diabetes Most recent A1c: 7.8 on 08/23/22 Continue to hold metformin, home basal bolus insulin Basal bolus insulin per protocol. Continue monitor BS while on IV steroid (6) Hypertension: Plan: Continue amlodipine, benazepril Will resume HCTZ, triamterene for now (7) Hyperlipidemia: Plan: Continue fenofibrate (8) Hypothyroidism: Plan: Continue levothyroxine (9) Abnormal computed tomography of abdomen and pelvis: Plan: Pancreatic Cysts CT abdomen pelvis 1.8 cm polypoid lesion within a loop of distal small bowel, as well as calcifications within an adjacent loop of small bowel. These calcifications have been present on prior examinations dating back to at least 2019 and are unlikely to represent intraluminal contents. This is near the most dilated loops of small bowel, and an underlying mucosal lesion of the distal small bowel is not excluded. Follow up with GI is recommended. Follow up with gastro DVT Prophylaxis on Lovenox SQ Full code Admission and Anticipated Discharge Date Admission Date: August 22, 2022 Subjective Pt was seen and examined for follow up of abdominal pain Lying in bed with no acute distress Pt said that she feels alot better denies any chest pain, palpitation, dizziness and SOB Review of Systems Review of Systems: All systems reviewed & are unremarkable except as noted in Subjective Physical Exam Physical Exam: General- No acute distress Head- atraumatic Eyes- PERRL, EOMI, ENT- oropharynx clear Neck- supple, no JVD Lungs- clear to auscultation Heart- regular rhythm; no murmur Abdomen- normal bowel sounds, soft, +tender with deep palpation Extremities- no calf tenderness Neuro- alert, oriented x 3; PERRL, EOMI; no facial palsy; no dysarthria Skin- warm & dry Results & Data Results & Data Vital Signs (Past 12 Hours) Vital Signs Temp Pulse Pulse Resp BP Pulse Ox O2 Del Method 08/23/22 15:15 36.7 C 51 L 18 117/60 90 Room Air 08/23/22 11:19 36.7 C 52 L 16 138/68 95 Room Air 08/23/22 08:00 Room Air 08/23/22 07:36 36.7 C 49 L 18 126/62 95 Room Air 08/23/22 07:23 58 L
[2022-08-23] MEDS: ENOXAPARIN INJ 40 MG/0.4 ML SYR SQ SCH (18:28)
[2022-08-23] MEDS: ASPIRIN 81 MG ECTAB PO SCH (21:28)
[2022-08-24] MEDS: PIPERACILLIN/TAZOBACTAM 4.5 GM in DEXTROSE 5% 100 ML IV SCH ×2 (00:58→08:25)
[2022-08-24] MEDS ORDERED: POTASSIUM CHLORIDE PWD 20 MEQ PACK PO STA (01:58)
[2022-08-24 02:15] LABS: Basophils # (auto) 0.01 K/uL (0-0.2); Basophils % (auto) 0.1 %; Hematocrit (blood only) 33.3 % (37.0-47.0); Immature Granulocytes # (auto) 0.05 K/uL (0.01-0.20); Immature Granulocytes % (auto) 0.5 %; Lymphocytes % (auto) 13.7 %; Mean Corpuscular Hemoglobin 28.2 pg (25.0-34.0); Mean Corpuscular Volume 85.4 fL (80.0-100.0); Mean Platelet Volume 9.3 fL (9.4-12.4); Monocytes # (auto) 0.67 K/uL (0.11-0.59); Monocytes % (auto) 7.1 %; Neutrophils # (auto) 7.47 K/uL (1.40-6.50); Neutrophils % (auto) 78.6 %; Platelet Count 259 K/uL (130-400); RDW Coefficient of Variation 14.6 % (11.5-14.5)
[2022-08-24 02:37] LABS: BUN Creatinine Ratio 18.1 (10-20); Calcium 8.5 mg/dl (8.6-10.3); Creatinine Clr Calc Pharmacy 56.2 ml/min; Est GFR (African American) 82.2 ml/min; Est GFR (Non-African American) 70.9 ml/min; Magnesium 1.9 mg/dl (1.7-2.4); Potassium 3.2 mmol/L (3.5-5.1)
[2022-08-24] MEDS ORDERED: MAGNESIUM SULFATE / D5W 1 GM/100 ML BAG IV ONE (02:41)
[2022-08-24] MEDS ORDERED: POTASSIUM CHLORIDE PWD 20 MEQ PACK PO ONE (03:00)
[2022-08-24] MEDS: LEVOTHYROXINE SODIUM 88 MCG TABLET PO SCH (05:30)
[2022-08-24] MEDS ORDERED: POTASSIUM CHLORIDE CRTAB 20 MEQ TABCR PO STA (07:51)
[2022-08-24] MEDS: ENALAPRIL MALEATE 10 MG TAB PO SCH (08:19)
[2022-08-24] MEDS: FENOFIBRATE NANOCRYSTALLIZED 48 MG TABLET PO SCH ×3 (08:19→21:29)
[2022-08-24] MEDS: amLODIPine BESYLATE 5 MG TAB PO SCH (08:20)
[2022-08-24] MEDS: INSULIN ASPART PER UNIT CHARGE SC SCH ×4 (08:20→21:29)
[2022-08-24] MEDS: LANTUS PER UNIT CHARGE SQ SCH ×2 (08:24→21:28)
[2022-08-24] MEDS ORDERED: methylPREDNISolone 40 MG in SYRINGE 0 ML IV SCH (09:00)
--- NOTE | 2022-08-24 13:21 | Gastroenterology Progress Note ---
Date of Service August 24, 2022 Assessment & Plan Admission and Anticipated Discharge Date Admission Date: August 22, 2022 Subjective Pt denies abd pain, nausea. She is tolerating full liquids. Small volume BM's today. P 40's, getting K replaced. Abd: distended, non tender Labs: No CRP today A/P: Resolving SBO - Suspect that this is cicatrical disease, rather than active Crohn's. Steroids for now, liquids. No need abx. - Regarding Polypoid lesion and calcifications -- will plan for sug onc consult as outpt. Results & Data Vital Signs (Past 12 Hours) Vital Signs Temp Pulse Pulse Resp BP BP Pulse Ox 08/24/22 11:52 36.9 C 50 L 18 144/72 H 92 08/24/22 09:54 45 L 14 145/74 H 92 08/24/22 08:00 08/24/22 08:00 37 C 41 L 18 150/82 H 94 08/24/22 07:30 55 L 08/24/22 03:23 36.7 C 45 L 16 135/63 92 08/24/22 01:43 40 L 128/59 L 93 O2 Del Method 08/24/22 11:52 Room Air 08/24/22 09:54 Room Air 08/24/22 08:00 Room Air 08/24/22 08:00 Room Air 08/24/22 07:30 08/24/22 03:23 Room Air 08/24/22 01:43 Room Air
[2022-08-24] MEDS: methylPREDNISolone 20 MG in SYRINGE 0 ML IV SCH ×2 (14:41→21:29)
--- NOTE | 2022-08-24 15:04 | Electrocardiogram Report ---
Test Reason : Blood Pressure : / mmHG Vent. Rate : 039 BPM Atrial Rate : 039 BPM P-R Int : 188 ms QRS Dur : 142 ms QT Int : 548 ms P-R-T Axes : 054 012 025 degrees QTc Int : 441 ms Marked sinus bradycardia Right bundle branch block T wave abnormality, consider lateral ischemia Abnormal ECG When compared with ECG of 02-DEC-2019 14:24, T wave inversion no longer evident in Inferior leads T wave inversion more evident in Lateral leads Confirmed by Levi Jenkins ([id number]) on 08/24/2022 3:04:18 PM Referred By: REFERRED SELF Confirmed By:Levi Jenkins
[2022-08-24] MEDS: ASPIRIN 81 MG ECTAB PO SCH (21:25)
[2022-08-24] MEDS: ENOXAPARIN INJ 40 MG/0.4 ML SYR SQ SCH (21:29)
--- NOTE | 2022-08-24 22:03 | Hospitalist Progress Note ---
Date of Service August 24, 2022 Assessment & Plan (1) Epigastric abdominal pain: (2) Enterocolitis: (3) Crohn's disease: Plan: Patient is 72-year-old female with PMH HTN, HLD, DM II, hypothyroidism, Raynaud's disease, chronic back pain presented to ER with complaint of abdominal pain x 1 day. Vomiting x3 episodes, 5 episodes formed/similar loose stool. Does denies diffuse watery diarrhea, fever, chills, melena, hematochezia, hematemesis. Possible related to crohn's disease fare up CT abd/pelvis showed distended and fluid-filled loops of small bowel with mild surrounding infiltration and interloop fluid. There is also liquid stool seen throughout the colon. A transition point is suggested involving distal ileum. These finding could represent a nonspecific enterocolitis or possibly a partial small bowel obstruction. Surgery on board - No acute surgical intervention indicated Gastro on board recommended to continue solumedrol 40mg IV daily CRP 0.7 and ESR and procalcitonin wnl Will discontinue IV abx GI will plan for surgical oncology consult as outpt. Diet advanced to full liquid as tolerated (4) Bradycardia: Plan: Pt is asymptomatic EKG showed sinus bradycardia I explained to patient in detail about bradycardia I also explained to her that is not new because that is her baseline when I reviewed her vital for the last 4 years Will talk to cardio to see if they can reassure her or if I need to place a formal consult (5) Hypoxia: Plan: CXR: Bilateral lower lung predominant airspace opacities which may represent atelectasis, pneumonia, and/or aspiration. In ER noted O2 sat dropped to 88% on room air, up to 97% on 2 L via nasal cannula Procalcitonin normal Continue Incentive spirometry Currently saturated on RA Continue monitor closely (6) Diabetes mellitus, type 2: Plan: Insulin-dependent diabetes Most recent A1c: 7.8 on 08/23/22 Continue to hold metformin, home basal bolus insulin Basal bolus insulin per protocol. Continue monitor BS while on IV steroid (7) Hypertension: Plan: Continue amlodipine, benazepril Will resume HCTZ, triamterene for now (8) Hyperlipidemia: Plan: Continue fenofibrate (9) Hypothyroidism: Plan: Continue levothyroxine (10) Abnormal computed tomography of abdomen and pelvis: Plan: Pancreatic Cysts CT abdomen pelvis 1.8 cm polypoid lesion within a loop of distal small bowel, as well as calcifications within an adjacent loop of small bowel. These calcifications have been present on prior examinations dating back to at least 2018 and are unlikely to represent intraluminal contents. This is near the most dilated loops of small bowel, and an underlying mucosal lesion of the distal small bowel is not excluded. Follow up with GI is recommended. Follow up with gastro DVT Prophylaxis on Lovenox SQ Full code Admission and Anticipated Discharge Date Admission Date: August 22, 2022 Subjective Pt was seen and examined for follow up of abdominal pain Lying in bed with no acute distress Pt is very anxious because during the night, staff woke her up because her HR was bellow 40 She has been google bradycardia that seems to make her more anxious Denies any chest pain, palpitation, dizziness and SOB Review of Systems 2 Review of Systems: All systems reviewed & are unremarkable except as noted in Subjective Physical Exam Physical Exam: General- No acute distress Head- atraumatic Eyes- PERRL, EOMI, ENT- oropharynx clear Neck- supple, no JVD Lungs- clear to auscultation Heart- regular rhythm; no murmur Abdomen- normal bowel sounds, soft, +tender with deep palpation Extremities- no calf tenderness Neuro- alert, oriented x 3; PERRL, EOMI; no facial palsy; no dysarthria Skin- warm & dry Results & Data Results & Data Vital Signs (Past 12 Hours) Vital Signs Temp Pulse Pulse Resp BP BP Pulse Ox 08/24/22 20:07 37.0 C 53 L 18 171/78 H 94 08/24/22 16:00 36.6 C 48 L 18 150/75 H 92 08/24/22 15:00 65 08/24/22 11:52 36.9 C 50 L 18 144/72 H 92 O2 Del Method 08/24/22 20:07 Room Air 08/24/22 16:00 Room Air 08/24/22 15:00 08/24/22 11:52 Room Air
[2022-08-25] MEDS: LEVOTHYROXINE SODIUM 88 MCG TABLET PO SCH (06:16)
[2022-08-25] MEDS: methylPREDNISolone 20 MG in SYRINGE 0 ML IV SCH ×2 (06:16→13:34)
[2022-08-25 08:02] LABS: C Reactive Protein 0.55 mg/dl (0-0.5)
[2022-08-25 08:16] LABS: BUN Creatinine Ratio 18.1 (10-20); Calcium 8.8 mg/dl (8.6-10.3); Creatinine Clr Calc Pharmacy 59.5 ml/min; Est GFR (African American) 82.2 ml/min; Est GFR (Non-African American) 70.9 ml/min; Magnesium 1.9 mg/dl (1.7-2.4); Potassium 3.6 mmol/L (3.5-5.1)
[2022-08-25] MEDS: ENALAPRIL MALEATE 10 MG TAB PO SCH (08:45)
[2022-08-25] MEDS: amLODIPine BESYLATE 5 MG TAB PO SCH (08:45)
[2022-08-25] MEDS: FENOFIBRATE NANOCRYSTALLIZED 48 MG TABLET PO SCH ×2 (08:45→13:34)
[2022-08-25] MEDS: INSULIN ASPART PER UNIT CHARGE SC SCH ×3 (08:45→17:06)
[2022-08-25] MEDS: LANTUS PER UNIT CHARGE SQ SCH (08:46)
[2022-08-25] MEDS ORDERED: INSULIN ASPART PER UNIT CHARGE SC ONE (08:58)
[2022-08-25] MEDS ORDERED: LANTUS PER UNIT CHARGE SQ ONE (08:58)
--- NOTE | 2022-08-25 10:25 | Cardiology Consultation ---
Date of Consultation August 25, 2022 Assessment & Plan (1) Bradycardia: (2) Right bundle branch block: (3) Abnormal EKG: (4) Hyperlipidemia: (5) Hypertension: Plan 1. Bradycardia. Chronic. Asymptomatic. Chronic right bundle branch block. 2. Abnormal EKG, ? secondary to left ventricular hypertrophy 3. Multiple cardiac risk factors including hypertension, dyslipidemia (statin intolerant), type 2 diabetes mellitus, obesity, inactivity, tobacco history Recommendations/Plan: 1. Maintain telemetry while hospitalized. 2. Avoid AV nadir blockers 3. Refer for resting echocardiography 4. Outpatient 14-day Zio monitor 5. Outpatient evaluation for obstructive sleep apnea/nocturnal hypoxemia 6. Possible future need for permanent pacemaker implantation discussed 7. Consider addition of ezetimibe 10 mg/day prior to PCSK9 inhibitor therapy (intolerant to simvastatin, atorvastatin, and rosuvastatin) 8. Discontinue and avoid all tobacco products. 9. Recommend referral for outpatient pharmacologic stress testing prior to outpatient surgery if indicated History of Present Illness Reason for Consultation: Bradycardia Requesting Physician: Eliseo Attending Physician: Eliseo History of Present Illness Ms. Florina Delgado is a 72-year-old female who is being seen at the request of Dr. Gomes, evaluation of bradycardia. The patient was admitted to [facility] on August 22, 2022 with epigastric abdominal pain, nausea, vomiting, and loose stools - small bowel obstruction, suspected cicatrical disease rather than active Crohn's. No acute surgical intervention indicated per documentation. Diet is being advanced and she seems to be feeling better. Asymptomatic bradycardia observed primarily during anticipated sleep hours but also observed to mild agree during anticipated wake times such as 10 AM yesterday morning. No admission EKG available for review. EKG on 08/24/2022 at 02:16:29 revealed marked sinus bradycardia at 39 bpm with a right bundle branch block, lateral T wave changes suggestive of ischemia. When compared to prior available EKG performed on December 01, 2021, the lateral changes are more pronounced in the inferior changes have improved. EKG performed on December 02, 2019 revealed sinus bradycardia at 56 bpm with a right bundle branch block with repolarization abnormality, possible old inferior infarct, inferior and lateral ST-T wave abnormality. Continuous telemetry monitoring reveals bradycardia down to 33 bpm overnight. Patient denies excessive fatigue, tiredness, near-syncope, syncope, chest pain, palpitations, or unusual shortness of breath. She, as do I, have concerns regarding the possibility of underlying obstructive sleep apnea. Past Medical and Surgical History: See below Family History: Father with a CVA at 78. Mother during childbirth, age 27. 2 half sisters, 1 sister passing with leukemia. Social History: Occasional cigar. No cigarettes. No smokeless tobacco. Alcohol use varies, typically a glass of wine most days of the week, occasional hard cider. No illegal drug use. . 3 children, 3 grandchildren. 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 Allergies Allergy/AdvReac Type Severity Reaction Status Date / Time bee venom protein (honey bee) Allergy Severe Anaphylaxis Verified 08/22/22 14:00 latex Allergy Mild REDNESS, Verified 08/22/22 14:00 HURTS atorvastatin AdvReac Severe Joint Pain Verified 08/22/22 14:00 Home Medications Medication Instructions Recorded Confirmed Type multivitamin 1 tab PO BID ##0 05/21/10 08/22/22 History ascorbic acid (vitamin C) 1,000 mg 1,000 mg PO QDL ##0 01/27/18 08/22/22 History tablet (Vitamin C With Lucia Hips) aspirin 81 mg tablet,delayed 81 mg PO HS ##0 01/27/18 08/22/22 History release bilberry fruit extract 80 mg 80 mg PO QAM ##0 01/27/18 08/22/22 History capsule cholecalciferol (vitamin D3) 25 1,000 inter.unit PO HS ##0 01/27/18 08/22/22 History mcg (1,000 unit) capsule (Vitamin D3) hyalur ac-chond sul-colg II-AA 40 1 cap PO BID ##0 01/27/18 08/22/22 History mg-80 mg-400 mg capsule (Hyaluronic Acid(with chondroitin-collagenII)) omega-3 fatty acids-fish oil 360 1 cap PO TID ##0 01/27/18 08/22/22 History mg-1,200 mg capsule (Fish Oil) blood-glucose meter ([employer] #1 ea 04/12/20 08/22/22 Rx Verio IQ Meter kit) lancets 33 gauge (OneTouch Delica #100 ea 04/12/20 08/22/22 Rx Lancets) coenzyme Q10 100 mg tablet 100 mg PO BID 09/12/20 08/22/22 History insulin aspart U-100 100 unit/mL See Rx Instructions SC DIRECTED 06/27/21 08/22/22 Rx (3 mL) subcutaneous pen (Novolog #45 mL FlexPen U-100 Insulin aspart) Wheeled Walker #1 ea 12/17/21 08/22/22 Rx fenofibrate nanocrystallized 48 mg 48 mg PO TID #270 tabs 01/19/22 08/22/22 Rx tablet (Tricor) levothyroxine 88 mcg tablet 88 mcg PO DAILY #90 tabs 01/19/22 08/22/22 Rx (Synthroid) Walking Cane #1 ea 02/05/22 08/22/22 Rx tumeric gummies 1 gummy PO DAILY 03/06/22 08/22/22 History pen needle, diabetic 33 gauge x #100 ea 03/18/22 08/22/22 Rx 1/4" (Easy Comfort Pen [place]) triamterene 37.5 1 tab PO DAILY #90 tabs 04/24/22 08/22/22 Rx mg-hydrochlorothiazide 25 mg tablet amlodipine 10 mg-benazepril 20 mg 1 cap PO DAILY #90 caps 05/26/22 08/22/22 Rx capsule (Lotrel) metformin 500 mg tablet 500 mg PO BID #180 tabs 05/26/22 08/22/22 Rx ferrous sulfate 325 mg (65 mg 325 mg PO Q OTHER DAY 06/04/22 08/22/22 History iron) tablet (Feosol) milk thistle 500 mg capsule 500 mg PO DAILY 06/04/22 08/22/22 History olopatadine 0.2 % eye drops (Clear 1 drp ophthalmic (eye) DAILY PRN 06/04/22 08/22/22 History Eyes Once Daily Allergy) allergies blood sugar diagnostic (OneTouch #150 ea 06/22/22 08/22/22 Rx Verio test strips) insulin glargine 100 unit/mL (3 34 unit subcut HS 08/22/22 08/22/22 History mL) subcutaneous pen (Lantus Solostar U-100 Insulin) Patient History Medical History Actinic keratoses Chronic back pain Crohn's disease Depression Diabetes mellitus, type 2 Fatty liver disease, nonalcoholic Hearing difficulty of both ears History of kidney stones Hyperlipidemia Hypertension Hypothyroidism Intraductal papillary mucinous neoplasm of pancreas Neuropathy of foot Orbital cellulitis on left (2019) Osteoarthritis Post traumatic stress disorder Statin myopathy Terminal ileitis Tubular adenoma Urinary incontinence in female Vertebral artery stenosis Right. Moderate Vitamin D deficiency Surgical History H/O umbilical hernia repair 05/22/2010 History of cataract surgery bilt 4 mg of versed for prior cataract without apparent complications History of cholecystectomy 05/22/2010 History of colonoscopy History of esophagogastroduodenoscopy (EGD) History of surgical procedure on eye proper using laser History of tonsillectomy Family History Father Family history of diabetes mellitus Diabetes Hypertension Sister Cancer Grandfather No problems noted. 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 Frequent falls. Crohn's disease. Diabetes. Statin intolerance, myopathy. Complete review of systems is otherwise as stated above, negative, or noncontributory. Physical Exam Physical Exam: General: A&Ox3. NAD. HENT: Normocephalic. Atraumatic. Eyes: Exophthalmos. PER. Conjunctiva pink, sclera clear. Neck: No carotid bruits. No JVD. No HJR. Heart: RRR, 62 bpm. Somewhat distant heart sounds. No murmur appreciated. No rub. Lungs: Diminished. Decreased. Clear to auscultation. Abdomen: +BS. Obese. Nontender. Extremities: No significant edema. No cyanosis. No clubbing. Limited neurological examination is without focal deficits. Pulses: radial=2/4, posterior tibial=1/4. Results & Data Vital Signs (Past 12 Hours) Vital Signs Temp Pulse Pulse Resp BP BP Pulse Ox 08/25/22 08:09 36.6 C 41 L 20 157/85 H 95 08/25/22 07:49 08/25/22 07:39 62 08/25/22 04:00 36.8 C 46 L 18 158/69 H 93 08/24/22 22:41 45 L 08/25/22 01:02 08/25/22 00:00 36.8 C 46 L 18 153/75 H 95 O2 Del Method 08/25/22 08:09 Room Air 08/25/22 07:49 Room Air 08/25/22 07:39 08/25/22 04:00 Room Air 08/24/22 22:41 08/25/22 01:02 Room Air 08/25/22 00:00 Room Air Laboratory Results Comprehensive Metabolic Panel 08/25/22 Range/Units 06:26 Sodium 146 H (136-145) mmol/L Potassium 3.6 (3.5-5.1) mmol/L Chloride 109 H (98-107) mmol/L Carbon Dioxide 28 (21-32) mmol/L BUN 15 (6-23) mg/dl Creatinine 0.83 (0.6-1.2) mg/dl Glucose 144 H (70-99(Fasting)) mg/dl Calcium 8.8 (8.6-10.3) mg/dl Intake and Output 08/24/22 08/25/22 08/25/22 22:59 06:59 14:59 Intake Total 225 / 1045 180 / 1045 Balance 225 / 1045 180 / 1045 Intake: Oral 225 / 925 180 / 925 Other: Weight 83.4 kg Weight Measurement Method Built in [facility] Diagnostic Findings August 2000 YAMIL Interpretation Summary (as per Dr. Real): Non-diagnostic ECG portion of exercise treadmill test due to failure to achieve target heart. However, no evidence of ischemia at fatiguing work load and 82% maximum predicted heart rate. Hypertensive resting blood pressure with markedly hypertensive blood pressure response and blunted heart rate response to exercise. No exercise induced symptoms. No ectopy. Fair to poor exercise tolerance. Cross Heart Association Functional Class II. 5 met workload. Final conclusion pending interpretation of radionuclide imaging (Cardiolite) portion of study. January 28, 2018 DSE Interpretation Summary (as per Dr. Jenkins): Negative dobutamine stress echocardiogram for myocardial ischemia at 87% of the maximum predicted heart rate. No dobutamine induced chest pain. No EKG changes of baseline abnormality. Baseline echocardiogram notes normal left ventricular systolic function with mild LVH and diastolic dysfunction
[2022-08-25] MEDS ORDERED: PERFLUTREN LIPID MICROSPHERE (DEFINITY) IV ONE (12:12)
[2022-08-25 15:35] VITALS: TEMP 97.9; O2SAT 95
[2022-08-25 16:49] VITALS: BP 168/73; PULSE 73
--- NOTE | 2022-08-25 16:56 | Discharge Summary ---
Date of Service August 25, 2022 Admission HPI Per Admitting Provider Patient is 72-year-old female with PMH HTN, HLD, DM II, hypothyroidism, Raynaud's disease, chronic back pain presented to ER with complaint of abdominal pain x 1 day. History obtained from patient, and outpatient chart review. Patient with history recurrent abdominal pain for 10 years. She follows with GI, Dr. Mercer. History of terminal ileitis, likely Crohn's. Last visit with GI 08/03/2022 discussion on starting Entyvio however was not started yet. Patient states last night had onset of upper abdominal pain described as soreness and burning sensation. Had 3 episodes of vomiting with several episodes of dry heaving after. Patient reports had 5 bowel movements that were formed to slightly loose. She felt she was getting dehydrated and weak. She reports that she called her daughter this morning who called EMS for her. Patient denies any noted hematuria, hematochezia, melena. Denies fever/chills, diaphoresis, LUU, syncope, vision changes, neck pain, CP, SOB, orthopnea, palpitations, cough, sore throat, choking, rhinorrhea, paresthesias, increased extremity edema, rashes, urinary symptoms. Discharge Exam General- No acute distress Head- atraumatic Eyes- PERRL, EOMI, ENT- oropharynx clear Neck- supple, no JVD Lungs- clear to auscultation Heart- regular rhythm; no murmur Abdomen- normal bowel sounds, soft, +tender with deep palpation Extremities- no calf tenderness Neuro- alert, oriented x 3; PERRL, EOMI; no facial palsy; no dysarthria Skin- warm & dry Discharge Data Allergies Allergy/AdvReac Type Severity Reaction Status Date / Time bee venom protein (honey bee) Allergy Severe Anaphylaxis Verified 08/22/22 14:00 latex Allergy Mild REDNESS, Verified 08/22/22 14:00 HURTS atorvastatin AdvReac Severe Joint Pain Verified 08/22/22 14:00 Consultations 08/22/22 14:25 ED Decision to Admit Stat 08/22/22 18:47 Consult Gastroenterology Routine 08/25/22 08:00 Consult Cardiology Routine Ordered Studies 08/22/22 10:54 CT abd pelvis IV con only Stat Hospital Course (1) Epigastric abdominal pain: (2) Enterocolitis: (3) Crohn's disease: Patient is 72-year-old female with PMH HTN, HLD, DM II, hypothyroidism, Raynaud's disease, chronic back pain presented to ER with complaint of abdominal pain x 1 day. Vomiting x3 episodes, 5 episodes formed/similar loose stool. Does denies diffuse watery diarrhea, fever, chills, melena, hematochezia, hematemesis. Possible related to crohn's disease fare up CT abd/pelvis showed distended and fluid-filled loops of small bowel with mild surrounding infiltration and interloop fluid. There is also liquid stool seen throughout the colon. A transition point is suggested involving distal ileum. These finding could represent a nonspecific enterocolitis or possibly a partial small bowel obstruction. Surgery on board - No acute surgical intervention indicated Gastro on board recommended to continue solumedrol 40mg IV daily CRP 0.7 and ESR and procalcitonin wnl Will discontinue IV abx GI will plan for surgical oncology consult as outpt. Diet advanced to full liquid as tolerated (4) Bradycardia: Pt is asymptomatic EKG showed sinus bradycardia I explained to patient in detail about bradycardia I also explained to her that is not new because that is her baseline when I reviewed her vital for the last 4 years Will talk to cardio to see if they can reassure her or if I need to place a formal consult (5) Hypoxia: CXR: Bilateral lower lung predominant airspace opacities which may represent atelectasis, pneumonia, and/or aspiration. In ER noted O2 sat dropped to 88% on room air, up to 97% on 2 L via nasal cannula Procalcitonin normal Continue Incentive spirometry Currently saturated on RA Continue monitor closely (6) Diabetes mellitus, type 2: Insulin-dependent diabetes Most recent A1c: 7.8 on 08/23/22 Continue to hold metformin, home basal bolus insulin Basal bolus insulin per protocol. Continue monitor BS while on IV steroid (7) Hypertension: Continue amlodipine, benazepril Will resume HCTZ, triamterene for now (8) Hyperlipidemia: Continue fenofibrate (9) Hypothyroidism: Continue levothyroxine (10) Abnormal computed tomography of abdomen and pelvis: Pancreatic Cysts CT abdomen pelvis 1.8 cm polypoid lesion within a loop of distal small bowel, as well as calcifications within an adjacent loop of small bowel. These calcifications have been present on prior examinations dating back to at least 2019 and are unlikely to represent intraluminal contents. This is near the most dilated loops of small bowel, and an underlying mucosal lesion of the distal small bowel is not excluded. Follow up with GI is recommended. Follow up with gastro DVT Prophylaxis on Lovenox SQ Full code Discharge Plan Discharge Items Patient Disposition: Home - Self-Care Reason For Visit: ABD PAIN Discharge Diagnosis: (1) Epigastric abdominal pain: (2) Enterocolitis: (3) Crohn's disease: (4) Bradycardia: (5) Hypoxia: (6) Diabetes mellitus, type 2: (7) Hypertension: (8) Hyperlipidemia: (9) Hypothyroidism: (10) Abnormal computed tomography of abdomen and pelvis: Activity: Resume your previous activity Non-emergency contact: Primary Care Provider, Surgeon and Resident In Diagnostic Radiology Call non-emergency contact if: you have any medication questions and your symptoms worsen Follow-up/Referrals: Yohana Bull DO [Primary Care Provider] - (Date & Time 08/28/2022 2:00 PM Provider Pharmacist Aura Leonardo [address] Date & Time 08/28/2022 2:40 PM Provider Yohana Bull DO [address] ) Diet: Carb Consistent or DM2 Addtl Attending Provider Instructions: Follow up with your primary care provider 08/28/2022 @ 2:40 PM Yohana Bull DO [address] 08/28/2022 @2:00 PM Provider Pharmacist Aura [address] Follow up with gastroenterology Dr. Mercer Follow up with surgical oncology outpatient for the Polypoid lesion and calcification Follow up with cardiology outpatient to arrange for outpatient pharmacology stress test prior to outpatient surgery if indicated Your provider or financial associate will arrange for Outpatient 14-day Zio monitor Your provider will need to place referral for outpatient evaluation for obstructive sleep apnea/nocturnal hypoxemia Continue prednisone taper 40mg mg x 1 week, then 30mg x 1 week, then 20mg x 1 week, then 10mg x 1 week Continue monitor blood sugar while on steroid Increase potassium supplement in your diet Check BMP in 1 week to monitor your electrolytes Fall precaution Pending Studies at Discharge: No Stand-Alone Forms: [facility], Smoking Cessation Medications and DC Order Prescriptions: New prednisone 10 mg tablet 10 mg PO DIRECTED Qty: 70 0RF Rx Instructions: Take 40mg daily x 1 week, then 30mg daily x 1 week, then 20mg daily x 1week, then 10mg daily x 1 week Continued multivitamin Tablet 1 tab PO BID Qty: 0 ascorbic acid (vitamin C) [Vitamin C With Lucia Hips] 1,000 mg Tablet 1,000 mg PO QDL Qty: 0 aspirin 81 mg Tablet,Delayed Release (Dr/Ec) 81 mg PO HS Qty: 0 cholecalciferol (vitamin D3) [Vitamin D3] 1,000 unit Capsule 1,000 inter.unit PO HS Qty: 0 omega-3 fatty acids-fish oil [Fish Oil] 360-1,200 mg Capsule 1 cap PO TID Qty: 0 bilberry fruit extract 80 mg Capsule 80 mg PO QAM Qty: 0 Hyaluronic Acid (chond-collgn) 40-80-400 mg Capsule 1 cap PO BID Qty: 0 (DME) blood-glucose meter [Tattoodo Verio IQ Meter] Kit See Rx Instructions .ROUTE .MEDSUPPLY Qty: 1 0RF Rx Instructions: Use to test blood sugar 5 times daily (insulin dependent) (DME) lancets [Mayur Uniquoters LimitedTouch Delica Lancets] 33 gauge [facility] [place] See Rx Instructions .ROUTE .MEDSUPPLY Qty: 100 0RF Rx Instructions: Use to test blood sugar 5 times daily (insulin dependent) insulin aspart U-100 [Novolog FlexPen U-100 Insulin] 100 unit/mL (3 mL) insulin pen See Rx Instructions SC DIRECTED MDD 50 units Qty: 45 3RF Rx Instructions: Take with meals as directed by physician plus sliding scale as needed. Max daily dose 50 units. (DME) Wheeled Walker [facility] [place] See Rx Instructions .Route Qty: 1 0RF Rx Instructions: Seated walker As directed Drive folding smaller walker fenofibrate nanocrystallized [Tricor] 48 mg tablet 48 mg PO TID Qty: 270 3RF levothyroxine [Synthroid] 88 mcg tablet 88 mcg PO DAILY Qty: 90 3RF Rx Instructions: with a glass of water on an empty stomach. Wait 30 minutes to eat (DME) Walking Cane [facility] [place] See Rx Instructions .Route Qty: 1 0RF Rx Instructions: As directed (DME) pen needle, diabetic [Easy Comfort Pen [place]] 33 gauge x 1/4" needle See Rx Instructions .Route Qty: 100 5RF Rx Instructions: As directed 4 times daily metformin 500 mg tablet 500 mg PO BID Qty: 180 3RF amlodipine-benazepril [Lotrel] 10-20 mg capsule 1 cap PO DAILY Qty: 90 3RF (DME) OneTouch Verio test strips Strip See Rx Instructions .ROUTE .MEDSUPPLY Qty: 150 11RF Rx Instructions: Use to test blood sugar 5 times daily (insulin dependent) ferrous sulfate [Feosol] 325 mg (65 mg iron) tablet 325 mg PO Q OTHER DAY tumeric gummies 1 gummy PO DAILY olopatadine [Clear Eyes Once Daily Allergy] 0.2 % drops 1 drp ophthalmic (eye) DAILY PRN (Reason: allergies) triamterene-hydrochlorothiazid 37.5-25 mg tablet 1 tab PO DAILY Qty: 90 3RF milk thistle 500 mg capsule 500 mg PO DAILY coenzyme Q10 100 mg Tablet 100 mg PO BID insulin glargine [Lantus Solostar U-100 Insulin] 100 unit/mL (3 mL) insulin pen 34 unit subcut HS Discharge Orders: Discharge Order (Routine); Ordered 08/25/22 Ordered By: Yessenia Orta/Other Patient Handouts: Managing Type 2 Diabetes Admission Data Admit Date/Time: 08/22/22 14:44 Attending Provider: Yessenia Gomes Admit Provider: Clint Miller Primary Care Provider: Yohana Bull Other Providers: Clint Miller ; Alannah Navarro ; Luis Cheatham Other Interventions: Discharge Summary Assessment (RN) Last Done: 08/25/22 16:48
== END 2022-08-25 20:20 | disposition home or self-care (01) | DRG 389 ==
LOC: ED 10:33 → 2N 14:44 → SUATTDRO 14:44 → 2N 18:05

== ENCOUNTER 2025-03-22 06:48 | Observation (INO) ==
--- NOTE | 2025-03-22 07:14 | Emergency Department Note ---
History of Present Illness General Chief complaint: Stroke/CVA Symptoms Stated complaint: SEEING DOUBLE,HX OF STROKE,HIGH BP Time Seen by Provider: 03/22/25 06:50 Source: patient Mode of arrival: ambulatory Limitations: no limitations History of Present Illness Maximum Pain Intensity: 8 Patient is a 75-year-old female with history of recent hemorrhagic CVA status post discharge from rehab facility 5 days prior who presents for elevated blood pressure and headache. She woke up around 5 AM and noticed her blood pressure was 200/117. She took 230 mg nifedipine at that time. She describes a 4 out of 10 throbbing headache as well. She has had on and off headaches since her stroke however this is more severe this morning. She initially was having binocular diplopia with her stroke however states this comes and goes depending on what she is looking at. Unchanged this morning. She does report that her speech "feels slower" but this has been ongoing since her stroke as well. Denies any facial droop, numbness or weakness in her extremities. Denies any dizziness at rest or room spinning sensation. She did not take anything for her headache this morning. Not currently on any blood thinning agents. Home Medications Medication Instructions Recorded Confirmed Type aspirin 81 mg tablet,delayed 81 mg PO HS ##0 01/27/18 03/22/25 History release blood-glucose meter (CardStaruch #1 ea 04/12/20 02/22/24 Rx Verio IQ Meter kit) lancets 33 gauge (OneTouch Delica #100 ea 04/12/20 02/22/24 Rx Lancets) insulin aspart U-100 100 unit/mL See Rx Instructions SC DIRECTED 06/27/21 03/22/25 Rx (3 mL) subcutaneous pen (Novolog #45 mL FlexPen U-100 Insulin aspart) Wheeled Walker #1 ea 12/17/21 02/22/24 Rx levothyroxine 88 mcg tablet 88 mcg PO DAILY #90 tabs 01/19/22 03/22/25 Rx (Synthroid) Walking Cane #1 ea 02/05/22 02/22/24 Rx pen needle, diabetic 33 gauge x #100 ea 03/18/22 02/22/24 Rx 1/4" (Easy Comfort Pen Houghton) blood sugar diagnostic (Somaxon PharmaceuticalsTouch #150 ea 06/22/22 02/22/24 Rx Verio test strips) insulin glargine 100 unit/mL (3 11 unit subcut HS 08/22/22 03/22/25 History mL) subcutaneous pen (Lantus Solostar U-100 Insulin) acetaminophen 500 mg tablet 500 mg PO DIRECTED PRN Pain 10/30/22 03/22/25 History amlodipine 10 mg tablet 10 mg PO DAILY 11/05/23 03/22/25 History cholecalciferol (vitamin D3) 125 125 mcg PO DAILY 11/05/23 03/22/25 History mcg (5,000 unit) capsule furosemide 20 mg tablet (Lasix) 0 mg PO Q OTHER DAY 11/05/23 03/22/25 History sertraline 100 mg tablet 100 mg PO DAILY 11/05/23 03/22/25 History budesonide 3 mg 6 mg PO DAILY 02/13/25 03/22/25 History capsule,delayed,extended release evolocumab 140 mg/mL subcutaneous 140 mg subcut UD 02/13/25 03/22/25 History pen injector (Juve Clark) losartan 100 mg tablet 100 mg PO DAILY 02/13/25 03/22/25 History mirtazapine 7.5 mg tablet 7.5 mg PO HS 02/13/25 03/22/25 History omeprazole 20 mg capsule,delayed 20 mg PO DAILY 02/13/25 03/22/25 History release vedolizumab 108 mg/0.68 mL 108 mg subcut .[id number] 02/13/25 03/22/25 History subcutaneous pen injector (Entyvio Pen) hydralazine 10 mg tablet 10 mg PO Q6H PRN Hypertension 03/22/25 03/22/25 History hydrochlorothiazide 25 mg tablet 50 mg PO DAILY 03/22/25 03/22/25 History nifedipine 30 mg tablet,extended 30 mg PO DAILY 03/22/25 03/22/25 History release Allergies Allergy/AdvReac Type Severity Reaction Status Date / Time bee venom protein (honey bee) Allergy Severe Anaphylaxis Verified 02/13/25 17:02 latex Allergy Mild REDNESS, Verified 02/13/25 17:02 HURTS atorvastatin AdvReac Severe Joint Pain Verified 02/13/25 17:02 Past Med/Surg History Problem List (Updated 03/22/25 @ 09:16 by Shyam Leary MD) Hypertensive emergency (Acute) Abnormal EKG Right bundle branch block Bradycardia Terminal ileitis Abnormal computed tomography of abdomen and pelvis Enterocolitis Epigastric abdominal pain (Acute) Partial small bowel obstruction (Acute) Hypoxia (Acute) Crohn's disease Osteoarthritis of right knee Myoclonic jerking Hyperlipidemia (Chronic) Hypertension (Chronic) Depression (Chronic) Post traumatic stress disorder (Chronic) Diabetes mellitus, type 2 (Chronic) Hypothyroidism (Chronic) Fatty liver disease, nonalcoholic (Chronic) Kidney stones (Chronic) Chronic back pain (Chronic) Osteoarthritis (Chronic) Neuropathy of foot (Chronic) Vitamin D deficiency (Chronic) Vertebral artery stenosis (Chronic) Right. 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 Grandmother (Maternal) Cancer Denies family history of Ovarian cancer Prostate cancer Myocardial infarction Breast cancer Lung cancer Colorectal cancer Social History Smoking Status: Never smoker Second Hand Exposure: No; Do You Dip or Chew Tobacco: No; Hx Alcohol Use: No Hx Substance Use: No Preferred Language: Mongolian Communication Ability: Effective Visual Impairment: No Limitations Hearing Ability: Hard of Hearing Interventional Radiology Technologist Required: No Beliefs That Will Affect Care: None marital status: Single Current Living Situation: Alone current occupational status: employed and retired 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 Physical Exam Vital Signs Vital Signs - 24 hr 03/22/25 06:50 03/22/25 07:04 03/22/25 07:09 Temperature 36.7 C Temperature Source Temporal Artery Scan Pulse Rate 61 65 Pulse Rate [Apical] Pulse Rate from SpO2 Sensor Respiratory Rate 18 Respiratory Effort / Characteristics Non-Labored Spontaneous Respiratory Depth Normal Respiratory Pattern Blood Pressure 199/80 H 198/89 H Blood Pressure [Right Arm] Blood Pressure Mean 119 144 Blood Pressure Mean [Right Arm] Pulse Oximetry 98 Oxygen Delivery Method Room Air Sepsis Recent Fever Within 48 Hours No Sepsis New/Unexplained Change in Mental Status No Sepsis Action Taken by Nursing No Action Required 03/22/25 07:15 03/22/25 07:21 03/22/25 07:22 Temperature Temperature Source Pulse Rate Pulse Rate [Apical] 63 Pulse Rate from SpO2 Sensor Respiratory Rate 18 Respiratory Effort / Characteristics Non-Labored Spontaneous Respiratory Depth Normal Respiratory Pattern Regular Blood Pressure 181/89 H Blood Pressure [Right Arm] 181/69 H Blood Pressure Mean 152 Blood Pressure Mean [Right Arm] 106 Pulse Oximetry 99 Oxygen Delivery Method Room Air Room Air Sepsis Recent Fever Within 48 Hours Sepsis New/Unexplained Change in Mental Status Sepsis Action Taken by Nursing 03/22/25 07:43 03/22/25 07:46 03/22/25 07:46 Temperature Temperature Source Pulse Rate Pulse Rate [Apical] Pulse Rate from SpO2 Sensor Respiratory Rate Respiratory Effort / Characteristics Respiratory Depth Respiratory Pattern Blood Pressure 148/71 H 147/66 H 147/66 H Blood Pressure [Right Arm] Blood Pressure Mean 113 101 101 Blood Pressure Mean [Right Arm] Pulse Oximetry Oxygen Delivery Method Sepsis Recent Fever Within 48 Hours Sepsis New/Unexplained Change in Mental Status Sepsis Action Taken by Nursing 03/22/25 07:46 03/22/25 07:48 03/22/25 07:55 Temperature Temperature Source Pulse Rate 65 Pulse Rate [Apical] 62 Pulse Rate from SpO2 Sensor 65 Respiratory Rate 22 18 Respiratory Effort / Characteristics Non-Labored Spontaneous Respiratory Depth Normal Respiratory Pattern Regular Blood Pressure 147/66 H Blood Pressure [Right Arm] 147/66 H Blood Pressure Mean 101 Blood Pressure Mean [Right Arm] 93 Pulse Oximetry 95 99 Oxygen Delivery Method Room Air Sepsis Recent Fever Within 48 Hours Sepsis New/Unexplained Change in Mental Status Sepsis Action Taken by Nursing 03/22/25 07:57 03/22/25 08:00 03/22/25 08:06 Temperature Temperature Source Pulse Rate 61 65 Pulse Rate [Apical] Pulse Rate from SpO2 Sensor 60 64 Respiratory Rate 19 24 Respiratory Effort / Characteristics Respiratory Depth Respiratory Pattern Blood Pressure 145/75 H Blood Pressure [Right Arm] Blood Pressure Mean 111 Blood Pressure Mean [Right Arm] Pulse Oximetry 95 95 Oxygen Delivery Method Sepsis Recent Fever Within 48 Hours Sepsis New/Unexplained Change in Mental Status Sepsis Action Taken by Nursing 03/22/25 08:09 03/22/25 08:15 03/22/25 08:21 Temperature Temperature Source Pulse Rate 65 63 Pulse Rate [Apical] Pulse Rate from SpO2 Sensor 65 63 Respiratory Rate 21 22 Respiratory Effort / Characteristics Respiratory Depth Respiratory Pattern Blood Pressure 143/70 H Blood Pressure [Right Arm] Blood Pressure Mean 112 Blood Pressure Mean [Right Arm] Pulse Oximetry 94 95 Oxygen Delivery Method Sepsis Recent Fever Within 48 Hours Sepsis New/Unexplained Change in Mental Status Sepsis Action Taken by Nursing 03/22/25 08:24 03/22/25 08:30 03/22/25 08:45 Temperature Temperature Source Pulse Rate 63 Pulse Rate [Apical] Pulse Rate from SpO2 Sensor 63 Respiratory Rate 20 Respiratory Effort / Characteristics Respiratory Depth Respiratory Pattern Blood Pressure 143/69 H 141/68 H Blood Pressure [Right Arm] Blood Pressure Mean 103 94 Blood Pressure Mean [Right Arm] Pulse Oximetry 94 Oxygen Delivery Method Sepsis Recent Fever Within 48 Hours Sepsis New/Unexplained Change in Mental Status Sepsis Action Taken by Nursing 03/22/25 08:45 03/22/25 09:00 03/22/25 09:00 Temperature Temperature Source Pulse Rate 64 Pulse Rate [Apical] Pulse Rate from SpO2 Sensor 64 Respiratory Rate 17 Respiratory Effort / Characteristics Respiratory Depth Respiratory Pattern Blood Pressure 141/68 H 132/70 Blood Pressure [Right Arm] Blood Pressure Mean 94 93 Blood Pressure Mean [Right Arm] Pulse Oximetry 96 Oxygen Delivery Method Sepsis Recent Fever Within 48 Hours Sepsis New/Unexplained Change in Mental Status Sepsis Action Taken by Nursing See below. Constitutional WD/WN, vitals as above Eyes PERRL, conjunctivae normal, anicteric sclerae Respiratory normal respiratory effort, lungs clear to auscultation Cardiovascular RRR, no murmur, no edema Neurologic AO x 4, cranial nerves II through XII are intact, 5 out of 5 strength in the upper and lower extremities bilaterally, no sensation deficits noted in the lower extremity limbs of the face and extremities, visual acuity intact, no visual field cuts noted, minimal dysarthria, no aphasia, no dysmetria noted in all 4 limbs, NIH stroke scale of 1 Course Administered Medications Discontinued Medications Hydralazine HCl (Hydralazine Hcl 20 Mg/Ml Vial) 10 mg IV NOW STA Stop: 03/22/25 07:07 Last Admin: 03/22/25 07:15 Dose: 10 mg Documented By: COLLINS Acetaminophen (Ofirmev) 1,000 mg in 100 mls @ 400 mls/hr IV NOW STA Stop: 03/22/25 07:20 Last Infusion: 03/22/25 07:55 Dose: Infused Documented By: Admin: 03/22/25 07:15 Dose: 400 mls/hr Documented By: COLLINS Medical Decision Making Differential Diagnosis Hypertensive emergency, CVA, TIA, ICH, PRES Medical Records Attestation: I reviewed the patient's medical records. Home Medications Current Medication List: was personally reviewed by me Laboratory Data Attestation: I reviewed the patient's lab results. 03/22/25 07:15 03/22/25 07:15 Lab Results 03/22/25 Range/Units 07:15 WBC 9.38 (4.8-10.8) K/ul RBC 4.28 (4.20-5.40) M/uL Hgb 11.5 L (12.0-16.0) g/dl Hct 36.8 L (37.0-47.0) % MCV 86.0 (80.0-100.0) fL MCH 26.9 (25.0-34.0) pg MCHC 31.3 L (32.0-36.0) g/dL RDW Std Deviation 49.2 H (36.4-46.3) fL RDW Coeff of Ariel 15.8 H (11.5-14.5) % Plt Count 293 (130-400) K/uL MPV 10.2 (9.4-12.4) fL Immature Gran % (Auto) 1.3 % Neut % (Auto) 70.3 % Lymph % (Auto) 17.1 % [place] % (Auto) 7.8 % Eos % (Auto) 2.9 % Baso % (Auto) 0.6 % Neut # (Auto) 6.60 H (1.40-6.50) K/uL Lymph # (Auto) 1.60 (1.20-3.40) K/uL [place] # (Auto) 0.73 H (0.11-0.59) K/uL Eos # (Auto) 0.27 (0.00-0.50) K/uL Baso # (Auto) 0.06 (0.00-0.20) K/uL Immature Gran # (Auto) 0.12 (0.01-0.20) K/uL PT 9.9 (9.0-12.0) Seconds INR 0.9 (0.9-1.1) APTT 21 (21-31) Seconds PTT Ratio 0.8 Sodium 145 (136-145) mmol/L Potassium 3.2 L (3.5-5.1) mmol/L Chloride 109 H (98-107) mmol/L Carbon Dioxide 26 (21-32) mmol/L Anion Gap 10 (3-11) BUN 40 H (6-23) mg/dl Creatinine 0.95 (0.6-1.2) mg/dl Est Cr Clr Drug Dosing 45.4 ml/min eGFR 62.87 BUN/Creatinine Ratio 42.1 H (10-20) Glucose 215 H (70-99(Fasting)) mg/dl Calcium 9.2 (8.6-10.3) mg/dl Total Bilirubin 0.4 (0.2-1.0) mg/dl AST 21 (13-39) U/L ALT 28 (7-52) U/L Alkaline Phosphatase 152 H (34-104) U/L Troponin I High Sens 12.0 (0-14) pg/ml Total Protein 6.7 (6.0-8.3) gm/dl Albumin 3.6 (3.4-5.0) gm/dl Globulin 3.1 (2.5-4.0) gm/dl Albumin/Globulin Ratio 1.2 (0.9-2) Imaging Data Radiologist's Impression: Head CT 03/22/25 07:06 EXAM: CT head/brain wo con CLINICAL HISTORY: Headach recent CVA TECHNIQUE: Axial non-contrast CT scan of the brain was performed from the skull base to the high parietal region. One of the following dose reduction techniques was utilized for this exam: automated exposure control, adjustment of the mA and/or kV according to patient size, or use of iterative reconstruction. CTDI: 39.03 mGy, DLP: 625.80 mGy·cm. COMPARISON: Prior scan dated 02/13/2025 was reviewed. FINDINGS: Brain Parenchyma: No acute territorial infarct or hemorrhage is detected. The previously noted left basal ganglia hemorrhage is not visualized on the current examination. Bilateral periventricular mild microvascular ischemic changes are again demonstrated. Global involutional brain changes, with deepening of the cortical sulci and prominence of the sylvian fissure, are again observed. Ventricular System: The ventricles are prominent. Cerebellum and Brainstem: No masses, lesions, or areas of abnormal density are identified. Orbits: There is a normal appearance of the globes, optic nerves, and extraocular muscles. There is no evidence of orbital masses or abnormal density. Sinuses: The nasal septum is mildly deviated. The paranasal sinuses are clear. There is no evidence of sinusitis or mucosal thickening. Mastoid Air Cells: The mastoid air cells are clear. There is no evidence of mastoiditis. Skull: Normal skull morphology. IMPRESSION: 1. No acute territorial infarct or hemorrhage is detected. 2. The previously noted left basal ganglia hemorrhage is not visualized; interval resolution. 3. Age-related involutional changes and chronic microvascular ischemic changes, unchanged. 4. MRI with DWI may be considered to rule out acute ischemic infarct if clinically indicated. Electronically signed by Mustapha Page 03-22-2025 08:57 AM ECG Data Attestation: I personally reviewed and interpreted this ECG as follows: Indication: + other (HTN ) Rate (beats per minute): 62 Rhythm: + sinus rhythm ECG Intervals/blocks: + Right Bundle branch block, + Normal QT and + Normal IN ECG Juliette: + Normal ECG ST segments: + Normal ST segments and + T-wave inversions Comparison ECG Date: from (02/13/2025) Change: no significant change MDM Narrative Patient is a 75-year-old female presenting today with headache and hypertension. Recent hemorrhagic CVA in January. No new focal neurologic deficits noted on my examination. Patient is not a candidate for thrombolytics due to recent intracerebral hemorrhage. No evidence of large vessel occlusion on my examination. CT of the head was repeated which showed resolution of her prior hemorrhagic stroke. No new acute findings noted on CT. No evidence of endorgan damage on lab work today. Initial blood pressure Here in the emergency department of 190/80. Repeat 5 minutes later unchanged meeting criteria for hypertensive emergency. Patient was given a dose of IV hydralazine which helped control her blood pressure. On reevaluation her headache has improved significantly. Serial neurologic exams are intact. Plan to admit for management of uncontrolled hypertension and frequent neurochecks in the setting of her recent ICH. Impression & Plan Hypertensive emergency Discharge Plan Visit Data Chief Complaint: Stroke/CVA Symptoms Stated Complaint: SEEING DOUBLE,HX OF STROKE,HIGH BP ED Provider: Shyam Leary Discharge Problem: Hypertensive emergency Patient Disposition: Admitted As Inpatient Condition: Good Forms Stand Alone Forms: My [facility] Prescriptions Prescriptions: No Action aspirin 81 mg Tablet,Delayed Release (Dr/Ec) 81 mg PO HS Qty: 0 (DME) blood-glucose meter [CardStaruch Verio IQ Meter] Kit See Rx Instructions .ROUTE .MEDSUPPLY Qty: 1 0RF Rx Instructions: Use to test blood sugar 5 times daily (insulin dependent) (DME) lancets [OneTouch Delica [facility]ets] [facility] See Rx Instructions .ROUTE .MEDSUPPLY Qty: 100 0RF Rx Instructions: Use to test blood sugar 5 times daily (insulin dependent) insulin aspart U-100 [Novolog FlexPen U-100 Insulin] 100 unit/mL (3 mL) insulin pen See Rx Instructions SC DIRECTED MDD 50 units Qty: 45 3RF Rx Instructions: Take with meals as directed by physician plus sliding scale as needed. Max daily dose 50 units. (DME) Wheeled Walker [facility] [place] See Rx Instructions .Route Qty: 1 0RF Rx Instructions: Seated walker As directed Drive folding smaller walker levothyroxine [Synthroid] 88 mcg tablet 88 mcg PO DAILY Qty: 90 3RF Rx Instructions: with a glass of water on an empty stomach. Wait 30 minutes to eat (DME) Walking Cane [facility] [place] See Rx Instructions .Route Qty: 1 0RF Rx Instructions: As directed (DME) pen needle, diabetic [Easy Comfort Pen Houghton] 33 gauge x 1/4" needle See Rx Instructions .Route Qty: 100 5RF Rx Instructions: As directed 4 times daily (DME) OneTouch Verio test strips Strip See Rx Instructions .ROUTE .MEDSUPPLY Qty: 150 11RF Rx Instructions: Use to test blood sugar 5 times daily (insulin dependent) sertraline 100 mg tablet 100 mg PO DAILY amlodipine 10 mg tablet 10 mg PO DAILY Patient Comments: 03/21- 5 mg last filled 02/09 5 day supply #5; 10 mg last filled 11/09 100 day supply #100 furosemide [Lasix] 20 mg tablet 0 mg PO Q OTHER DAY Patient Comments: per daughter there is plan to restart medication cholecalciferol (vitamin D3) 125 mcg (5,000 unit) capsule 125 mcg PO DAILY insulin glargine [Lantus Solostar U-100 Insulin] 100 unit/mL (3 mL) insulin pen 11 unit subcut HS acetaminophen [Tylenol Ex Str Rapid Release] 500 mg Tablet 500 mg PO DIRECTED PRN (Reason: Pain) hydralazine 10 mg tablet 10 mg PO Q6H PRN (Reason: Hypertension) nifedipine 30 mg tablet extended release 30 mg PO DAILY hydrochlorothiazide 25 mg tablet 50 mg PO DAILY omeprazole 20 mg capsule,delayed release(DR/EC) 20 mg PO DAILY budesonide 3 mg capsule,delayed,extend.release 6 mg PO DAILY Rx Instructions: pt will drop down to 1 capsule soon losartan 100 mg tablet 100 mg PO DAILY mirtazapine 7.5 mg tablet 7.5 mg PO HS Repatha SureClick 140 mg/mL pen injector 140 mg SUBCUT UD Entyvio Pen 108 mg/0.68 mL Pen Injector 108 mg SUBCUT .[id number] Referrals Referrals: Yohana Bull DO [Primary Care Provider] -
[2025-03-22] MEDS: ACETAMINOPHEN 1,000 MG/100 ML VIAL IV STA (07:15)
[2025-03-22 07:32] LABS: Hematocrit (blood only) 36.8 % (37.0-47.0); Hemoglobin 11.5 g/dl (12.0-16.0); Immature Granulocytes # (auto) 0.12 K/uL (0.01-0.20); Immature Granulocytes % (auto) 1.3 %; Mean Corpuscular Hemoglobin 26.9 pg (25.0-34.0); Mean Corpuscular Volume 86.0 fL (80.0-100.0); Platelet Count 293 K/uL (130-400); RDW Standard Deviation 49.2 fL (36.4-46.3); Red Blood Count 4.28 M/uL (4.20-5.40); White Blood Count 9.38 K/ul (4.8-10.8)
[2025-03-22 07:49] LABS: Alanine Aminotransferase 28.0 U/L (7-52); Albumin Globulin Ratio 1.2 (0.9-2); Albumin Level 3.6 gm/dl (3.4-5.0); Alkaline Phosphatase 152.0 U/L (34-104); Anion Gap 10.0 (3-11); Bilirubin,Total 0.4 mg/dl (0.2-1.0); Blood Urea Nitrogen 40.0 mg/dl (6-23); Calcium 9.2 mg/dl (8.6-10.3); Carbon Dioxide 26.0 mmol/L (21-32); Chloride 109.0 mmol/L (98-107); Creatinine Clr Calc Pharmacy 45.4 ml/min; Globulin 3.1 gm/dl (2.5-4.0); Glucose 215.0 mg/dl (70-99(Fasting)); Potassium 3.2 mmol/L (3.5-5.1); Sodium 145.0 mmol/L (136-145); Total Protein 6.7 gm/dl (6.0-8.3)
[2025-03-22 08:17] LABS: INR 0.9 (0.9-1.1); Partial Thromboplastin Time 21 Seconds (21-31); Prothrombin Time 9.9 Seconds (9.0-12.0)
--- NOTE | 2025-03-22 08:58 | CT Scan Report ---
EXAM: CT head/brain wo con CLINICAL HISTORY: Headach recent CVA TECHNIQUE: Axial non-contrast CT scan of the brain was performed from the skull base to the high parietal region. One of the following dose reduction techniques was utilized for this exam: automated exposure control, adjustment of the mA and/or kV according to patient size, or use of iterative reconstruction. CTDI: 39.03 mGy, DLP: 625.80 mGy·cm. COMPARISON: Prior scan dated 02/13/2025 was reviewed. FINDINGS: Brain Parenchyma: No acute territorial infarct or hemorrhage is detected. The previously noted left basal ganglia hemorrhage is not visualized on the current examination. Bilateral periventricular mild microvascular ischemic changes are again demonstrated. Global involutional brain changes, with deepening of the cortical sulci and prominence of the sylvian fissure, are again observed. Ventricular System: The ventricles are prominent. Cerebellum and Brainstem: No masses, lesions, or areas of abnormal density are identified. Orbits: There is a normal appearance of the globes, optic nerves, and extraocular muscles. There is no evidence of orbital masses or abnormal density. Sinuses: The nasal septum is mildly deviated. The paranasal sinuses are clear. There is no evidence of sinusitis or mucosal thickening. Mastoid Air Cells: The mastoid air cells are clear. There is no evidence of mastoiditis. Skull: Normal skull morphology. IMPRESSION: 1. No acute territorial infarct or hemorrhage is detected. 2. The previously noted left basal ganglia hemorrhage is not visualized; interval resolution. 3. Age-related involutional changes and chronic microvascular ischemic changes, unchanged. 4. MRI with DWI may be considered to rule out acute ischemic infarct if clinically indicated. Electronically signed by Mustapha Page 03-22-2025 08:57 AM
--- NOTE | 2025-03-22 09:40 | History & Physical Report ---
Date of Service March 22, 2025 Assessment & Plan (1) Hypertensive urgency: (2) Stroke-like symptoms: (3) History of hemorrhagic cerebrovascular accident (CVA) with residual deficit: (4) Hypokalemia: Plan Patient is a 75-year-old female with past medical history significant for left basal ganglia hemorrhagic CVA likely secondary to HTN in January 2025, cerebral artery disease, DM type II with diabetic peripheral angiopathy, hypothyroidism, HLD, cyst of pancreas, HTN, atherosclerosis of aorta, grade 1 DD, mild MR, Crohn's disease, hepatic steatosis, duodenal diverticulum, urinary incontinence, bilateral renal cyst, cervical DDD, primary osteoarthritis of both knees, BPPV, bilateral hearing loss, mild dementia, PTSD and depression who presented to the ED this morning with complaints of intermittent headache, diplopia, lightheadedness and HTN. HTN urgency Stroke-like symptoms Presented with c/o intermittent LUU, diplopia, lightheadedness and HTN. On losartan 100mg, nifedipine 30mg daily and HCTZ 25mg daily. Recorded BP at home around 5 AM this morning of 200/117. Reportedly patient took 60mg nifedipine this morning, unclear if she took her losartan and HCTZ. BP was elevated at 199/80 upon arrival to the ED. BP at the time of our evaluation was 102/54 s/p 10mg IV hydralazine in ED. Patient has been experiencing diplopia and intermittent headaches since her CVA last month - NOT NEW. Lightheadedness was new this AM but resolved at the time of our evaluation in the ED. No reported falls or trauma. Head CT with interval resolution of previously noted left basal ganglia hemorrhage, no acute territorial infarct or hemorrhage detected. Will obtain updated brain MRI, TTE (does not appear this was previously completed so will do so for completion of full CVA w/u), lipid panel/A1c. Appreciate routine neurology consult. Will continue losartan and nifedipine tentatively in the AM, hold HCTZ for now. Closely monitor BP trend. Goal systolic BP <160mmHg as previously noted by neurology. Recent left basal ganglia hemorrhagic CVA likely 2/2 HTN on 02/13/2025 with residual expressive aphasia Previously presented to [facility] ED on 02/13/2025 with diplopia and intermittent headaches. Head CT revealed an acute parenchymal hemorrhage within the left basal ganglia c/w hemorrhagic CVA at that time. Was transferred to [facility] for further management. Admitted at [facility] 02/13/2025-02/17/2025. Repeat head CT revealed stable burden of small volume intraparenchymal hemorrhage in the left basal ganglia with no significant mass effect on 02/13/2025. Brain MRI on 02/14/2025 revealed similar size and appearance of the left basal ganglia hemorrhage. Blood pressure was well-controlled and remained stable. Goal systolic BP <160mmHg as outlined per neurology. Was discharged to rehab, [facility], on following antiHTN regimen: losartan 100 mg daily, nifedipine 30 mg daily and HCTZ 25 mg daily. Neurology suspected HTN was likely cause for IPH. Did not require any surgical intervention. Recently returned back home from [facility] a few days ago. Lives with mixer blender who assists with ADLs. Recommended follow-up within 6 to 8 weeks in the neurology clinic. A follow-up postcontrast MRI brain in 8-12 weeks was also recommended to exclude underlying lesion. Updated brain MRI pending as per above. Hypokalemia Repleted via p.o. in the ED. Continue to monitor and replete as needed. Hyperglycemia Insulin-dependent DMII Hemoglobin A1c pending as per above. Basal bolus insulin regimen ordered, monitor BSG checks ACHS. Appreciate glycemic pharmacy assistance with insulin management. Other chronic medical conditions: GERD - Continue PPI. Hypothyroidism - Continue levothyroxine. Mood disorder - Continue Zoloft. Crohn's disease - Recently completed budesonide taper course last month, appears now well-controlled. On Entyvio as an outpatient. DVT Prophylaxis: SCDs/TEDs only, avoiding chemical AC given her recent hemorrhagic CVA Code Status: FULL CODE PCP: Yohana Bull DO Disposition: Observation in PCU Patient seen in collaboration with Dr. Adorno. Please see addendum. I spent a total of 80 minutes coordinating, documenting, and providing care for this patient excluding time spent in the performance of separately billed services or time spent by another provider/QHP. This included personally reviewing all current laboratories and imaging studies, medical reconciliation, outpatient chart review and discussion with specialists. This chart was completed in part utilizing Speech Voice Recognition Software. Grammatical errors, random word insertions, pronoun errors, and incomplete sente nces are an occasional consequence of this system due to software limitations, ambient noise, and hardware issues. Any formal questions or concerns about the content, text, or information contained within the body of this dictation should be directly addressed to the provider for clarification. History of Present Illness Chief Complaint: Headache, lightheadedness and HTN Primary Care Provider: Yohana Bull DO Patient is a 75-year-old female with past medical history significant for left basal ganglia hemorrhagic CVA likely secondary to HTN in January 2025, cerebral artery disease, DM type II with diabetic peripheral angiopathy, hypothyroidism, HLD, cyst of pancreas, HTN, atherosclerosis of aorta, grade 1 DD, mild MR, Crohn's disease, hepatic steatosis, duodenal diverticulum, urinary incontinence, bilateral renal cyst, cervical DDD, primary osteoarthritis of both knees, BPPV, bilateral hearing loss, mild dementia, PTSD and depression who presented to the ED this morning with complaints of headache, diplopia, lightheadedness and HTN. History obtained from the patient, discussion with ED provider and associated chart review. Patient seen at bedside in the ED with Dr. Adorno. Patient presented to [facility] ED on 02/13/2025 with diplopia and intermittent headaches. Head CT unfortunately revealed an acute parenchymal hemorrhage within the left basal ganglia c/w hemorrhagic CVA. Was placed on nicardipine infusion to keep SBP<160mmHg and transferred to [facility] for further evaluation by neurosurgical services. Admitted at [facility] 02/13/2025-02/17/2025. Repeat head CT revealed stable burden of small volume intraparenchymal hemorrhage in the left basal ganglia with no significant mass effect on 02/13/2025. Brain MRI on 02/14/2025 revealed similar size and appearance of the left basal ganglia hemorrhage. Blood pressure was well-controlled and remained stable with goal systolic blood pressure <160mmHg on the following antihypertensive regimen: losartan 100 mg daily, nifedipine 30 mg daily and HCTZ 25 mg daily. Neurology suspected HTN was likely cause for IPH. Recommended follow-up within 6 to 8 weeks in the neurology clinic. PT/OT recommended inpatient rehab. Patient was discharged to [facility]. Recently got home from [facility] a few days ago. Lives with a mixer blender who helps take care of her. Also has children whom visit occasionally. Mentions that she has home PT/OT and [employer] services arranged, unclear who she is receiving these service through. Diplopia and intermittent headaches have never resolved since having her CVA last month. Feel unchanged compared to prior. Reportedly woke up around 5 AM this morning and noticed her BP was 200/117. She took 2 doses of her nifedipine at that time, equating out to 60mg. Unsure if she took her other antihypertensive medications this morning including her HCTZ and losartan. Feels speech is "slower" since her CVA last month. No reported extremity deficits or paraesthesias. Having some mild neck stiffness when turning head side to side, no reported pain with this. Unclear when this started. Also with some mild lightheadedness which began this morning upon waking. 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 No reported facial drooping. Not currently on any blood thinning agents. BP 102/54, HR 64, O2 sat 96% on RA, RR 18 at the time of our evaluation shortly before 11 AM. Allergies Allergy/AdvReac Type Severity Reaction Status Date / Time bee venom protein (honey bee) Allergy Severe Anaphylaxis Verified 02/13/25 17:02 latex Allergy Mild REDNESS, Verified 02/13/25 17:02 HURTS atorvastatin AdvReac Severe Joint Pain Verified 02/13/25 17:02 Home Medications Medication Instructions Recorded Confirmed Type blood-glucose meter (Blue BoxTouch #1 ea 04/12/20 03/22/25 Rx Verio IQ Meter kit) lancets 33 gauge (OneTouch Delica #100 ea 04/12/20 03/22/25 Rx Lancets) insulin aspart U-100 100 unit/mL See Rx Instructions SC DIRECTED 06/27/21 03/22/25 Rx (3 mL) subcutaneous pen (Novolog #45 mL FlexPen U-100 Insulin aspart) Wheeled Walker #1 ea 12/17/21 03/22/25 Rx Walking Cane #1 ea 02/05/22 03/22/25 Rx pen needle, diabetic 33 gauge x #100 ea 03/18/22 03/22/25 Rx 1/4" (Easy Comfort Pen [place]) blood sugar diagnostic (OneTouch #150 ea 06/22/22 03/22/25 Rx Verio test strips) insulin glargine 100 unit/mL (3 9 unit subcut HS 08/22/22 03/22/25 History mL) subcutaneous pen (Lantus Solostar U-100 Insulin) cholecalciferol (vitamin D3) 125 125 mcg PO DAILY 11/05/23 03/22/25 History mcg (5,000 unit) capsule sertraline 100 mg tablet 100 mg PO QAM 11/05/23 03/22/25 History evolocumab 140 mg/mL subcutaneous See Rx Instructions .Route .COMPLEX 02/13/25 03/22/25 History pen injector (Repatha SureClick) losartan 100 mg tablet 100 mg PO QAM 02/13/25 03/22/25 History omeprazole 20 mg capsule,delayed 20 mg PO QAM 02/13/25 03/22/25 History release vedolizumab 108 mg/0.68 mL 108 mg subcut .[id number] 02/13/25 03/22/25 History subcutaneous pen injector (Entyvio Pen) hydrochlorothiazide 25 mg tablet 25 mg PO QAM 03/22/25 03/22/25 History levothyroxine 88 mcg tablet 88 mcg PO DAILYBB 03/22/25 03/22/25 History (Synthroid) nifedipine 30 mg tablet,extended 30 mg PO QAM 03/22/25 03/22/25 History release Past Med/Surg History Problem List History of hemorrhagic cerebrovascular accident (CVA) with residual deficit Stroke-like symptoms Hypertensive urgency Hypertensive emergency (Acute) Abnormal EKG Right bundle branch block Bradycardia Terminal ileitis Abnormal computed tomography of abdomen and pelvis Enterocolitis Epigastric abdominal pain (Acute) Partial small bowel obstruction (Acute) Hypoxia (Acute) Crohn's disease Osteoarthritis of right knee Myoclonic jerking Hyperlipidemia (Chronic) Hypertension (Chronic) Depression (Chronic) Post traumatic stress disorder (Chronic) Diabetes mellitus, type 2 (Chronic) Hypothyroidism (Chronic) Fatty liver disease, nonalcoholic (Chronic) Kidney stones (Chronic) Chronic back pain (Chronic) Osteoarthritis (Chronic) Neuropathy of foot (Chronic) Vitamin D deficiency (Chronic) Vertebral artery stenosis (Chronic) Right. 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 Grandmother (Maternal) Cancer Denies family history of Ovarian cancer Prostate cancer Myocardial infarction Breast cancer Lung cancer Colorectal cancer Social History Smoking Status: Never smoker Second Hand Exposure: No; Do You Dip or Chew Tobacco: No; Hx Alcohol Use: No Hx Substance Use: No Preferred Language: Kittitian Communication Ability: Effective Visual Impairment: No Limitations Hearing Ability: Hard of Hearing Room Service Bellhop Required: No Beliefs That Will Affect Care: None marital status: Single Current Living Situation: Alone current occupational status: employed and retired 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 Physical Exam Physical Exam: Please refer to Dr. Adorno's addendum for physical examination findings. Results & Data Results & Data Vital Signs (Past 12 Hours) Vital Signs Temp Pulse Pulse Resp BP BP Pulse Ox 03/22/25 09:00 64 17 96 03/22/25 09:00 132/70 03/22/25 08:45 141/68 H 03/22/25 08:45 141/68 H 03/22/25 08:30 143/69 H 03/22/25 08:24 63 20 94 03/22/25 08:21 63 22 95 03/22/25 08:15 143/70 H 03/22/25 08:09 65 21 94 03/22/25 08:06 65 24 95 03/22/25 08:00 145/75 H 03/22/25 07:57 61 19 95 03/22/25 07:55 62 18 147/66 H 99 03/22/25 07:48 65 22 95 03/22/25 07:46 147/66 H 03/22/25 07:46 147/66 H 03/22/25 07:46 147/66 H 03/22/25 07:43 148/71 H 03/22/25 07:22 63 18 181/69 H 99 03/22/25 07:21 03/22/25 07:15 181/89 H 03/22/25 07:09 65 03/22/25 07:04 198/89 H 03/22/25 06:50 36.7 C 61 18 199/80 H 98 O2 Del Method 03/22/25 09:00 03/22/25 09:00 03/22/25 08:45 03/22/25 08:45 03/22/25 08:30 03/22/25 08:24 03/22/25 08:21 03/22/25 08:15 03/22/25 08:09 03/22/25 08:06 03/22/25 08:00 03/22/25 07:57 03/22/25 07:55 Room Air 03/22/25 07:48 03/22/25 07:46 03/22/25 07:46 03/22/25 07:46 03/22/25 07:43 03/22/25 07:22 Room Air 03/22/25 07:21 Room Air 03/22/25 07:15 03/22/25 07:09 03/22/25 07:04 03/22/25 06:50 Room Air Laboratory Results Short CBC 03/22/25 Range/Units 07:15 WBC 9.38 (4.8-10.8) K/ul Hgb 11.5 L (12.0-16.0) g/dl Hct 36.8 L (37.0-47.0) % Plt Count 293 (130-400) K/uL BMP 03/22/25 07:15 Sodium 145 Potassium 3.2 L Chloride 109 H Carbon Dioxide 26 BUN 40 H Creatinine 0.95 Glucose 215 H Calcium 9.2 Liver Function 03/22/25 Range/Units 07:15 Total Bilirubin 0.4 (0.2-1.0) mg/dl AST 21 (13-39) U/L ALT 28 (7-52) U/L Alkaline Phosphatase 152 H (34-104) U/L Albumin 3.6 (3.4-5.0) gm/dl Diagnostic Findings Head CT 03/22/25 07:06 EXAM: CT head/brain wo con CLINICAL HISTORY: Headach recent CVA TECHNIQUE: Axial non-contrast CT scan of the brain was performed from the skull base to the high parietal region. One of the following dose reduction techniques was utilized for this exam: automated exposure control, adjustment of the mA and/or kV according to patient size, or use of iterative reconstruction. CTDI: 39.03 mGy, DLP: 625.80 mGy·cm. COMPARISON: Prior scan dated 02/13/2025 was reviewed. FINDINGS: Brain Parenchyma: No acute territorial infarct or hemorrhage is detected. The previously noted left basal ganglia hemorrhage is not visualized on the current examination. Bilateral periventricular mild microvascular ischemic changes are again demonstrated. Global involutional brain changes, with deepening of the cortical sulci and prominence of the sylvian fissure, are again observed. Ventricular System: The ventricles are prominent. Cerebellum and Brainstem: No masses, lesions, or areas of abnormal density are identified. Orbits: There is a normal appearance of the globes, optic nerves, and extraocular muscles. There is no evidence of orbital masses or abnormal density. Sinuses: The nasal septum is mildly deviated. The paranasal sinuses are clear. There is no evidence of sinusitis or mucosal thickening. Mastoid Air Cells: The mastoid air cells are clear. There is no evidence of mastoiditis. Skull: Normal skull morphology. IMPRESSION: 1. No acute territorial infarct or hemorrhage is detected. 2. The previously noted left basal ganglia hemorrhage is not visualized; interval resolution. 3. Age-related involutional changes and chronic microvascular ischemic changes, unchanged. 4. MRI with DWI may be considered to rule out acute ischemic infarct if clinically indicated. Electronically signed by Mustapha Page 03-22-2025 08:57 AM Medications Administered Discontinued Medications Hydralazine HCl (Hydralazine Hcl 20 Mg/Ml Vial) 10 mg IV NOW STA Stop: 03/22/25 07:07 Last Admin: 03/22/25 07:15 Dose: 10 mg Documented By: COLLINS Acetaminophen (Ofirmev) 1,000 mg in 100 mls @ 400 mls/hr IV NOW STA Stop: 03/22/25 07:20 Last Infusion: 03/22/25 07:55 Dose: Infused Documented By: Admin: 03/22/25 07:15 Dose: 400 mls/hr Documented By: COLLINS Supervising Physician Co-Signing Physician Notes Pt seen and examined by me, care coordinated w/ BDamon Espinosa PA-C, pls refer to her note above for further detail. Pt is a 75 yo F female with history significant for left basal ganglia hemorrhagic CVA likely secondary to HTN in January 2025, cerebral artery disease, DM type II with diabetic peripheral angiopathy, hypothyroidism, HLD, cyst of pancreas, HTN, atherosclerosis of aorta, grade 1 DD, mild MR, Crohn's disease, hepatic steatosis, duodenal diverticulum, urinary incontinence, bilateral renal cyst, cervical DDD, primary osteoarthritis of both knees, BPPV, bilateral hearing loss, mild dementia, PTSD and depression who presented to the ED this morning with complaints of headache, lightheadedness and HTN. Patient presented to [facility] ED on 02/13/2025 with diplopia and intermittent headaches. Head CT c/w acute parenchymal hemorrhage within the left basal ganglia c/w hemorrhagic CVA. Was placed on nicardipine infusion to keep SBP<160mmHg and transferred to [facility] for further evaluation by neurosurgical services. Admitted at [facility] 02/13/2025-02/17/2025. Repeat hea d CT revealed stable burden of small volume intraparenchymal hemorrhage in the left basal ganglia with no significant mass effect on 02/13/2025. Brain MRI on 02/14/2025 revealed similar size and appearance of the left basal ganglia hemorrhage. Blood pressure was well-controlled and remained stable with goal systolic blood pressure <160mmHg on the following antihypertensive regimen: losartan 100 mg daily, nifedipine 30 mg daily and HCTZ 25 mg daily. Neurology suspected HTN was likely cause for IPH. Currently pt is sitting up in bed NAD. She is awake, alert and answers appropriately. Speech is slow, with some expressive aphasia but pt can provide history. Confirms LUU and diplopia since her stroke. Denies chest pain or shortness of breath. Denies abdominal pain. She is moving extremities. Lungs are clear to auscultation, heart sounds regular. Abdomen is soft, nontender but distended - pt reports it's chronically distenteded BP 102/54, HR 64, O2 sat 96% on RA, RR 18 at the time of our evaluation shortly before 11 AM. Tried to confirm what BP meds she took this AM. She says she has medication containers at home, but could not say what exactly she took/ if she took all of her BP meds. She received 10 mg of IV hydralazine in ED as in ED she presented w/ BP 199/80. Will closely monitor pt on tele, and closely monitor BP. Will further discuss w/ neurology. MD Tila
[2025-03-22] MEDS ORDERED: POTASSIUM CHLORIDE CRTAB 20 MEQ TABCR PO STA (10:21)
[2025-03-22] MEDS ORDERED: GLUCOSE 10 TAB/TUBE PO PRN (10:44)
[2025-03-22] MEDS ORDERED: DEXTROSE 50% 50 ML SYRINGE IV PRN (10:44)
[2025-03-22] MEDS ORDERED: CARBOHYDRATES FOR HYPOGLYCEMIA PO PRN (10:44)
[2025-03-22] MEDS ORDERED: MAGNESIUM HYDROXIDE SUSP 30 ML UDC PO PRN (10:44)
[2025-03-22] MEDS ORDERED: GLUCOSE 40% GEL 15 GM TUBE PO PRN (10:44)
[2025-03-22] MEDS ORDERED: ACETAMINOPHEN 325 MG TAB PO PRN (10:44)
[2025-03-22] MEDS ORDERED: ONDANSETRON INJ 2 MG/ML 2 ML VIAL IV PRN (10:44)
[2025-03-22] MEDS ORDERED: PHARMACY GLYCEMIC MGMT CONSULT PRN (10:44)
[2025-03-22] MEDS ORDERED: GLUCAGON FOR INJ 1 MG VIAL SQ PRN (10:44)
[2025-03-22] MEDS ORDERED: PHARMACIST DISCHARGE MED REC CONSULT PRN (10:44)
[2025-03-22] MEDS ORDERED: POLYETHYLENE (MIRALAX) 17 GM PACK PO PRN (10:44)
--- NOTE | 2025-03-22 11:17 | Pharmacy Report ---
Pharmacy Glycemic Short Note 2 - Date of Service March 22, 2025 - Glycemic Short BSG Results (Last 24 hours): 03/22/25 07:15 Glucose 215 H 03/22/25 13:19 POC Glucose 205 H OUTPATIENT ANTIDIABETIC REGIMEN: * Lantus 9 units HS * NovoLog 1-4 units SSI * A1c: 7.8% 08/23/22 - updated A1c pending ASSESSMENT: * 75 YO F PMH left basal ganglia hemorrhagic CVA likely secondary to HTN in January 2025, presenting with HTN and headache today, type 2 DM. * Will continue basal bolus insulin as inpatient, patient uses small amounts of insulin (TDD < 25 units/day) and titrate to goal blood sugar. PLAN FOR INPATIENT GLYCEMIC CONTROL: * Basal insulin * Lantus 0-9 units SQ HS (0 units BSG < 100, 5 units BSG 100-180, 9 units BSG > 180) * Bolus insulin * NovoLog per scale ACHS or Q6hrs while NPO * Goal Range: Low 110 mg/dL - High 140 mg/dL * Correction Factor: 35 mg/dL/unit * Nutritional / Prandial insulin per carb ratio of 1 unit per 11 grams CHO consumed
[2025-03-22 11:53] LABS: Magnesium 1.8 mg/dl (1.7-2.4)
--- NOTE | 2025-03-22 12:34 | Magnetic Resonance Report ---
MRI OF THE BRAIN WITHOUT IV CONTRAST CLINICAL HISTORY: Hypertension. Headaches. History of basal ganglia hemorrhage. COMPARISON STUDY: Head CT dated 03/22/2025 and 02/13/2025, MRI the brain dated 12/04/2021 TECHNIQUE: MRI of the brain was performed utilizing various T1 and T2-weighted sequences in the axial , sagittal, and coronal planes. IV contrast was not administered for this examination. FINDINGS: No intra or extra-axial mass lesions are visualized. The visualized portions the upper cervical spinal cord is unremarkable in appearance. There is mild a nterior subluxation of C4 on C5 likely degenerative. Axial diffusion-weighted images reveal no evidence of acute or subacute infarction. There are foci of susceptibility artifact within the left basal ganglia. This corresponds to a focus of decreased T2 signal. This was in the area of prior hemorrhage and is consistent with hemosiderin d eposition. There is also a 3 mm focus of susceptibility artifact within the right basal ganglia, also likely related to a remote hemorrhage. There are no corresponding findings on the T2-weighted images . FLAIR images reveal scattered foci of increased signal within the periventricular white matter, likel y small vessel basis. Incidental note is made of prominent perivascular spaces. There is a tiny focus of increased T2 signal within the right mastoid likely inflammatory. IMPRESSION: 1. No acute intracranial findings 2. No evidence of acute or subacute infarction 3. Interval resolution of the previously identified left basal ganglia hemorrhage with post hemorrhag e hemosiderin deposition 4. Tiny focus of susceptibility artifact within the right basal ganglia likely secondary to a remote hemorrhage ACT 112: Negative or not required by law. Electronically signed by: Anton Perez M.D. 03/22/2025 12:33 PM
[2025-03-22] MEDS: POTASSIUM CHLORIDE CRTAB 20 MEQ TABCR PO ONE (13:18)
[2025-03-22] MEDS: Nursing to Pharmacy Communication SCH (13:21)
[2025-03-22] MEDS: INSULIN ASPART PER UNIT CHARGE SC SCH (13:59)
--- NOTE | 2025-03-22 14:26 | Neurology Consultation ---
Date of Consultation March 22, 2025 Assessment & Plan (1) History of hemorrhagic cerebrovascular accident (CVA) with residual deficit: -CTH personally reviewed and no residual blood product -MRI brain personally reviewed with some hemosiderin deposition -Maintain SBP 100-130 to prevent recurrent bleed (2) Headache due to hypertension: Headache also due to reabsorbing hemorrhage. Patient reports 3/10 pain at present. -Recommend gabapentin 100 mg TID PRN for headache. -Patient was advised to avoid ibuprofen and NSAIDs as this can increase bleed risk -please call neurology if this does not improve patient headache and we can trial a migraine cocktail -patient was advised to keep blood pressure within target range SBP < 130 to avoid headache and bleed -pateint agrees to check blood pressure at home -I wonder if patient would benefit from home health to help monitor blood pressure and medication management I discussed my recommendations with Dr. Alfredo Adorno. Thank you for this consult. Please call with questions. Telehealth Consultation Telehealth Information Telehealth Information: I performed this visit using a real-time telehealth connection between my lo cation and the patients originating location ([facility]). After connecting through interactive tele-video, patient was identified by name and date of and/or wristband check.Patient (or authorized healthcare wine sales representative) was informed that this was a telemedicine visit and it was being conducted confidentially over secure lines. My office door was closed and no one else was present in the room with me.Patient (or authorized healthcare wine sales representative) provided consent to proceed with the visit, expressed an understanding of privacy and security of the telemedicine visit, and gave permission to have a hospital wine sales representative in the room in order to assist with the visit and to conduct portions of the visit, as needed. I informed the patient (or authorized healthcare wine sales representative) that I reviewed their record and presented the opportunity for them to ask any questions regarding the visit today. The patient agreed to participate. 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 I saw and examined the patient at bedside. Her friend is present for the encounter. I reviewed her CT head from [facility] 01/2025 which shows a small left basal ganglia hypertensive hemorrhage. CT head in the [facility] system does not show residual hemorrhage. I personally reviewed the patient's MRI brain which shows some hemosiderin deposition in the area of the old hemorrhage. The patient is a poor historian. At times, she said she has headache, at times she does not. She tells me she has had ongoing diplopia and lightheadedness which I suspect is related to her blood pressure. We can treat her headache with gabapentin. Recommend maintain SBP 100-130 as patient will be at high-risk for recurrent hemorrhage with higher values. Allergies Allergy/AdvReac Type Severity Reaction Status Date / Time bee venom protein (honey bee) Allergy Severe Anaphylaxis Verified 02/13/25 17:02 latex Allergy Mild REDNESS, Verified 02/13/25 17:02 HURTS atorvastatin AdvReac Severe Joint Pain Verified 02/13/25 17:02 Home Medications Medication Instructions Recorded Confirmed Type blood-glucose meter (OneTouch #1 ea 04/12/20 03/22/25 Rx Verio IQ Meter kit) lancets 33 gauge (OneTouch Delica #100 ea 04/12/20 03/22/25 Rx Lancets) insulin aspart U-100 100 unit/mL See Rx Instructions SC DIRECTED 06/27/21 03/22/25 Rx (3 mL) subcutaneous pen (Novolog #45 mL FlexPen U-100 Insulin aspart) Wheeled Walker #1 ea 12/17/21 03/22/25 Rx Walking Cane #1 ea 02/05/22 03/22/25 Rx pen needle, diabetic 33 gauge x #100 ea 03/18/22 03/22/25 Rx 1/4" (Easy Comfort Pen [place]) blood sugar diagnostic (OneTouch #150 ea 06/22/22 03/22/25 Rx Verio test strips) insulin glargine 100 unit/mL (3 9 unit subcut HS 03/25/23 10/23/25 History mL) subcutaneous pen (Lantus Solostar U-100 Insulin) cholecalciferol (vitamin D3) 125 125 mcg PO DAILY 11/05/23 03/22/25 History mcg (5,000 unit) capsule sertraline 100 mg tablet 100 mg PO QAM 11/05/23 03/22/25 History evolocumab 140 mg/mL subcutaneous See Rx Instructions .Route .COMPLEX 02/13/25 03/22/25 History pen injector (Repatha SureClick) losartan 100 mg tablet 100 mg PO QAM 02/13/25 03/22/25 History omeprazole 20 mg capsule,delayed 20 mg PO QAM 02/13/25 03/22/25 History release vedolizumab 108 mg/0.68 mL 108 mg subcut .[id number] 02/13/25 03/22/25 History subcutaneous pen injector (Entyvio Pen) hydrochlorothiazide 25 mg tablet 25 mg PO QAM 03/22/25 03/22/25 History levothyroxine 88 mcg tablet 88 mcg PO DAILYBB 03/22/25 03/22/25 History (Synthroid) nifedipine 30 mg tablet,extended 30 mg PO QAM 03/22/25 03/22/25 History release Patient History Medical History Orbital cellulitis on left (2019) Tubular adenoma Surgical History History of surgical procedure on eye proper using laser History of cataract surgery bilt 4 mg of versed for prior cataract without apparent complications History of colonoscopy History of esophagogastroduodenoscopy (EGD) H/O umbilical hernia repair 05/22/2010 History of cholecystectomy 05/22/2010 History of tonsillectomy Family History Father Family history of diabetes mellitus Diabetes Hypertension Sister Cancer Grandfather No problems noted. 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 Physical Exam Physical Exam: General Appearance: Alert, appears somewhat confused HEENT: anicteric sclera, no scleral injection Lungs: respirations appear comfortable, no obvious increased work of breathing Extremities: No cyanosis or fingernail clubbing Skin: No rashes in exposed skin areas Objective Limited due to Televideo encounter Physical Exam: General Appearance: Alert Neurological Examination: Mental status: Alert and oriented. No dysarthria. Cranial Nerves: Visual montez intact. Extraocular movements intact and spontaneous. Face symmetric. Sensory: Normal sensory exam to light touch. Motor:Absent pronator drift. Strength: antigravity in all extremities without drift. Results & Data Vital Signs (Past 12 Hours) Vital Signs Temp Pulse Pulse Resp BP BP Pulse Ox 03/22/25 11:58 57 L 03/22/25 10:28 98/51 L 03/22/25 10:19 56 L 16 98/49 L 94 03/22/25 09:00 64 17 96 03/22/25 09:00 132/70 03/22/25 08:45 141/68 H 03/22/25 08:45 141/68 H 03/22/25 08:30 143/69 H 03/22/25 08:24 63 20 94 03/22/25 08:21 63 22 95 03/22/25 08:15 143/70 H 03/22/25 08:09 65 21 94 03/22/25 08:06 65 24 95 03/22/25 08:00 145/75 H 03/22/25 07:57 61 19 95 03/22/25 07:55 62 18 147/66 H 99 03/22/25 07:48 65 22 95 03/22/25 07:46 147/66 H 03/22/25 07:46 147/66 H 03/22/25 07:46 147/66 H 03/22/25 07:43 148/71 H 03/22/25 07:22 63 18 181/69 H 99 03/22/25 07:21 03/22/25 07:15 181/89 H 03/22/25 07:09 65 03/22/25 07:04 198/89 H 03/22/25 06:50 36.7 C 61 18 199/80 H 98 O2 Del Method 03/22/25 11:58 03/22/25 10:28 03/22/25 10:19 Room Air 03/22/25 09:00 03/22/25 09:00 03/22/25 08:45 03/22/25 08:45 03/22/25 08:30 03/22/25 08:24 03/22/25 08:21 03/22/25 08:15 03/22/25 08:09 03/22/25 08:06 03/22/25 08:00 03/22/25 07:57 03/22/25 07:55 Room Air 03/22/25 07:48 03/22/25 07:46 03/22/25 07:46 03/22/25 07:46 03/22/25 07:43 03/22/25 07:22 Room Air 03/22/25 07:21 Room Air 03/22/25 07:15 03/22/25 07:09 03/22/25 07:04 03/22/25 06:50 Room Air Laboratory Results 03/22/25 03/22/25 13:19 07:15 WBC 9.38 RBC 4.28 Hgb 11.5 L Hct 36.8 L MCV 86.0 MCH 26.9 MCHC 31.3 L RDW Std Deviation 49.2 H RDW Coeff of Ariel 15.8 H Plt Count 293 MPV 10.2 Immature Gran % (Auto) 1.3 Neut % (Auto) 70.3 Lymph % (Auto) 17.1 Coke % (Auto) 7.8 Eos % (Auto) 2.9 Baso % (Auto) 0.6 Neut # (Auto) 6.60 H Lymph # (Auto) 1.60 Coke # (Auto) 0.73 H Eos # (Auto) 0.27 Baso # (Auto) 0.06 Immature Gran # (Auto) 0.12 PT 9.9 INR 0.9 APTT 21 PTT Ratio 0.8 Sodium 145 Potassium 3.2 L Chloride 109 H Carbon Dioxide 26 Anion Gap 10 BUN 40 H Creatinine 0.95 Est Cr Clr Drug Dosing 45.4 eGFR 62.87 BUN/Creatinine Ratio 42.1 H Glucose 215 H POC Glucose 205 H Calcium 9.2 Magnesium 1.8 Total Bilirubin 0.4 AST 21 ALT 28 Alkaline Phosphatase 152 H Troponin I High Sens 12.0 Total Protein 6.7 Albumin 3.6 Globulin 3.1 Albumin/Globulin Ratio 1.[address] 03/22/25 07:06 IMPRESSION: 1. No acute territorial infarct or hemorrhage is detected. 2. The previously noted left basal ganglia hemorrhage is not visualized; interval resolution. 3. Age-related involutional changes and chronic microvascular ischemic changes, unchanged. 4. MRI with DWI may be considered to rule out acute ischemic infarct if clinically indicated. Electronically signed by Mustapha Page 03-22-2025 08:57 AM Brain MRI 03/22/25 10:44 IMPRESSION: 1. No acute intracranial findings 2. No evidence of acute or subacute infarction 3. Interval resolution of the previously identified left basal ganglia he morrhage with post hemorrhage hemosiderin deposition 4. Tiny focus of susceptibility artifact within the right basal ganglia likely secondary to a remote hemorrhage Electronically signed by: Anton Perez M.D. 03/22/2025 12:33 PM Medications Administered Home Medications Medication Instructions Recorded Confirmed Last Taken blood-glucose meter (OneTouch #1 ea 04/12/20 03/22/25 Unknown Verio IQ Meter kit) lancets 33 gauge (OneTouch Delica #100 ea 04/12/20 03/22/25 Unknown Lancets) insulin aspart U-100 100 unit/mL See Rx Instructions SC DIRECTED 06/27/21 03/22/25 10/30/22 (3 mL) subcutaneous pen (Novolog #45 mL FlexPen U-100 Insulin aspart) Wheeled Walker #1 ea 12/17/21 03/22/25 Unknown Walking Cane #1 ea 02/05/22 03/22/25 Unknown pen needle, diabetic 33 gauge x #100 ea 03/18/22 03/22/25 Unknown 1/4" (Easy Comfort Pen [place]) blood sugar diagnostic (OneTouch #150 ea 06/22/22 03/22/25 Unknown Verio test strips) insulin glargine 100 unit/mL (3 9 unit subcut HS 08/22/22 03/22/25 10/29/22 mL) subcutaneous pen (Lantus Solostar U-100 Insulin) cholecalciferol (vitamin D3) 125 125 mcg PO DAILY 11/05/23 03/22/25 Unknown mcg (5,000 unit) capsule sertraline 100 mg tablet 100 mg PO QAM 11/05/23 03/22/25 Unknown evolocumab 140 mg/mL subcutaneous See Rx Instructions .Route .COMPLEX 02/13/25 03/22/25 Unknown pen injector (Juve SureRishabhick) losartan 100 mg tablet 100 mg PO QAM 02/13/25 03/22/25 Unknown omeprazole 20 mg capsule,delayed 20 mg PO QAM 02/13/25 03/22/25 Unknown release vedolizumab 108 mg/0.68 mL 108 mg subcut .[id number] 02/13/25 03/22/25 Unknown subcutaneous pen injector (Entyvio Pen) hydrochlorothiazide 25 mg tablet 25 mg PO QAM 03/22/25 03/22/25 Unknown levothyroxine 88 mcg tablet 88 mcg PO DAILYBB 03/22/25 03/22/25 Unknown (Synthroid) nifedipine 30 mg tablet,extended 30 mg PO QAM 03/22/25 03/22/25 Unknown release Active Medications Generic Name Dose Route Start Last Admin Trade Name Demarcusq PRN Reason Stop Dose Admin Insulin Aspart 0 units 03/22/25 11:30 03/22/25 13:59 Insulin Aspart Per Unit Charge SC 04/21/25 11:29 2 units ACHS MAHSA Administration
--- NOTE | 2025-03-22 14:30 | XCELERA ---
[id number]
[2025-03-22] MEDS ORDERED: GABAPENTIN 100 MG CAP PO PRN (14:55)
[2025-03-22] MEDS: LANTUS PER UNIT CHARGE SQ SCH (21:29)
[2025-03-23] MEDS: LEVOTHYROXINE SODIUM 88 MCG TABLET PO SCH (06:00)
--- NOTE | 2025-03-23 06:30 | Electrocardiogram Report ---
Test Reason : Blood Pressure : */* mmHG Vent. Rate : 62 BPM Atrial Rate : 62 BPM P-R Int : 196 ms QRS Dur : 150 ms QT Int : 426 ms P-R-T Axes : 57 -3 -28 degrees QTcB Int : 432 ms Normal sinus rhythm Right bundle branch block Possible Inferior infarct Abnormal ECG When compared with ECG of 13-Feb-2025 15:55, No significant change Confirmed by Brandyn Boyce ([id number]) on 03/23/2025 6:29:38 AM Referred By: REFERRED SELF Confirmed By: Brandyn Boyce
[2025-03-23] MEDS: LOSARTAN POTASSIUM 50 MG TAB PO SCH (07:43)
[2025-03-23] MEDS: SERTRALINE HCL 100 MG TABLET PO SCH (07:43)
[2025-03-23] MEDS: CHOLECALCIFEROL 125 MCG (5,000 UNITS) TAB PO SCH (07:43)
[2025-03-23] MEDS: NIFEdipine EXTENDED REL 30 MG TABCR PO SCH (08:45)
[2025-03-23] MEDS ORDERED: NIFEdipine EXTENDED REL 30 MG TABCR PO SCH (09:00)
[2025-03-23 09:12] LABS: Hematocrit (blood only) 34.9 % (37.0-47.0); Hemoglobin 11.4 g/dl (12.0-16.0); Mean Corpuscular Hemoglobin 27.7 pg (25.0-34.0); Mean Corpuscular Volume 84.7 fL (80.0-100.0); Platelet Count 268 K/uL (130-400); RDW Standard Deviation 47.8 fL (36.4-46.3); Red Blood Count 4.12 M/uL (4.20-5.40); White Blood Count 9.60 K/ul (4.8-10.8)
[2025-03-23 09:27] LABS: Alanine Aminotransferase 30.0 U/L (7-52); Albumin Globulin Ratio 1.0 (0.9-2); Albumin Level 3.3 gm/dl (3.4-5.0); Alkaline Phosphatase 148.0 U/L (34-104); Anion Gap 8.0 (3-11); Bilirubin,Total 0.4 mg/dl (0.2-1.0); Blood Urea Nitrogen 38.0 mg/dl (6-23); Calcium 8.9 mg/dl (8.6-10.3); Carbon Dioxide 26.0 mmol/L (21-32); Chloride 109.0 mmol/L (98-107); Cholesterol 194.0 mg/dl (0-200); Creatinine Clr Calc Pharmacy 41.0 ml/min; Globulin 3.2 gm/dl (2.5-4.0); Glucose 193.0 mg/dl (70-99(Fasting)); HDL Cholesterol 49.0 mg/dl; Potassium 3.5 mmol/L (3.5-5.1); Sodium 143.0 mmol/L (136-145); Total Protein 6.5 gm/dl (6.0-8.3); Triglycerides 248.0 mg/dl (0-150)
[2025-03-23 10:07] LABS: Hemoglobin A1C 7.7 % (4.5-5.6)
--- NOTE | 2025-03-23 10:30 | Hospitalist Progress Note ---
Date of Service March 23, 2025 Assessment & Plan (1) Hypertensive urgency: (2) Stroke-like symptoms: (3) History of hemorrhagic cerebrovascular accident (CVA) with residual deficit: (4) Hypokalemia: Plan Patient is a 75-year-old female with past medical history significant for left basal ganglia hemorrhagic CVA likely secondary to HTN in January 2025, cerebral artery disease, DM type II with diabetic peripheral angiopathy, hypothyroidism, HLD, cyst of pancreas, HTN, atherosclerosis of aorta, grade 1 DD, mild MR, Crohn's disease, hepatic steatosis, duodenal diverticulum, urinary incontinence, bilateral renal cyst, cervical DDD, primary osteoarthritis of both knees, BPPV, bilateral hearing loss, mild dementia, PTSD and depression who presented to the ED this morning with complaints of intermittent headache, diplopia, lightheadedness and HTN. HTN urgency Stroke-like symptoms Presented with c/o intermittent LUU, diplopia, lightheadedness and HTN. On losartan 100mg, nifedipine 30mg daily and HCTZ 25mg daily. BP was elevated at 199/80 upon arrival to the ED. Head CT with interval resolution of previously noted left basal ganglia hemorrhage, no acute territorial infarct or hemorrhage detected. MRI of the brain did not show any acute finding; interval resolution of previously identified left basal ganglia hemorrhage. Echocardiogram shows EF of 60 to 65% Will increase nifedipine to 60 mg daily. Hydrochlorothiazide is on hold due to hypokalemia. Will switch over losartan to valsartan to see if we will have better blood pressure Recent left basal ganglia hemorrhagic CVA likely 2/2 HTN on 02/13/2025 with residual expressive aphasia Previously presented to [facility] ED on 02/13/2025 with diplopia and intermittent headaches. Head CT revealed an acute parenchymal hemorrhage within the left basal ganglia c/w hemorrhagic CVA at that time. Was transferred to [facility] for further management. Admitted at [facility] 02/13/2025-02/17/2025. Did not require any surgical intervention. Recently returned back home from [facility] a few days ago. Lives with forest fire equipment operator who assists with ADLs. Recommended follow-up within 6 to 8 weeks in the neurology clinic. A follow-up postcontrast MRI brain in 8-12 weeks was also recommended to exclude underlying lesion. Updated brain MRI as above Hypokalemia- repleted Hyperglycemia Insulin-dependent DMII Basal bolus insulin regimen ordered, monitor BSG checks ACHS. Appreciate glycemic pharmacy assistance with insulin management. Other chronic medical conditions: GERD - Continue PPI. Hypothyroidism - Continue levothyroxine. Mood disorder - Continue Zoloft. Crohn's disease - Recently completed budesonide taper course last month, appears now well-controlled. On Entyvio as an outpatient. DVT Prophylaxis: SCDs/TEDs only, avoiding chemical AC given her recent hemorrhagic CVA Code Status: FULL CODE PCP: Yohana Bull DO Disposition: Observation in PCU Time spent evaluating patient, direct bedside care, chart review, placing orders, interpretation of diagnostic studies, discussion with consultants, patient, and family members, as well as other required patient management activities is 50 minutes Please note the above document was generated using voice recognition software. It may contain grammatical, syntax or spelling errors. Any formal questions or concerns about the content, text or information contained within the body of this dictation should be directly addressed to the provider for clarification Admission and Anticipated Discharge Date Admission Date: March 22, 2025 Subjective Patient seen and examined at bedside. She is sitting up on a chair comfortably; denies any discomfort. Review of Systems Review of Systems: All systems reviewed & are unremarkable except as noted in Subjective Physical Exam Physical Exam: Constitutional: WD/WN, vitals as above, NAD, sitting up in bed, pleasant, conversing easily Respiratory: normal respiratory effort, lungs clear to auscultation, no wheeze, rales, rhonchi. Normal insp/exp effort, no accessory muscle use Cardiovascular: RRR, no murmur, no edema Vessels: no JVD or carotid bruit Chest: normal inspection of chest Abdomen: normal bowel sounds, soft, nontender, no hepatosplenomegaly Musculoskeletal: no cyanosis or clubbing, extremities motor strength 5/5 Skin: no rashes, warm and dry normal turgor Neurologic: PERRL, EOMI, accommodation nl, no face palsy, no dysarthria CN's II- XI intact bilaterally and moves all extremities Psychiatric: A+Ox3, euthymic affect Results & Data Results & Data Vital Signs (Past 12 Hours) Vital Signs Temp Pulse Pulse Resp BP BP Pulse Ox 03/23/25 07:21 186/76 H 03/23/25 07:19 36.5 C 49 L 19 188/75 H 92 10/24/25 04:00 36.7 C 54 L 18 166/66 H 94 03/23/25 02:03 68 03/23/25 01:59 03/22/25 22:54 37.1 C 66 18 171/80 H 92 O2 Del Method 03/23/25 07:21 03/23/25 07:19 Room Air 03/23/25 04:00 Room Air 03/23/25 02:03 03/23/25 01:59 Room Air 03/22/25 22:54 Room Air
--- NOTE | 2025-03-23 12:47 | Pharmacy Report ---
Pharmacy Glycemic Short Note 2 - Date of Service March 23, 2025 - Glycemic Short BSG Results (Last 24 hours): 03/22/25 03/22/25 03/22/25 13:19 17:09 20:38 Glucose POC Glucose 205 H 136 H 262 H 03/23/25 03/23/25 03/23/25 07:56 08:47 11:45 Glucose 193 H POC Glucose 164 H 97 OUTPATIENT ANTIDIABETIC REGIMEN: * Lantus 9 units HS * NovoLog 1-4 units SSI HbA1c: 7.7% (03/23/25) ASSESSMENT: 03/23/25: * Blood sugars labile yesterday w/ multiple blood sugars > 200 mg/dL * Originally tightened Novolog parameters this morning, but lunch blood sugar only of 97 mg/dL so will loosen again * Do not anticipate any other changes today 03/22/25: * 75 YO F PMH left basal ganglia hemorrhagic CVA likely secondary to HTN in January 2025, presenting with HTN and headache today, type 2 DM. * Will continue basal bolus insulin as inpatient, patient uses small amounts of insulin (TDD < 25 units/day) and titrate to goal blood sugar. PLAN FOR INPATIENT GLYCEMIC CONTROL: * Basal insulin * Lantus 0-9 units SQ HS (See EHR for details) * Bolus insulin * NovoLog per scale ACHS or Q6hrs while NPO * Goal Range: Low 120 mg/dL - High 160 mg/dL * Correction Factor: 35 mg/dL/unit * Nutritional / Prandial insulin per carb ratio of 1 unit per 11 grams CHO consumed
[2025-03-23 19:52] VITALS: RESP 18
[2025-03-24 06:40] LABS: Hematocrit (blood only) 33.1 % (37.0-47.0); Hemoglobin 10.5 g/dl (12.0-16.0); Immature Granulocytes # (auto) 0.11 K/uL (0.01-0.20); Immature Granulocytes % (auto) 1.2 %; Mean Corpuscular Hemoglobin 26.4 pg (25.0-34.0); Mean Corpuscular Volume 83.4 fL (80.0-100.0); Platelet Count 272 K/uL (130-400); RDW Standard Deviation 46.9 fL (36.4-46.3); Red Blood Count 3.97 M/uL (4.20-5.40); White Blood Count 9.07 K/ul (4.8-10.8)
[2025-03-24 07:00] LABS: Anion Gap 11.0 (3-11); Blood Urea Nitrogen 38.0 mg/dl (6-23); Calcium 8.7 mg/dl (8.6-10.3); Carbon Dioxide 23.0 mmol/L (21-32); Chloride 109.0 mmol/L (98-107); Creatinine Clr Calc Pharmacy 38.2 ml/min; Glucose 185.0 mg/dl (70-99(Fasting)); Potassium 3.2 mmol/L (3.5-5.1); Sodium 143.0 mmol/L (136-145)
[2025-03-24 07:04] VITALS: PULSE 55; TEMP 97.2; O2SAT 94
[2025-03-24] MEDS: POTASSIUM CHLORIDE CRTAB 20 MEQ TABCR PO STA ×2 (07:42→10:11)
[2025-03-24] MEDS: VALSARTAN 80 MG TAB PO SCH (07:44)
[2025-03-24] MEDS: LANTUS PER UNIT CHARGE SC ONE (08:19)
--- NOTE | 2025-03-24 10:23 | Discharge Summary ---
Date of Service March 24, 2025 Admission HPI Per Admitting Provider Patient is a 75-year-old female with past medical history significant for left basal ganglia hemorrhagic CVA likely secondary to HTN in January 2025, cerebral artery disease, DM type II with diabetic peripheral angiopathy, hypothyroidism, HLD, cyst of pancreas, HTN, atherosclerosis of aorta, grade 1 DD, mild MR, Crohn's disease, hepatic steatosis, duodenal diverticulum, urinary incontinence, bilateral renal cyst, cervical DDD, primary osteoarthritis of both knees, BPPV, bilateral hearing loss, mild dementia, PTSD and depression who presented to the ED this morning with complaints of headache, diplopia, light headedness and HTN. History obtained from the patient, discussion with ED provider and associated chart review. Patient seen at bedside in the ED with Dr. Adorno. Patient presented to [facility] ED on 02/13/2025 with diplopia and intermittent headaches. Head CT unfortunately revealed an acute parenchymal hemorrhage within the left basal ganglia c/w hemorrhagic CVA. Was placed on nicardipine infusion to keep SBP<160mmHg and transferred to [facility] for further evaluation by neurosurgical services. Admitted at [facility] 02/13/2025-02/17/2025. Repeat head CT revealed stable burden of small volume intraparenchymal hemorrhage in the left basal ganglia with no significant mass effect on 02/13/2025. Brain MRI on 02/14/2025 revealed similar size and appearance of the left basal ganglia hemorrhage. Blood pressure was well-controlled and remained stable with goal systolic blood pressure <160mmHg on the following antihypertensive regimen: losartan 100 mg daily, nifedipine 30 mg daily and HCTZ 25 mg daily. Neurology suspected HTN was likely cause for IPH. Recommended follow-up within 6 to 8 weeks in the neurology clinic. PT/OT recommended inpatient rehab. Patient was discharged to [facility]. Recently got home from [facility] a few days ago. Lives with a purification operator helper who helps take care of her. Also has children whom visit occasionally. Mentions that she has home PT/OT and [employer] services arranged, unclear who she is receiving these service through. Diplopia and intermittent headaches have never resolved since having her CVA last month. Feel unchanged compared to prior. Reportedly woke up around 5 AM this morning and noticed her BP was 200/117. She took 2 doses of her nifedipine at that time, equating out to 60mg. Unsure if she took her other antihypertensive medications this morning including her HCTZ and losartan. Feels speech is "slower" since her CVA last month. No reported extremity deficits or paraesthesias. Having some mild neck stiffness when turning head side to side, no reported pain with this. Unclear when this started. Also with some mild lightheadedness which began this morning upon waking. 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 No reported facial drooping. Not currently on any blood thinning agents. BP 102/54, HR 64, O2 sat 96% on RA, RR 18 at the time of our evaluation shortly before 11 AM. Admission Exam Per Admitting Provider Constitutional WD/WN, vitals as above Eyes PERRL, conjunctivae normal, anicteric sclerae Respiratory normal respiratory effort, lungs clear to auscultation Cardiovascular RRR, no murmur, no edema Neurologic AO x 4, cranial nerves II through XII are intact, 5 out of 5 strength in the upper and lower extremities bilaterally, no sensation deficits noted in the lower extremity limbs of the face and extremities, visual acuity intact, no visual field cuts noted, minimal dysarthria, no aphasia, no dysmetria noted in all 4 limbs, NIH stroke scale of 1 Principal Diagnosis HTN urgency Stroke-like symptoms Discharge Exam Constitutional: WD/WN, vitals as above, NAD, sitting up in bed, pleasant, conversing easily Respiratory: normal respiratory effort, lungs clear to auscultation, no wheeze, rales, rhonchi. Normal insp/exp effort, no accessory muscle use Cardiovascular: RRR, no murmur, no edema Vessels: no JVD or carotid bruit Chest: normal inspection of chest Abdomen: normal bowel sounds, soft, nontender, no hepatosplenomegaly Musculoskeletal: no cyanosis or clubbing, extremities motor strength 5/5 Skin: no rashes, warm and dry normal turgor Neurologic: PERRL, EOMI, accommodation nl, no face palsy, no dysarthria CN's II- XI intact bilaterally and moves all extremities Psychiatric: A+Ox3, euthymic affect Discharge Data Allergies Allergy/AdvReac Type Severity Reaction Status Date / Time bee venom protein (honey bee) Allergy Severe Anaphylaxis Verified 02/13/25 17:02 atorvastatin AdvReac Severe Joint Pain Verified 02/13/25 17:02 Consultations 03/22/25 09:26 ED Decision to Admit Stat 03/22/25 10:44 Consult Neurology Routine Ordered Studies 03/22/25 07:06 CT head/brain wo con Stat 03/22/25 10:44 MR brain wo con Routine Hospital Course (1) Hypertensive urgency: (2) Stroke-like symptoms: (3) History of hemorrhagic cerebrovascular accident (CVA) with residual deficit: (4) Hypokalemia: Plan Patient is a 75-year-old female with past medical history significant for left basal ganglia hemorrhagic CVA likely secondary to HTN in January 2025, cerebral artery disease, DM type II with diabetic peripheral angiopathy, hypothyroidism, HLD, cyst of pancreas, HTN, atherosclerosis of aorta, grade 1 DD , mild MR, Crohn's disease, hepatic steatosis, duodenal diverticulum, urinary incontinence, bilateral renal cyst, cervical DDD, primary osteoarthritis of both knees, BPPV, bilateral hearing loss, mild dementia, PTSD and depression who presented to the ED this morning with complaints of intermittent headache, diplopia, lightheadedness and HTN. HTN urgency Stroke-like symptoms Presented with c/o intermittent LUU, diplopia, lightheadedness and HTN. On losartan 100mg, nifedipine 30mg daily and HCTZ 25mg daily. BP was elevated at 199/80 upon arrival to the ED. Head CT with interval resolution of previously noted left basal ganglia hemorrhage, no acute territorial infarct or hemorrhage detected. MRI of the brain did not show any acute finding; interval resolution of pre viously identified left basal ganglia hemorrhage. Echocardiogram shows EF of 60 to 65% During the hospitalization, patient was admitted to medical floor. Patient's losartan was changed to valsartan. Patient's nifedipine dose was increased to 60 mg once a day. Patient reported significant symptom improvement during the hospitalization with improvement in the trend of overall blood pressure. Patient was discharged on valsartan hydrochlorothiazide combination along with nifedipine 60 mg once a day. I discussed continued blood pressure monitoring at home and making a log so that the medication can be adjusted as outpatient. Patient and patient's daughter both verbalized understanding. Patient was discharged home with instructions to follow-up with PCP. Please note the above document was generated using voice recognition software. It may contain grammatical, syntax or spelling errors. Any formal questions or concerns about the content, text or information contained within the body of this dictation should be directly addressed to the provider for clarification Total Time Total Time Spent Total Time Spent (In Minutes): 45 Total Time Includes: Examination of the Patient, Discharge Planning, Medication Reconciliation, Communication With Other Providers and Other Discharge Plan Discharge Items Patient Disposition: Home - Self-Care Reason For Visit: LUU, HTN URGENCY Discharge Diagnosis: Hypertensive Urgency Condition on Discharge: Good Activity: Resume your previous activity Non-emergency contact: Primary Care Provider Call non-emergency contact if: you have any medication questions and your symptoms worsen Follow-up/Referrals: Yohana Bull DO [Primary Care Provider] - (Date & Time 03/26/2025 3:30 PM Provider: Yohana Bull DO [address], [place] ) Diet: Regular Addtl Attending Provider Instructions: You were admitted to the hospital due to high blood pressure and headache. You underwent CT head, MRI of the brain which did not show any bleeding or stroke. You are found to have high blood pressure. Following medication changes have been done; Stop taking nifedipine 30 mg once a day. You have been prescribed nifedipine 60 mg once a day. Please take this at night before going to bed. Stop taking your losartan and the hydrochlorothiazide tablets. You have been prescribed a combination tablet of 2 antihypertensives(valsartan and hydrochlorothiazide) to be taken once a day in the morning. If this medication is unavailable in the pharmacy; Please continue to take losartan and hydrochlorothiazide previously as you are taking before. Please continue to measure blood pressure at home. The dose of the medication should be adjusted based on your blood pressure response with this medications. Pending Studies at Discharge: No Stand-Alone Forms: My [facility], Smoking Cessation Medications and DC Order Prescriptions: New valsartan-hydrochlorothiazide 320-12.5 mg tablet 1 tab PO DAILY Qty: 30 0RF nifedipine 60 mg tablet extended release 24hr 60 mg PO HS Qty: 30 0RF Continued (DME) blood-glucose meter [OneTouch Verio IQ Meter] Kit See Rx Instructions .ROUTE .MEDSUPPLY Qty: 1 0RF Rx Instructions: Use to test blood sugar 5 times daily (insulin dependent) (DME) lancets [OneTouch Delica Lancets] 33 gauge misc See Rx Instructions .ROUTE .MEDSUPPLY Qty: 100 0RF Rx Instructions: Use to test blood sugar 5 times daily (insulin dependent) insulin aspart U-100 [Novolog FlexPen U-100 Insulin] 100 unit/mL (3 mL) insulin pen See Rx Instructions SC DIRECTED MDD 50 units Qty: 45 3RF Rx Instructions: Inject 0-4 Units under the skin in the morning and 0-4 Units at noon and 0-4 Units in the evening. Inject with meals. Glucose less than 70 instructions: Obtain STAT lab blood glucose and call covering provider. Glucose 80-150 (units): 0 Glucose 151-200 (units): 1 Glucose 201-250 (units): 2 Glucose 251-300 (units): 3 Glucose greater than 300 (units): 4 Glucose greater than 300 instructions: Give suggested insulin dose and call covering provider. - Subcutaneous (DME) Wheeled Walker Misc See Rx Instructions .Route Qty: 1 0RF Rx Instructions: Seated walker As directed Drive folding smaller walker (DME) Walking Cane Misc See Rx Instructions .Route Qty: 1 0RF Rx Instructions: As directed (DME) pen needle, diabetic [Easy Comfort Pen [place]] 33 gauge x 1/4" needle See Rx Instructions .Route Qty: 100 5RF Rx Instructions: As directed 4 times daily (DME) OneTouch Verio test strips Strip See Rx Instructions .ROUTE .MEDSUPPLY Qty: 150 11RF Rx Instructions: Use to test blood sugar 5 times daily (insulin dependent) sertraline 100 mg tablet 100 mg PO QAM cholecalciferol (vitamin D3) 125 mcg (5,000 unit) capsule 125 mcg PO DAILY insulin glargine [Lantus Solostar U-100 Insulin] 100 unit/mL (3 mL) insulin pen 9 unit subcut HS levothyroxine [Synthroid] 88 mcg tablet 88 mcg PO DAILYBB Rx Instructions: with a glass of water on an empty stomach. Wait 30 minutes to eat omeprazole 20 mg capsule,delayed release(DR/EC) 20 mg PO QAM Repatha SureClick 140 mg/mL pen injector See Rx Instructions .ROUTE .COMPLEX Rx Instructions: 140 mg subcutaneously ;Inject 140 mg (1 pen) under the skin every 14 days. Remove from refrigerator 30 minutes prior to injection. - Subcutaneous Entyvio Pen 108 mg/0.68 mL Pen Injector 108 mg SUBCUT .[id number] Rx Instructions: Inject 108 mg (1 pen) under the skin every 14 days. - Subcutaneous Discontinued nifedipine 30 mg tablet extended release 30 mg PO QAM hydrochlorothiazide 25 mg tablet 25 mg PO QAM losartan 100 mg tablet 100 mg PO QAM Discharge Orders: Discharge Order (Routine); Ordered 03/24/25 Ordered By: Esequiel Orta/Other Patient Handouts: Low-Salt Choices, Managing Type 2 Diabetes, High Blood Pressure Risk Factors, Taking Potassium, Hypertension and Kidney Disease, Hypertension Stroke Link, Hypertension Dc, Blood Pressure Check Steps, Diabetes and High Blood Pressure Admission Data Admit Date/Time: 03/22/25 09:57 Attending Provider: Esequiel Vega Admit Provider: Alfredo Adorno Primary Care Provider: Yohana Bull Other Providers: Alfredo Adorno; Sarah Mathews; Maryam,Home Health Other Interventions: Discharge Summary Assessment (RN) Last Done: 03/24/25 11:10
[2025-03-24 11:11] VITALS: BP 177/79
== END 2025-03-24 14:40 | disposition home or self-care (01) ==
LOC: 4W 06:48 → ED 06:48 → SUATTDRO 09:57 → 4W 11:26

== ENCOUNTER 2025-05-08 22:59 | Observation (INO) ==
--- NOTE | 2025-05-08 23:18 | Emergency Department Note ---
Impression & Plan Elevated troponin Admission ED Provider Note HPI: History obtained from patient. 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 Patient states she developed a relatively sudden onset headache at about 3 PM today. On arrival here to the ED, the patient appears to be in no acute distress, she is alert and oriented x 3, she does not have any focal deficits and follows commands appropriately. Patient's presenting blood pressure is 213/103. ROS: - Per HPI Differential Diagnosis: Intracranial hemorrhage, migraine headache, tension headache, intracranial mass, hypertensive urgency, hypertensive emergency, NSTEMI, ROEL, amongst other potential pathologies. *Outpatient medications and allergy history reviewed. 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 Patient was given a dose of IV hydralazine shortly after she arrived. CT imaging of the head was obtained that does not show any evidence of any acute intracranial hemorrhage. Lab work shows white blood cell count of 10.91, hemoglobin is stable at 10.6, platelet count is normal, CMP does not show any evidence of any critical findings. Troponin is mildly elevated at 16.3. EKG per my interpretation does not show any evidence of any ST elevation TN. Recently troponin was normal in February, patient denies any chest pain or shortness of breath. On my reassessment the patient states she is feeling improved, her blood pressure has downtrended to 174/80 following IV hydralazine and pain medication. Overall given her comorbidities in addition to mildly elevated troponin I do feel she is appropriate for admission for further care for hypertensive emergency. Patient is in agreement to this plan as is her family member at the bedside. I discussed the patient's presentation with the on-call hospitalist, Dr. Miller, and the patient was placed for admission in stable condition. Consultants/Discussions held with other healthcare providers: - Hospitalist, Dr. Miller Disposition discussion held by myself with: - Patient and patient's family member at the bedside * CRITICAL CARE TIME: ( 33 ) minutes - Management and stabilization of hypertensive emergency with blood pressure of 213/103 in the setting of endorgan damage (elevated troponin) requiring IV antihypertensive medications for improvement in blood pressure, discussion with other physicians and arrangement of admission. Diagnosis: 1. Hypertensive emergency, acute 2. Elevated troponin, acute 3. Headache, acute, nonspecific Disposition: Admission Rachid Patterson DO Emergency Medicine Past Med/Surg History Problem List (Updated 05/09/25 @ 00:42 by Rachid Patterson DO) Elevated troponin (Acute) Headache due to hypertension History of hemorrhagic cerebrovascular accident (CVA) with residual deficit Stroke-like symptoms Hypertensive urgency Hypertensive emergency (Acute) Abnormal EKG Right bundle branch block Bradycardia Terminal ileitis Abnormal computed tomography of abdomen and pelvis Enterocolitis Epigastric abdominal pain (Acute) Partial small bowel obstruction (Acute) Hypoxia (Acute) Crohn's disease Osteoarthritis of right knee Myoclonic jerking Hyperlipidemia (Chronic) Hypertension (Chronic) Depression (Chronic) Post traumatic stress disorder (Chronic) Diabetes mellitus, type 2 (Chronic) Hypothyroidism (Chronic) Fatty liver disease, nonalcoholic (Chronic) Kidney stones (Chronic) Chronic back pain (Chronic) Osteoarthritis (Chronic) Neuropathy of foot (Chronic) Vitamin D deficiency (Chronic) Vertebral artery stenosis (Chronic) Right. 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 Grandmother (Maternal) Cancer Denies family history of Ovarian cancer Prostate cancer Myocardial infarction Breast cancer Lung cancer Colorectal cancer Social History Smoking Status: Never smoker Second Hand Exposure: No; Do You Dip or Chew Tobacco: No; Hx Alcohol Use: Yes Alcohol type: wine Alcohol Intake Frequency: Monthly or Less Hx Substance Use: No Preferred Language: Tunisian Communication Ability: Effective Visual Impairment: No Limitations Hearing Ability: Hard of Hearing Grey Inspector Required: No Beliefs That Will Affect Care: None marital status: Single Current Living Situation: Other Current Living Situation Comment: has roommate current occupational status: employed and retired 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, 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 [employer] Feels Safe at Home: Yes Childhood Exposure to Second-Hand Smoke: No Diet: regular Diet Comment: calorie counting, under 1500 calories Dental Care, Regularly: Yes Physical Activity Frequency: 5-6 Times per Week Seatbelt Use: always Sunscreen Use: Yes (sometimes ) Gender Identity: Female Assistive Devices: Oxygen - at Night and Walker Allergies Allergies Allergy/AdvReac Type Severity Reaction Status Date / Time bee venom protein (honey bee) Allergy Severe Anaphylaxis Verified 02/13/25 17:02 atorvastatin AdvReac Severe Joint Pain Verified 02/13/25 17:02 Home Meds Home Medications Medication Instructions Recorded Confirmed insulin glargine 100 unit/mL (3 9 unit subcut HS 08/22/22 03/22/25 mL) subcutaneous pen (Lantus Solostar U-100 Insulin) cholecalciferol (vitamin D3) 125 125 mcg PO DAILY 11/05/23 03/22/25 mcg (5,000 unit) capsule sertraline 100 mg tablet 100 mg PO QAM 11/05/23 03/22/25 evolocumab 140 mg/mL subcutaneous See Rx Instructions .Route .COMPLEX 02/13/25 03/22/25 pen injector (Repatha SureClick) omeprazole 20 mg capsule,delayed 20 mg PO QAM 02/13/25 03/22/25 release vedolizumab 108 mg/0.68 mL 108 mg subcut .[id number] 02/13/25 03/22/25 subcutaneous pen injector (Entyvio Pen) levothyroxine 88 mcg tablet 88 mcg PO DAILYBB 03/22/25 03/22/25 (Synthroid) Previous Rx's Medication Instructions Recorded blood-glucose meter (OneTouch #1 ea 04/12/20 Verio IQ Meter kit) lancets 33 gauge (OneTouch Delica #100 ea 04/12/20 Lancets) insulin aspart U-100 100 unit/mL See Rx Instructions SC DIRECTED 06/27/21 (3 mL) subcutaneous pen (Novolog #45 mL FlexPen U-100 Insulin aspart) Wheeled Walker #1 ea 12/17/21 Walking Cane #1 ea 02/05/22 pen needle, diabetic 33 gauge x #100 ea 03/18/22 1/4" (Easy Comfort Pen [place]) blood sugar diagnostic (OneTouch #150 ea 06/22/22 Verio test strips) nifedipine 60 mg tablet,extended 60 mg PO HS #30 tabs 03/24/25 release 24 hr valsartan 320 1 tab PO DAILY #30 tabs 03/24/25 mg-hydrochlorothiazide 12.5 mg tablet Results & Data (ED) Vital Signs Vital Signs - 24 hr 05/08/25 23:09 05/08/25 23:14 05/08/25 23:21 Temperature 36.7 C Temperature Source Oral Pulse Rate 63 94 H Pulse Rate [Apical] Respiratory Rate 20 20 Blood Pressure 213/103 H Blood Pressure [Right Arm] Blood Pressure Mean 139 Blood Pressure Mean [Right Arm] Pulse Oximetry 91 88 L 94 Oxygen Delivery Method Room Air Room Air Nasal Cannula Nasal Cannula Oxygen Flow Rate 2 Sepsis Recent Fever Within 48 Hours No Sepsis New/Unexplained Change in Mental Status No Sepsis Action Taken by Nursing No Action Required Oxygen Flow Rate - Titration 2 Pulse Oximetry Post Tiitration 95 05/08/25 23:26 05/08/25 23:33 05/08/25 23:40 Temperature Temperature Source Pulse Rate 67 Pulse Rate [Apical] 61 66 Respiratory Rate 18 Blood Pressure Blood Pressure [Right Arm] 174/80 H 174/80 H Blood Pressure Mean Blood Pressure Mean [Right Arm] 111 111 Pulse Oximetry 96 Oxygen Delivery Method Nasal Cannula Oxygen Flow Rate 2 Sepsis Recent Fever Within 48 Hours Sepsis New/Unexplained Change in Mental Status Sepsis Action Taken by Nursing Oxygen Flow Rate - Titration Pulse Oximetry Post Tiitration Laboratory Data 05/08/25 23:12 05/08/25 23:12 Lab Results 05/08/25 Range/Units 23:12 WBC 10.91 H (4.8-10.8) K/ul RBC 3.86 L (4.20-5.40) M/uL Hgb 10.6 L (12.0-16.0) g/dL Hct 31.9 L (37.0-47.0) % MCV 82.6 (80.0-100.0) fL MCH 27.5 (25.0-34.0) pg MCHC 33.2 (32.0-36.0) g/dL RDW Std Deviation 44.3 (36.4-46.3) fL RDW Coeff of Ariel 14.8 H (11.5-14.5) % Plt Count 287 (130-400) K/uL MPV 9.8 (9.4-12.4) fL Immature Gran % (Auto) 0.9 % Neut % (Auto) 74.3 % Lymph % (Auto) 12.8 % [place] % (Auto) 8.7 % Eos % (Auto) 2.7 % Baso % (Auto) 0.6 % Neut # (Auto) 8.09 H (1.40-6.50) K/uL Lymph # (Auto) 1.40 (1.20-3.40) K/uL [place] # (Auto) 0.95 H (0.11-0.59) K/uL Eos # (Auto) 0.30 (0.00-0.50) K/uL Baso # (Auto) 0.07 (0.00-0.20) K/uL Immature Gran # (Auto) 0.10 (0.01-0.20) K/uL PT 10.5 (9.0-12.0) Seconds INR 1.0 (0.9-1.1) Sodium 141 (136-145) mmol/L Potassium 3.2 L (3.5-5.1) mmol/L Chloride 105 (98-107) mmol/L Carbon Dioxide 27 (21-32) mmol/L Anion Gap 9 (3-11) BUN 33 H (6-23) mg/dl Creatinine 1.00 (0.6-1.2) mg/dl Est Cr Clr Drug Dosing 47.4 ml/min eGFR 59.12 BUN/Creatinine Ratio 33.0 H (10-20) Glucose 192 H (70-99(Fasting)) mg/dl Calcium 8.9 (8.6-10.3) mg/dl Total Bilirubin 0.4 (0.2-1.0) mg/dl AST 14 (13-39) U/L ALT 15 (7-52) U/L Alkaline Phosphatase 140 H (34-104) U/L Troponin I High Sens 16.3 H (0-14) pg/ml Total Protein 6.7 (6.0-8.3) gm/dl Albumin 3.6 (3.4-5.0) gm/dl Globulin 3.1 (2.5-4.0) gm/dl Albumin/Globulin Ratio 1.2 (0.9-2) Lipase 41 (11-82) U/L Administered Medications Discontinued Medications Hydralazine HCl (Hydralazine Hcl 20 Mg/Ml Vial) 10 mg IV NOW STA Stop: 05/08/25 23:16 Last Admin: 05/08/25 23:21 Dose: 10 mg Documented By: MOHAMUD Morphine Sulfate (Morphine Sulfate 4 Mg/Ml 1 Ml Carp\\Vial) 4 mg IV NOW STA Stop: 05/09/25 00:01 Last Admin: 05/09/25 00:08 Dose: 4 mg Documented By: ra Ondansetron HCl (Ondansetron Inj 2 Mg/Ml 2 Ml Vial) 4 mg IV NOW STA Stop: 05/09/25 00:01 Last Admin: 05/09/25 00:07 Dose: 4 mg Documented By: ra Imaging Data Radiologist's Impression: Head CT 05/08/25 23:16 EXAM: CT head/brain wo con CLINICAL HISTORY: headache TECHNIQUE: Multiple axial images were obtained from the skull base to the vertex without contrast. CT scan was performed according to ALARA (as low as reasonably achievable). 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 FINDINGS: There is cerebral atrophy. No evidence of space-occupying lesion, hemorrhage, edema, mass effect, midline shift, extra-axial collection, or hydrocephalus is noted. Basal cisterns are symmetric and normal in size and configuration. There are scattered periventricular hypodensities, as can be seen with chronic microvascular ischemic changes. The العلي-white matter differentiation is preserved. Visualized paranasal sinuses and mastoid air cells are well aerated. Orbital contents are within normal limits. Bony structures are intact. IMPRESSION: 1. No evidence of acute intracranial abnormality is demonstrated. 2. Chronic microvascular ischemic changes ? stable. 3. Cerebral atrophy ? stable. Electronically signed by Armani Alexandra 05-09-2025 12:21 AM Discharge Plan Visit Data Chief Complaint: Headache Stated Complaint: HEADACHE, HYPERTENSION ED Provider: Rachid Patterson Discharge Problem: Elevated troponin Patient Disposition: Admitted As Inpatient Condition: Fair Forms Stand Alone Forms: [facility] Prescriptions Prescriptions: No Action (DME) blood-glucose meter [OneTouch Verio IQ Meter] Kit See Rx Instructions .ROUTE .MEDSUPPLY Qty: 1 0RF Rx Instructions: Use to test blood sugar 5 times daily (insulin dependent) (DME) lancets [OneTouch Delica Lancets] 33 gauge misc See Rx Instructions .ROUTE .MEDSUPPLY Qty: 100 0RF Rx Instructions: Use to test blood sugar 5 times daily (insulin dependent) insulin aspart U-100 [Novolog FlexPen U-100 Insulin] 100 unit/mL (3 mL) insulin pen See Rx Instructions SC DIRECTED MDD 50 units Qty: 45 3RF Rx Instructions: Inject 0-4 Units under the skin in the morning and 0-4 Units at noon and 0-4 Units in the evening. Inject with meals. Glucose less than 70 instructions: Obtain STAT lab blood glucose and call covering provider. Glucose 80-150 (units): 0 Glucose 151-200 (units): 1 Glucose 201-250 (units): 2 Glucose 251-300 (units): 3 Glucose greater than 300 (units): 4 Glucose greater than 300 instructions: Give suggested insulin dose and call covering provider. - Subcutaneous (DME) [facility] See Rx Instructions .Route Qty: 1 0RF Rx Instructions: Seated walker As directed Drive folding smaller walker (DME) Walking Cane Misc See Rx Instructions .Route Qty: 1 0RF Rx Instructions: As directed (DME) pen needle, diabetic [Easy Comfort Pen [place]] 33 gauge x 1/4" needle See Rx Instructions .Route Qty: 100 5RF Rx Instructions: As directed 4 times daily (DME) OneTouch Verio test strips Strip See Rx Instructions .ROUTE .MEDSUPPLY Qty: 150 11RF Rx Instructions: Use to test blood sugar 5 times daily (insulin dependent) sertraline 100 mg tablet 100 mg PO QAM cholecalciferol (vitamin D3) 125 mcg (5,000 unit) capsule 125 mcg PO DAILY insulin glargine [Lantus Solostar U-100 Insulin] 100 unit/mL (3 mL) insulin pen 9 unit subcut HS levothyroxine [Synthroid] 88 mcg tablet 88 mcg PO DAILYBB Rx Instructions: with a glass of water on an empty stomach. Wait 30 minutes to eat valsartan-hydrochlorothiazide 320-12.5 mg tablet 1 tab PO DAILY Qty: 30 0RF nifedipine 60 mg tablet extended release 24hr 60 mg PO HS Qty: 30 0RF omeprazole 20 mg capsule,delayed release(DR/EC) 20 mg PO QAM Repatha SureClick 140 mg/mL pen injector See Rx Instructions .ROUTE .COMPLEX Rx Instructions: 140 mg subcutaneously ;Inject 140 mg (1 pen) under the skin every 14 days. Remove from refrigerator 30 minutes prior to injection. - Subcutaneous Entyvio Pen 108 mg/0.68 mL Pen Injector 108 mg SUBCUT .[id number] Rx Instructions: Inject 108 mg (1 pen) under the skin every 14 days. - Subcutaneous Referrals Referrals: Yohana Bull DO [Primary Care Provider] -
[2025-05-08 23:27] LABS: Hematocrit (blood only) 31.9 % (37.0-47.0); Hemoglobin 10.6 g/dL (12.0-16.0); Immature Granulocytes # (auto) 0.10 K/uL (0.01-0.20); Immature Granulocytes % (auto) 0.9 %; Mean Corpuscular Hemoglobin 27.5 pg (25.0-34.0); Mean Corpuscular Volume 82.6 fL (80.0-100.0); Platelet Count 287 K/uL (130-400); RDW Standard Deviation 44.3 fL (36.4-46.3); Red Blood Count 3.86 M/uL (4.20-5.40); White Blood Count 10.91 K/ul (4.8-10.8)
[2025-05-08 23:44] LABS: Alanine Aminotransferase 15.0 U/L (7-52); Albumin Globulin Ratio 1.2 (0.9-2); Albumin Level 3.6 gm/dl (3.4-5.0); Alkaline Phosphatase 140.0 U/L (34-104); Anion Gap 9.0 (3-11); Bilirubin,Total 0.4 mg/dl (0.2-1.0); Blood Urea Nitrogen 33.0 mg/dl (6-23); Calcium 8.9 mg/dl (8.6-10.3); Carbon Dioxide 27.0 mmol/L (21-32); Chloride 105.0 mmol/L (98-107); Creatinine Clr Calc Pharmacy 47.4 ml/min; Globulin 3.1 gm/dl (2.5-4.0); Glucose 192.0 mg/dl (70-99(Fasting)); Lipase 41.0 U/L (11-82); Potassium 3.2 mmol/L (3.5-5.1); Sodium 141.0 mmol/L (136-145); Total Protein 6.7 gm/dl (6.0-8.3)
[2025-05-08 23:56] LABS: INR 1.0 (0.9-1.1); Prothrombin Time 10.5 Seconds (9.0-12.0)
[2025-05-09] MEDS: ONDANSETRON INJ 2 MG/ML 2 ML VIAL IV STA (00:07)
[2025-05-09] MEDS: MoRPHine SULFATE 4 MG/ML 1 ML CARP\\VIAL IV STA (00:08)
--- NOTE | 2025-05-09 00:22 | CT Scan Report ---
EXAM: CT head/brain wo con CLINICAL HISTORY: headache TECHNIQUE: Multiple axial images were obtained from the skull base to the vertex without contrast. CT scan was performed according to ALARA (as low as reasonably achievable). 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 FINDINGS: There is cerebral atrophy. No evidence of space-occupying lesion, hemorrhage, edema, mass effect, midline shift, extra-axial collection, or hydrocephalus is noted. Basal cisterns are symmetric and normal in size and configuration. There are scattered periventricular hypodensities, as can be seen with chronic microvascular ischemic changes. The العلي-white matter differentiation is preserved. Visualized paranasal sinuses and mastoid air cells are well aerated. Orbital contents are within normal limits. Bony structures are intact. IMPRESSION: 1. No evidence of acute intracranial abnormality is demonstrated. 2. Chronic microvascular ischemic changes ? stable. 3. Cerebral atrophy ? stable. Electronically signed by Armani Alexandra 05-09-2025 12:21 AM
[2025-05-09] MEDS: POTASSIUM CHLORIDE CRTAB 20 MEQ TABCR PO STA ×2 (01:59→13:42)
--- NOTE | 2025-05-09 02:07 | XRay Report ---
EXAM: XR chest 1V portable CLINICAL HISTORY: HTN TECHNIQUE: An X-ray image of the chest is obtained in AP projection. Expiratory film. Patient is rotated. COMPARISON: Compared to the prior study dated 05/03/2024. FINDINGS: Pulmonary Parenchyma: Bilateral lower zone atelectatic bands are noted, unchanged since the last study. Suggestion of mild perihilar vascular congestion. Left lower zone haziness obscuring the left costophrenic angle, a new finding. Clear right costophrenic angle. Heart and Mediastinum: Enlarged heart silhouette, unchanged since the last study. No hilar or mediastinal lymphadenopathy. Bony Thorax: The bony thorax appears intact without fractures or deformities. Soft Tissues: Soft tissues overlying the chest wall are unremarkable. IMPRESSION: 1. Newly seen left lower zone haziness obscuring the left costophrenic angle, which may represent mild left pleural effusion, a new finding. 2. Cardiomegaly, unchanged. Suggestion of mild perihilar vascular congestion. 3. Bilateral lower zone atelectatic bands, unchanged. Electronically signed by Mustapha Page 05-09-2025 02:06 AM
--- NOTE | 2025-05-09 02:23 | History & Physical Report ---
Date of Service May 09, 2025 Assessment & Plan (1) Hypertensive urgency: Plan: 75-year-old female with past medical history significant for type 2 diabetes, hypothyroidism, hyperlipidemia, hypertension, mild mitral regurgitation, cerebral artery disease, Crohn's disease, duodenal diverticulum, degenerative disc disease, mild dementia, history of hemorrhagic stroke, PTSD, depression, ventral hernia without obstruction, neuroendocrine tumor who lives at home comes because of headaches and elevated blood pressure. Patient states her blood pressure was 220 / 100 at home today and she was having headaches which prompted her come to the ER. In the ER initial blood pressure was 213 /103 and she received IV hydralazine and morphine and currently headaches are better and blood pressure is improving. Patient has ongoing diplopia since her hemorrhagic stroke in January 2025. On and off she gets ear pain since her hemorrhagic stroke. No runny nose or sore throat. No cough. States has some difficulty swallowing because of dryness in the mouth. Appetite is okay. Uses 2 L oxygen while sleeping. Denies any chest pain or shortness of breath. Currently no nausea. No abdominal pain. She has ongoing diarrhea alternated with constipation. Denies blood in stools. Micturating okay. She says her daughter comes every week and arranges her medications. She supposed take p.o. hydralazine. as needed for elevated blood pressure but patient seems not taking it. On February 13, 2025 patient came to [facility] with diplopia and intermittent headaches and CAT scan showed acute parenchymal hemorrhage within the left basal ganglia with hemorrhagic CVA and she was transferred to [place] and it was thought hypertension likely cause of for intracranial hemorrhage. She is supposed to follow-up with neurology in 6 to 8 weeks seems not followed yet. She has been again admitted to [facility] in February with hypertensive urgency and strokelike symptoms. MRI did not show any acute findings. Echo showed normal EF. During that admission losartan was changed to valsartan and nifedipine dose was increased 60 mg p.o. daily. She was discharged on valsartan/HCTZ combination along with nifedipine 60 mg daily. As outpatient hyd rochlorothiazide dose was increased to 25 mg daily for lower extremity edema. Hypertensive urgency Headache mostly from elevated blood pressure CT head no acute findings Received IV hydralazine in the ER Will continue home valsartan/hydrochlorothiazide and nifedipine IV hydralazine as needed Close monitoring telemetry Cardiology consult in a.m. for further recommendations Diabetes Continue home long-acting insulin Sliding scale Will monitor Hypothyroidism On Synthyroid Depression On Remeron and Zoloft Hyperlipidemia On Repatha GERD On omeprazole Chronic disease On Entyvio Anemia Hemoglobin 10.6 Around baseline Hypokalemia Will replace Mild elevated troponin 16.3 Mostly demand ischemia Will follow serial enzymes Left pleural effusion? will f/u cxr pa/lateral view DVT prophylaxis Lovenox Disposition Telemetry Full code. History of Present Illness Chief Complaint: Headache and elevated blood pressure Primary Care Provider: Yohana Bull DO 75-year-old female with past medical history significant for type 2 diabetes, hypothyroidism, hyperlipidemia, hypertension, mild mitral regurgitation, cerebral artery disease, Crohn's disease, duodenal diverticulum, degenerative disc disease, mild dementia, history of hemorrhagic stroke, PTSD, depression, ventral hernia without obstruction, neuroendocrine tumor who lives at home comes because of headaches and elevated blood pressure. Patient states her blood pressure was 220 / 100 at home today and she was having headaches which prompted her come to the ER. In the ER initial blood pressure was 213 /103 and she received IV hydralazine and morphine and currently headaches are better and blood pressure is improving. Patient has ongoing diplopia since her hemorrhagic stroke in January 2025. On and off she gets ear pain since her hemorrhagic stroke. No runny nose or sore throat. No cough. States has some difficulty swallowing because of dryness in the mouth. Appetite is okay. Uses 2 L oxygen while sleeping. Denies any chest pain or shortness of breath. Currently no nausea. No abdominal pain. She has ongoing diarrhea alternated with constipation. Denies blood in stools. Micturating okay. She says her daughter comes every week and arranges her medications. She supposed take p.o. hydralazine. as needed for elevated blood pressure but patient seems not taking it. On February 13, 2025 patient came to [facility] with diplopia and intermittent headaches and CAT scan showed acute parenchymal hemorrhage within the left basal ganglia with hemorrhagic CVA and she was transferred to [place] and it was thought hypertension likely cause of for intracranial hemorrhage. She is supposed to follow-up with neurology in 6 to 8 weeks seems not followed yet. She has been again admitted to [facility] in February with hypertensive urgency and strokelike symptoms. MRI did not show any acute findings. Echo showed normal EF. During that admission losartan was changed to valsartan and nifedipine dose was increased 60 mg p.o. daily. She was discharged on valsartan/HCTZ combination along with nifedipine 60 mg daily. As outpatient hydrochlorothiazide dose was increased to 25 mg daily for lower extremity edema. Past medical history. As mentioned above. Past surgical history. Right breast lesion excision. Colonoscopy. EGD. Laparoscopic cholecystectomy with cholangiography. Enterectomy with small bowel resection. Tonsillectomy. Small bowel endoscopy. Social history. No smoking. Alcohol occasional. No drug use. Family history. Father had diabetes. Ear problems. Hypertension. Strokes. Mother had scoliosis. Sister from leukemia. Son has hypertension. Diabetes. Allergies Allergy/AdvReac Type Severity Reaction Status Date / Time bee venom protein (honey bee) Allergy Severe Anaphylaxis Verified 02/13/25 17:02 atorvastatin AdvReac Severe Joint Pain Verified 05/09/25 02:08 Home Medications Medication Instructions Recorded Confirmed Type blood-glucose meter (JixeeTouch #1 ea 04/12/20 05/09/25 Rx Verio IQ Meter kit) lancets 33 gauge (OneTouch Delica #100 ea 04/12/20 05/09/25 Rx Lancets) Wheeled Walker #1 ea 12/17/21 05/09/25 Rx Walking Cane #1 ea 02/05/22 05/09/25 Rx pen needle, diabetic 33 gauge x #100 ea 03/18/22 05/09/25 Rx 1/4" (Easy Comfort Pen [place]) blood sugar diagnostic (OneTouch #150 ea 06/22/22 05/09/25 Rx Verio test strips) cholecalciferol (vitamin D3) 125 125 mcg PO DAILY 11/05/23 05/09/25 History mcg (5,000 unit) capsule sertraline 100 mg tablet 100 mg PO QAM 11/05/23 05/09/25 History evolocumab 140 mg/mL subcutaneous See Rx Instructions .Route .COMPLEX 02/13/25 05/09/25 History pen injector (Juve Clark) omeprazole 20 mg capsule,delayed 20 mg PO HS 02/13/25 05/09/25 History release vedolizumab 108 mg/0.68 mL 108 mg subcut .[id number] 02/13/25 05/09/25 History subcutaneous pen injector (Entyvio Pen) levothyroxine 88 mcg tablet 88 mcg PO DAILYBB 03/22/25 05/09/25 History (Synthroid) nifedipine 60 mg tablet,extended 60 mg PO HS #30 tabs 03/24/25 05/09/25 Rx release 24 hr hydralazine 10 mg tablet 10 mg PO Q6 PRN Hypertension 05/09/25 05/09/25 History insulin aspart U-100 100 unit/mL 5 - 10 unit subcut WM 05/09/25 05/09/25 History (3 mL) subcutaneous pen (Novolog FlexPen U-100 Insulin aspart) insulin glargine 100 unit/mL (3 20 unit subcut HS 05/09/25 05/09/25 History mL) subcutaneous pen (Lantus Solostar U-100 Insulin) mirtazapine 7.5 mg tablet 7.5 mg PO HS 05/09/25 05/09/25 History potassium gluconate 595 mg (99 mg) 595 mg PO QAM 05/09/25 05/09/25 History tablet valsartan 320 1 tab PO QAM 05/09/25 05/09/25 History mg-hydrochlorothiazide 25 mg tablet Past Med/Surg History Problem List (Updated 05/09/25 @ 00:42 by Rachid Patterson DO) Elevated troponin (Acute) Headache due to hypertension History of hemorrhagic cerebrovascular accident (CVA) with residual deficit Stroke-like symptoms Hypertensive urgency Hypertensive emergency (Acute) Abnormal EKG Right bundle branch block Bradycardia Terminal ileitis Abnormal computed tomography of abdomen and pelvis Enterocolitis Epigastric abdominal pain (Acute) Partial small bowel obstruction (Acute) Hypoxia (Acute) Crohn's disease Osteoarthritis of right knee Myoclonic jerking Hyperlipidemia (Chronic) Hypertension (Chronic) Depression (Chronic) Post traumatic stress disorder (Chronic) Diabetes mellitus, type 2 (Chronic) Hypothyroidism (Chronic) Fatty liver disease, nonalcoholic (Chronic) Kidney stones (Chronic) Chronic back pain (Chronic) Osteoarthritis (Chronic) Neuropathy of foot (Chronic) Vitamin D deficiency (Chronic) Vertebral artery stenosis (Chronic) Right. 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 Grandmother (Maternal) Cancer Denies family history of Ovarian cancer Prostate cancer Myocardial infarction Breast cancer Lung cancer Colorectal cancer Social History Smoking Status: Never smoker Second Hand Exposure: No; Do You Dip or Chew Tobacco: No; Hx Alcohol Use: Yes Alcohol type: wine Alcohol Intake Frequency: Monthly or Less Hx Substance Use: No Preferred Language: Malaysian Communication Ability: Effective Visual Impairment: No Limitations Hearing Ability: Hard of Hearing Pewter Caster Required: No Beliefs That Will Affect Care: None marital status: Single Current Living Situation: Other Current Living Situation Comment: has roommate current occupational status: employed and retired 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, 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 [employer] Feels Safe at Home: Yes Safety Concerns: Feels Safe At This Time Childhood Exposure to Second-Hand Smoke: No Diet: regular Diet Comment: calorie counting, under 1500 calories Dental Care, Regularly: Yes Physical Activity Frequency: 5-6 Times per Week Seatbelt Use: always Sunscreen Use: Yes (sometimes ) Gender Identity: Female Assistive Devices: Oxygen - at Night and Walker Review of Systems Review of Systems: All systems reviewed & are unremarkable except as noted in HPI & below Physical Exam Physical Exam: General- Not in acute distress Head- atraumatic Eyes- PERRL. ENT- oropharynx clear Neck- supple, no JVD. Lungs- clear to auscultation no wheezing or crackles Heart- regular rhythm; no murmur, no gallop. Abdomen- normal bowel sounds, soft, nontender, no distension Extremities- no pretibial edema, no erythema seen. Neuro- alert, oriented PERRL, no facial palsy; no dysarthria; moves extremities Results & Data Results & Data Vital Signs (Past 12 Hours) Vital Signs Temp Pulse Pulse Resp BP BP Pulse Ox 05/09/25 01:52 63 18 152/78 H 94 05/08/25 23:40 66 174/80 H 05/08/25 23:33 61 18 174/80 H 96 05/08/25 23:26 67 05/08/25 23:21 94 H 20 94 05/08/25 23:14 88 L 05/08/25 23:09 36.7 C 63 20 213/103 H 91 O2 Del Method O2 Flow Rate 05/09/25 01:52 Room Air 05/08/25 23:40 05/08/25 23:33 Nasal Cannula 2 05/08/25 23:26 05/08/25 23:21 Nasal Cannula 2 05/08/25 23:14 Room Air, Nasal Cannula 05/08/25 23:09 Room Air Diagnostic Findings Laboratory Results WBC 10.91 K/ul (4.8-10.8) H 05/08/25 23:12 RBC 3.86 M/uL (4.20-5.40) L 05/08/25 23:12 Hgb 10.6 g/dL (12.0-16.0) L 05/08/25 23:12 Hct 31.9 % (37.0-47.0) L 05/08/25 23:12 MCV 82.6 fL (80.0-100.0) 05/08/25 23:12 MCH 27.5 pg (25.0-34.0) 05/08/25 23:12 MCHC 33.2 g/dL (32.0-36.0) 05/08/25 23:12 RDW Std Deviation 44.3 fL (36.4-46.3) 05/08/25 23:12 RDW Coeff of Ariel 14.8 % (11.5-14.5) H 05/08/25 23:12 Plt Count 287 K/uL (130-400) 05/08/25 23:12 MPV 9.8 fL (9.4-12.4) 05/08/25 23:12 Immature Gran % (Auto) 0.9 % 05/08/25 23:12 Neut % (Auto) 74.3 % 05/08/25 23:12 Lymph % (Auto) 12.8 % 05/08/25 23:12 [place] % (Auto) 8.7 % 05/08/25 23:12 Eos % (Auto) 2.7 % 05/08/25 23:12 Baso % (Auto) 0.6 % 05/08/25 23:12 Neut # (Auto) 8.09 K/uL (1.40-6.50) H 05/08/25 23:12 Lymph # (Auto) 1.40 K/uL (1.20-3.40) 05/08/25 23:12 [place] # (Auto) 0.95 K/uL (0.11-0.59) H 05/08/25 23:12 Eos # (Auto) 0.30 K/uL (0.00-0.50) 05/08/25 23:12 Baso # (Auto) 0.07 K/uL (0.00-0.20) 05/08/25 23:12 Immature Gran # (Auto) 0.10 K/uL (0.01-0.20) 05/08/25 23:12 PT 10.5 Seconds (9.0-12.0) 05/08/25 23:12 INR 1.0 (0.9-1.1) 05/08/25 23:12 Sodium 141 mmol/L (136-145) 05/08/25 23:12 Potassium 3.2 mmol/L (3.5-5.1) L 05/08/25 23:12 Chloride 105 mmol/L (98-107) 05/08/25 23:12 Carbon Dioxide 27 mmol/L (21-32) 05/08/25 23:12 Anion Gap 9 (3-11) 05/08/25 23:12 BUN 33 mg/dl (6-23) H 05/08/25 23:12 Creatinine 1.00 mg/dl (0.6-1.2) 05/08/25 23:12 Est Cr Clr Drug Dosing 47.4 ml/min 05/08/25 23:12 eGFR 59.12 05/08/25 23:12 BUN/Creatinine Ratio 33.0 (10-20) H 05/08/25 23:12 Glucose 192 mg/dl (70-99(Fasting)) H 05/08/25 23:12 Calcium 8.9 mg/dl (8.6-10.3) 05/08/25 23:12 Total Bilirubin 0.4 mg/dl (0.2-1.0) 05/08/25 23:12 AST 14 U/L (13-39) 05/08/25 23:12 ALT 15 U/L (7-52) 05/08/25 23:12 Alkaline Phosphatase 140 U/L (34-104) H 05/08/25 23:12 Troponin I High Sens 16.3 pg/ml (0-14) H 05/08/25 23:12 Total Protein 6.7 gm/dl (6.0-8.3) 05/08/25 23:12 Albumin 3.6 gm/dl (3.4-5.0) 05/08/25 23:12 Globulin 3.1 gm/dl (2.5-4.0) 05/08/25 23:12 Albumin/Globulin Ratio 1.2 (0.9-2) 05/08/25 23:12 Lipase 41 U/L (11-82) 05/08/25 23:[address] 05/08/25 23:16 EXAM: CT head/brain wo con CLINICAL HISTORY: headache TECHNIQUE: Multiple axial images were obtained from the skull base to the vertex without contrast. CT scan was performed according to ALARA (as low as reasonably achievable). 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 FINDINGS: There is cerebral atrophy. No evidence of space-occupying lesion, hemorrhage, edema, mass effect, midline shift, extra-axial collection, or hydrocephalus is noted. Basal cisterns are symmetric and normal in size and configuration. There are scattered periventricular hypodensities, as can be seen with chronic microvascular ischemic changes. The العلي-white matter differentiation is preserved. Visualized paranasal sinuses and mastoid air cells are well aerated. Orbital contents are within normal limits. Bony structures are intact. IMPRESSION: 1. No evidence of acute intracranial abnormality is demonstrated. 2. Chronic microvascular ischemic changes ? stable. 3. Cerebral atrophy ? stable. Electronically signed by Armani Alexandra 05-09-2025 12:21 AM Chest X-Ray 05/09/25 00:30 EXAM: XR chest 1V portable CLINICAL HISTORY: HTN TECHNIQUE: An X-ray image of the chest is obtained in AP projection. Expiratory film. Patient is rotated. COMPARISON: Compared to the prior study dated 05/03/2024. FINDINGS: Pulmonary Parenchyma: Bilateral lower zone atelectatic bands are noted, unchanged since the last study. Suggestion of mild perihilar vascular congestion. Left lower zone haziness obscuring the left costophrenic angle, a new finding. Clear right costophrenic angle. Heart and Mediastinum: Enlarged heart silhouette, unchanged since the last study. No hilar or mediastinal lymphadenopathy. Bony Thorax: The bony thorax appears intact without fractures or deformities. Soft Tissues: Soft tissues overlying the chest wall are unremarkable. IMPRESSION: 1. Newly seen left lower zone haziness obscuring the left costophrenic angle, which may represent mild left pleural effusion, a new finding. 2. Cardiomegaly, unchanged. Suggestion of mild perihilar vascular congestion. 3. Bilateral lower zone atelectatic bands, unchanged. Electronically signed by Mustapha Page 05-09-2025 02:06 AM ECG Additional Comments: ECG. Normal sinus rhythm rate of 62. Right bundle branch block. No significant change was found. Code Status & VTE Plan VTE Prophylaxis Plan VTE Prophylaxis will be ordered: Yes
[2025-05-09] MEDS ORDERED: CARBOHYDRATES FOR HYPOGLYCEMIA PO PRN (02:55)
[2025-05-09] MEDS ORDERED: GLUCAGON FOR INJ 1 MG VIAL SQ PRN (02:55)
[2025-05-09] MEDS ORDERED: ONDANSETRON INJ 2 MG/ML 2 ML VIAL IV PRN (02:55)
[2025-05-09] MEDS ORDERED: GLUCOSE 10 TAB/TUBE PO PRN (02:55)
[2025-05-09] MEDS ORDERED: GLUCOSE 40% GEL 15 GM TUBE PO PRN (02:55)
[2025-05-09] MEDS ORDERED: NITROGLYCERIN SL 0.4 MG/TAB TAB SL PRN (02:55)
[2025-05-09] MEDS ORDERED: DEXTROSE 50% 50 ML SYRINGE IV PRN (02:55)
[2025-05-09] MEDS ORDERED: ACETAMINOPHEN 1,000 MG/100 ML VIAL IV PRN (02:55)
[2025-05-09 07:06] LABS: Hematocrit (blood only) 31.8 % (37.0-47.0); Hemoglobin 10.4 g/dL (12.0-16.0); Immature Granulocytes # (auto) 0.09 K/uL (0.01-0.20); Immature Granulocytes % (auto) 0.8 %; Mean Corpuscular Hemoglobin 27.1 pg (25.0-34.0); Mean Corpuscular Volume 82.8 fL (80.0-100.0); Platelet Count 265 K/uL (130-400); RDW Standard Deviation 44.8 fL (36.4-46.3); Red Blood Count 3.84 M/uL (4.20-5.40); White Blood Count 10.86 K/ul (4.8-10.8)
[2025-05-09 07:22] LABS: Anion Gap 8.0 (3-11); Blood Urea Nitrogen 29.0 mg/dl (6-23); Calcium 8.7 mg/dl (8.6-10.3); Carbon Dioxide 28.0 mmol/L (21-32); Chloride 107.0 mmol/L (98-107); Creatinine Clr Calc Pharmacy 54.5 ml/min; Glucose 162.0 mg/dl (70-99(Fasting)); Magnesium 1.7 mg/dl (1.7-2.4); Potassium 3.5 mmol/L (3.5-5.1); Sodium 143.0 mmol/L (136-145)
[2025-05-09] MEDS: LEVOTHYROXINE SODIUM 88 MCG TABLET PO SCH (07:38)
[2025-05-09 07:53] LABS: Hemoglobin A1C 7.9 % (4.5-5.6)
[2025-05-09] MEDS ORDERED: NON-FORMULARY MEDICATION (Potassium Gluconate 595 mg (99 mg) Tablet) PO SCH (09:00)
[2025-05-09] MEDS: SERTRALINE HCL 100 MG TABLET PO SCH (09:03)
[2025-05-09] MEDS: VALSARTAN 80 MG TAB PO SCH (09:03)
[2025-05-09] MEDS: ENOXAPARIN INJ 40 MG/0.4 ML SYR SQ SCH (09:03)
[2025-05-09] MEDS: INSULIN ASPART PER UNIT CHARGE SC SCH (09:04)
[2025-05-09] MEDS: hydroCHLOROthiazide 25 MG TAB PO SCH (09:04)
--- NOTE | 2025-05-09 12:01 | XRay Report ---
XR chest 2V PA/lateral CLINICAL HISTORY: left pleural effusion? COMPARISON STUDY: Chest radiograph performed earlier today. FINDINGS: There is no pneumothorax or pleural effusion. There is cardiomegaly without radiographic ev idence for pulmonary edema. Linear bibasilar densities favor atelectasis. There is no definite consol idation to suggest pneumonia. IMPRESSION: 1. No pneumothorax or pleural effusion. 2. Cardiomegaly. 3. Linear bibasilar densities which favor atelectasis. ACT 112: Negative or not required by law. Electronically signed by: Samir Ahumada M.D. 05/09/2025 11:59 AM
--- NOTE | 2025-05-09 12:07 | Hospitalist Progress Note ---
Date of Service May 09, 2025 Assessment & Plan (1) Hypertension, uncontrolled: (2) Crohn's disease: (3) Diabetes mellitus, type 2: (4) Hypothyroidism: Plan Patient presented with elevated blood pressure and headache. She received 1 dose of IV hydralazine. Blood pressure is now very well-controlled with just her usual home medication dose this morning. No immediate explanation for patient's intermittently elevated blood pressures. Will continue to observe here in the hospital over the next 24 hours. If patient continues to spike high blood pressures intermittently may need to consider scheduling the hydralazine that she has at home versus using only as needed. Son at bedside, daughter on the phone at the time of evaluation and updated to the plan of care Admission and Anticipated Discharge Date Admission Date: May 09, 2025 Subjective Patient completely asymptomatic at this time. Son at bedside and daughter on phone. Everyone believes that patient has been compliant with her medicines. Did not think that she has missed any of her meds. Home BP cuff seems calibrated to take blood pressure accurately whenever they check it when she compares it to her office readings. Denies any new changes or other issues that may have exacerbated her blood pressure yesterday. Physical Exam Physical Exam: Constitutional: Alert HEENT: Mucous membranes moist. Lungs: Clear to auscultation, decreased, no wheezes rales or rhonchi CV: S1-S2, regular Abdomen: Soft, nontender, nondistended Extremities: No significant edema Neuro: No focal deficits Psych: Cooperative, normal mood Results & Data Results & Data Vital Signs (Past 12 Hours) Vital Signs Temp Pulse Pulse Resp BP Pulse Ox O2 Del Method 05/09/25 11:00 Room Air 05/09/25 11:00 36.6 C 59 L 20 135/74 93 Room Air 05/09/25 09:01 67 12 129/67 91 Nasal Cannula 05/09/25 05:37 37 C 57 L 20 127/66 94 Room Air 05/09/25 03:17 62 05/09/25 01:52 63 18 152/78 H 94 Room Air O2 Flow Rate 05/09/25 11:00 05/09/25 11:00 05/09/25 09:01 2 05/09/25 05:37 05/09/25 03:17 05/09/25 01:52 Diagnostic Findings Reviewed imaging, laboratory and diagnostic studies. Pertinent findings as below. Troponins reviewed Personally reviewed two-view chest x-ray, no definitive effusion, no infiltrate.
[2025-05-09] MEDS ORDERED: ACETAMINOPHEN 325 MG TAB PO PRN (12:09)
[2025-05-09] MEDS: MIRTAZAPINE TAB 15 MG TAB PO SCH (21:11)
[2025-05-09] MEDS: LANTUS PER UNIT CHARGE SC SCH (21:13)
[2025-05-09] MEDS: NIFEdipine EXTENDED REL 30 MG TABCR PO SCH (21:13)
[2025-05-10 03:27] VITALS: RESP 16
[2025-05-10 07:07] LABS: Anion Gap 7.0 (3-11); Blood Urea Nitrogen 36.0 mg/dl (6-23); Calcium 8.7 mg/dl (8.6-10.3); Carbon Dioxide 27.0 mmol/L (21-32); Chloride 109.0 mmol/L (98-107); Creatinine Clr Calc Pharmacy 46.7 ml/min; Glucose 139.0 mg/dl (70-99(Fasting)); Potassium 3.8 mmol/L (3.5-5.1); Sodium 143.0 mmol/L (136-145)
[2025-05-10 08:10] VITALS: O2SAT 92
--- NOTE | 2025-05-10 09:25 | Discharge Summary ---
Discharge Summary Date of Service May 10, 2025 Principal Dx & Hospital Course #1 = Principal Diagnosis (1) Hypertension, uncontrolled: (2) Crohn's disease: (3) Diabetes mellitus, type 2: (4) Hypothyroidism: (5) Binocular vision disorder with diplopia: Plan Patient 75-year-old female with known hypertension that has been somewhat difficult to control presented to the emergency room with uncontrolled hypertension and elevated blood pressure readings at home. Also complaining of some headache. Patient was evaluated emergency room. Did have an elevated blood pressure. Received 1 dose of IV hydralazine. She was referred for further observation. Patient was observed in the hospital. There is no significant arrhythmias on telemetry monitoring. She was given her usual prescribed antihypertensive medications. Here in the hospital subsequently all of her blood pressure recent readings were well within a normal range in controlled range. Her headache resolved. She did not need any as needed medications or adjustment of the dosages of her medications. Laboratory studies were stable. Patient has chronic diplopia from her previous hemorrhagic stroke and she has corrective glasses that she wears. On the day of discharge again blood pressure is well-controlled on her usual medications. Phone conversations with the patient's daughter. She said they did try to increase her nifedipine in the past and this resulted in hypotension. I recommended she continue to take her currently prescribed dosages of her blood pressure medications. It seems as though she did not miss any of her medications, however this will be ongoing challenge to make sure that she has been compliant with her medications. Also recommended monitoring salt intake and following up with PCP for ongoing blood pressure monitoring. Notes For Next Care Provider Continue to monitor blood pressure Medication Changes From Visit None Admission HPI Per Admitting Provider 75-year-old female with past medical history significant for type 2 diabetes, hypothyroidism, hyperlipidemia, hypertension, mild mitral regurgitation, cerebral artery disease, Crohn's disease, duodenal diverticulum, degenerative disc disease, mild dementia, history of hemorrhagic stroke, PTSD, depression, ventral hernia without obstruction, neuroendocrine tumor who lives at home comes because of headaches and elevated blood pressure. Patient states her blood pressure was 220 / 100 at home today and she was having headaches which prompted her come to the ER. In the ER initial blood pressure was 213 /103 and she received IV hydralazine and morphine and currently headaches are better and blood pressure is improving. Patient has ongoing diplopia since her hemorrhagic stroke in January 2025. On and off she gets ear pain since her hemorrhagic stroke. No runny nose or sore throat. No cough. States has some difficulty swallowing because of dryness in the mouth. Appetite is okay. Uses 2 L oxygen while sleeping. Denies any chest pain or shortness of breath. Currently no nausea. No abdominal pain. She has ongoing diarrhea alternated with constipation. Denies blood in stools. Micturating okay. She says her daughter comes every week and arranges her medications. She supposed take p.o. hydralazine. as needed for elevated blood pressure but patient seems not taking it. On February 13, 2025 patient came to [facility] with diplopia and intermittent headaches and CAT scan showed acute parenchymal hemorrhage within the left basal ganglia with hemorrhagic CVA and she was transferred to [place] and it was thought hypertension likely cause of for intracranial hemorrhage. She is supposed to follow-up with neurology in 6 to 8 weeks seems not followed yet. She has been again admitted to [facility] in February with hypertensive urgency and strokelike symptoms. MRI did not show any acute findings. Echo showed normal EF. During that admission losartan was changed to valsartan and nifedipine dose was increased 60 mg p.o. daily. She was discharged on valsartan/HCTZ combination along with nifedipine 60 mg daily. As outpatient hydrochlorothiazide dose was increased to 25 mg daily for lower extremity edema. Past medical history. As mentioned above. Past surgical history. Right breast lesion excision. Colonoscopy. EGD. Laparoscopic cholecystectomy with cholangiography. Enterectomy with small bowel resection. Tonsillectomy. Small bowel endoscopy. Social history. No smoking. Alcohol occasional. No drug use. Family history. Father had diabetes. Ear problems. Hypertension. Strokes. Mother had scoliosis. Sister from leukemia. Son has hypertension. Diabetes. Admission Exam Per Admitting Provider See H&P Discharge Exam Constitutional: Alert HEENT: Mucous membranes moist. Lungs: Clear to auscultation, decreased, no wheezes rales or rhonchi CV: S1-S2, regular Abdomen: Soft, nontender, nondistended Extremities: No significant edema Neuro: No focal deficits Psych: Cooperative, normal mood Updated Medication List Medication Instructions Recorded Confirmed Type blood-glucose meter (GrabInbox #1 ea 04/12/20 05/09/25 Rx Verio IQ Meter kit) lancets 33 gauge (OneTouch Delica #100 ea 04/12/20 05/09/25 Rx Lancets) Wheeled Walker #1 ea 12/17/21 05/09/25 Rx Walking Cane #1 ea 02/05/22 05/09/25 Rx pen needle, diabetic 33 gauge x #100 ea 03/18/22 05/09/25 Rx 1/4" (Easy Comfort Pen Porcupine) blood sugar diagnostic (OneTouch #150 ea 06/22/22 05/09/25 Rx Verio test strips) cholecalciferol (vitamin D3) 125 125 mcg PO DAILY 11/05/23 05/09/25 History mcg (5,000 unit) capsule sertraline 100 mg tablet 100 mg PO QAM 11/05/23 05/09/25 History evolocumab 140 mg/mL subcutaneous See Rx Instructions .Route .COMPLEX 02/13/25 05/09/25 History pen injector (Repclaudya SureClick) omeprazole 20 mg capsule,delayed 20 mg PO HS 02/13/25 05/09/25 History release vedolizumab 108 mg/0.68 mL 108 mg subcut .[id number] 02/13/25 05/09/25 History subcutaneous pen injector (Entyvio Pen) levothyroxine 88 mcg tablet 88 mcg PO DAILYBB 03/22/25 05/09/25 History (Synthroid) nifedipine 60 mg tablet,extended 60 mg PO HS #30 tabs 03/24/25 05/09/25 Rx release 24 hr hydralazine 10 mg tablet 10 mg PO Q6 PRN Hypertension 05/09/25 05/09/25 History insulin aspart U-100 100 unit/mL 5 - 10 unit subcut WM 05/09/25 05/09/25 History (3 mL) subcutaneous pen (Novolog FlexPen U-100 Insulin aspart) insulin glargine 100 unit/mL (3 20 unit subcut HS 05/09/25 05/09/25 History mL) subcutaneous pen (Lantus Solostar U-100 Insulin) mirtazapine 7.5 mg tablet 7.5 mg PO HS 05/09/25 05/09/25 History potassium gluconate 595 mg (99 mg) 595 mg PO QAM 05/09/25 05/09/25 History tablet valsartan 320 1 tab PO QAM 05/09/25 05/09/25 History mg-hydrochlorothiazide 25 mg tablet Hospital Stay Data Consultations 05/09/25 00:33 ED Decision to Admit Stat Diagnostic Imagining Performed 05/08/25 23:16 CT head/brain wo con Stat Reviewed imaging, laboratory and diagnostic studies. Pertinent findings as below. Electrolytes stable Creatinine 1.0 Glucose 145 Pending Results Patient Have Any Pending Studies at Discharge: No Discharge Instructions Given to Patient (Per Discharging Provider) Take all medications as prescribed Take home blood pressure monitor with you to office visits to calibrate against office blood pressure machine Home Health Attestation I certify that this patient is under my care and that I, or a physicians transport assistant working with me, had a face to-face encounter that meets the home health [id number] encounter requirements with this patient. The encounter with the patient was in whole, or in part, for the following medical condition, which is the primary reason for home health care (list medical condition): I certify that, based on my findings, the following services are medically necessary home health services: My clinical findings support the need for the above services because: Further, I certify that my clinical findings support that this patient is homebound (i.e. absences from home require considerable and taxing effort and are for medical reasons or [employer] services or infrequently or of short duration when for other reasons) because: Certification for Home Health Services: Based on the above findings, I certify that this patient is confined to the home and needs intermittent fdc care, physical therapy and/or speech therapy or continues to need occupational therapy. The patient is under my care, and I have initiated the establishment of the plan of care. This patient will be followed by a physician who will periodically review the plan of care. Total Time Total Time Spent Total Time Spent (In Minutes): 34
[2025-05-10 11:50] VITALS: BP 138/76; PULSE 60; TEMP 97.9
--- NOTE | 2025-05-11 16:19 | Electrocardiogram Report ---
Test Reason : Blood Pressure : */* mmHG Vent. Rate : 62 BPM Atrial Rate : 62 BPM P-R Int : 200 ms QRS Dur : 150 ms QT Int : 474 ms P-R-T Axes : 56 -3 0 degrees QTcB Int : 481 ms Normal sinus rhythm Right bundle branch block Nonspecific T wave abnormality Inferior leads Abnormal ECG When compared with ECG of 22-Mar-2025 07:09, No significant change was found Confirmed by Shayne Isabel ([id number]) on 05/11/2025 4:18:55 PM Referred By: REFERRED SELF Confirmed By: Shayne Isabel
== END 2025-05-10 12:30 | disposition home health service (06) ==
LOC: ED 22:59 → INTOOBSV 05-09 02:08 → EDINP 05-09 02:08 → 2S 05-09 02:35